=== PATIENT | male | born 1950 | race Caucasian/White ===

== ENCOUNTER 2020-11-05 09:58 | Inpatient (IN) | payer MEDICARE, SELFPAY ==
[~2020-11-05 09:58] MED LIST: Iopamidol-370 76% 500 ML 1 ML ONE
[2020-11-05] MEDS ORDERED: Diltiazem 125 MG/25 ML ONE (10:12)
[2020-11-05] MEDS ORDERED: Aspirin Chewable 81 MG TAB ONE (10:27)
[2020-11-05] MEDS ORDERED: Furosemide 40 MG/4 ML VIAL ONE (10:27)
--- NOTE | 2020-11-05 10:46 | RAD ---
Chest AP view INDICATION: Shortness of breath with Covid positive diagnosis and hypoxia COMPARISON: None FINDINGS: Lungs: There are interstitial and airspace opacities seen within the mid to lower lobes bilaterally Cardiac silhouette: There is mild cardiomegaly Pulmonary vasculature: Normal Pleural spaces: No pleural effusion or pneumothorax is demonstrated. Upper abdomen: No abnormality seen. Osseous structures: No acute osseous abnormality. Additional findings: None. IMPRESSION: Findings suspicious for bilateral pneumonia. Mild cardiomegaly without cardiac decompensation.
[2020-11-05 10:53] LABS: #Lymphocytes 0.4 thou/uL (1.20-3.40); #Monocytes 0.5 thou/uL (0.11-0.59); #Neutrophils 8.7 thou/uL (1.40-6.50); %Eosinophils 0.1 % (0.0-10.0); %Lymphocytes 3.7 % (21.0-51.0); %Monocytes 5.4 % (0.0-10.0); %Neutrophils 90.7 % (42.0-75.0); Hemoglobin 15.2 g/dL (14.0-18.0); Mean Corpuscular HGB CONC 32.9 g/dL (32.0-36.0); Mean Corpuscular Volume 85.1 fL (78.0-98.0); Mean Platelet Volume 7.4 fL (7.4-10.4); Platelet Count 479 thou/uL (130-400); RBC Distribution Width 14.3 % (11.5-14.5); Red Blood Cell (RBC) Count 5.42 mill/uL (4.70-6.10); White Blood Cell (WBC) Count 9.6 thou/uL (4.8-10.8)
[2020-11-05 10:58] LABS: INR-International Normal Ratio 1.2; PTT 26.7 sec (22.9-36.1); Prothrombin Time 15.4 sec (12.0-14.7)
[2020-11-05 11:12] LABS: ALT (SGPT) 20 U/L (8-55); AST (SGOT) 32 U/L (5-34); Albumin 3.3 g/dL (3.4-4.8); Alkaline Phosphatase 27 U/L (40-110); Anion Gap 21 mmol/L (10-20); BUN (Urea Nitrogen) 43 mg/dL (8.4-25.7); Bilirubin, Total 0.8 mg/dL (0.2-1.2); CK (CPK) 151 U/L (30-200); Calc. Creatinine Clearance 0 mL/min (70-130); Calcium 9.3 mg/dL (7.8-10.44); Carbon Dioxide 20 mmol/L (23-31); Chloride 108 mmol/L (98-107); Globulin 3.1 g/dL (2.4-3.5); Glucose 413 mg/dL (80-115); Protein, Total 6.4 g/dL (5.8-8.1); Sodium 144 mmol/L (136-145)
[2020-11-05 11:34] LABS: CKMB 1.9 ng/mL (0-6.6)
[2020-11-05 11:47] LABS: Bacteria/HPF None Seen HPF (None Seen); Bilirubin Negative (Negative); Blood, Urine 1+ (Negative); Clarity Clear (Clear); Glucose, Urine (Dipstick) Greater than 1000 mg/dL (Negative); Ketone, Urine Negative (Negative); Leukocyte Negative Leu/uL (Negative); Nitrite Negative (Negative); Protein, Urine (Dipstick) 50 mg/dL (Neg-Trace); RBC/HPF 0-3 HPF (0-3); Squamous Epithelial None Seen HPF (0-3); Urobilinogen Normal mg/dL (Less than 2); WBC/HPF 0-3 HPF (0-3)
--- NOTE | 2020-11-05 11:54 | CT ---
CT arteriogram chest with IV contrast and 3-D imaging HISTORY: Dyspnea. COVID positive. FINDINGS: There is good contrast opacification pulmonary arteries. Partial opacification of the thora cic aorta. Bovine origin of the great vessels at the aortic arch. Mild arterial calcification. Prominent ill-defined predominantly peripheral patchy areas of groundglass infiltrate are present thr oughout each lung. No pleural fluid or pneumothorax. No mediastinal adenopathy. A 1.8 cm cyst is partially visualized wi thin the left thyroid lobe. Calcified granulomata of the liver are consistent with healed granulomatous disease. Hyperdense stone s are present within the gallbladder lumen. IMPRESSION : No evidence of pulmonary embolus. Moderate CT findings of COVID pneumonitis. Cholelithiasis.
[2020-11-05] MEDS ORDERED: Metoprolol Tartrate 5 MG/5 ML VIAL ONE (12:13)
[2020-11-05] MEDS ORDERED: Magnesium 2 GM/50 ML BAG (IN WATER) ONE (12:13)
[2020-11-05 12:58] LABS: SARS-CoV-2 NAA Rapid Test DETECTED (NotDetected)
[2020-11-05] MEDS ORDERED: Enoxaparin Sodium 30 MG/0.3 ML SYRINGE ONE (13:55)
[2020-11-05] MEDS ORDERED: Enoxaparin Sodium 80 MG/0.8 ML SYRINGE ONE (13:55)
[2020-11-05 14:00] LABS: Lactic Acid 2.5 mmol/L (0.5-2.2)
[2020-11-05 14:06] LABS: Troponin I 0.036 ng/mL (< 0.028)
[2020-11-05] MEDS ORDERED: Enoxaparin Sodium 100 MG/ML SYRINGE SC SCH (14:15)
[2020-11-05] MEDS ORDERED: Amiodarone 450 MG in Dextrose 5% in Water 250 ML IVPB SCH (14:15)
[2020-11-05] MEDS: Sodium Chloride 0.9% 1,000 ML IV SCH ×7 (14:16→22:38)
[2020-11-05] MEDS ORDERED: Dextrose 5% in Water 1,000 ML IV PRN (14:26)
[2020-11-05] MEDS ORDERED: Dextrose 50% Abboject 50 ML SYRINGE SLOW IVP PRN (14:26)
--- NOTE | 2020-11-05 14:31 | PDOC.HHP ---
Hospitalist HPI - History of Present Illness Weakness History of Present Illness: Patient is a 69-year-old male with a history of diabetes, hypertension, hyperlipidemia who was admitted to the hospital in [place] 4 days ago. At that time the patient was experiencing some shortness of breath and was diagnosed with COVID-19 pneumonia. He was admitted to the hospital there and discharged on Thursday. From his discharge paperwork it appears as though he had been put on a beta-na and Eliquis for atrial fibrillation. The patient reports that he thought he was going to be discharged to a rehab facility however that did not happen. He was picked up by his niece and taken to [place] to a hotel room. Patient reports he was discharged on home oxygen. His discharge medications included dexamethasone, vitamin D3 for Covid pneumonia. It appears as though they also sent home on cefdinir and azithromycin for Covid pneumonia as I do not see another indication for that. Was also on metoprolol and Eliquis for A. fib with RVR along with his other home medications for diabetes and cholesterol. Reports he is just become progressively weaker to the point he could not get up today so he called an ambulance and was brought to this facility. He continues to feel some shortness of breath. Denies any specific chest pain. Denies any prior cardiac history. ED Course: Patient was noted to be hypotensive and in A. fib with RVR. He did receive an initial fluid bolus. He subsequently been on some IV maintenance fluids. He received aspirin 324 mg x 1. He was started on a diltiazem drip at 5 mg/h without a bolus due to his blood pressure. He was given IV metoprolol 5 mg x 1. He was given Lasix 40 mg IV x1 and magnesium 2 g. He was also given Lovenox 1 mg/kg. His blood pressure has improved somewhat and currently is maintaining above 100 systolic. His heart rate is still fairly variable and getting up to the 160s to 170s at times with modest exertion. Hospitalist ROS - Review of Systems Constitutional: reports: weakness, malaise. denies: fever, chills Respiratory: reports: shortness of breath, SOB with excertion. denies: cough Cardiovascular: denies: chest pain, palpitations Gastrointestinal: denies: nausea, vomiting, abdominal pain, diarrhea, constipation Genitourinary: denies: dysuria, frequency All other systems reviewed; all pertinent +/- noted in HPI/Subj - Medication Medications: Crestor 20 mg p.o. daily Glimepiride 1 mg p.o. daily Losartan 25 mg p.o. daily Metformin 1000 mg p.o. daily Metoprolol 25 mg p.o. twice daily Actos 15 mg p.o. daily Eliquis 5 mg p.o. twice daily Fenofibrate 154 mg p.o. daily Azithromycin Cefdinir Dexamethasone 6 mg daily Vitamin D3 Hospitalist History - Past Medical History Source: patient Cardiac: reports: AFIB, HTN, Hyperlipidemia Endocrine: reports: Diabetes - Past Surgical History Past Surgical History: reports: Appendectomy - Family History Family History: reports: cardiac disorder (Mother of an NH at 61, father with CHF.) - Social History Smoking Status: Never smoker Alcohol: reports: None Drugs: reports: none Living Situation: Alone Other Social History: When asked where the patient lives he indicated "nowhere". On pressing him he states he is now living in [facility]. He says his sister Uzma would be his surrogate decision maker. He is full code but was clear he does not want to be in a vegetative state. - Exam General Appearance: ill appearing General - other findings: Tachypneic Eye: PERRL Neck: supple, symmetric, no JVD, no thyromegaly, no lymphadenopathy, no carotid bruit Heart: no murmur, no gallops, no rubs, irregular Heart - other findings: Tachycardic Respiratory: no wheezes, no ronchi, rales (Very modest scattered rales) Gastrointestinal: soft, non-tender, non-distended, normal bowel sounds, no palpable masses, no hepatomegaly, no splenomegaly, no bruit Extremities: no cyanosis, no clubbing, no edema Skin: normal turgor Neurological: no focal deficits Musculoskeletal: generalized weakness Psychiatric: normal affect, normal behavior Hospitalist Results - Labs Result Diagrams: 11/05/20 10:27 11/05/20 10:27 Lab results: WBC 9.6 thou/uL (4.8-10.8) 11/05/20 10:27 Hgb 15.2 g/dL (14.0-18.0) 11/05/20 10:27 Hct 46.1 % (42.0-52.0) 11/05/20 10:27 MCV 85.1 fL (78.0-98.0) 11/05/20 10:27 Plt Count 479 thou/uL (130-400) H 11/05/20 10:27 Neutrophils % 90.7 % (42.0-75.0) H 11/05/20 10:27 Sodium 144 mmol/L (136-145) 11/05/20 10:27 Potassium 5.0 mmol/L (3.5-5.1) 11/05/20 10:27 Chloride 108 mmol/L (98-107) H 11/05/20 10:27 Carbon Dioxide 20 mmol/L (23-31) L 11/05/20 10:27 BUN 43 mg/dL (8.4-25.7) H 11/05/20 10:27 Creatinine 1.65 mg/dL (0.7-1.3) H 11/05/20 10:27 Glucose 413 mg/dL (80-115) H 11/05/20 10:27 Lactic Acid 2.5 mmol/L (0.5-2.2) H 11/05/20 13:31 Calcium 9.3 mg/dL (7.8-10.44) 11/05/20 10:27 Total Bilirubin 0.8 mg/dL (0.2-1.2) 11/05/20 10:27 AST 32 U/L (5-34) 11/05/20 10:27 ALT 20 U/L (8-55) 11/05/20 10:27 Alkaline Phosphatase 27 U/L (40-110) L 11/05/20 10:27 Creatine Kinase 151 U/L (30-200) 11/05/20 10:27 CK-MB (CK-2) 1.9 ng/mL (0-6.6) 11/05/20 10:27 Troponin I 0.036 ng/mL (< 0.028) H 11/05/20 13:31 Serum Total Protein 6.4 g/dL (5.8-8.1) 11/05/20 10:27 Albumin 3.3 g/dL (3.4-4.8) L 11/05/20 10:27 Urine Ketones Negative mg/dL (Negative) 11/05/20 11:00 Urine Blood 1+ (Negative) A 11/05/20 11:00 Urine Nitrite Negative (Negative) 11/05/20 11:00 Ur Leukocyte Esterase Negative Dangelo/uL (Negative) 11/05/20 11:00 Urine RBC 0-3 HPF (0-3) 11/05/20 11:00 Urine WBC 0-3 HPF (0-3) 11/05/20 11:00 Ur Squamous Epith Cells None Seen HPF (0-3) 11/05/20 11:00 Urine Bacteria None Seen HPF (None Seen) 11/05/20 11:00 - EKG Interpretation EKG: A. fib with RVR. - Radiology Interpretation CT scan - chest Status: report reviewed by me (Modest, typical Covid findings.) Hospitalist H&P A/P - Problem (1) Acute respiratory failure with hypoxia Code(s): J96.01 - ACUTE RESPIRATORY FAILURE WITH HYPOXIA Status: Acute (2) Pneumonia due to COVID-19 virus Code(s): U07.1 - COVID-19; J12.82 - PNEUMONIA DUE TO CORONAVIRUS DISEASE 2019 Status: Acute (3) Atrial fibrillation with rapid ventricular response Code(s): I48.91 - UNSPECIFIED ATRIAL FIBRILLATION Status: Acute (4) Hypertension Code(s): I10 - ESSENTIAL (PRIMARY) HYPERTENSION Status: Acute (5) Hyperlipidemia Code(s): E78.5 - HYPERLIPIDEMIA, UNSPECIFIED Status: Acute (6) Diabetes mellitus Code(s): E11.9 - TYPE 2 DIABETES MELLITUS WITHOUT COMPLICATIONS Status: Acute (7) Dehydration Code(s): E86.0 - DEHYDRATION Status: Acute (8) Prerenal azotemia Code(s): R79.89 - OTHER SPECIFIED ABNORMAL FINDINGS OF BLOOD CHEMISTRY Status: Acute (9) Lactic acidosis Code(s): E87.2 - ACIDOSIS Status: Acute - Plan Plan: Acute hypoxic respiratory failure: Secondary to COVID-19 pneumonia. Patient was discharged from the [facility] days ago on oxygen. Continue supplemental nasal cannula. COVID-19 pneumonia: We will continue dexamethasone. Continue vitamin supplementation. We will discontinue his previously prescribed antibiotics as there is no indication for these. Check inflammatory markers. A. fib with RVR: Patient presented with atrial fibrillation with rapid ventricular response. Patient was prescribed Eliquis at the time of his discharge from the hospital in [place]. Patient never filled this prescription. Currently on a diltiazem drip. His blood pressure precludes aggressive titration of this at this time. Starting an amiodarone drip. Therapeutic Lovenox. Consult cardiology. Fluid bolus. Dehydration: Patient appears to have poorly controlled diabetes which is likely due to his dexamethasone. Patient reports polyuria likely from the hypoglycemia. He has prerenal azotemia with renal indices indicating dehydration. Additional fluid bolus and IV fluid maintenance. Diabetes mellitus poorly controlled: Again likely exacerbated by his dexamethasone. Continue with his home medications. Sliding scale insulin with Accu-Cheks. Lactic acidosis: Likely combination of dehydration and poorly controlled diabetes. Continue to monitor. May be also due to his underlying Covid infection. Do not see any evidence of any bacterial sepsis. Hypertension: Blood pressure was actually quite low when he got here today. It is improving. Holding on his blood pressure medications. Hyperlipidemia: Continue his home dose of statin
[2020-11-05] MEDS ORDERED: Heparin 1,000 UNITS/ML VIAL ONE (16:37)
[2020-11-05] MEDS: metFORMIN 500 MG TAB PO SCH (17:06)
[2020-11-05 17:17] LABS: Troponin I 0.041 ng/mL (< 0.028)
[2020-11-05] MEDS: Metoprolol Tartrate 25 MG TAB PO SCH (22:37)
[2020-11-05] MEDS: Famotidine 20 MG TAB PO SCH (22:37)
[2020-11-05] MEDS: HumaLOG 300 UNITS/3 ML VIAL SC PRN (22:38)
[2020-11-06] MEDS: Sodium Chloride 0.9% 1,000 ML IV SCH ×9 (03:06→21:27)
[2020-11-06 05:26] LABS: #Eosinphils 0.1 thou/uL (0.0-0.7); #Lymphocytes 0.3 thou/uL (1.20-3.40); #Monocytes 0.3 thou/uL (0.11-0.59); #Neutrophils 5.8 thou/uL (1.40-6.50); %Eosinophils 1.1 % (0.0-10.0); %Lymphocytes 4.7 % (21.0-51.0); %Monocytes 4.8 % (0.0-10.0); %Neutrophils 89.4 % (42.0-75.0); Hemoglobin 13.8 g/dL (14.0-18.0); Mean Corpuscular HGB CONC 31.8 g/dL (32.0-36.0); Mean Corpuscular Hemoglobin 27.2 pg (27.0-31.0); Mean Corpuscular Volume 85.5 fL (78.0-98.0); Mean Platelet Volume 6.7 fL (7.4-10.4); Platelet Count 426 thou/uL (130-400); RBC Distribution Width 14.1 % (11.5-14.5); Red Blood Cell (RBC) Count 5.09 mill/uL (4.70-6.10); White Blood Cell (WBC) Count 6.4 thou/uL (4.8-10.8)
[2020-11-06 05:49] LABS: Anion Gap 17 mmol/L (10-20); BUN (Urea Nitrogen) 33 mg/dL (8.4-25.7); Calc. Creatinine Clearance 94 mL/min (70-130); Calcium 8.2 mg/dL (7.8-10.44); Carbon Dioxide 22 mmol/L (23-31); Glucose 205 mg/dL (80-115); Potassium 4.8 mmol/L (3.5-5.1)
[2020-11-06 06:04] LABS: Chloride 110 mmol/L (98-107); Sodium 144 mmol/L (136-145)
[2020-11-06] MEDS: HumaLOG 300 UNITS/3 ML VIAL SC PRN ×4 (06:16→21:27)
--- NOTE | 2020-11-06 07:53 | RAD ---
Chest one view HISTORY: Pneumonia. Dyspnea. COMPARISON: 11/05/2020. FINDINGS: Cardiac silhouette is magnified and enlarged. Shallow inspiration accentuates pulmonary mar kings. Mediastinum is midline. Ill-defined patchy areas of peripheral groundglass infiltrate are more dense than on the prior exam. No lobar consolidation or evidence of pneumothorax. IMPRESSION : Progression of multifocal infiltrates.
[2020-11-06] MEDS: Dexamethasone 6 MG in Sodium Chloride 0.9% 50 ML IVPB SCH (08:47)
[2020-11-06] MEDS: metFORMIN 500 MG TAB PO SCH ×2 (08:48→17:14)
[2020-11-06] MEDS: Famotidine 20 MG TAB PO SCH ×2 (08:48→21:25)
[2020-11-06] MEDS: Metoprolol Tartrate 25 MG TAB PO SCH ×2 (08:48→21:26)
[2020-11-06] MEDS: Pioglitazone HCl 15 MG TAB PO SCH (08:48)
[2020-11-06] MEDS ORDERED: Enoxaparin Sodium 100 MG/ML SYRINGE SC SCH (09:00)
[2020-11-06] MEDS ORDERED: FLU VACC QS2020-21(65YR UP)/PF 240 MCG/0.7 ML SYRINGE IM ONE (09:00)
[2020-11-06] MEDS: Glimepiride 1 MG TAB PO SCH ×2 (09:24→10:18)
--- NOTE | 2020-11-06 11:32 | PDOC.HOSPP ---
- Subjective Encounter Date: 11/06/20 Encounter Time: 11:30 Subjective: F/u: COVID, afib The patient reports diminished appetite. Denies congestion or chest pain or palpitations. He is on HFNC currently. Heart rate is controlled, BP 97 systolic. He is still getting fluids He reports not filling his antibiotics because he didn't get around to it. He denies history of afib in the past, denies history of heart attack - Objective Vital Signs & Weight: Vital Signs (12 hours) Temp Pulse Resp BP Pulse Ox 11/06/20 08:30 98.4 F 72 32 H 164/94 H 92 L 11/06/20 07:46 97 11/06/20 06:41 95 11/06/20 06:35 76 L 11/06/20 04:36 98.0 F 68 23 H 130/98 H 92 L 11/05/20 23:48 97.4 F L 67 26 H 136/79 95 Weight Weight 246 lb 3.043 oz I&O: 11/05/20 11/06/20 11/07/20 06:59 06:59 06:59 Output Total 250 Balance -250 Result Diagrams: 11/06/20 05:17 11/06/20 05:17 Additional Labs: Accuchecks 11/05/20 22:36 POC Glucose 295 H Hospitalist ROS - Medication Medications: Active Medications Generic Name Dose Route Start Last Admin Trade Name Freq PRN Reason Stop Dose Admin Famotidine 20 mg 11/05/20 21:00 11/06/20 08:48 Famotidine 20 Mg Tab PO 20 mg BID AMARI Administration Amiodarone HCl 450 mg/ 259 mls @ 0 mls/hr 11/05/20 14:15 11/05/20 23:06 Dextrose/Water IVPB 259 mls INF AMARI Administration Protocol Per Protocol Sodium Chloride 1,000 mls @ 75 mls/hr 11/05/20 14:15 11/05/20 22:38 Normal Saline 0.9% IV 1,000 mls .[id number] AMARI Administration Dexamethasone 6 mg/ Sodium 50.6 mls @ 100 mls/hr 11/06/20 09:00 11/06/20 08:47 Chloride IVPB 50.6 mls DAILY AMARI Administration Insulin Human Lispro 0 units 11/05/20 14:26 11/06/20 06:16 Humalog 300 Units/3 Ml Vial SC 3 unit .MILD SLIDING SCALE PRN Administration Mild Correctional Scale Metformin HCl 500 mg 11/05/20 17:00 11/06/20 08:48 Metformin 500 Mg Tab PO 500 mg BID-WM AMARI Administration Metoprolol Tartrate 25 mg 11/05/20 21:00 11/06/20 08:48 Metoprolol Tartrate 25 Mg Tab PO 25 mg BID AMARI Administration Pioglitazone HCl 15 mg 11/06/20 09:00 11/06/20 08:48 Pioglitazone Hcl 15 Mg Tab PO 15 mg DAILY AMARI Administration - Exam General Appearance: NAD, awake alert Eye: PERRL, anicteric sclera ENT: normocephalic atraumatic Neck: no JVD Heart: RRR, no murmur, no gallops, no rubs Respiratory: CTAB, no wheezes, no rales Gastrointestinal: soft, non-distended, normal bowel sounds, no palpable masses Extremities: no cyanosis, no clubbing, no edema Skin: normal turgor, no lesions, no rashes Hosp A/P - Plan Chest x ray 11/05: bilateral pneumonia, mild cardiomegaly without cardiac decompensation CTA chest 11/05: COVID pneumonitis. No PE. Cholelithiasis Chest X ray 11/06: progression of multifocal infiltrates This is a 69 year old male who was diagnosed with COVID one week ago who presented with increasing weakness, found to be hypotensive and in atrial fibrillation Acute hypoxic respiratory failure secondary to COVID pneumonia - chest X ray 11/05 shows bilateral pneumonia, repeat shows worsening - he is on high flow nasal cannula. He was on cefdinir and azithromycin during last hospitalization. Will trial IV zosyn, although most likely viral - consider convalescent plasma #Hypotension #Atrial fibrillation with RVR #Lactic acidosis - he was placed on amiodarone drip. Cardiology has been consulted. Plan to wean off drip and switch to oral amiodarone - continue IV fluids 75/hour. Lactate improved to 2.5, will repaet Weakness secondary to dehydration - continue IV fluids. Will order PT evaluation Type II Diabetes - continue sliding scale. Will hold glipizide due to poor appetite Hyperlipidemia: - continue home statin
--- NOTE | 2020-11-06 11:55 | CON ---
DATE OF CONSULTATION: HISTORY OF PRESENT ILLNESS: The patient is a 69-year-old gentleman who presented with dyspnea and palpitations. The patient has no previous cardiac history. He was in his usual state of health until prior to admission. He has developed shortness of breath. The patient was admitted into [facility] several days ago with atrial fibrillation. The patient was also treated for COVID pneumonia. The patient went home and presented again to the emergency room with marked dyspnea. The patient denied having any chest discomfort. PAST MEDICAL HISTORY: 1. Hypertension. 2. Dyslipidemia. 3. Diabetes mellitus. PAST SURGICAL HISTORY: Appendectomy. SOCIAL HISTORY: Nonsmoker. No excess use of alcohol. ALLERGIES: NO KNOWN DRUG ALLERGIES. MEDICATIONS ON ADMISSION: 1. Metformin 1000 nightly. 2. Crestor 20 nightly. 3. Actos 15 nightly. 4. Amaryl 1 daily. 5. Tricor 145 daily. FAMILY HISTORY: Positive for strong family history of heart disease. PHYSICAL EXAMINATION: GENERAL: A middle-aged gentleman, in mild distress. VITAL SIGNS: Blood pressure 164/94. NECK: No jugular venous distention. LUNGS: Crackles throughout both lung gonsalves. HEART: Regular rate and rhythm. Normal S1 and S2. No murmurs. ABDOMEN: Nondistended. EXTREMITIES: No edema. VASCULAR: Radial pulses 2+. LABORATORY DATA: Sodium 144, potassium 4.8, chloride 110, bicarb 22, BUN 33, creatinine 1.17, and glucose 205. Troponin 0.041. White blood cell count 6.4, hemoglobin 13.8, hematocrit 43.5, and platelets of 426. EKG atrial fibrillation with a rapid ventricular response, no ST-T wave changes. Chest x- ray bilateral infiltrates, suggestive of coving pneumonia. IMPRESSION: 1. COVID pneumonia. 2. Atrial fibrillation. 3. Diabetes mellitus. 4. Hypertension. 5. Renal insufficiency. PLAN: This gentleman presents with COVID pneumonia. The patient was in atrial fibrillation, and converted with IV amiodarone. It is imperative that this gentleman should need to be maintained in sinus rhythm. I agree with placing the patient on amiodarone. I will switch him to p.o. amiodarone. The patient should be on anticoagulation. He has a CHADS-VASc score of 3. The patient will be switched to Eliquis. We will follow this patient with you through his hospitalization. Job ID: [id number] GINI
[2020-11-06] MEDS: Piperacillin/Tazobactam 3.375 GM in Sodium Chloride 0.9% 100 ML IVPB SCH ×2 (11:57→17:14)
[2020-11-06 13:55] LABS: Lactic Acid 1.6 mmol/L (0.5-2.2)
[2020-11-06] MEDS: Amiodarone 200 MG TAB PO SCH (21:26)
[2020-11-06] MEDS: Rosuvastatin 20 MG TAB PO SCH (21:26)
[2020-11-06] MEDS: Apixaban 5 MG TAB PO SCH (21:26)
[2020-11-07] MEDS: Piperacillin/Tazobactam 3.375 GM in Sodium Chloride 0.9% 100 ML IVPB SCH ×5 (00:57→22:21)
[2020-11-07] MEDS: HumaLOG 300 UNITS/3 ML VIAL SC PRN ×3 (05:54→17:32)
[2020-11-07] MEDS: Pioglitazone HCl 15 MG TAB PO SCH (09:26)
[2020-11-07] MEDS: Amiodarone 200 MG TAB PO SCH ×3 (09:26→21:37)
[2020-11-07] MEDS: Famotidine 20 MG TAB PO SCH ×2 (09:26→21:38)
[2020-11-07] MEDS: Dexamethasone 6 MG in Sodium Chloride 0.9% 50 ML IVPB SCH (09:26)
[2020-11-07] MEDS: Metoprolol Tartrate 25 MG TAB PO SCH ×2 (09:26→21:38)
[2020-11-07] MEDS: metFORMIN 500 MG TAB PO SCH ×2 (09:26→16:33)
[2020-11-07] MEDS: Apixaban 5 MG TAB PO SCH ×2 (09:26→21:37)
--- NOTE | 2020-11-07 15:07 | PDOC.HOSPP ---
- Subjective Encounter Date: 11/07/20 Encounter Time: 10:00 Subjective: F/u: COVID THe patient is still on high flow nasal cannula. He desaturated to 70% while ambulating. He still has a cough of white phlegm. No chest pain. No palpitations - Objective Vital Signs & Weight: Vital Signs (12 hours) Temp Pulse Resp BP Pulse Ox 11/07/20 11:41 97.4 F L 62 20 152/86 H 97 11/07/20 07:54 97.8 F 61 20 128/79 99 11/07/20 07:40 99 11/07/20 06:58 97 11/07/20 04:00 97.5 F L 60 18 131/80 100 Weight Weight 246 lb 3.043 oz I&O: 11/06/20 11/07/20 11/08/20 06:59 06:59 06:59 Intake Total 4580 300 Output Total 250 1925 200 Balance -250 2655 100 Result Diagrams: 11/06/20 05:17 11/06/20 05:17 Additional Labs: Accuchecks 11/07/20 11/07/20 11/06/20 11:07 05:24 20:51 POC Glucose 201 H 154 H 218 H 11/06/20 16:24 POC Glucose 245 H Hospitalist ROS - Review of Systems Constitutional: denies: fever, chills - Medication Medications: Active Medications Generic Name Dose Route Start Last Admin Trade Name Freq PRN Reason Stop Dose Admin Amiodarone HCl 400 mg 11/06/20 21:00 11/07/20 09:26 Amiodarone 200 Mg Tab PO 400 mg TID AMARI Administration Apixaban 5 mg 11/06/20 21:00 11/07/20 09:26 Apixaban 5 Mg Tab PO 5 mg BID AMARI Administration Famotidine 20 mg 11/05/20 21:00 11/07/20 09:26 Famotidine 20 Mg Tab PO 20 mg BID AMARI Administration Sodium Chloride 1,000 mls @ 75 mls/hr 11/05/20 14:15 11/06/20 21:27 Normal Saline 0.9% IV 1,000 mls .[id number] AMARI Administration Dexamethasone 6 mg/ Sodium 50.6 mls @ 100 mls/hr 11/06/20 09:00 11/07/20 09:26 Chloride IVPB 50.6 mls DAILY AMARI Administration Piperacillin Sod/Tazobactam 100 mls @ 200 mls/hr 11/06/20 12:00 11/07/20 11:36 Sod 3.375 gm/ Sodium Chloride IVPB 100 mls Q6HR AMARI Administration Insulin Human Lispro 0 units 11/05/20 14:26 11/07/20 11:36 Humalog 300 Units/3 Ml Vial SC 3 unit .MILD SLIDING SCALE PRN Administration Mild Correctional Scale Metformin HCl 500 mg 11/05/20 17:00 11/07/20 09:26 Metformin 500 Mg Tab PO 500 mg BID-WM AMARI Administration Metoprolol Tartrate 25 mg 11/05/20 21:00 11/07/20 09:26 Metoprolol Tartrate 25 Mg Tab PO 25 mg BID AMARI Administration Pioglitazone HCl 15 mg 11/06/20 09:00 11/07/20 09:26 Pioglitazone Hcl 15 Mg Tab PO 15 mg DAILY AMARI Administration Rosuvastatin Calcium 20 mg 11/06/20 21:00 11/06/20 21:26 Rosuvastatin 20 Mg Tab PO 20 mg HS AMARI Administration - Exam General Appearance: NAD, awake alert Eye: PERRL, anicteric sclera ENT: normocephalic atraumatic, no oropharyngeal lesions Neck: no JVD Heart: RRR, no murmur, no gallops, no rubs Respiratory: CTAB, no wheezes, no rales Gastrointestinal: soft, non-tender, non-distended, normal bowel sounds Extremities: no cyanosis, no clubbing, no edema Hosp A/P - Plan Chest x ray 11/05: bilateral pneumonia, mild cardiomegaly without cardiac decompensation CTA chest 11/05: COVID pneumonitis. No PE. Cholelithiasis Chest X ray 11/06: progression of multifocal infiltrates This is a 69 year old male who was diagnosed with COVID one week ago who pres ented with increasing weakness, found to be hypotensive and in atrial fibrillation Acute hypoxic respiratory failure secondary to COVID pneumonia - chest X ray 11/05 shows bilateral pneumonia, repeat shows worsening - he is on high flow nasal cannula. Continue IV zosyn and IV steroids - will order convalescent plasma #Hypotension #Atrial fibrillation with RVR - he has been converted to oral amiodarone 400 mg tid. Hypotension has resolved - continue eliquis Lactic acidosis - resolved. Will discontinue fluids Weakness secondary to dehydration - continue IV fluids. PT is working with the patient, he still very weak while walking and they are recommending rehab Type II Diabetes - continue sliding scale. Will hold glipizide due to poor appetite Hyperlipidemia: - continue home statin Disposition: will need rehab. Needs to wean off high flow
[2020-11-07] MEDS: Rosuvastatin 20 MG TAB PO SCH (21:38)
[2020-11-08] MEDS: Piperacillin/Tazobactam 3.375 GM in Sodium Chloride 0.9% 100 ML IVPB SCH ×3 (05:18→16:44)
[2020-11-08] MEDS: Apixaban 5 MG TAB PO SCH ×2 (08:03→19:59)
[2020-11-08] MEDS: Famotidine 20 MG TAB PO SCH ×2 (08:03→19:59)
[2020-11-08] MEDS: Amiodarone 200 MG TAB PO SCH ×3 (08:03→19:59)
[2020-11-08] MEDS: Pioglitazone HCl 15 MG TAB PO SCH (08:03)
[2020-11-08] MEDS: metFORMIN 500 MG TAB PO SCH ×2 (08:03→16:45)
[2020-11-08] MEDS: Metoprolol Tartrate 25 MG TAB PO SCH ×2 (08:04→19:59)
[2020-11-08] MEDS ORDERED: Dexamethasone 4 mg/ml Vial SLOW IVP SCH (09:00)
--- NOTE | 2020-11-08 11:16 | PDOC.HOSPP ---
- Subjective Encounter Date: 11/08/20 Encounter Time: 11:14 Subjective: F/u: COVID The patient has been weaned down to nasal cannula 5L. HE was on high flow yesterday. He is still very weak and has a poor appetite and is only drinking water. He states last time he was declined from rehab at [place]. He lives in a [facility] in [place] He got convalescent plasma yesterday - Objective Vital Signs & Weight: Vital Signs (12 hours) Temp Pulse Resp BP Pulse Ox 11/08/20 09:46 93 L 11/08/20 09:00 98.6 F 63 24 H 133/87 94 L 11/08/20 08:35 97.6 F 70 36 H 148/88 H 92 L 11/08/20 04:00 98.0 F 60 18 118/63 97 11/08/20 02:49 95 11/07/20 23:38 98.1 F 55 L 16 119/61 96 Weight Weight 246 lb 3.043 oz I&O: 11/07/20 11/08/20 11/09/20 06:59 06:59 06:59 Intake Total 4580 600 240 Output Total 1925 200 200 Balance 2655 400 40 Result Diagrams: 11/06/20 05:17 11/06/20 05:17 Additional Labs: Accuchecks 11/08/20 11/07/20 11/07/20 05:20 21:40 16:16 POC Glucose 184 H 182 H 219 H 11/07/20 11:07 POC Glucose 201 H Hospitalist ROS - Review of Systems Constitutional: denies: fever, chills - Medication Medications: Active Medications Generic Name Dose Route Start Last Admin Trade Name Freq PRN Reason Stop Dose Admin Amiodarone HCl 400 mg 11/06/20 21:00 11/08/20 08:03 Amiodarone 200 Mg Tab PO 400 mg TID AMARI Administration Apixaban 5 mg 11/06/20 21:00 11/08/20 08:03 Apixaban 5 Mg Tab PO 5 mg BID AMARI Administration Dexamethasone 6 mg 11/08/20 09:00 11/08/20 08:04 Dexamethasone 4 Mg/Ml Vial SLOW IVP 11/08/20 12:00 6 mg DAILY AMARI Administration Famotidine 20 mg 11/05/20 21:00 11/08/20 08:03 Famotidine 20 Mg Tab PO 20 mg BID AMARI Administration Piperacillin Sod/Tazobactam 100 mls @ 200 mls/hr 11/06/20 12:00 11/08/20 10:37 Sod 3.375 gm/ Sodium Chloride IVPB 100 mls Q6HR AMARI Administration Insulin Human Lispro 0 units 11/05/20 14:26 11/07/20 17:32 Humalog 300 Units/3 Ml Vial SC 3 unit .MILD SLIDING SCALE PRN Administration Mild Correctional Scale Metformin HCl 500 mg 11/05/20 17:00 11/08/20 08:03 Metformin 500 Mg Tab PO 500 mg BID-WM AMARI Administration Metoprolol Tartrate 25 mg 11/05/20 21:00 11/08/20 08:04 Metoprolol Tartrate 25 Mg Tab PO 25 mg BID AMARI Administration Pioglitazone HCl 15 mg 11/06/20 09:00 11/08/20 08:03 Pioglitazone Hcl 15 Mg Tab PO 15 mg DAILY AMARI Administration Rosuvastatin Calcium 20 mg 11/06/20 21:00 11/07/20 21:38 Rosuvastatin 20 Mg Tab PO 20 mg HS AMARI Administration - Exam General Appearance: NAD, awake alert Eye: PERRL, anicteric sclera ENT: normocephalic atraumatic, no oropharyngeal lesions Neck: no JVD Heart: RRR, no murmur, no gallops, no rubs Respiratory: CTAB, no wheezes, no rales, no ronchi Gastrointestinal: soft, non-tender, non-distended, normal bowel sounds Extremities: no cyanosis, no clubbing, no edema Hosp A/P - Plan Chest x ray 11/05: bilateral pneumonia, mild cardiomegaly without cardiac decompensation CTA chest 11/05: COVID pneumonitis. No PE. Cholelithiasis Chest X ray 11/06: progression of multifocal infiltrates This is a 69 year old male who was diagnosed with COVID one week ago who presented with increasing weakness, found to be hypotensive and in atrial fibrillation Acute hypoxic respiratory failure secondary to COVID pneumonia - chest X ray 11/05 shows bilateral pneumonia, repeat on 11/06 showed worsening infiltrates. He has been weaned down to 5L nasal cannula. Will repeat chest XRay to evaluate for improvement - Continue IV zosyn and IV steroids. He is s/p convalescent plasma yesterday 11/07 #Hypotension #Atrial fibrillation with RVR -he is currently in sinus rhythm. Continue oral amiodarone 400 mg tid. - continue eliquis Lactic acidosis - resolved. Will discontinue fluids Weakness secondary to dehydration - PT is recommending rehab. Will consult case management for rehab Type II Diabetes - continue sliding scale Hyperlipidemia: - continue home statin Disposition: Case management consult
[2020-11-08] MEDS: HumaLOG 300 UNITS/3 ML VIAL SC PRN ×3 (11:33→22:46)
--- NOTE | 2020-11-08 13:40 | RAD ---
Portable frontal chest radiograph: 11/08/2020 COMPARISON: 11/06/2020 HISTORY: Reevaluate pulmonary parenchymal infiltrates FINDINGS: Diffuse bilateral interstitial density noted, most prominent within the mid right lung zone , the right lung base, and the medial left lung base. Superimposed areas of groundglass opacity are noted peripherally, right greater than left. These findings do not appear significantly changed when compared to the 11/06/2020 examination and are suspicious for bilateral Covid pneumonia. IMPRESSION: Stable appearance of the chest as described above.
[2020-11-08] MEDS: Rosuvastatin 20 MG TAB PO SCH (19:59)
[2020-11-09] MEDS: Piperacillin/Tazobactam 3.375 GM in Sodium Chloride 0.9% 100 ML IVPB SCH ×5 (00:22→23:50)
[2020-11-09] MEDS ORDERED: Melatonin 3 MG TAB PO SCH (01:30)
[2020-11-09] MEDS: Amiodarone 200 MG TAB PO SCH ×3 (09:22→21:45)
[2020-11-09] MEDS: metFORMIN 500 MG TAB PO SCH (09:22)
[2020-11-09] MEDS: Famotidine 20 MG TAB PO SCH ×2 (09:22→21:45)
[2020-11-09] MEDS: Pioglitazone HCl 15 MG TAB PO SCH (09:22)
[2020-11-09] MEDS: Apixaban 5 MG TAB PO SCH ×2 (09:22→21:45)
[2020-11-09] MEDS ORDERED: Dexamethasone 4 mg/ml Vial SLOW IVP SCH (09:45)
--- NOTE | 2020-11-09 10:30 | RAD ---
CHEST 1 VIEW: Date: 11/09/2020 HISTORY: Worsening oxygen requirements. COMPARISON: None. FINDINGS: There are extensive opacities throughout the lungs. There is very faint curvilinear hypodensity appro ximating the right hemidiaphragm. No pneumomediastinum. Cardiac silhouette and mediastinal contours a re similar. IMPRESSION: 1. Similar lung aeration with extensive air space opacities indicative of COVID-19 pneumonia. 2. Very subtle linear hypodensity along the right diaphragm, likely a Mach band. Close follow-up ingrid ging is recommended to evaluate for a developing basilar pneumothorax, although none is felt to be vi sualized at this time. POS: AH
--- NOTE | 2020-11-09 10:50 | PDOC.HOSPP ---
- Subjective Encounter Date: 11/09/20 Encounter Time: 10:49 Subjective: F/u: COVID THe patient desaturated overnight and was placed back on high flow nasal cannula. His respiratory rate remains in the 30's and desaturates to 80% with movement. He is on 60L currently The patient is aspirating with liquids. He reports poor appetite. He has slight cough. His shortness of breath is about the same. I asked if he were to get worst, would he want a breathing tube, he stated " I don't know, maybe." - Objective Vital Signs & Weight: Vital Signs (12 hours) Temp Pulse Resp BP Pulse Ox 11/09/20 09:30 99.0 F 71 32 H 119/72 89 L 11/09/20 07:58 98.7 F 69 28 H 148/66 H 91 L 11/09/20 06:41 90 L 11/09/20 05:49 98.7 F 65 28 H 123/71 90 L 11/09/20 04:00 98.3 F 67 28 H 123/71 90 L 11/09/20 02:52 97 11/09/20 02:00 97.5 F L 62 26 H 154/88 H 93 L 11/09/20 00:52 98.1 F 60 24 H 150/90 H 97 Weight Weight 246 lb 3.043 oz I&O: 11/08/20 11/09/20 11/10/20 06:59 06:59 06:59 Intake Total 600 1430 Output Total 200 500 Balance 400 930 Result Diagrams: 11/09/20 11:44 11/09/20 11:44 Additional Labs: Accuchecks 11/09/20 11/08/20 11/08/20 06:22 20:04 15:50 POC Glucose 183 H 219 H 233 H 11/08/20 11:15 POC Glucose 222 H Hospitalist ROS - Review of Systems Constitutional: denies: fever, chills - Medication Medications: Active Medications Generic Name Dose Route Start Last Admin Trade Name Freq PRN Reason Stop Dose Admin Amiodarone HCl 400 mg 11/06/20 21:00 11/09/20 09:22 Amiodarone 200 Mg Tab PO 400 mg TID AMARI Administration Apixaban 5 mg 11/06/20 21:00 11/09/20 09:22 Apixaban 5 Mg Tab PO 5 mg BID AMARI Administration Famotidine 20 mg 11/05/20 21:00 11/09/20 09:22 Famotidine 20 Mg Tab PO 20 mg BID AMARI Administration Piperacillin Sod/Tazobactam 100 mls @ 200 mls/hr 11/06/20 12:00 11/09/20 06:19 Sod 3.375 gm/ Sodium Chloride IVPB 100 mls Q6HR AMARI Administration Insulin Human Lispro 0 units 11/05/20 14:26 11/08/20 22:46 Humalog 300 Units/3 Ml Vial SC 3 unit .MILD SLIDING SCALE PRN Administration Mild Correctional Scale Rosuvastatin Calcium 20 mg 11/06/20 21:00 11/08/20 19:59 Rosuvastatin 20 Mg Tab PO 20 mg HS AMARI Administration - Exam General Appearance: NAD, awake alert, ill appearing General - other findings: appears fatigued Eye: PERRL, anicteric sclera ENT: no oropharyngeal lesions Heart: RRR, no murmur, no gallops, no rubs Respiratory: CTAB, no wheezes, no rales, no ronchi, normal percussion Gastrointestinal: soft, non-tender, non-distended, normal bowel sounds, no hepatomegaly Extremities: no cyanosis, no clubbing, no edema Skin: normal turgor, no lesions, no rashes Hosp A/P - Plan Chest x ray 11/05: bilateral pneumonia, mild cardiomegaly without cardiac decompensation CTA chest 11/05: COVID pneumonitis. No PE. Cholelithiasis Chest X ray 11/06: progression of multifocal infiltrates Chest X ray 11/09: very subtle linear hypodensity along the right diaphragm, likely a Mach band. Extensive airspace opacities This is a 69 year old male who was diagnosed with COVID one week ago who presented with increasing weakness, found to be hypotensive and in atrial fibrillation. He is admitted with respiratory failure Acute hypoxic respiratory failure secondary to COVID pneumonia - chest X ray 11/05 shows bilateral pneumonia, repeat on 11/06 showed worsening infiltrates. Patient's oxygen requirement has been worsening, he is now back on high flow. Repeat chest Xray 11/09 essentially unchanged. - Continue IV zosyn and IV steroids. He is s/p convalescent plasma 11/07 HEBER - creatinine increasing to 1.3. Will start IV fluids #Hypotension - resolved #Atrial fibrillation with RVR -he is currently in sinus rhythm. Continue oral amiodarone 400 mg tid. - continue eliquis Lactic acidosis - resolved. Will discontinue fluids Weakness secondary to dehydration - PT is recommending rehab. Consulted case management for rehab Type II Diabetes - continue sliding scale Hyperlipidemia: - continue home statin Disposition: pending improvement in oxygenation
[2020-11-09] MEDS: HumaLOG 300 UNITS/3 ML VIAL SC PRN ×3 (11:07→21:51)
[2020-11-09 12:13] LABS: Hemoglobin 13.4 g/dL (14.0-18.0); Mean Corpuscular HGB CONC 33.4 g/dL (32.0-36.0); Mean Corpuscular Hemoglobin 28.6 pg (27.0-31.0); Mean Corpuscular Volume 85.8 fL (78.0-98.0); Mean Platelet Volume 6.7 fL (7.4-10.4); Platelet Count 479 thou/uL (130-400); RBC Distribution Width 14.2 % (11.5-14.5); Red Blood Cell (RBC) Count 4.69 mill/uL (4.70-6.10); White Blood Cell (WBC) Count 14.1 thou/uL (4.8-10.8)
[2020-11-09 12:30] LABS: Anion Gap 22 mmol/L (10-20); BUN (Urea Nitrogen) 36 mg/dL (8.4-25.7); Calc. Creatinine Clearance 83 mL/min (70-130); Calcium 8.5 mg/dL (7.8-10.44); Carbon Dioxide 15 mmol/L (23-31); Chloride 110 mmol/L (98-107); Glucose 261 mg/dL (80-115); Potassium 4.5 mmol/L (3.5-5.1); Sodium 142 mmol/L (136-145)
[2020-11-09] MEDS: Sodium Chloride 0.9% 1,000 ML IV SCH (13:53)
[2020-11-09] MEDS: Rosuvastatin 20 MG TAB PO SCH (21:45)
[2020-11-09] MEDS: Melatonin 3 MG TAB PO SCH (21:45)
[2020-11-09] MEDS ORDERED: hydrALAZINE 20 MG/ML VIAL SLOW IVP PRN (22:57)
[2020-11-10 05:43] LABS: Hemoglobin 12.7 g/dL (14.0-18.0); Mean Corpuscular HGB CONC 33.1 g/dL (32.0-36.0); Mean Corpuscular Hemoglobin 27.9 pg (27.0-31.0); Mean Corpuscular Volume 84.2 fL (78.0-98.0); Mean Platelet Volume 6.8 fL (7.4-10.4); Platelet Count 449 thou/uL (130-400); RBC Distribution Width 14.2 % (11.5-14.5); Red Blood Cell (RBC) Count 4.54 mill/uL (4.70-6.10); White Blood Cell (WBC) Count 12.6 thou/uL (4.8-10.8)
[2020-11-10 05:57] LABS: Anion Gap 18 mmol/L (10-20); BUN (Urea Nitrogen) 34 mg/dL (8.4-25.7); Calc. Creatinine Clearance 82 mL/min (70-130); Calcium 8.3 mg/dL (7.8-10.44); Carbon Dioxide 17 mmol/L (23-31); Chloride 115 mmol/L (98-107); Glucose 215 mg/dL (80-115); Potassium 4.2 mmol/L (3.5-5.1); Sodium 146 mmol/L (136-145)
[2020-11-10] MEDS: Piperacillin/Tazobactam 3.375 GM in Sodium Chloride 0.9% 100 ML IVPB SCH ×3 (06:13→16:40)
[2020-11-10] MEDS: HumaLOG 300 UNITS/3 ML VIAL SC PRN ×4 (06:35→20:37)
[2020-11-10] MEDS: Apixaban 5 MG TAB PO SCH ×2 (10:13→19:48)
[2020-11-10] MEDS: Amiodarone 200 MG TAB PO SCH ×3 (10:13→19:48)
[2020-11-10] MEDS: Dexamethasone 4 mg/ml Vial SLOW IVP SCH (10:14)
[2020-11-10] MEDS: Famotidine 20 MG TAB PO SCH ×2 (10:14→19:48)
[2020-11-10] MEDS: Sodium Chloride 0.9% 1,000 ML IV SCH (13:18)
--- NOTE | 2020-11-10 13:21 | PDOC.HOSPP ---
- Subjective Encounter Date: 11/10/20 Encounter Time: 10:25 Subjective: Nursing at bedside. Patient is on high flow oxygen still have mild respiratory distress. Quite fatigued. has some dependent edema in his hands. He is oriented x2. - Objective Vital Signs & Weight: Vital Signs (12 hours) Temp Pulse Resp BP Pulse Ox 11/10/20 10:15 98.5 F 86 26 H 127/63 90 L 11/10/20 08:15 98.2 F 81 28 H 120/76 91 L 11/10/20 06:00 98.0 F 64 20 154/88 H 92 L 11/10/20 04:00 98.4 F 62 20 158/91 H 93 L 11/10/20 03:25 98.0 F 84 28 H 154/95 H 93 L 11/10/20 02:00 98.4 F 78 24 H 139/86 100 Weight Weight 246 lb 3.043 oz I&O: 11/09/20 11/10/20 11/11/20 06:59 06:59 06:59 Intake Total 3371 643 0184 Output Total 500 300 300 Balance 930 420 984 Result Diagrams: 11/10/20 05:19 11/10/20 05:19 Additional Labs: Accuchecks 11/10/20 11/10/20 11/09/20 11:01 05:22 21:17 POC Glucose 303 H 213 H 273 H Hospitalist ROS - Medication Medications: Active Medications Generic Name Dose Route Start Last Admin Trade Name Freq PRN Reason Stop Dose Admin Amiodarone HCl 400 mg 11/06/20 21:00 11/10/20 10:13 Amiodarone 200 Mg Tab PO 400 mg TID AMARI Administration Apixaban 5 mg 11/06/20 21:00 11/10/20 10:13 Apixaban 5 Mg Tab PO 5 mg BID AMARI Administration Dexamethasone 6 mg 11/10/20 09:00 11/10/20 10:14 Dexamethasone 4 Mg/Ml Vial SLOW IVP 6 mg DAILY AMARI Administration Famotidine 20 mg 11/05/20 21:00 11/10/20 10:14 Famotidine 20 Mg Tab PO 20 mg BID AMARI Administration Piperacillin Sod/Tazobactam 100 mls @ 200 mls/hr 11/06/20 12:00 11/10/20 06:13 Sod 3.375 gm/ Sodium Chloride IVPB 100 mls Q6HR AMARI Administration Sodium Chloride 1,000 mls @ 30 mls/hr 11/09/20 13:15 11/09/20 13:53 Normal Saline 0.9% IV 1,000 mls .Q24H AMARI Administration Insulin Human Lispro 0 units 11/09/20 16:54 11/10/20 06:35 Humalog 300 Units/3 Ml Vial SC 4 unit .MODERATE SLIDING SC PRN Administration Moderate Correctional Scale Melatonin 3 mg 11/09/20 21:00 11/09/20 21:45 Melatonin 3 Mg Tab PO 3 mg HS AMARI Administration Rosuvastatin Calcium 20 mg 11/06/20 21:00 11/09/20 21:45 Rosuvastatin 20 Mg Tab PO 20 mg HS AMARI Administration Sodium Chloride 10 ml 11/09/20 21:00 11/10/20 10:14 Flush - Normal Saline 10 Ml Syringe IVF 10 ml Q12HR AMARI Administration - Exam General Appearance: NAD, awake alert Eye: PERRL ENT: normocephalic atraumatic Neck: supple Heart: RRR Respiratory: normal chest expansion Gastrointestinal: soft, normal bowel sounds Neurological: cranial nerve grossly intact, no focal deficits Psychiatric: oriented to person, oriented to place Hosp A/P - Plan Chest x ray 11/05: bilateral pneumonia, mild cardiomegaly without cardiac decompensation CTA chest 11/05: COVID pneumonitis. No PE. Cholelithiasis Chest X ray 11/06: progression of multifocal infiltrates Chest X ray 11/09: very subtle linear hypodensity along the right diaphragm, likely a Mach band. Extensive airspace opacities 69 year old male who was diagnosed with COVID one week ago who presented with increasing weakness, found to be hypotensive and in atrial fibrillation. He is admitted with respiratory failure Acute hypoxic respiratory failure secondary to COVID pneumonia - chest X ray 11/05 shows bilateral pneumonia, -11/06 showed worsening infiltrates. -Currently on high flow oxygen - Continue IV zosyn and IV steroids. stop Zosyn on - s/p convalescent plasma 11/07 HEBER - creatinine increasing to 1.3. Will start IV fluids #Hypotension - resolved #Atrial fibrillation with RVR -oral amiodarone 400 mg tid. ----------------> dose reduction by superintendent quarry - continue eliquis -Baseline TSH and LFT ordered. Leukocytosis possibly due to ongoing steroid use and pneumonia. -Monitor Mild hypernatremia --Due to low p.o. intake -Trial of half NS Weakness secondary to dehydration - PT is recommending rehab. Consulted case management for rehab Type II Diabetes - continue sliding scale -We will schedule Humalog has his blood glucose consistently about 200 Hyperlipidemia: - continue home statin Disposition: pending improvement in oxygenation -To rehab
[2020-11-10] MEDS ORDERED: Potassium Chloride 20 MEQ in Sodium Chloride 0.45% 1,000 ML IV SCH (13:30)
[2020-11-10] MEDS: 1/2 NS w/KCL 20 mEq 1,000 ML IV SCH (16:39)
[2020-11-10] MEDS: Rosuvastatin 20 MG TAB PO SCH (19:48)
[2020-11-10] MEDS: Metoprolol Tartrate 5 MG/5 ML VIAL IVP PRN (19:48)
[2020-11-10] MEDS: Melatonin 3 MG TAB PO SCH (19:48)
[2020-11-10] MEDS: HumuLIN 70/30 (300 UNITS/3 ML VIAL) SC SCH (20:47)
[2020-11-11] MEDS: Piperacillin/Tazobactam 3.375 GM in Sodium Chloride 0.9% 100 ML IVPB SCH ×4 (00:19→17:12)
[2020-11-11] MEDS: HumaLOG 300 UNITS/3 ML VIAL SC PRN ×4 (05:47→21:34)
[2020-11-11] MEDS: HumuLIN 70/30 (300 UNITS/3 ML VIAL) SC SCH ×2 (08:10→21:35)
[2020-11-11] MEDS: Dexamethasone 4 mg/ml Vial SLOW IVP SCH (08:12)
[2020-11-11] MEDS: Apixaban 5 MG TAB PO SCH ×2 (08:12→20:02)
[2020-11-11] MEDS: Amiodarone 200 MG TAB PO SCH ×3 (08:12→20:01)
[2020-11-11] MEDS: Famotidine 20 MG TAB PO SCH ×2 (08:12→20:02)
[2020-11-11] MEDS: Sodium Chloride 0.9% 1,000 ML IV SCH (12:00)
[2020-11-11] MEDS: 1/2 NS w/KCL 20 mEq 1,000 ML IV SCH (12:36)
[2020-11-11] MEDS: Metoprolol Tartrate 5 MG/5 ML VIAL IVP PRN ×2 (12:37→17:11)
[2020-11-11] MEDS: Loperamide HCl 2 MG CAP PO PRN ×3 (12:37→21:36)
--- NOTE | 2020-11-11 12:59 | PDOC.HOSPP ---
- Subjective Encounter Date: 11/11/20 Encounter Time: 10:10 Subjective: Patient still has significant shortness of breath. He is having more distress when he is talking. He is on high flow oxygen. - Objective Vital Signs & Weight: Vital Signs (12 hours) Temp Pulse Resp BP Pulse Ox 11/11/20 10:15 96 11/11/20 08:15 97.6 F 78 24 H 110/55 L 94 L 11/11/20 06:00 98.0 F 80 20 133/91 H 91 L 11/11/20 05:10 97.8 F 77 20 145/85 H 95 11/11/20 02:00 98.2 F 72 20 145/85 H 94 L Weight Weight 246 lb 3.043 oz I&O: 11/10/20 11/11/20 11/12/20 06:59 06:59 06:59 Intake Total 720 1904 1905 Output Total 300 1200 200 Balance 632 284 6439 Result Diagrams: 11/10/20 05:19 11/10/20 05:19 Additional Labs: Accuchecks 11/11/20 11/11/20 11/10/20 10:39 05:41 19:57 POC Glucose 332 H 201 H 305 H 11/10/20 16:45 POC Glucose 293 H Hospitalist ROS - Medication Medications: Active Medications Generic Name Dose Route Start Last Admin Trade Name Freq PRN Reason Stop Dose Admin Amiodarone HCl 400 mg 11/06/20 21:00 11/11/20 08:12 Amiodarone 200 Mg Tab PO 400 mg TID AMARI Administration Apixaban 5 mg 11/06/20 21:00 11/11/20 08:12 Apixaban 5 Mg Tab PO 5 mg BID AMARI Administration Dexamethasone 6 mg 11/10/20 09:00 11/11/20 08:12 Dexamethasone 4 Mg/Ml Vial SLOW IVP 6 mg DAILY AMARI Administration Famotidine 20 mg 11/05/20 21:00 11/11/20 08:12 Famotidine 20 Mg Tab PO 20 mg BID AMARI Administration Piperacillin Sod/Tazobactam 100 mls @ 200 mls/hr 11/06/20 12:00 11/11/20 12:37 Sod 3.375 gm/ Sodium Chloride IVPB 100 mls Q6HR AMARI Administration Sodium Chloride 1,000 mls @ 30 mls/hr 11/09/20 13:15 11/11/20 12:00 Normal Saline 0.9% IV Not Given .Q24H AMARI Potassium Chloride/Sodium Chloride 1,000 mls @ 50 mls/hr 11/10/20 13:30 11/11/20 12:36 1/2 Ns W/Kcl 20 Meq IV 11/12/20 05:29 1,000 mls .Q20H AMARI Administration Insulin Human Isoph/Insulin Regular 10 units 11/10/20 21:00 11/11/20 08:10 Humulin 70/30 (300 Units/3 Ml Vial) SC 10 unit BID AMARI Administration Insulin Human Lispro 0 units 11/09/20 16:54 11/11/20 05:47 Humalog 300 Units/3 Ml Vial SC 4 unit .MODERATE SLIDING SC PRN Administration Moderate Correctional Scale Loperamide HCl 4 mg 11/11/20 12:15 11/11/20 12:37 Loperamide Hcl 2 Mg Cap PO 4 mg QIDPRN PRN Administration Diarrhea/Loose Stools Melatonin 3 mg 11/09/20 21:00 11/10/20 19:48 Melatonin 3 Mg Tab PO 3 mg HS AMARI Administration Metoprolol Tartrate 5 mg 11/10/20 18:03 11/11/20 12:37 Metoprolol Tartrate 5 Mg/5 Ml Vial IVP 5 mg Q6H PRN Administration FOR HR > 90 Rosuvastatin Calcium 20 mg 11/06/20 21:00 11/10/20 19:48 Rosuvastatin 20 Mg Tab PO 20 mg HS AMARI Administration Sodium Chloride 10 ml 11/09/20 21:00 11/11/20 08:13 Flush - Normal Saline 10 Ml Syringe IVF Not Given Q12HR AMARI - Exam General Appearance: NAD, awake alert Eye: PERRL ENT: normocephalic atraumatic Neck: supple Heart: RRR, normal peripheral pulses Respiratory: CTAB, normal chest expansion Gastrointestinal: soft, normal bowel sounds Neurological: cranial nerve grossly intact, no focal deficits Psychiatric: normal affect, A&O x 3 Hosp A/P - Plan Chest x ray 11/05: bilateral pneumonia, mild cardiomegaly without cardiac decompensation CTA chest 11/05: COVID pneumonitis. No PE. Cholelithiasis Chest X ray 11/06: progression of multifocal infiltrates Chest X ray 11/09: very subtle linear hypodensity along the right diaphragm, likely a Mach band. Extensive airspace opacities 69 year old male who was diagnosed with COVID one week ago who presented with increasing weakness, found to be hypotensive and in atrial fibrillation. He is admitted with respiratory failure Acute hypoxic respiratory failure secondary to COVID pneumonia - chest X ray 11/05 shows bilateral pneumonia, -11/06 showed worsening infiltrates. -Currently on high flow oxygen - Continue IV zosyn and IV steroids. stop Zosyn on - s/p convalescent plasma 11/07 HEBER - creatinine increasing to 1.3. Will start IV fluids #Hypotension - resolved #Atrial fibrillation with RVR -oral amiodarone 400 mg tid. ----------------> dose reduction by visitor services representative - continue eliquis -Baseline TSH and LFT ordered. Leukocytosis possibly due to ongoing steroid use and pneumonia. -Monitor Mild hypernatremia --Due to low p.o. intake -Trial of half NS Weakness secondary to dehydration - PT is recommending rehab. Consulted case management for rehab Type II Diabetes - continue sliding scale -We will schedule Humalog has his blood glucose consistently about 200 Hyperlipidemia: - continue home statin Disposition: pending improvement in oxygenation -To rehab
[2020-11-11] MEDS ORDERED: Metoprolol Tartrate 25 MG TAB PO SCH (19:15)
[2020-11-11] MEDS: Melatonin 3 MG TAB PO SCH (20:02)
[2020-11-11] MEDS: Rosuvastatin 20 MG TAB PO SCH (20:02)
[2020-11-12] MEDS: Piperacillin/Tazobactam 3.375 GM in Sodium Chloride 0.9% 100 ML IVPB SCH ×5 (01:08→23:53)
[2020-11-12 06:02] LABS: Anion Gap 14 mmol/L (10-20); BUN (Urea Nitrogen) 26 mg/dL (8.4-25.7); Calc. Creatinine Clearance 98 mL/min (70-130); Calcium 8.3 mg/dL (7.8-10.44); Carbon Dioxide 21 mmol/L (23-31); Chloride 114 mmol/L (98-107); Glucose 148 mg/dL (80-115); Potassium 3.8 mmol/L (3.5-5.1); Sodium 145 mmol/L (136-145)
[2020-11-12 06:03] LABS: Band 10 % (5-11); Hemoglobin 12.5 g/dL (14.0-18.0); Lymphocytes 4 % (21-51); MDiff Complete? YES; Mean Corpuscular HGB CONC 32.9 g/dL (32.0-36.0); Mean Corpuscular Hemoglobin 28.1 pg (27.0-31.0); Mean Corpuscular Volume 85.4 fL (78.0-98.0); Mean Platelet Volume 7.3 fL (7.4-10.4); Monocytes 6 % (0-10); Neutrophil 80 % (42-75); Platelet Count 335 thou/uL (130-400); Platelet Morphology Comment Appears Adequate; RBC Distribution Width 14.7 % (11.5-14.5); Red Blood Cell (RBC) Count 4.44 mill/uL (4.70-6.10); White Blood Cell (WBC) Count 14.4 thou/uL (4.8-10.8)
[2020-11-12] MEDS ORDERED: Metoprolol Tartrate 25 MG TAB PO SCH (09:00)
[2020-11-12] MEDS: Famotidine 20 MG TAB PO SCH ×2 (09:50→20:31)
[2020-11-12] MEDS: Dexamethasone 4 mg/ml Vial SLOW IVP SCH (09:50)
[2020-11-12] MEDS: Apixaban 5 MG TAB PO SCH ×2 (09:50→20:31)
[2020-11-12] MEDS: Amiodarone 200 MG TAB PO SCH ×3 (09:50→20:30)
[2020-11-12] MEDS: Metoprolol Tartrate 25 MG TAB PO SCH ×2 (09:51→20:32)
[2020-11-12] MEDS: Loperamide HCl 2 MG CAP PO PRN ×4 (09:51→23:53)
[2020-11-12] MEDS: HumuLIN 70/30 (300 UNITS/3 ML VIAL) SC SCH ×2 (09:51→22:36)
--- NOTE | 2020-11-12 12:31 | PDOC.HOSPP ---
- Subjective Encounter Date: 11/12/20 Encounter Time: 10:10 Subjective: Patient is still having trouble with breathing easily still on high flow oxygen. He is mentally at baseline not confused this morning. But he is having difficulty talking has he seems to be quite out of breath easily. Satting in the mid 90s with a high flow oxygen at 60%. - Objective Vital Signs & Weight: Vital Signs (12 hours) Temp Pulse Resp BP Pulse Ox 11/12/20 09:53 98.2 F 75 24 H 95/70 93 L 11/12/20 08:00 97.9 F 60 20 98/64 94 L 11/12/20 07:34 96 11/12/20 06:30 97.6 F 63 23 H 108/78 96 11/12/20 04:59 93 L 11/12/20 03:52 97.2 F L 63 21 H 113/71 93 L Weight Weight 246 lb 3.043 oz I&O: 11/11/20 11/12/20 11/13/20 06:59 06:59 06:59 Intake Total 1904 4031 1105 Output Total 1200 1850 Balance 704 2181 1105 Result Diagrams: 11/12/20 05:04 11/12/20 05:04 Additional Labs: Accuchecks 11/12/20 11/12/20 11/12/20 12:21 05:18 02:32 POC Glucose 347 H 152 H 144 H 11/11/20 11/09/20 16:06 16:39 POC Glucose 355 H 396 H Hospitalist ROS - Medication Medications: Active Medications Generic Name Dose Route Start Last Admin Trade Name Freq PRN Reason Stop Dose Admin Amiodarone HCl 400 mg 11/06/20 21:00 11/12/20 09:50 Amiodarone 200 Mg Tab PO 400 mg TID AMARI Administration Apixaban 5 mg 11/06/20 21:00 11/12/20 09:50 Apixaban 5 Mg Tab PO 5 mg BID AMARI Administration Dexamethasone 6 mg 11/10/20 09:00 11/12/20 09:50 Dexamethasone 4 Mg/Ml Vial SLOW IVP 6 mg DAILY AMARI Administration Famotidine 20 mg 11/05/20 21:00 11/12/20 09:50 Famotidine 20 Mg Tab PO 20 mg BID AMARI Administration Piperacillin Sod/Tazobactam 100 mls @ 200 mls/hr 11/06/20 12:00 11/12/20 12:17 Sod 3.375 gm/ Sodium Chloride IVPB 100 mls Q6HR AMARI Administration Sodium Chloride 1,000 mls @ 30 mls/hr 11/09/20 13:15 11/11/20 12:00 Normal Saline 0.9% IV Not Given .Q24H AMARI Insulin Human Isoph/Insulin Regular 10 units 11/10/20 21:00 11/12/20 09:51 Humulin 70/30 (300 Units/3 Ml Vial) SC 10 unit BID AMARI Administration Insulin Human Lispro 0 units 11/11/20 19:00 11/11/20 21:34 Humalog 300 Units/3 Ml Vial SC 11 unit .AGGRESSIVE SLIDING PRN Administration AGGRESSIVE SLIDING SCALE Protocol Loperamide HCl 4 mg 11/11/20 12:15 11/12/20 12:18 Loperamide Hcl 2 Mg Cap PO 4 mg QIDPRN PRN Administration Diarrhea/Loose Stools Melatonin 3 mg 11/09/20 21:00 11/11/20 20:02 Melatonin 3 Mg Tab PO 3 mg HS AMARI Administration Metoprolol Tartrate 5 mg 11/10/20 18:03 11/11/20 17:11 Metoprolol Tartrate 5 Mg/5 Ml Vial IVP 5 mg Q6H PRN Administration FOR HR > 90 Metoprolol Tartrate 6.25 mg 11/12/20 09:00 11/12/20 09:51 Metoprolol Tartrate 25 Mg Tab PO Not Given BID AMARI Rosuvastatin Calcium 20 mg 11/06/20 21:00 11/11/20 20:02 Rosuvastatin 20 Mg Tab PO 20 mg HS AMARI Administration Sodium Chloride 10 ml 11/09/20 21:00 11/12/20 09:51 Flush - Normal Saline 10 Ml Syringe IVF Not Given Q12HR AMARI - Exam General Appearance: NAD, awake alert, ill appearing Eye: PERRL ENT: normocephalic atraumatic Neck: supple Heart: RRR Respiratory: CTAB, normal chest expansion Gastrointestinal: soft, normal bowel sounds Neurological: cranial nerve grossly intact, no focal deficits Musculoskeletal: generalized weakness Psychiatric: A&O x 3 Hosp A/P - Plan Chest x ray 11/05: bilateral pneumonia, mild cardiomegaly without cardiac decomp ensation CTA chest 11/05: COVID pneumonitis. No PE. Cholelithiasis Chest X ray 11/06: progression of multifocal infiltrates Chest X ray 11/09: very subtle linear hypodensity along the right diaphragm, likely a Mach band. Extensive airspace opacities 69 year old male who was diagnosed with COVID one week ago who presented with increasing weakness, found to be hypotensive and in atrial fibrillation. He is admitted with respiratory failure Acute hypoxic respiratory failure secondary to COVID pneumonia - chest X ray 11/05 shows bilateral pneumonia, -11/06 showed worsening infiltrates. -Currently on high flow oxygen - Continue IV zosyn and IV steroids. stop Zosyn on - s/p convalescent plasma 11/07 HEBER - creatinine increasing to 1.3. -Maintenance fluid given #Hypotension - resolved #Atrial fibrillation with RVR -oral amiodarone 400 mg tid. ----------------> dose reduction by house rn - continue eliquis -Baseline TSH and LFT ordered.-----------> they are in the normal range. Leukocytosis possibly due to ongoing steroid use and pneumonia. -Monitor Mild hypernatremia --Due to low p.o. intake -Trial of half NS Leukocytosis -Could be due to ongoing Decadron use versus occult infection but infection unlikely as patient is getting Zosyn for complete coverage. He did not had any overnight temperature. Will monitor closely. Weakness secondary to dehydration - PT is recommending rehab. Consulted case management for rehab Type II Diabetes - continue sliding scale -We will schedule Humalog has his blood glucose consistently about 200 Hyperlipidemia: - continue home statin Disposition: pending improvement in oxygenation -To rehab
[2020-11-12] MEDS: HumaLOG 300 UNITS/3 ML VIAL SC PRN ×2 (12:56→18:39)
[2020-11-12] MEDS: Sodium Chloride 0.9% 1,000 ML IV SCH (16:20)
[2020-11-12] MEDS: Melatonin 3 MG TAB PO SCH (20:31)
[2020-11-12] MEDS: Rosuvastatin 20 MG TAB PO SCH (20:33)
[2020-11-12] MEDS ORDERED: HumaLOG 300 UNITS/3 ML VIAL SC PRN (21:30)
[2020-11-13 05:32] LABS: Band 13 % (5-11); Hemoglobin 12.3 g/dL (14.0-18.0); Hypochromia SLIGHT = 6-15 cells (100X) (0-5/hpf); Lymphocytes 6 % (21-51); MDiff Complete? YES; Mean Corpuscular HGB CONC 32.8 g/dL (32.0-36.0); Mean Corpuscular Hemoglobin 28.1 pg (27.0-31.0); Mean Corpuscular Volume 85.7 fL (78.0-98.0); Mean Platelet Volume 7.7 fL (7.4-10.4); Monocytes 7 % (0-10); Neutrophil 74 % (42-75); Platelet Count 281 thou/uL (130-400); Platelet Morphology Comment Appears Adequate; RBC Distribution Width 15.1 % (11.5-14.5); Red Blood Cell (RBC) Count 4.39 mill/uL (4.70-6.10)
[2020-11-13 05:38] LABS: Anion Gap 12 mmol/L (10-20); BUN (Urea Nitrogen) 25 mg/dL (8.4-25.7); Calc. Creatinine Clearance 120 mL/min (70-130); Calcium 7.9 mg/dL (7.8-10.44); Carbon Dioxide 21 mmol/L (23-31); Chloride 113 mmol/L (98-107); Glucose 154 mg/dL (80-115); Potassium 3.9 mmol/L (3.5-5.1); Sodium 142 mmol/L (136-145)
[2020-11-13] MEDS: Piperacillin/Tazobactam 3.375 GM in Sodium Chloride 0.9% 100 ML IVPB SCH ×2 (06:30→12:03)
[2020-11-13] MEDS: Dexamethasone 4 mg/ml Vial SLOW IVP SCH ×2 (10:09→20:39)
[2020-11-13] MEDS: metFORMIN 500 MG TAB PO SCH (10:11)
[2020-11-13] MEDS: Metoprolol Tartrate 25 MG TAB PO SCH ×2 (10:12→20:38)
[2020-11-13] MEDS: Apixaban 5 MG TAB PO SCH ×2 (10:12→20:39)
[2020-11-13] MEDS: Amiodarone 200 MG TAB PO SCH ×3 (10:12→20:37)
[2020-11-13] MEDS: Glimepiride 1 MG TAB PO SCH (10:13)
[2020-11-13] MEDS: Pioglitazone HCl 15 MG TAB PO SCH (10:13)
[2020-11-13] MEDS: Famotidine 20 MG TAB PO SCH ×2 (10:13→20:39)
[2020-11-13] MEDS: HumuLIN 70/30 (300 UNITS/3 ML VIAL) SC SCH ×2 (10:14→21:18)
--- NOTE | 2020-11-13 11:03 | RAD ---
Portable frontal chest radiograph: 11/13/2020 COMPARISON: 11/09/2020 HISTORY: Covid pneumonia FINDINGS: No pneumothorax is evident. Heart and mediastinal contours are stable. There is extensive coarse linear interstitial density with superimposed alveolar opacity in the left perihilar region, both lung bases and the peripheral aspect of the mid and lower lung zones bilaterally. These findings are not significantly changed when compared to the prior examination and are consistent with the provided history of Covid pneumonia. IMPRESSION: Findings suggesting stable extensive bilateral Covid pneumonia.
--- NOTE | 2020-11-13 11:50 | CON ---
DATE OF CONSULTATION: 11/13/2020 HISTORY OF PRESENT ILLNESS: Kristy Aldridge is a 69-year-old gentleman who has been in the hospital here since the , today is the 26th for consultation. Apparently, he was sick several days prior to that, and he apparently reported to a hospital in [place], [place], being short of breath and he is hypoxic. He was initially on BiPAP with sats are 100%, respirations 30, pulse 77, blood pressure 102/70. Over the course of the last week in the hospital, he has received high-dose steroids. In spite of this, he has had progressive hypoxemia. PAST MEDICAL HISTORY: Pertinent for: 1. Atrial fibrillation. 2. Hypertension. 3. . 4. Coronavirus infection. PREVIOUS SURGERIES: Appendix. ALLERGIES: NONE. MEDICATIONS: His home medicine includes: 1. Eliquis 5 mg twice a day. 2. Glucophage 1000. 3. Crestor 20. 4. Actos 15. 5. Amaryl 1. He is now on amiodarone. SOCIAL HISTORY: Nonsmoker. No alcohol abuse or drug abuse. REVIEW OF SYSTEMS: Otherwise negative. PHYSICAL EXAMINATION: GENERAL: He is on high-flow, he is sitting on the side of the bed. VITAL SIGNS: He is on a flow rate of 60, FiO2 is 90%, his saturations are 98%, temperature 98, pulse 77, respiratory rate 36, blood pressure 150/73. CHEST: No wheezing. No crackles. CARDIAC: Normal S1 and S2. No gallops. ABDOMEN: No masses. LABORATORY DATA: White count 15,000, 74 segs, and 13 bands. Lytes are normal. X-ray pending. His initial x-ray did show bilateral infiltrates. ASSESSMENT: 1. Amaya positive pneumonia, almost several days out into his course. 2. Rule out hospital-acquired infection. 3. Supraventricular tachycardia. PLAN: Empiric antibiotics including dose of steroids. 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 TIME SPENT: 70 minutes, 50% in direct patient care. Job ID: [id number]
[2020-11-13] MEDS: Sodium Chloride 0.9% 1,000 ML IV SCH ×2 (12:04→21:23)
[2020-11-13] MEDS: HumaLOG 300 UNITS/3 ML VIAL SC PRN ×2 (12:05→17:06)
--- NOTE | 2020-11-13 12:25 | PDOC.HOSPP ---
- Subjective Encounter Date: 11/13/20 Encounter Time: 09:40 Subjective: He is still on high flow oxygen last night his sats dropped to mid 80s. He still have trouble talking complete sentences. Chest x-ray showed extensive bilateral Covid pneumonia. I talked to Dr. Trotter - Objective Vital Signs & Weight: Vital Signs (12 hours) Temp Pulse Resp BP Pulse Ox 11/13/20 11:46 97.8 F 75 20 102/68 97 11/13/20 10:00 99.1 F 79 40 H 137/80 94 L 11/13/20 09:00 94 L 11/13/20 08:15 93 L 11/13/20 08:00 98.4 F 77 36 H 115/79 88 L 11/13/20 06:15 60 20 102/70 95 11/13/20 02:45 98.1 F 64 26 H 112/74 96 11/13/20 02:12 55 L 17 107/69 97 Weight Weight 246 lb 3.043 oz I&O: 11/12/20 11/13/20 11/14/20 06:59 06:59 06:59 Intake Total 4031 2023 Output Total 1850 1225 Balance 2181 798 Result Diagrams: 11/13/20 04:43 11/13/20 04:43 Additional Labs: Accuchecks 11/13/20 11/12/20 11/12/20 10:51 20:41 17:04 POC Glucose 203 H 298 H 277 H 11/12/20 12:21 POC Glucose 347 H Hospitalist ROS - Medication Medications: Active Medications Generic Name Dose Route Start Last Admin Trade Name Stone PRN Reason Stop Dose Admin Amiodarone HCl 400 mg 11/06/20 21:00 11/13/20 10:12 Amiodarone 200 Mg Tab PO 400 mg TID AMARI Administration Apixaban 5 mg 11/06/20 21:00 11/13/20 10:12 Apixaban 5 Mg Tab PO 5 mg BID AMARI Administration Famotidine 20 mg 11/05/20 21:00 11/13/20 10:13 Famotidine 20 Mg Tab PO 20 mg BID AMARI Administration Glimepiride 1 mg 11/13/20 08:00 11/13/20 10:13 Glimepiride 1 Mg Tab PO 1 mg QAM-WM AMARI Administration Piperacillin Sod/Tazobactam 100 mls @ 200 mls/hr 11/06/20 12:00 11/13/20 12:03 Sod 3.375 gm/ Sodium Chloride IVPB 100 mls Q6HR AMARI Administration Sodium Chloride 1,000 mls @ 30 mls/hr 11/09/20 13:15 11/13/20 12:04 Normal Saline 0.9% IV 1,000 mls .Q24H AMARI Administration Insulin Human Isoph/Insulin Regular 13 units 11/12/20 21:00 11/13/20 10:14 Humulin 70/30 (300 Units/3 Ml Vial) SC 13 unit BID AMARI Administration Insulin Human Lispro 0 units 11/11/20 19:00 11/13/20 12:05 Humalog 300 Units/3 Ml Vial SC 6 unit .AGGRESSIVE SLIDING PRN Administration AGGRESSIVE SLIDING SCALE Protocol Insulin Human Lispro 0 units 11/12/20 21:30 11/12/20 22:35 Humalog 300 Units/3 Ml Vial SC 3 unit .BEDTIME SLIDING SC PRN Administration Bedtime Correctional Scale Loperamide HCl 4 mg 11/11/20 12:15 11/12/20 23:53 Loperamide Hcl 2 Mg Cap PO 4 mg QIDPRN PRN Administration Diarrhea/Loose Stools Melatonin 3 mg 11/09/20 21:00 11/12/20 20:31 Melatonin 3 Mg Tab PO 3 mg HS AMARI Administration Metformin HCl 1,000 mg 11/13/20 08:00 11/13/20 10:11 Metformin 500 Mg Tab PO 1,000 mg QAM-WM AMARI Administration Metoprolol Tartrate 5 mg 11/10/20 18:03 11/11/20 17:11 Metoprolol Tartrate 5 Mg/5 Ml Vial IVP 5 mg Q6H PRN Administration FOR HR > 90 Metoprolol Tartrate 6.25 mg 11/12/20 09:00 11/13/20 10:12 Metoprolol Tartrate 25 Mg Tab PO 6.25 mg BID AMARI Administration Pioglitazone HCl 15 mg 11/13/20 09:00 11/13/20 10:13 Pioglitazone Hcl 15 Mg Tab PO 15 mg DAILY AMARI Administration Rosuvastatin Calcium 20 mg 11/06/20 21:00 11/12/20 20:33 Rosuvastatin 20 Mg Tab PO 20 mg HS AMARI Administration Sodium Chloride 10 ml 11/09/20 21:00 11/13/20 10:56 Flush - Normal Saline 10 Ml Syringe IVF 10 ml Q12HR AMARI Administration Hospitalist Exam Vitals: Vital Signs (12 hours) Temp Pulse Resp BP Pulse Ox 11/13/20 11:46 97.8 F 75 20 102/68 97 11/13/20 10:00 99.1 F 79 40 H 137/80 94 L 11/13/20 09:00 94 L 11/13/20 08:15 93 L 11/13/20 08:00 98.4 F 77 36 H 115/79 88 L 11/13/20 06:15 60 20 102/70 95 11/13/20 02:45 98.1 F 64 26 H 112/74 96 11/13/20 02:12 55 L 17 107/69 97 Weight Weight 246 lb 3.043 oz General Appearance: NAD, awake alert Eye: PERRL ENT: normocephalic atraumatic Neck: supple Heart: RRR, normal peripheral pulses Respiratory: normal chest expansion, normal percussion, rhonchi, tachypneic Gastrointestinal: soft, normal bowel sounds Extremities: 2+ LE edema Neurological: cranial nerve grossly intact, no focal deficits Musculoskeletal: generalized weakness Psychiatric: A&O x 3 Hosp A/P - Plan Chest x ray 11/05: bilateral pneumonia, mild cardiomegaly without cardiac decompensation CTA chest 11/05: COVID pneumonitis. No PE. Cholelithiasis Chest X ray 11/06: progression of multifocal infiltrates Chest X ray 11/09: very subtle linear hypodensity along the right diaphragm, likely a Mach band. Extensive airspace opacities 69 year old male who was diagnosed with COVID one week ago who presented with increasing weakness, found to be hypotensive and in atrial fibrillation. He is admitted with respiratory failure Acute hypoxic respiratory failure secondary to COVID pneumonia - chest X ray 11/05 shows bilateral pneumonia, -11/06 showed worsening infiltrates. -Currently on high flow oxygen - Continue IV zosyn and IV steroids. stop Zosyn on - s/p convalescent plasma 11/07 HEBER - creatinine increasing to 1.3. -Maintenance fluid given #Hypotension - resolved #Atrial fibrillation with RVR -oral amiodarone 400 mg tid. ----------------> dose reduction by traffic control officer - continue eliquis -Baseline TSH and LFT ordered.-----------> they are in the normal range. Leukocytosis possibly due to ongoing steroid use and pneumonia. -Monitor Mild hypernatremia --Due to low p.o. intake -Trial of half NS Leukocytosis -Could be due to ongoing Decadron use versus occult infection but infection unlikely as patient is getting Zosyn for complete coverage. He did not had any overnight temperature. Will monitor closely. Weakness secondary to dehydration - PT is recommending rehab. Consulted case management for rehab Type II Diabetes - continue sliding scale -We will schedule Humalog has his blood glucose consistently about 200 Hyperlipidemia: - continue home statin Disposition: pending improvement in oxygenation -To rehab - worsening extensive bilateral Covid pneumonia -Colchicine to prevent the progression into fibrotic changes associated with Covid pneumonia -He is on doxycycline as well as cefepime which is started on ----------------> will DC the Zosyn -Appreciate the help from Dr. Trotter
[2020-11-13] MEDS: Mometasone 200 MCG/Formoterol 5 MCG 120 PUFF INHALER INH SCH (18:52)
[2020-11-13] MEDS: Cefepime 1 GM in Sodium Chloride 0.9% 100 ML IVPB SCH (20:37)
[2020-11-13] MEDS: Rosuvastatin 20 MG TAB PO SCH (20:38)
[2020-11-13] MEDS: Colchicine 0.6 MG TAB PO SCH (20:39)
[2020-11-13] MEDS: Melatonin 3 MG TAB PO SCH (20:39)
[2020-11-14 05:04] LABS: #Lymphocytes 0.5 thou/uL (1.20-3.40); #Monocytes 0.5 thou/uL (0.11-0.59); %Eosinophils 0.1 % (0.0-10.0); %Neutrophils 93.9 % (42.0-75.0); Hemoglobin 12.4 g/dL (14.0-18.0); Mean Corpuscular HGB CONC 32.8 g/dL (32.0-36.0); Mean Corpuscular Hemoglobin 28.2 pg (27.0-31.0); Mean Corpuscular Volume 85.9 fL (78.0-98.0); Mean Platelet Volume 7.7 fL (7.4-10.4); Platelet Count 262 thou/uL (130-400); RBC Distribution Width 15.2 % (11.5-14.5); Red Blood Cell (RBC) Count 4.41 mill/uL (4.70-6.10); White Blood Cell (WBC) Count 17.1 thou/uL (4.8-10.8)
[2020-11-14 05:11] LABS: Anion Gap 17 mmol/L (10-20); BUN (Urea Nitrogen) 23 mg/dL (8.4-25.7); Calc. Creatinine Clearance 241 mL/min (70-130); Calcium 7.8 mg/dL (7.8-10.44); Carbon Dioxide 16 mmol/L (23-31); Chloride 114 mmol/L (98-107); Glucose 183 mg/dL (80-115); Potassium 4.5 mmol/L (3.5-5.1); Sodium 142 mmol/L (136-145)
[2020-11-14] MEDS: HumaLOG 300 UNITS/3 ML VIAL SC PRN ×2 (05:50→17:47)
[2020-11-14] MEDS: Mometasone 200 MCG/Formoterol 5 MCG 120 PUFF INHALER INH SCH ×2 (06:01→17:47)
[2020-11-14] MEDS: metFORMIN 500 MG TAB PO SCH (08:18)
[2020-11-14] MEDS: Pioglitazone HCl 15 MG TAB PO SCH (08:19)
[2020-11-14] MEDS: Metoprolol Tartrate 25 MG TAB PO SCH ×2 (08:19→20:42)
[2020-11-14] MEDS: Famotidine 20 MG TAB PO SCH ×2 (08:19→20:42)
[2020-11-14] MEDS: Amiodarone 200 MG TAB PO SCH ×3 (08:19→20:41)
[2020-11-14] MEDS: Apixaban 5 MG TAB PO SCH ×2 (08:20→20:42)
[2020-11-14] MEDS: Colchicine 0.6 MG TAB PO SCH ×2 (08:21→20:41)
[2020-11-14] MEDS: Cefepime 1 GM in Sodium Chloride 0.9% 100 ML IVPB SCH ×2 (08:21→20:41)
[2020-11-14] MEDS: Dexamethasone 4 mg/ml Vial SLOW IVP SCH ×2 (08:21→20:42)
[2020-11-14] MEDS: HumuLIN 70/30 (300 UNITS/3 ML VIAL) SC SCH ×2 (08:23→20:43)
[2020-11-14] MEDS: Glimepiride 1 MG TAB PO SCH (08:45)
--- NOTE | 2020-11-14 10:22 | PRG ---
DATE OF SERVICE: 11/14/2020 OBJECTIVE: VITAL SIGNS: Temperature 97, pulse 70 still, respiratory rate 32, he is on 50% FiO2, flow rate 50, and saturations are 99%, and blood pressure 180/77. CHEST: No wheezing. No crackles. CARDIAC: Normal S1 and S2. No gallops. ABDOMEN: No masses. LABORATORY DATA: White count 7000. X-ray shows bilateral infiltrates. ASSESSMENT: 1. Amaya positive pneumonia. 2. Respiratory failure. PLAN: Increase the dose of steroids, broad-spectrum antibiotics, supportive care. We will follow. Job ID: [id number]
--- NOTE | 2020-11-14 13:44 | PDOC.HOSPP ---
- Subjective Encounter Date: 11/14/20 Encounter Time: 10:10 Subjective: Patient doing well. He seems to be a little bit better than yesterday. He is currently not on BiPAP but on high flow oxygen. - Objective Vital Signs & Weight: Vital Signs (12 hours) Temp Pulse Resp BP Pulse Ox 11/14/20 11:50 97.9 F 67 36 H 126/77 98 11/14/20 08:19 91 L 11/14/20 07:30 97.9 F 70 32 H 123/77 11/14/20 06:00 97.5 F L 71 36 H 123/79 91 L 11/14/20 04:45 97.6 F 65 32 H 116/75 96 11/14/20 02:00 96.8 F L 64 32 H 121/68 95 Weight Weight 458 lb 4.8 oz I&O: 11/13/20 11/14/20 11/15/20 06:59 06:59 06:59 Intake Total 2022 2067 Output Total 1225 1450 300 Balance 798 618 -300 Result Diagrams: 11/14/20 04:48 11/14/20 04:36 Additional Labs: Accuchecks 11/14/20 11/14/20 11/13/20 10:48 05:37 20:50 POC Glucose 181 H 160 H 215 H 11/13/20 16:52 POC Glucose 222 H Hospitalist ROS - Medication Medications: Active Medications Generic Name Dose Route Start Last Admin Trade Name Freq PRN Reason Stop Dose Admin Amiodarone HCl 400 mg 11/06/20 21:00 11/14/20 08:19 Amiodarone 200 Mg Tab PO 400 mg TID AMARI Administration Apixaban 5 mg 11/06/20 21:00 11/14/20 08:20 Apixaban 5 Mg Tab PO 5 mg BID AMARI Administration Colchicine 0.6 mg 11/13/20 21:00 11/14/20 08:21 Colchicine 0.6 Mg Tab PO 0.6 mg BID AMARI Administration Dexamethasone 6 mg 11/13/20 21:00 11/14/20 08:21 Dexamethasone 4 Mg/Ml Vial SLOW IVP 6 mg BID AMARI Administration Famotidine 20 mg 11/05/20 21:00 11/14/20 08:19 Famotidine 20 Mg Tab PO 20 mg BID AMARI Administration Glimepiride 1 mg 11/13/20 08:00 11/14/20 08:45 Glimepiride 1 Mg Tab PO 1 mg QAM-WM AMARI Administration Sodium Chloride 1,000 mls @ 30 mls/hr 11/09/20 13:15 11/13/20 21:23 Normal Saline 0.9% IV 1,000 mls .Q24H AMARI Administration Doxycycline Hyclate 100 mg/ 100 mls @ 100 mls/hr 11/13/20 21:00 11/14/20 08:22 Sodium Chloride IVPB 11/23/20 21:01 100 mls Q12HR AMARI Administration Cefepime HCl 1 gm/ Sodium 100 mls @ 200 mls/hr 11/13/20 21:00 11/14/20 08:21 Chloride IVPB 11/23/20 21:01 100 mls Q12HR AMARI Administration Insulin Human Isoph/Insulin Regular 13 units 11/12/20 21:00 11/14/20 08:23 Humulin 70/30 (300 Units/3 Ml Vial) SC 13 unit BID AMARI Administration Insulin Human Lispro 0 units 11/11/20 19:00 11/14/20 05:50 Humalog 300 Units/3 Ml Vial SC 3 unit .AGGRESSIVE SLIDING PRN Administration AGGRESSIVE SLIDING SCALE Protocol Insulin Human Lispro 0 units 11/12/20 21:30 11/12/20 22:35 Humalog 300 Units/3 Ml Vial SC 3 unit .BEDTIME SLIDING SC PRN Administration Bedtime Correctional Scale Loperamide HCl 4 mg 11/11/20 12:15 11/12/20 23:53 Loperamide Hcl 2 Mg Cap PO 4 mg QIDPRN PRN Administration Diarrhea/Loose Stools Melatonin 3 mg 11/09/20 21:00 11/13/20 20:39 Melatonin 3 Mg Tab PO 3 mg HS AMARI Administration Metformin HCl 1,000 mg 11/13/20 08:00 11/14/20 08:18 Metformin 500 Mg Tab PO 1,000 mg QAM-WM AMARI Administration Metoprolol Tartrate 5 mg 11/10/20 18:03 11/11/20 17:11 Metoprolol Tartrate 5 Mg/5 Ml Vial IVP 5 mg Q6H PRN Administration FOR HR > 90 Metoprolol Tartrate 6.25 mg 11/12/20 09:00 11/14/20 08:19 Metoprolol Tartrate 25 Mg Tab PO 6.25 mg BID AMARI Administration Mometasone Furoate/Formoterol Fumar 2 puff 11/13/20 18:30 11/14/20 06:01 Mometasone 200 Mcg/Formoterol 5 Mcg 120 Puff Inhaler INH 2 puff BID-RT AMARI Administration Pioglitazone HCl 15 mg 11/13/20 09:00 11/14/20 08:19 Pioglitazone Hcl 15 Mg Tab PO 15 mg DAILY AMARI Administration Rosuvastatin Calcium 20 mg 11/06/20 21:00 11/13/20 20:38 Rosuvastatin 20 Mg Tab PO 20 mg HS AMARI Administration Sodium Chloride 10 ml 11/09/20 21:00 11/14/20 08:45 Flush - Normal Saline 10 Ml Syringe IVF Not Given Q12HR [facility] Hospitalist Exam Vitals: Vital Signs (12 hours) Temp Pulse Resp BP Pulse Ox 11/14/20 11:50 97.9 F 67 36 H 126/77 98 11/14/20 08:19 91 L 11/14/20 07:30 97.9 F 70 32 H 123/77 11/14/20 06:00 97.5 F L 71 36 H 123/79 91 L 11/14/20 04:45 97.6 F 65 32 H 116/75 96 11/14/20 02:00 96.8 F L 64 32 H 121/68 95 Weight Weight 458 lb 4.8 oz General Appearance: NAD, awake alert Eye: PERRL ENT: normocephalic atraumatic Neck: supple Heart: RRR Respiratory: CTAB, normal chest expansion Gastrointestinal: soft, normal bowel sounds Neurological: cranial nerve grossly intact, no focal deficits Psychiatric: A&O x 3 Hosp A/P - Plan Chest x ray 11/05: bilateral pneumonia, mild cardiomegaly without cardiac decompensation CTA chest 11/05: COVID pneumonitis. No PE. Cholelithiasis Chest X ray 11/06: progression of multifocal infiltrates Chest X ray 11/09: very subtle linear hypodensity along the right diaphragm, likely a Mach band. Extensive airspace opacities 69 year old male who was diagnosed with COVID one week ago who presented with increasing weakness, found to be hypotensive and in atrial fibrillation. He is admitted with respiratory failure Acute hypoxic respiratory failure secondary to COVID pneumonia - chest X ray 11/05 shows bilateral pneumonia, -11/06 showed worsening infiltrates. -Currently on high flow oxygen - Continue IV zosyn and IV steroids. stop Zosyn on - s/p convalescent plasma 11/07 HEBER - creatinine increasing to 1.3. -Maintenance fluid given #Hypotension - resolved #Atrial fibrillation with RVR -oral amiodarone 400 mg tid. ----------------> dose reduction by warp tying machine knotter - continue eliquis -Baseline TSH and LFT ordered.-----------> they are in the normal range. Leukocytosis possibly due to ongoing steroid use and pneumonia. -Monitor Mild hypernatremia --Due to low p.o. intake -Trial of half NS Leukocytosis -Could be due to ongoing Decadron use versus occult infection but infection unlikely as patient is getting Zosyn for complete coverage. He did not had any overnight temperature. Will monitor closely. Weakness secondary to dehydration - PT is recommending rehab. Consulted case management for rehab Type II Diabetes - continue sliding scale -We will schedule Humalog has his blood glucose consistently about 200 Hyperlipidemia: - continue home statin Disposition: pending improvement in oxygenation -To rehab - worsening extensive bilateral Covid pneumonia -Colchicine to prevent the progression into fibrotic changes associated with Covid pneumonia -He is on doxycycline as well as cefepime which is started on ----------------> will DC the Zosyn -Appreciate the help from Dr. Trotter -Decadron dose increased to 2 twice a day. Colchicine added He is on Dulera Glucose seems to be improving.
[2020-11-14] MEDS: Melatonin 3 MG TAB PO SCH (20:43)
[2020-11-14] MEDS: Rosuvastatin 20 MG TAB PO SCH (20:44)
[2020-11-15] MEDS: Sodium Chloride 0.9% 1,000 ML IV SCH (04:51)
[2020-11-15] MEDS: Mometasone 200 MCG/Formoterol 5 MCG 120 PUFF INHALER INH SCH ×2 (06:33→17:41)
[2020-11-15] MEDS: HumaLOG 300 UNITS/3 ML VIAL SC PRN ×2 (06:43→17:41)
[2020-11-15] MEDS: Glimepiride 1 MG TAB PO SCH (08:46)
[2020-11-15] MEDS: Metoprolol Tartrate 25 MG TAB PO SCH ×2 (08:47→20:53)
[2020-11-15] MEDS: Pioglitazone HCl 15 MG TAB PO SCH (08:47)
[2020-11-15] MEDS: metFORMIN 500 MG TAB PO SCH (08:47)
[2020-11-15] MEDS: Amiodarone 200 MG TAB PO SCH ×3 (08:47→20:52)
[2020-11-15] MEDS: Famotidine 20 MG TAB PO SCH ×2 (08:47→20:52)
[2020-11-15] MEDS: HumuLIN 70/30 (300 UNITS/3 ML VIAL) SC SCH ×2 (08:50→22:36)
[2020-11-15] MEDS: Apixaban 5 MG TAB PO SCH ×2 (08:51→20:52)
[2020-11-15] MEDS: Cefepime 1 GM in Sodium Chloride 0.9% 100 ML IVPB SCH ×2 (08:51→20:52)
[2020-11-15] MEDS: Colchicine 0.6 MG TAB PO SCH ×2 (08:51→20:52)
[2020-11-15] MEDS: Dexamethasone 4 mg/ml Vial SLOW IVP SCH ×2 (08:51→20:53)
--- NOTE | 2020-11-15 12:17 | PRG ---
DATE OF SERVICE: 11/15/2020 SUBJECTIVE: This is a 69-year-old remains on high-flow. OBJECTIVE: VITAL SIGNS: Temperature 98, pulse 65, respirations 20, sats 95% 40% FiO2, blood pressure 130/77. CHEST: No wheezing. No crackles. CARDIAC: Normal S1, S2. No gallops. ABDOMEN: No masses. ASSESSMENT: Respiratory failure, cochran positive pneumonia. PLAN: Continue steroids, colchicine, empiric antibiotics. We will follow. Job ID: [id number]
--- NOTE | 2020-11-15 15:47 | PDOC.HOSPP ---
- Subjective Encounter Date: 11/15/20 Encounter Time: 09:15 Subjective: Patient doing well. pharmacist aide at bedside. He is being changed. He seems to be improving. He is able to talk in 1 sentence without obvious shortness of breath this morning. Of course he is still on high flow oxygen. - Objective Vital Signs & Weight: Vital Signs (12 hours) Temp Pulse Resp BP Pulse Ox 11/15/20 15:00 97.7 F 63 37 H 122/72 93 L 11/15/20 11:22 98.3 F 65 20 130/77 94 L 11/15/20 09:30 97.9 F 78 36 H 135/85 90 L 11/15/20 08:50 98.1 F 77 32 H 116/73 94 L 11/15/20 08:47 94 L 11/15/20 06:45 97.7 F 58 L 24 H 144/61 H 96 11/15/20 04:45 97.9 F 57 L 28 H 144/70 H 94 L Weight Admit Weight 246 lb Weight 458 lb 4.8 oz I&O: 11/14/20 11/15/20 11/16/20 06:59 06:59 06:59 Intake Total 2068 803 Output Total 1450 2553 160 Balance 618 -1750 -160 Result Diagrams: 11/14/20 04:48 11/14/20 04:36 Additional Labs: Accuchecks 11/15/20 11/15/20 11/14/20 11:23 06:36 20:39 POC Glucose 147 H 158 H 190 H 11/14/20 16:37 POC Glucose 248 H Hospitalist ROS - Medication Medications: Active Medications Generic Name Dose Route Start Last Admin Trade Name Freq PRN Reason Stop Dose Admin Amiodarone HCl 400 mg 11/06/20 21:00 11/15/20 14:49 Amiodarone 200 Mg Tab PO 400 mg TID AMARI Administration Apixaban 5 mg 11/06/20 21:00 11/15/20 08:51 Apixaban 5 Mg Tab PO 5 mg BID AMARI Administration Colchicine 0.6 mg 11/13/20 21:00 11/15/20 08:51 Colchicine 0.6 Mg Tab PO 0.6 mg BID AMARI Administration Dexamethasone 6 mg 11/13/20 21:00 11/15/20 08:51 Dexamethasone 4 Mg/Ml Vial SLOW IVP 6 mg BID AMARI Administration Famotidine 20 mg 11/05/20 21:00 11/15/20 08:47 Famotidine 20 Mg Tab PO 20 mg BID AMARI Administration Glimepiride 1 mg 11/13/20 08:00 11/15/20 08:46 Glimepiride 1 Mg Tab PO 1 mg QAM-WM AMARI Administration Sodium Chloride 1,000 mls @ 30 mls/hr 11/09/20 13:15 11/15/20 04:51 Normal Saline 0.9% IV 1,000 mls .Q24H AMARI Administration Doxycycline Hyclate 100 mg/ 100 mls @ 100 mls/hr 11/13/20 21:00 11/15/20 08:46 Sodium Chloride IVPB 11/23/20 21:01 100 mls Q12HR AMARI Administration Cefepime HCl 1 gm/ Sodium 100 mls @ 200 mls/hr 11/13/20 21:00 11/15/20 08:51 Chloride IVPB 11/23/20 21:01 100 mls Q12HR AMARI Administration Insulin Human Isoph/Insulin Regular 13 units 11/12/20 21:00 11/15/20 08:50 Humulin 70/30 (300 Units/3 Ml Vial) SC 13 unit BID AMARI Administration Insulin Human Lispro 0 units 11/11/20 19:00 11/15/20 06:43 Humalog 300 Units/3 Ml Vial SC 3 unit .AGGRESSIVE SLIDING PRN Administration AGGRESSIVE SLIDING SCALE Protocol Insulin Human Lispro 0 units 11/12/20 21:30 11/12/20 22:35 Humalog 300 Units/3 Ml Vial SC 3 unit .BEDTIME SLIDING SC PRN Administration Bedtime Correctional Scale Loperamide HCl 4 mg 11/11/20 12:15 11/12/20 23:53 Loperamide Hcl 2 Mg Cap PO 4 mg QIDPRN PRN Administration Diarrhea/Loose Stools Melatonin 3 mg 11/09/20 21:00 11/14/20 20:43 Melatonin 3 Mg Tab PO 3 mg HS AMARI Administration Metformin HCl 1,000 mg 11/13/20 08:00 11/15/20 08:47 Metformin 500 Mg Tab PO 1,000 mg QAM-WM AMARI Administration Metoprolol Tartrate 5 mg 11/10/20 18:03 11/11/20 17:11 Metoprolol Tartrate 5 Mg/5 Ml Vial IVP 5 mg Q6H PRN Administration FOR HR > 90 Metoprolol Tartrate 6.25 mg 11/12/20 09:00 11/15/20 08:47 Metoprolol Tartrate 25 Mg Tab PO 6.25 mg BID AMARI Administration Mometasone Furoate/Formoterol Fumar 2 puff 11/13/20 18:30 11/15/20 06:33 Mometasone 200 Mcg/Formoterol 5 Mcg 120 Puff Inhaler INH 2 puff BID-RT AMARI Administration Pioglitazone HCl 15 mg 11/13/20 09:00 11/15/20 08:47 Pioglitazone Hcl 15 Mg Tab PO 15 mg DAILY AMARI Administration Rosuvastatin Calcium 20 mg 11/06/20 21:00 11/14/20 20:44 Rosuvastatin 20 Mg Tab PO 20 mg HS AMARI Administration Sodium Chloride 10 ml 11/09/20 21:00 11/15/20 08:52 Flush - Normal Saline 10 Ml Syringe IVF 10 ml Q12HR AMARI Administration Hospitalist Exam Vitals: Vital Signs (12 hours) Temp Pulse Resp BP Pulse Ox 11/15/20 15:00 97.7 F 63 37 H 122/72 93 L 11/15/20 11:22 98.3 F 65 20 130/77 94 L 11/15/20 09:30 97.9 F 78 36 H 135/85 90 L 11/15/20 08:50 98.1 F 77 32 H 116/73 94 L 11/15/20 08:47 94 L 11/15/20 06:45 97.7 F 58 L 24 H 144/61 H 96 11/15/20 04:45 97.9 F 57 L 28 H 144/70 H 94 L Weight Admit Weight 246 lb Weight 458 lb 4.8 oz General Appearance: awake alert, ill appearing Eye: PERRL ENT: normocephalic atraumatic Neck: supple Heart: RRR, normal peripheral pulses Respiratory: CTAB, normal chest expansion Gastrointestinal: soft, normal bowel sounds Neurological: cranial nerve grossly intact, no focal deficits Psychiatric: normal affect, normal behavior, A&O x 3 Hosp A/P - Plan Chest x ray 11/05: bilateral pneumonia, mild cardiomegaly without cardiac decompensation CTA chest 11/05: COVID pneumonitis. No PE. Cholelithiasis Chest X ray 11/06: progression of multifocal infiltrates Chest X ray 11/09: very subtle linear hypodensity along the right diaphragm, likely a Mach band. Extensive airspace opacities 69 year old male who was diagnosed with COVID one week ago who presented with increasing weakness, found to be hypotensive and in atrial fibrillation. He is admitted with respiratory failure Acute hypoxic respiratory failure secondary to COVID pneumonia - chest X ray 11/05 shows bilateral pneumonia, -11/06 showed worsening infiltrates. -Currently on high flow oxygen - Continue IV zosyn and IV steroids. stop Zosyn on - s/p convalescent plasma 11/07 HEBER - creatinine increasing to 1.3. -Maintenance fluid given #Hypotension - resolved #Atrial fibrillation with RVR -oral amiodarone 400 mg tid. ----------------> dose reduction by graduate assistant athletic trainer - continue eliquis -Baseline TSH and LFT ordered.-----------> they are in the normal range. Leukocytosis possibly due to ongoing steroid use and pneumonia. -Monitor Mild hypernatremia --Due to low p.o. intake -Trial of half NS Leukocytosis -Could be due to ongoing Decadron use versus occult infection but infection unlikely as patient is getting Zosyn for complete coverage. He did not had any overnight temperature. Will monitor closely. Weakness secondary to dehydration - PT is recommending rehab. Consulted case management for rehab Type II Diabetes - continue sliding scale -We will schedule Humalog has his blood glucose consistently about 200 Hyperlipidemia: - continue home statin Disposition: pending improvement in oxygenation -To rehab - worsening extensive bilateral Covid pneumonia -Colchicine to prevent the progression into fibrotic changes associated with Covid pneumonia -He is on doxycycline as well as cefepime which is started on ----------------> will DC the Zosyn -Appreciate the help from Dr. Trotter -Decadron dose increased to 2 twice a day. Colchicine added He is on Dulera Glucose seems to be improving. Continue the above management including high flow oxygen and steroid He is normotensive Follow with inflammatory markers No need to check daily labs unless clinically warranted.
[2020-11-15] MEDS: Melatonin 3 MG TAB PO SCH (20:52)
[2020-11-15] MEDS: Rosuvastatin 20 MG TAB PO SCH (20:52)
[2020-11-16] MEDS: Mometasone 200 MCG/Formoterol 5 MCG 120 PUFF INHALER INH SCH ×2 (05:54→18:07)
[2020-11-16] MEDS: HumaLOG 300 UNITS/3 ML VIAL SC PRN ×3 (05:55→18:06)
[2020-11-16] MEDS: metFORMIN 500 MG TAB PO SCH (07:58)
[2020-11-16] MEDS: Glimepiride 1 MG TAB PO SCH (07:58)
[2020-11-16] MEDS: Apixaban 5 MG TAB PO SCH ×2 (07:59→20:47)
[2020-11-16] MEDS: Amiodarone 200 MG TAB PO SCH ×3 (07:59→20:47)
[2020-11-16] MEDS: Dexamethasone 4 mg/ml Vial SLOW IVP SCH ×2 (08:00→20:53)
[2020-11-16] MEDS: Cefepime 1 GM in Sodium Chloride 0.9% 100 ML IVPB SCH ×2 (08:00→21:59)
[2020-11-16] MEDS: Colchicine 0.6 MG TAB PO SCH ×2 (08:00→20:47)
[2020-11-16] MEDS: Metoprolol Tartrate 25 MG TAB PO SCH ×2 (08:01→20:47)
[2020-11-16] MEDS: Famotidine 20 MG TAB PO SCH ×2 (08:01→20:47)
[2020-11-16] MEDS: Pioglitazone HCl 15 MG TAB PO SCH (08:03)
[2020-11-16] MEDS: HumuLIN 70/30 (300 UNITS/3 ML VIAL) SC SCH ×2 (08:05→21:21)
--- NOTE | 2020-11-16 15:57 | PDOC.HOSPP ---
- Subjective Encounter Date: 11/16/20 Encounter Time: 15:45 Subjective: Patient remains same in the high flow oxygen. He still has a shortness of breath even with a small talk. Speech therapy at bedside diet changed to honey thick consistency - Objective Vital Signs & Weight: Vital Signs (12 hours) Temp Pulse Resp BP Pulse Ox 11/16/20 14:00 99.0 F 64 38 H 107/72 94 L 11/16/20 12:00 97.8 F 62 36 H 113/78 95 11/16/20 10:00 98.3 F 70 28 H 142/72 H 94 L 11/16/20 07:47 93 L 11/16/20 07:36 95 11/16/20 07:30 97.8 F 65 28 H 134/83 93 L 11/16/20 06:45 97.6 F 68 28 H 121/89 92 L 11/16/20 04:45 96.8 F L 60 24 H 117/79 97 Weight Admit Weight 246 lb Weight 458 lb 4.8 oz I&O: 11/15/20 11/16/20 11/17/20 06:59 06:59 06:59 Intake Total 803 1682 120 Output Total 2553 735 300 Balance -1750 947 -180 Result Diagrams: 11/14/20 04:48 11/14/20 04:36 Additional Labs: Accuchecks 11/16/20 11/16/20 11/15/20 11:20 05:32 22:37 POC Glucose 164 H 173 H 199 H 11/15/20 16:22 POC Glucose 209 H Hospitalist ROS - Medication Medications: Active Medications Generic Name Dose Route Start Last Admin Trade Name Stone PRN Reason Stop Dose Admin Amiodarone HCl 400 mg 11/06/20 21:00 11/16/20 15:27 Amiodarone 200 Mg Tab PO 400 mg TID AMARI Administration Apixaban 5 mg 11/06/20 21:00 11/16/20 07:59 Apixaban 5 Mg Tab PO 5 mg BID AMARI Administration Colchicine 0.6 mg 11/13/20 21:00 11/16/20 08:00 Colchicine 0.6 Mg Tab PO 0.6 mg BID AMARI Administration Dexamethasone 6 mg 11/13/20 21:00 11/16/20 08:00 Dexamethasone 4 Mg/Ml Vial SLOW IVP 6 mg BID AMARI Administration Famotidine 20 mg 11/05/20 21:00 11/16/20 08:01 Famotidine 20 Mg Tab PO 20 mg BID AMARI Administration Glimepiride 1 mg 11/13/20 08:00 11/16/20 07:58 Glimepiride 1 Mg Tab PO 1 mg QAM-WM AMARI Administration Sodium Chloride 1,000 mls @ 30 mls/hr 11/09/20 13:15 11/15/20 04:51 Normal Saline 0.9% IV 1,000 mls .Q24H AMARI Administration Doxycycline Hyclate 100 mg/ 100 mls @ 100 mls/hr 11/13/20 21:00 11/16/20 10:23 Sodium Chloride IVPB 11/23/20 21:01 100 mls Q12HR AMARI Administration Cefepime HCl 1 gm/ Sodium 100 mls @ 200 mls/hr 11/13/20 21:00 11/16/20 08:00 Chloride IVPB 11/23/20 21:01 100 mls Q12HR AMARI Administration Insulin Human Isoph/Insulin Regular 13 units 11/12/20 21:00 11/16/20 08:05 Humulin 70/30 (300 Units/3 Ml Vial) SC 13 unit BID AMARI Administration Insulin Human Lispro 0 units 11/11/20 19:00 11/16/20 12:36 Humalog 300 Units/3 Ml Vial SC 3 unit .AGGRESSIVE SLIDING PRN Administration AGGRESSIVE SLIDING SCALE Protocol Insulin Human Lispro 0 units 11/12/20 21:30 11/12/20 22:35 Humalog 300 Units/3 Ml Vial SC 3 unit .BEDTIME SLIDING SC PRN Administration Bedtime Correctional Scale Loperamide HCl 4 mg 11/11/20 12:15 11/12/20 23:53 Loperamide Hcl 2 Mg Cap PO 4 mg QIDPRN PRN Administration Diarrhea/Loose Stools Melatonin 3 mg 11/09/20 21:00 11/15/20 20:52 Melatonin 3 Mg Tab PO 3 mg HS AMARI Administration Metformin HCl 1,000 mg 11/13/20 08:00 11/16/20 07:58 Metformin 500 Mg Tab PO 1,000 mg QAM-WM AMARI Administration Metoprolol Tartrate 5 mg 11/10/20 18:03 11/11/20 17:11 Metoprolol Tartrate 5 Mg/5 Ml Vial IVP 5 mg Q6H PRN Administration FOR HR > 90 Metoprolol Tartrate 6.25 mg 11/12/20 09:00 11/16/20 08:01 Metoprolol Tartrate 25 Mg Tab PO 6.25 mg BID AMARI Administration Mometasone Furoate/Formoterol Fumar 2 puff 11/13/20 18:30 11/16/20 05:54 Mometasone 200 Mcg/Formoterol 5 Mcg 120 Puff Inhaler INH 2 puff BID-RT AMARI Administration Pioglitazone HCl 15 mg 11/13/20 09:00 11/16/20 08:03 Pioglitazone Hcl 15 Mg Tab PO 15 mg DAILY AMARI Administration Rosuvastatin Calcium 20 mg 11/06/20 21:00 11/15/20 20:52 Rosuvastatin 20 Mg Tab PO 20 mg HS AMARI Administration Sodium Chloride 10 ml 11/09/20 21:00 11/16/20 07:59 Flush - Normal Saline 10 Ml Syringe IVF 10 ml Q12HR AMARI Administration Hospitalist Exam Vitals: Vital Signs (12 hours) Temp Pulse Resp BP Pulse Ox 11/16/20 14:00 99.0 F 64 38 H 107/72 94 L 11/16/20 12:00 97.8 F 62 36 H 113/78 95 11/16/20 10:00 98.3 F 70 28 H 142/72 H 94 L 11/16/20 07:47 93 L 11/16/20 07:36 95 11/16/20 07:30 97.8 F 65 28 H 134/83 93 L 11/16/20 06:45 97.6 F 68 28 H 121/89 92 L 11/16/20 04:45 96.8 F L 60 24 H 117/79 97 Weight Admit Weight 246 lb Weight 458 lb 4.8 oz General Appearance: NAD, awake alert, ill appearing Eye: PERRL ENT: normocephalic atraumatic Neck: supple Heart: RRR Respiratory: CTAB Gastrointestinal: soft, normal bowel sounds Extremities - other findings: Right arm dependent edema Neurological: no new deficit Psychiatric: normal behavior, A&O x 3 Hosp A/P - Plan Chest x ray 11/05: bilateral pneumonia, mild cardiomegaly without cardiac decompensation CTA chest 11/05: COVID pneumonitis. No PE. Cholelithiasis Chest X ray 11/06: progression of multifocal infiltrates Chest X ray 11/09: very subtle linear hypodensity along the right diaphragm, likely a Mach band. Extensive airspace opacities 69 year old male who was diagnosed with COVID one week ago who presented with increasing weakness, found to be hypotensive and in atrial fibrillation. He is admitted with respiratory failure Acute hypoxic respiratory failure secondary to COVID pneumonia - chest X ray 11/05 shows bilateral pneumonia, -11/06 showed worsening infiltrates. -Currently on high flow oxygen - Continue IV zosyn and IV steroids. stop Zosyn on - s/p convalescent plasma 11/07 HEBER - creatinine increasing to 1.3. -Maintenance fluid given #Hypotension - resolved #Atrial fibrillation with RVR -oral amiodarone 400 mg tid. 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 Leukocytosis possibly due to ongoing steroid use and pneumonia. -Monitor Mild hypernatremia --Due to low p.o. intake -Trial of half NS Leukocytosis -Could be due to ongoing Decadron use versus occult infection but infection unlikely as patient is getting Zosyn for complete coverage. He did not had any overnight temperature. Will monitor closely. Weakness secondary to dehydration - PT is recommending rehab. Consulted case management for rehab Type II Diabetes - continue sliding scale -We will schedule Humalog has his blood glucose consistently about 200 Hyperlipidemia: - continue home statin Disposition: pending improvement in oxygenation -To rehab - worsening extensive bilateral Covid pneumonia -Colchicine to prevent the progression into fibrotic changes associated with Covid pneumonia -He is on doxycycline as well as cefepime which is started on ----------------> will DC the Zosyn -Appreciate the help from Dr. Trotter CRP and ferritin level are quite trending down. CRP 0.97 compared to November 05 - 6.49. Ferritin level was 476 on and today it is 227. However patient still depends on high flow oxygen. Increased steroid dose. On doxy and cefepime and colchicine.
[2020-11-16] MEDS: Melatonin 3 MG TAB PO SCH (20:46)
[2020-11-16] MEDS: Rosuvastatin 20 MG TAB PO SCH (20:47)
[2020-11-17] MEDS: Sodium Chloride 0.9% 1,000 ML IV SCH ×2 (01:00→08:12)
[2020-11-17] MEDS: HumaLOG 300 UNITS/3 ML VIAL SC PRN (06:18)
[2020-11-17] MEDS: Mometasone 200 MCG/Formoterol 5 MCG 120 PUFF INHALER INH SCH ×2 (06:19→20:14)
--- NOTE | 2020-11-17 07:25 | PRG ---
DATE OF SERVICE: 11/16/2020 SUBJECTIVE: 69-year-old male. OBJECTIVE: VITAL SIGNS: Temperature 98, pulse 65, respirations 20, sats are 93 on flow rate 50 and 55 FiO2. I's and O's positive. CHEST: No wheezing. No crackles. CARDIAC: Normal S1, S2. ABDOMEN: No masses. LABORATORY DATA: D-dimer is 1.95, glucose is elevated. C-reactive protein is 0.97. Last x-ray shows bilateral infiltrates. IMPRESSION: Respiratory failure, cochran positive pneumonia. PLAN: 1. He is on colchicine, steroids, and Decadron. 2. We will follow. Job ID: [id number]
[2020-11-17] MEDS: Glimepiride 1 MG TAB PO SCH (07:27)
[2020-11-17] MEDS: metFORMIN 500 MG TAB PO SCH (07:27)
[2020-11-17] MEDS: Apixaban 5 MG TAB PO SCH ×2 (07:28→20:12)
[2020-11-17] MEDS: Amiodarone 200 MG TAB PO SCH ×3 (07:28→20:12)
[2020-11-17] MEDS: Cefepime 1 GM in Sodium Chloride 0.9% 100 ML IVPB SCH ×2 (07:28→20:13)
[2020-11-17] MEDS: Colchicine 0.6 MG TAB PO SCH ×2 (07:29→20:13)
[2020-11-17] MEDS: Dexamethasone 4 mg/ml Vial SLOW IVP SCH ×2 (07:29→20:11)
[2020-11-17] MEDS: Famotidine 20 MG TAB PO SCH ×2 (07:30→20:12)
[2020-11-17] MEDS: Metoprolol Tartrate 25 MG TAB PO SCH ×2 (07:30→20:12)
[2020-11-17] MEDS: Pioglitazone HCl 15 MG TAB PO SCH (07:32)
[2020-11-17] MEDS: HumuLIN 70/30 (300 UNITS/3 ML VIAL) SC SCH ×2 (07:40→21:18)
--- NOTE | 2020-11-17 14:44 | PDOC.HOSPP ---
- Subjective Encounter Date: 11/17/20 Encounter Time: 07:00 Subjective: Patient seen in follow-up for acute hypoxic respiratory failure. Denies chest pain. - Objective Vital Signs & Weight: Vital Signs (12 hours) Temp Pulse Resp BP Pulse Ox 11/17/20 12:00 97 11/17/20 11:45 98.8 F 67 38 H 134/90 97 11/17/20 09:45 98.5 F 73 32 H 138/84 98 11/17/20 08:00 97 11/17/20 07:44 98.4 F 79 36 H 164/88 H 97 11/17/20 06:19 68 93 L 11/17/20 06:00 98.4 F 70 24 H 152/91 H 93 L 11/17/20 04:55 62 118/72 11/17/20 04:44 118/72 11/17/20 04:00 99.2 F 74 26 H 143/85 H 96 Weight Admit Weight 246 lb Weight 458 lb 4.8 oz I&O: 11/16/20 11/17/20 11/18/20 06:59 06:59 06:59 Intake Total 1682 120 350 Output Total 735 1000 200 Balance 947 -880 150 Result Diagrams: 11/14/20 04:48 11/14/20 04:36 Additional Labs: Accuchecks 11/17/20 11/17/20 11/16/20 10:57 05:14 20:44 POC Glucose 144 H 224 H 188 H 11/16/20 16:39 POC Glucose 198 H I reviewed patient's labs and MAR EKG Reviewed by me: Yes (Normal sinus rhythm on telemetry) Hospitalist ROS - Review of Systems Constitutional: reports: weakness Respiratory: reports: cough, SOB with excertion, sputum Cardiovascular: denies: chest pain, palpitations, orthopnea, paroxysmal noc. dyspnea, edema, light headedness Gastrointestinal: denies: nausea, vomiting, abdominal pain, diarrhea, constipation, melena, hematochezia - Medication Medications: Active Medications Generic Name Dose Route Start Last Admin Trade Name Freq PRN Reason Stop Dose Admin Amiodarone HCl 400 mg 11/06/20 21:00 11/17/20 07:28 Amiodarone 200 Mg Tab PO 400 mg TID AMARI Administration Apixaban 5 mg 11/06/20 21:00 11/17/20 07:28 Apixaban 5 Mg Tab PO 5 mg BID AMAIR Administration Colchicine 0.6 mg 11/13/20 21:00 11/17/20 07:29 Colchicine 0.6 Mg Tab PO 0.6 mg BID AMARI Administration Dexamethasone 6 mg 11/13/20 21:00 11/17/20 07:29 Dexamethasone 4 Mg/Ml Vial SLOW IVP 6 mg BID AMARI Administration Famotidine 20 mg 11/05/20 21:00 11/17/20 07:30 Famotidine 20 Mg Tab PO 20 mg BID AMARI Administration Glimepiride 1 mg 11/13/20 08:00 11/17/20 07:27 Glimepiride 1 Mg Tab PO 1 mg QAM-WM AMARI Administration Sodium Chloride 1,000 mls @ 30 mls/hr 11/09/20 13:15 11/17/20 08:12 Normal Saline 0.9% IV 1,000 mls .Q24H AMARI Administration Doxycycline Hyclate 100 mg/ 100 mls @ 100 mls/hr 11/13/20 21:00 11/17/20 10:56 Sodium Chloride IVPB 11/23/20 21:01 100 mls Q12HR AMARI Administration Cefepime HCl 1 gm/ Sodium 100 mls @ 200 mls/hr 11/13/20 21:00 11/17/20 07:28 Chloride IVPB 11/23/20 21:01 100 mls Q12HR AMARI Administration Insulin Human Isoph/Insulin Regular 13 units 11/12/20 21:00 11/17/20 07:40 Humulin 70/30 (300 Units/3 Ml Vial) SC 13 unit BID AMARI Administration Insulin Human Lispro 0 units 11/11/20 19:00 11/17/20 06:18 Humalog 300 Units/3 Ml Vial SC 6 unit .AGGRESSIVE SLIDING PRN Administration AGGRESSIVE SLIDING SCALE Protocol Insulin Human Lispro 0 units 11/12/20 21:30 11/12/20 22:35 Humalog 300 Units/3 Ml Vial SC 3 unit .BEDTIME SLIDING SC PRN Administration Bedtime Correctional Scale Loperamide HCl 4 mg 11/11/20 12:15 11/12/20 23:53 Loperamide Hcl 2 Mg Cap PO 4 mg QIDPRN PRN Administration Diarrhea/Loose Stools Melatonin 3 mg 11/09/20 21:00 11/16/20 20:46 Melatonin 3 Mg Tab PO 3 mg HS AMARI Administration Metformin HCl 1,000 mg 11/13/20 08:00 11/17/20 07:27 Metformin 500 Mg Tab PO 1,000 mg QAM-WM AMARI Administration Metoprolol Tartrate 5 mg 11/10/20 18:03 11/11/20 17:11 Metoprolol Tartrate 5 Mg/5 Ml Vial IVP 5 mg Q6H PRN Administration FOR HR > 90 Metoprolol Tartrate 6.25 mg 11/12/20 09:00 11/17/20 07:30 Metoprolol Tartrate 25 Mg Tab PO 6.25 mg BID AMARI Administration Mometasone Furoate/Formoterol Fumar 2 puff 11/13/20 18:30 11/17/20 06:19 Mometasone 200 Mcg/Formoterol 5 Mcg 120 Puff Inhaler INH 2 puff BID-RT AMARI Administration Pioglitazone HCl 15 mg 11/13/20 09:00 11/17/20 07:32 Pioglitazone Hcl 15 Mg Tab PO 15 mg DAILY AMARI Administration Rosuvastatin Calcium 20 mg 11/06/20 21:00 11/16/20 20:47 Rosuvastatin 20 Mg Tab PO 20 mg HS AMARI Administration Sodium Chloride 10 ml 11/09/20 21:00 11/17/20 07:32 Flush - Normal Saline 10 Ml Syringe IVF 10 ml Q12HR AMARI Administration Hospitalist Exam Vitals: Vital Signs (12 hours) Temp Pulse Resp BP Pulse Ox 11/17/20 12:00 97 11/17/20 11:45 98.8 F 67 38 H 134/90 97 11/17/20 09:45 98.5 F 73 32 H 138/84 98 11/17/20 08:00 97 11/17/20 07:44 98.4 F 79 36 H 164/88 H 97 11/17/20 06:19 68 93 L 11/17/20 06:00 98.4 F 70 24 H 152/91 H 93 L 11/17/20 04:55 62 118/72 11/17/20 04:44 118/72 11/17/20 04:00 99.2 F 74 26 H 143/85 H 96 Weight Admit Weight 246 lb Weight 458 lb 4.8 oz General Appearance: awake alert Eye: anicteric sclera ENT: no oropharyngeal lesions Neck: supple Heart: RRR Respiratory: CTAB Gastrointestinal: soft, non-tender Skin: no rashes Psychiatric: normal affect, normal behavior Hosp A/P - Plan Acute hypoxic respiratory failure COVID pneumonia -Continue IV steroids - s/p convalescent plasma 11/07 -continue doxycycline/cefepime -pt on high-flow oxygen Type II Diabetes - continue sliding scale Hyperlipidemia: - continue statin HEBER -Resolved #Hypotension - resolved #Atrial fibrillation with RVR -resolved -Continue amiodarone - continue eliquis Mild hypernatremia --resolved
[2020-11-17] MEDS: Melatonin 3 MG TAB PO SCH (20:12)
[2020-11-17] MEDS: Rosuvastatin 20 MG TAB PO SCH (20:12)
[2020-11-18] MEDS: Nystatin Powder 15 GM BOT TOP PRN (01:38)
[2020-11-18] MEDS: Mometasone 200 MCG/Formoterol 5 MCG 120 PUFF INHALER INH SCH ×2 (05:46→18:40)
[2020-11-18] MEDS: Amiodarone 200 MG TAB PO SCH ×3 (09:04→19:47)
[2020-11-18] MEDS: Famotidine 20 MG TAB PO SCH ×2 (09:04→19:48)
[2020-11-18] MEDS: Colchicine 0.6 MG TAB PO SCH ×2 (09:04→19:49)
[2020-11-18] MEDS: Apixaban 5 MG TAB PO SCH ×2 (09:05→19:49)
[2020-11-18] MEDS: Sodium Chloride 0.9% 1,000 ML IV SCH (09:05)
[2020-11-18] MEDS: Glimepiride 1 MG TAB PO SCH (09:05)
[2020-11-18] MEDS: metFORMIN 500 MG TAB PO SCH (09:05)
[2020-11-18] MEDS: Cefepime 1 GM in Sodium Chloride 0.9% 100 ML IVPB SCH ×2 (09:05→19:47)
[2020-11-18] MEDS: Pioglitazone HCl 15 MG TAB PO SCH (09:05)
[2020-11-18] MEDS: Dexamethasone 4 mg/ml Vial SLOW IVP SCH ×2 (09:06→19:47)
[2020-11-18] MEDS: Metoprolol Tartrate 25 MG TAB PO SCH ×2 (09:07→19:48)
[2020-11-18] MEDS: HumuLIN 70/30 (300 UNITS/3 ML VIAL) SC SCH ×2 (09:07→19:51)
[2020-11-18] MEDS: Nystatin Cream 30 GM TUBE TOP SCH ×3 (09:08→20:24)
--- NOTE | 2020-11-18 11:19 | PDOC.HOSPP ---
- Subjective Encounter Date: 11/18/20 Subjective: The patient is resting comfortably. - Objective Vital Signs & Weight: Vital Signs (12 hours) Temp Pulse Resp BP Pulse Ox 11/18/20 09:50 98.5 F 78 28 H 117/85 94 L 11/18/20 07:30 98.7 F 89 28 H 149/100 H 91 L 11/18/20 06:00 98.0 F 83 24 H 139/87 92 L 11/18/20 05:46 90 L 11/18/20 03:42 97.5 F L 80 24 H 119/84 91 L 11/18/20 02:38 91 L 11/18/20 00:00 98.2 F 72 18 120/83 96 Weight Admit Weight 246 lb Weight 458 lb 4.8 oz I&O: 11/17/20 11/18/20 11/19/20 06:59 06:59 06:59 Intake Total 120 410 Output Total 1000 1150 Balance -880 -670 Result Diagrams: 11/14/20 04:48 11/14/20 04:36 Additional Labs: Accuchecks 11/18/20 11/18/20 11/17/20 11:04 05:35 20:52 POC Glucose 178 H 197 H 172 H 11/17/20 16:36 POC Glucose 153 H Hospitalist ROS - Medication Medications: Active Medications Generic Name Dose Route Start Last Admin Trade Name Freq PRN Reason Stop Dose Admin Amiodarone HCl 400 mg 11/06/20 21:00 11/18/20 09:04 Amiodarone 200 Mg Tab PO 400 mg TID AMARI Administration Apixaban 5 mg 11/06/20 21:00 11/18/20 09:05 Apixaban 5 Mg Tab PO 5 mg BID AMARI Administration Colchicine 0.6 mg 11/13/20 21:00 11/18/20 09:04 Colchicine 0.6 Mg Tab PO 0.6 mg BID AMARI Administration Dexamethasone 6 mg 11/13/20 21:00 11/18/20 09:06 Dexamethasone 4 Mg/Ml Vial SLOW IVP 6 mg BID AMARI Administration Famotidine 20 mg 11/05/20 21:00 11/18/20 09:04 Famotidine 20 Mg Tab PO 20 mg BID AMARI Administration Glimepiride 1 mg 11/13/20 08:00 11/18/20 09:05 Glimepiride 1 Mg Tab PO 1 mg QAM-WM AMARI Administration Sodium Chloride 1,000 mls @ 30 mls/hr 11/09/20 13:15 11/18/20 09:05 Normal Saline 0.9% IV 1,000 mls .Q24H AMARI Administration Doxycycline Hyclate 100 mg/ 100 mls @ 100 mls/hr 11/13/20 21:00 11/18/20 09:06 Sodium Chloride IVPB 11/23/20 21:01 100 mls Q12HR AMARI Administration Cefepime HCl 1 gm/ Sodium 100 mls @ 200 mls/hr 11/13/20 21:00 11/18/20 09:05 Chloride IVPB 11/23/20 21:01 100 mls Q12HR AMARI Administration Insulin Human Isoph/Insulin Regular 13 units 11/12/20 21:00 11/18/20 09:07 Humulin 70/30 (300 Units/3 Ml Vial) SC 13 unit BID AMARI Administration Insulin Human Lispro 0 units 11/11/20 19:00 11/17/20 06:18 Humalog 300 Units/3 Ml Vial SC 6 unit .AGGRESSIVE SLIDING PRN Administration AGGRESSIVE SLIDING SCALE Protocol Insulin Human Lispro 0 units 11/12/20 21:30 11/12/20 22:35 Humalog 300 Units/3 Ml Vial SC 3 unit .BEDTIME SLIDING SC PRN Administration Bedtime Correctional Scale Loperamide HCl 4 mg 11/11/20 12:15 11/12/20 23:53 Loperamide Hcl 2 Mg Cap PO 4 mg QIDPRN PRN Administration Diarrhea/Loose Stools Melatonin 3 mg 11/09/20 21:00 11/17/20 20:12 Melatonin 3 Mg Tab PO 3 mg HS AMARI Administration Metformin HCl 1,000 mg 11/13/20 08:00 11/18/20 09:05 Metformin 500 Mg Tab PO 1,000 mg QAM-WM AMARI Administration Metoprolol Tartrate 5 mg 11/10/20 18:03 11/11/20 17:11 Metoprolol Tartrate 5 Mg/5 Ml Vial IVP 5 mg Q6H PRN Administration FOR HR > 90 Metoprolol Tartrate 6.25 mg 11/12/20 09:00 11/18/20 09:07 Metoprolol Tartrate 25 Mg Tab PO 6.25 mg BID AMARI Administration Mometasone Furoate/Formoterol Fumar 2 puff 11/13/20 18:30 11/18/20 05:46 Mometasone 200 Mcg/Formoterol 5 Mcg 120 Puff Inhaler INH 2 puff BID-RT AMARI Administration Nystatin 1 gm 11/18/20 09:00 11/18/20 09:08 Nystatin Cream 30 Gm Tube TOP 1 gm TID AMARI Administration Nystatin 1 gm 11/17/20 22:02 11/18/20 01:38 Nystatin Powder 15 Gm Bot TOP 1 gm PRN PRN Administration Topical Irritations Pioglitazone HCl 15 mg 11/13/20 09:00 11/18/20 09:05 Pioglitazone Hcl 15 Mg Tab PO 15 mg DAILY AMARI Administration Rosuvastatin Calcium 20 mg 11/06/20 21:00 11/17/20 20:12 Rosuvastatin 20 Mg Tab PO 20 mg HS AMARI Administration Sodium Chloride 10 ml 11/09/20 21:00 11/18/20 09:08 Flush - Normal Saline 10 Ml Syringe IVF Not Given Q12HR [facility] Hospitalist Exam Vitals: Vital Signs (12 hours) Temp Pulse Resp BP Pulse Ox 11/18/20 09:50 98.5 F 78 28 H 117/85 94 L 11/18/20 07:30 98.7 F 89 28 H 149/100 H 91 L 11/18/20 06:00 98.0 F 83 24 H 139/87 92 L 11/18/20 05:46 90 L 11/18/20 03:42 97.5 F L 80 24 H 119/84 91 L 11/18/20 02:38 91 L 11/18/20 00:00 98.2 F 72 18 120/83 96 Weight Admit Weight 246 lb Weight 458 lb 4.8 oz ENT: normocephalic atraumatic Neck: supple Respiratory: normal chest expansion, no tachypnea Extremities: no cyanosis, no clubbing Hosp A/P (1) Acute respiratory failure with hypoxia Code(s): J96.01 - ACUTE RESPIRATORY FAILURE WITH HYPOXIA Status: Acute (2) Atrial fibrillation with rapid ventricular response Code(s): I48.91 - UNSPECIFIED ATRIAL FIBRILLATION Status: Acute (3) Diabetes mellitus Code(s): E11.9 - TYPE 2 DIABETES MELLITUS WITHOUT COMPLICATIONS Status: Acute (4) Hyperlipidemia Code(s): E78.5 - HYPERLIPIDEMIA, UNSPECIFIED Status: Acute (5) Hypertension Code(s): I10 - ESSENTIAL (PRIMARY) HYPERTENSION Status: Acute (6) Pneumonia due to COVID-19 virus Code(s): U07.1 - COVID-19; J12.82 - PNEUMONIA DUE TO CORONAVIRUS DISEASE 2018 Status: Acute - Plan Continue supplemental oxygen as needed. Continue dexamethasone, Eliquis, and antibiotics.
[2020-11-18] MEDS: Rosuvastatin 20 MG TAB PO SCH (19:48)
[2020-11-18] MEDS: Melatonin 3 MG TAB PO SCH (19:48)
[2020-11-19] MEDS: Sodium Chloride 0.9% 1,000 ML IV SCH (03:38)
[2020-11-19] MEDS: HumaLOG 300 UNITS/3 ML VIAL SC PRN (05:21)
[2020-11-19 05:33] LABS: Anion Gap 17 mmol/L (10-20); BUN (Urea Nitrogen) 44 mg/dL (8.4-25.7); Calc. Creatinine Clearance 141 mL/min (70-130); Carbon Dioxide 17 mmol/L (23-31); Chloride 117 mmol/L (98-107); Glucose 248 mg/dL (80-115); Potassium 4.6 mmol/L (3.5-5.1); Sodium 146 mmol/L (136-145)
[2020-11-19 06:02] LABS: Band 11 % (5-11); Hemoglobin 13.9 g/dL (14.0-18.0); Lymphocytes 4 % (21-51); MDiff Complete? YES; Mean Corpuscular HGB CONC 32.3 g/dL (32.0-36.0); Mean Corpuscular Volume 86.9 fL (78.0-98.0); Mean Platelet Volume 8.3 fL (7.4-10.4); Monocytes 4 % (0-10); Myelocyte 1 % (0-0); Neutrophil 80 % (42-75); Platelet Count 255 thou/uL (130-400); RBC Distribution Width 16.7 % (11.5-14.5); Red Blood Cell (RBC) Count 4.97 mill/uL (4.70-6.10); White Blood Cell (WBC) Count 17.3 thou/uL (4.8-10.8)
[2020-11-19] MEDS: Mometasone 200 MCG/Formoterol 5 MCG 120 PUFF INHALER INH SCH ×2 (07:14→18:39)
[2020-11-19] MEDS ORDERED: Apixaban 5 MG TAB PO SCH (09:00)
[2020-11-19] MEDS: Pioglitazone HCl 15 MG TAB PO SCH (09:01)
[2020-11-19] MEDS: metFORMIN 500 MG TAB PO SCH (09:02)
[2020-11-19] MEDS: Dexamethasone 4 mg/ml Vial SLOW IVP SCH ×3 (09:03→22:30)
[2020-11-19] MEDS: Amiodarone 200 MG TAB PO SCH ×4 (09:03→22:46)
[2020-11-19] MEDS: Glimepiride 1 MG TAB PO SCH (09:03)
[2020-11-19] MEDS: HumuLIN 70/30 (300 UNITS/3 ML VIAL) SC SCH ×2 (09:03→22:54)
[2020-11-19] MEDS: Nystatin Cream 30 GM TUBE TOP SCH ×3 (09:05→20:29)
[2020-11-19] MEDS: Pantoprazole 40 MG VIAL IVP SCH ×3 (09:12→22:30)
[2020-11-19] MEDS: Cefepime 1 GM in Sodium Chloride 0.9% 100 ML IVPB SCH ×3 (09:12→22:30)
--- NOTE | 2020-11-19 10:07 | PRG ---
DATE OF SERVICE: 11/19/2020 SUBJECTIVE: Kristy Aldridge remains on high-flow. OBJECTIVE: VITAL SIGNS: Temperature 98, pulse 95, respiratory rate 28, sats 96% on high-flow, 50% FiO2, blood pressure . CHEST: No wheezing. No crackles. CARDIAC: Normal S1, S2. LABORATORY DATA: Creatinine 1.5, BUN 46, glucose 266. IMPRESSION: Respiratory failure, cochran positive pneumonia, cardiac arrhythmias. PLAN: Ten days of colchicine, high-dose steroids, supportive care, PT. TIME SPENT: One-half hour of critical time. Job ID: [id number]
[2020-11-19] MEDS ORDERED: EPINEPHrine 1 MG/10 ML Abboject SYRINGE ONE (12:23)
--- NOTE | 2020-11-19 15:02 | PDOC.HOSPP ---
- Subjective Encounter Date: 11/19/20 Subjective: The patient had an episode of bloody stool yesterday. - Objective Vital Signs & Weight: Vital Signs (12 hours) Temp Pulse Resp BP Pulse Ox 11/19/20 13:06 97.9 F 98 32 H 153/94 H 98 11/19/20 12:00 98.7 F 89 22 H 143/88 H 98 11/19/20 09:46 98.0 F 95 20 144/93 H 94 L 11/19/20 09:05 94 L 11/19/20 08:00 98.3 F 95 28 H 125/85 96 11/19/20 06:52 96 11/19/20 06:02 97.9 F 92 22 H 142/70 H 94 L 11/19/20 03:57 98.7 F 90 22 H 121/81 95 Weight Admit Weight 246 lb Weight 458 lb 4.8 oz I&O: 11/18/20 11/19/20 11/20/20 06:59 06:59 06:59 Intake Total 410 1580 50 Output Total 1150 850 Balance -740 730 50 Result Diagrams: 11/19/20 05:04 11/19/20 05:03 Additional Labs: Accuchecks 11/19/20 11/19/20 11/18/20 11:54 05:19 19:58 POC Glucose 182 H 226 H 145 H 11/18/20 16:55 POC Glucose 155 H Hospitalist ROS - Medication Medications: Active Medications Generic Name Dose Route Start Last Admin Trade Name Freq PRN Reason Stop Dose Admin Amiodarone HCl 400 mg 11/06/20 21:00 11/19/20 14:01 Amiodarone 200 Mg Tab PO 400 mg TID AMARI Administration Dexamethasone 6 mg 11/13/20 21:00 11/19/20 09:03 Dexamethasone 4 Mg/Ml Vial SLOW IVP 6 mg BID AMARI Administration Glimepiride 1 mg 11/13/20 08:00 11/19/20 09:03 Glimepiride 1 Mg Tab PO 1 mg QAM-WM AMARI Administration Sodium Chloride 1,000 mls @ 30 mls/hr 11/09/20 13:15 11/19/20 03:38 Normal Saline 0.9% IV 1,000 mls .Q24H AMARI Administration Doxycycline Hyclate 100 mg/ 100 mls @ 100 mls/hr 11/13/20 21:00 11/19/20 09:05 Sodium Chloride IVPB 11/23/20 21:01 100 mls Q12HR AMARI Administration Cefepime HCl 1 gm/ Sodium 100 mls @ 200 mls/hr 11/13/20 21:00 11/19/20 09:12 Chloride IVPB 11/23/20 21:01 100 mls Q12HR AMARI Administration Insulin Human Isoph/Insulin Regular 13 units 11/12/20 21:00 11/19/20 09:03 Humulin 70/30 (300 Units/3 Ml Vial) SC 13 unit BID AMARI Administration Insulin Human Lispro 0 units 11/11/20 19:00 11/19/20 05:21 Humalog 300 Units/3 Ml Vial SC 6 unit .AGGRESSIVE SLIDING PRN Administration AGGRESSIVE SLIDING SCALE Protocol Insulin Human Lispro 0 units 11/12/20 21:30 11/12/20 22:35 Humalog 300 Units/3 Ml Vial SC 3 unit .BEDTIME SLIDING SC PRN Administration Bedtime Correctional Scale Loperamide HCl 4 mg 11/11/20 12:15 11/12/20 23:53 Loperamide Hcl 2 Mg Cap PO 4 mg QIDPRN PRN Administration Diarrhea/Loose Stools Melatonin 3 mg 11/09/20 21:00 11/18/20 19:48 Melatonin 3 Mg Tab PO 3 mg HS AMARI Administration Metformin HCl 1,000 mg 11/13/20 08:00 11/19/20 09:02 Metformin 500 Mg Tab PO 1,000 mg QAM-WM AMARI Administration Metoprolol Tartrate 5 mg 11/10/20 18:03 11/11/20 17:11 Metoprolol Tartrate 5 Mg/5 Ml Vial IVP 5 mg Q6H PRN Administration FOR HR > 90 Mometasone Furoate/Formoterol Fumar 2 puff 11/13/20 18:30 11/19/20 07:14 Mometasone 200 Mcg/Formoterol 5 Mcg 120 Puff Inhaler INH Not Given BID-RT AMARI Nystatin 1 gm 11/18/20 09:00 11/19/20 14:01 Nystatin Cream 30 Gm Tube TOP 1 gm TID AMARI Administration Nystatin 1 gm 11/17/20 22:02 11/18/20 01:38 Nystatin Powder 15 Gm Bot TOP 1 gm PRN PRN Administration Topical Irritations Pantoprazole Sodium 40 mg 11/19/20 09:00 11/19/20 09:12 Pantoprazole 40 Mg Vial IVP 40 mg Q12HR AMARI Administration Pioglitazone HCl 15 mg 11/13/20 09:00 11/19/20 09:01 Pioglitazone Hcl 15 Mg Tab PO 15 mg DAILY AMARI Administration Rosuvastatin Calcium 20 mg 11/06/20 21:00 11/18/20 19:48 Rosuvastatin 20 Mg Tab PO 20 mg HS AMARI Administration Sodium Chloride 10 ml 11/09/20 21:00 11/19/20 09:12 Flush - Normal Saline 10 Ml Syringe IVF 10 ml Q12HR AMARI Administration Hospitalist Exam Vitals: Vital Signs (12 hours) Temp Pulse Resp BP Pulse Ox 11/19/20 13:06 97.9 F 98 32 H 153/94 H 98 11/19/20 12:00 98.7 F 89 22 H 143/88 H 98 11/19/20 09:46 98.0 F 95 20 144/93 H 94 L 11/19/20 09:05 94 L 11/19/20 08:00 98.3 F 95 28 H 125/85 96 11/19/20 06:52 96 11/19/20 06:02 97.9 F 92 22 H 142/70 H 94 L 11/19/20 03:57 98.7 F 90 22 H 121/81 95 Weight Admit Weight 246 lb Weight 458 lb 4.8 oz ENT: normocephalic atraumatic Neck: supple Heart: irregular Respiratory: normal chest expansion, no tachypnea Extremities: no cyanosis, no clubbing Hosp A/P (1) Acute respiratory failure with hypoxia Code(s): J96.01 - ACUTE RESPIRATORY FAILURE WITH HYPOXIA Status: Acute (2) Atrial fibrillation with rapid ventricular response Code(s): I48.91 - UNSPECIFIED ATRIAL FIBRILLATION Status: Acute (3) Diabetes mellitus Code(s): E11.9 - TYPE 2 DIABETES MELLITUS WITHOUT COMPLICATIONS Status: Acute (4) Hyperlipidemia Code(s): E78.5 - HYPERLIPIDEMIA, UNSPECIFIED Status: Acute (5) Hypertension Code(s): I10 - ESSENTIAL (PRIMARY) HYPERTENSION Status: Acute (6) Pneumonia due to COVID-19 virus Code(s): U07.1 - COVID-19; J12.82 - PNEUMONIA DUE TO CORONAVIRUS DISEASE 2019 Status: Acute (7) GI bleeding Code(s): K92.2 - GASTROINTESTINAL HEMORRHAGE, UNSPECIFIED Status: Acute - Plan Continue supplemental oxygen as needed. Continue dexamethasone antibiotics. Fecal occult blood was positive and patient had a dark bowel movement yesterday. This is likely related to the use of anticoagulation and corticosteroids. We will hold Eliquis and start PPI. His creatinine level has worsened since yesterday. I will place colchicine on hold.
[2020-11-19 17:47] LABS: Actual Bicarbonate (HCO3a) 20.1 mEq/L (22-28); Base Excess (BEa) -6.3 mEq/L (-2.0 to +3.0); Carboxyhemoglobin (COHb) 1.1 gm% (0.0-3.0); Hemoglobin (Hb) 14.3 g/dL (14.0-18.0); Potassium - ABG Lab 4.86 mmol/L (3.70-5.30); pH, Arterial 7.29 (7.35-7.45)
[2020-11-19 17:59] LABS: O2 Tension (PaO2), arterial 55.8 mmHg (> 80.0)
[2020-11-19 18:00] LABS: Puncture Site RRA
[2020-11-19] MEDS: Rosuvastatin 20 MG TAB PO SCH ×2 (20:22→22:30)
[2020-11-19] MEDS: Melatonin 3 MG TAB PO SCH ×2 (20:22→22:30)
--- NOTE | 2020-11-19 21:08 | PDOC.BPN ---
- Brief Progress Note Encounter Date: 11/19/20 Code blue called, patient became hypoxic and unresponsive He has however still breathing agonal and he did not lose his pulse. ED team was available to intubate and was moved to CCU. Given the sudden event is unclear what the cause was. Concerns for PE. D-dimer elevated however was not anticoagulated Plan to do CTA however will hold till morning. Give 1 full dose of Lovenox for anticoagulation. Appreciate further evaluation the morning Pulmonology consult in the morning
[2020-11-19] MEDS ORDERED: Ventilator Sedation Protocol 1 EACH FS SCH (21:15)
[2020-11-19] MEDS ORDERED: Fentanyl BOLUS 250 ML IVPB PRN (21:15)
[2020-11-19 21:19] LABS: Lactic Acid 1.9 mmol/L (0.5-2.2)
[2020-11-19 21:23] LABS: Mean Corpuscular HGB CONC 32.2 g/dL (32.0-36.0); Mean Corpuscular Hemoglobin 28.6 pg (27.0-31.0); Mean Platelet Volume 8.4 fL (7.4-10.4); Platelet Count 327 thou/uL (130-400); RBC Distribution Width 16.7 % (11.5-14.5); Red Blood Cell (RBC) Count 4.91 mill/uL (4.70-6.10)
[2020-11-19] MEDS: Norepinephrine 8 MG/0.9% NS 250 ML IVPB SCH (21:28)
[2020-11-19 21:29] LABS: ALT (SGPT) 45 U/L (8-55); AST (SGOT) 33 U/L (5-34); Albumin 2.8 g/dL (3.4-4.8); Alkaline Phosphatase 65 U/L (40-110); Anion Gap 14 mmol/L (10-20); BUN (Urea Nitrogen) 48 mg/dL (8.4-25.7); Bilirubin, Total 0.6 mg/dL (0.2-1.2); Calc. Creatinine Clearance 104 mL/min (70-130); Calcium 7.9 mg/dL (7.8-10.44); Carbon Dioxide 23 mmol/L (23-31); Chloride 119 mmol/L (98-107); Globulin 2.7 g/dL (2.4-3.5); Glucose 232 mg/dL (80-115); Potassium 5.7 mmol/L (3.5-5.1); Protein, Total 5.5 g/dL (5.8-8.1); Sodium 150 mmol/L (136-145)
[2020-11-19] MEDS ORDERED: Enoxaparin Sodium 40 MG/0.4 ML SYRINGE SC SCH (21:30)
[2020-11-19] MEDS ORDERED: Propofol BOLUS 1,000 MG/100 ML VIAL IV PRN (21:30)
[2020-11-19] MEDS ORDERED: Morphine 2 MG/ML VIAL SLOW IVP PRN (21:30)
[2020-11-19 21:33] LABS: Troponin I 0.068 ng/mL (< 0.028)
[2020-11-19 21:38] LABS: Band 7 % (5-11); Lymphocytes 1 % (21-51); MDiff Complete? YES; Metamyelocyte 1 % (0-0); Monocytes 4 % (0-10); Neutrophil 87 % (42-75); Toxic Granulation SLIGHT
[2020-11-19] MEDS: Fentanyl CADD 100 ML IV SCH (22:00)
[2020-11-19] MEDS: Propofol 1,000 MG/100 ML VIAL IV PRN (22:11)
--- NOTE | 2020-11-19 22:12 | RAD ---
EXAM: CHEST ONE VIEW HISTORY: Post code COMPARISON: 11/13/2020 FINDINGS: Pacing pad overlies left hemithorax. Additional monitor leads overlie the chest. Nasogastric tube is noted in place with tip overlying the expected location of the gastric antrum. Cardiac silhouette is magnified by projection but stable in size. There are persistent interstitial and patchy parenchym al airspace opacities seen throughout the lungs bilaterally not significantly changed given differences in technique compared to prior exam. No pleural effusion or pneumothorax is seen on this exam. IMPRESSION: 1. Persistent bilateral airspace opacities suggesting Covid pneumonia and similar to prior exam. 2. Nasogastric tube in place.
[2020-11-19 22:50] LABS: CO2 Tension 54.1 mmHg (35.0-45.0); pH, Arterial 7.17 (7.35-7.45)
[2020-11-19 22:51] LABS: Actual Bicarbonate (HCO3a) 19.3 mEq/L (22-28); Base Excess (BEa) -9.6 mEq/L (-2.0 to +3.0); Carboxyhemoglobin (COHb) 1.2 gm% (0.0-3.0); O2 Tension (PaO2), arterial 62.2 mmHg (> 80.0)
[2020-11-19 22:52] LABS: Calcium, Ionized (arterial) 1.22 mmol/L (1.12-1.30); Potassium - ABG Lab 5.37 mmol/L (3.70-5.30)
[2020-11-19 22:53] LABS: ALV-art Gradient 297.975 mmHg (0-20); Puncture Site LRA
[2020-11-19] MEDS ORDERED: Vecuronium 10 MG VIAL ONE (23:39)
[2020-11-19] MEDS: Vecuronium 10 MG VIAL IV PRN (23:46)
[2020-11-19] MEDS ORDERED: Vecuronium 10 MG VIAL IV PRN (23:46)
[2020-11-20] MEDS: Nystatin Cream 30 GM TUBE TOP SCH ×4 (00:43→21:44)
[2020-11-20] MEDS ORDERED: Sodium Chloride 0.9% 1,000 ML IV SCH (01:00)
[2020-11-20 01:01] LABS: Bacteria/HPF None Seen HPF (None Seen); Bilirubin Negative (Negative); Blood, Urine 1+ (Negative); Clarity Turbid (Clear); Glucose, Urine (Dipstick) 300 mg/dL (Negative); Ketone, Urine Negative (Negative); Leukocyte 250 Leu/uL (Negative); Nitrite Negative (Negative); Protein, Urine (Dipstick) 70 mg/dL (Neg-Trace); Urobilinogen Normal mg/dL (Less than 2); WBC/HPF 21-50 HPF (0-3); Yeast-Budding 3+ HPF (None Seen)
[2020-11-20] MEDS ORDERED: Enoxaparin Sodium 60 MG/0.6 ML SYRINGE SC SCH (01:45)
[2020-11-20] MEDS: Propofol 1,000 MG/100 ML VIAL IV PRN ×5 (03:43→22:19)
[2020-11-20 04:31] LABS: Anion Gap 15 mmol/L (10-20); BUN (Urea Nitrogen) 53 mg/dL (8.4-25.7); Calc. Creatinine Clearance 53 mL/min (70-130); Calcium 7.6 mg/dL (7.8-10.44); Carbon Dioxide 19 mmol/L (23-31); Chloride 121 mmol/L (98-107); Glucose 202 mg/dL (80-115); Potassium 4.8 mmol/L (3.5-5.1); Sodium 150 mmol/L (136-145)
[2020-11-20 04:46] LABS: Band 2 % (5-11); Hemoglobin 11.9 g/dL (14.0-18.0); Lymphocytes 3 % (21-51); MDiff Complete? YES; Mean Corpuscular HGB CONC 31.8 g/dL (32.0-36.0); Mean Corpuscular Hemoglobin 28.1 pg (27.0-31.0); Mean Corpuscular Volume 88.1 fL (78.0-98.0); Mean Platelet Volume 8.4 fL (7.4-10.4); Monocytes 10 % (0-10); Neutrophil 84 % (42-75); Nucleated RBC 2 % (0); Platelet Count 243 thou/uL (130-400); Polychromasia SLIGHT = 2-3 cells (100X) (0-2/hpf); RBC Distribution Width 16.5 % (11.5-14.5); Reactive Lymphocytes 1 % (0-10); Red Blood Cell (RBC) Count 4.24 mill/uL (4.70-6.10); White Blood Cell (WBC) Count 20.5 thou/uL (4.8-10.8)
[2020-11-20] MEDS: Mometasone 200 MCG/Formoterol 5 MCG 120 PUFF INHALER INH SCH ×2 (07:28→18:58)
[2020-11-20] MEDS: metFORMIN 500 MG TAB PO SCH ×2 (08:00→08:08)
[2020-11-20] MEDS: Glimepiride 1 MG TAB PO SCH ×2 (08:00→08:21)
[2020-11-20] MEDS: Nystatin Powder 15 GM BOT TOP PRN ×3 (08:00→21:42)
--- NOTE | 2020-11-20 08:05 | RAD ---
XR Chest 1 View Portable HISTORY: Respiratory failure COMPARISON: Previous day FINDINGS: There has been interval placement of an endotracheal tube with tip just below the level of the clavicular heads. Allowing for differences in technique, the remainder the exam is otherwise stable.
[2020-11-20] MEDS: Dexamethasone 4 mg/ml Vial SLOW IVP SCH ×2 (08:07→21:41)
[2020-11-20] MEDS: Pantoprazole 40 MG VIAL IVP SCH ×2 (08:08→21:41)
[2020-11-20] MEDS: Amiodarone 200 MG TAB PO SCH ×3 (08:08→21:42)
[2020-11-20] MEDS: Enoxaparin Sodium 40 MG/0.4 ML SYRINGE SC SCH ×2 (08:09→21:42)
[2020-11-20] MEDS: Cefepime 1 GM in Sodium Chloride 0.9% 100 ML IVPB SCH ×2 (08:10→21:38)
[2020-11-20] MEDS: Pioglitazone HCl 15 MG TAB PO SCH (08:21)
[2020-11-20] MEDS: Dextrose 5% in Water 1,000 ML IV SCH ×4 (08:22→22:59)
[2020-11-20] MEDS: Sodium Chloride 0.9% 1,000 ML IV SCH (08:22)
[2020-11-20 08:25] LABS: Actual Bicarbonate (HCO3a) 19.4 mEq/L (22-28); Base Excess (BEa) -6.1 mEq/L (-2.0 to +3.0); CO2 Tension 38.5 mmHg (35.0-45.0); Calcium, Ionized (arterial) 1.18 mmol/L (1.12-1.30); Carboxyhemoglobin (COHb) 0.9 gm% (0.0-3.0); Hemoglobin (Hb) 12.7 g/dL (14.0-18.0); O2 Tension (PaO2), arterial 71.7 mmHg (> 80.0); Potassium - ABG Lab 4.56 mmol/L (3.70-5.30); pH, Arterial 7.32 (7.35-7.45)
[2020-11-20] MEDS: Norepinephrine 8 MG/0.9% NS 250 ML IVPB SCH ×2 (08:26→22:19)
[2020-11-20 08:28] LABS: Puncture Site RRA
[2020-11-20 08:29] LABS: ALV-art Gradient 236.675 mmHg (0-20)
[2020-11-20] MEDS: HumuLIN 70/30 (300 UNITS/3 ML VIAL) SC SCH ×2 (09:00→21:43)
[2020-11-20] MEDS ORDERED: Digoxin 0.5 MG/2 ML AMP SLOW IVP SCH (09:45)
--- NOTE | 2020-11-20 10:14 | PRG ---
DATE OF SERVICE: SUBJECTIVE: Kristy Aldridge is a 69-year-old gentleman, who yesterday became hypoxic, was intubated. He is day #15 in the hospital, day 1 of the vent. OBJECTIVE: VITAL SIGNS: Temperature 98, pulse 97, blood pressure 107/65. He is on 40%, PEEP of 5. He has SVT at a rate of 150. CHEST: Rhonchi, crackles. CARDIAC: SVT. ABDOMEN: Soft. NEUROLOGIC: Sedated. LABORATORY DATA: White count 20,000, slight left shift. PO2 of 71, pCO2 of 30, pH 7.32, rate of 24, 50%, PEEP of 5, pressure support of 10. Sodium 150, BUN and creatinine 50 and 2.0. ASSESSMENT: Respiratory failure, cochran positive pneumonia, azotemia probably secondary to dehydration. PLAN: Continue high-dose steroids, empiric antibiotics. He will be started on amiodarone drip. Pulmonary is going to follow. A dose of digoxin is being given. Overall, prognosis is guarded. One-half hour of critical time. Job ID: [id number]
[2020-11-20] MEDS: Amiodarone 450 MG, Admixture Fee 1 EACH in Dextrose 5% in Water 250 ML IVPB SCH ×3 (10:29→17:08)
[2020-11-20] MEDS: Vecuronium 10 MG VIAL IV PRN (12:19)
--- NOTE | 2020-11-20 12:56 | EKG ---
Test Reason : STAT Blood Pressure : / mmHG Vent. Rate : 098 BPM Atrial Rate : 098 BPM P-R Int : 148 ms QRS Dur : 094 ms QT Int : 372 ms P-R-T Axes : 011 -33 069 degrees QTc Int : 474 ms Sinus rhythm with occasional Premature ventricular complexes Left axis deviation Left ventricular hypertrophy with repolarization abnormality Abnormal ECG When compared with ECG of 05-NOV-2020 10:20, (Unconfirmed) Sinus rhythm has replaced Atrial fibrillation Vent. rate has decreased BY [address] Cary SULLIVAN ([id number]) on 11/20/2020 12:56:15 PM Referred By: AFFRAM Confirmed By:DR. Cary SULLIVAN
--- NOTE | 2020-11-20 12:57 | EKG ---
Test Reason : Blood Pressure : / mmHG Vent. Rate : 139 BPM Atrial Rate : 139 BPM P-R Int : 156 ms QRS Dur : 086 ms QT Int : 354 ms P-R-T Axes : -23 -38 120 degrees QTc Int : 538 ms Sinus tachycardia Left axis deviation Moderate voltage criteria for LVH, may be normal variant Abnormal ECG When compared with ECG of 20-NOV-2020 00:53, (Unconfirmed) Premature ventricular complexes are no longer Present T wave inversion now evident in Lateral leads Confirmed by DR. Cary SULLIVAN ([id number]) on 11/20/2020 12:57:25 PM Referred By: ANA Confirmed By:DR. Cary SULLIVAN
[2020-11-20] MEDS ORDERED: Fentanyl CADD 100 ML ONE (13:13)
[2020-11-20] MEDS: Fentanyl CADD 100 ML IV SCH (13:19)
[2020-11-20] MEDS: HumaLOG 300 UNITS/3 ML VIAL SC PRN ×2 (14:04→18:02)
--- NOTE | 2020-11-20 15:46 | PDOC.HOSPP ---
- Subjective Encounter Date: 11/20/20 non-verbal (Sedated) - Objective Vital Signs & Weight: Vital Signs (12 hours) Pulse Resp BP 11/20/20 14:32 103 H 140/58 L 11/20/20 14:00 24 H 11/20/20 12:00 24 H 11/20/20 11:28 140 H 11/20/20 10:40 140 H 130/48 L 11/20/20 10:00 24 H 11/20/20 08:00 24 H 11/20/20 07:18 97 107/65 11/20/20 06:00 24 H 11/20/20 04:00 24 H Weight Admit Weight 246 lb Weight 235 lb 0.204 oz Most Recent Monitor Data Heart Rate from ECG 100 NIBP 99/57 NIBP BP-Mean 71 Respiration from ECG 24 SpO2 100 I&O: 11/19/20 11/20/20 11/21/20 06:59 06:59 06:59 Intake Total 1580 1295.2 429.4 Output Total 850 440 755 Balance 730 855.2 -325.6 Result Diagrams: 11/20/20 03:36 11/20/20 03:36 Additional Labs: Accuchecks 11/20/20 11/20/20 11/19/20 14:00 08:55 23:15 POC Glucose 241 H 151 H 247 H 11/19/20 11/19/20 20:35 16:33 POC Glucose 225 H 220 H Hospitalist ROS - Medication Medications: Active Medications Generic Name Dose Route Start Last Admin Trade Name Freq PRN Reason Stop Dose Admin Amiodarone HCl 400 mg 11/06/20 21:00 11/20/20 08:08 Amiodarone 200 Mg Tab PO 400 mg TID AMARI Administration Dexamethasone 6 mg 11/13/20 21:00 11/20/20 08:07 Dexamethasone 4 Mg/Ml Vial SLOW IVP 6 mg BID AMARI Administration Enoxaparin Sodium 40 mg 11/20/20 09:00 11/20/20 08:09 Enoxaparin Sodium 40 Mg/0.4 Ml Syringe SC 40 mg 0900,2100 AMARI Administration Glimepiride 1 mg 11/13/20 08:00 11/20/20 08:00 Glimepiride 1 Mg Tab PO Not Given QA- AMARI Doxycycline Hyclate 100 mg/ 100 mls @ 100 mls/hr 11/13/20 21:00 11/20/20 08:09 Sodium Chloride IVPB 11/23/20 21:01 100 mls Q12HR AMARI Administration Cefepime HCl 1 gm/ Sodium 100 mls @ 200 mls/hr 11/13/20 21:00 11/20/20 08:10 Chloride IVPB 11/23/20 21:01 100 mls Q12HR AMARI Administration Norepinephrine Bitartrate 250 mls @ 0 mls/hr 11/19/20 21:15 11/20/20 08:26 Levophed IVPB 250 mls INF AMARI Administration Protocol Titrate Fentanyl 100 mls @ 0 mls/hr 11/19/20 21:15 11/20/20 13:19 Fentanyl Cadd IV 12/19/20 21:15 100 mls INF AMARI Administration Protocol Per Protocol Dextrose/Water 1,000 mls @ 75 mls/hr 11/20/20 06:45 11/20/20 08:22 D5w IV 1,000 mls .[id number] AMARI Administration Amiodarone HCl 450 mg/ 259 mls @ 0 mls/hr 11/20/20 10:00 11/20/20 10:29 Miscellaneous Medication 1 IVPB 259 mls each/ Dextrose/Water INF AMARI Administration Protocol As Directed Insulin Human Isoph/Insulin Regular 13 units 11/12/20 21:00 11/20/20 09:00 Humulin 70/30 (300 Units/3 Ml Vial) SC Not Given BID AMARI Insulin Human Lispro 0 units 11/11/20 19:00 11/20/20 14:04 Humalog 300 Units/3 Ml Vial SC 6 unit .AGGRESSIVE SLIDING PRN Administration AGGRESSIVE SLIDING SCALE Protocol Insulin Human Lispro 0 units 11/12/20 21:30 11/12/20 22:35 Humalog 300 Units/3 Ml Vial SC 3 unit .BEDTIME SLIDING SC PRN Administration Bedtime Correctional Scale Loperamide HCl 4 mg 11/11/20 12:15 11/12/20 23:53 Loperamide Hcl 2 Mg Cap PO 4 mg QIDPRN PRN Administration Diarrhea/Loose Stools Melatonin 3 mg 11/09/20 21:00 11/19/20 22:30 Melatonin 3 Mg Tab PO 3 mg HS AMARI Administration Metoprolol Tartrate 5 mg 11/10/20 18:03 11/11/20 17:11 Metoprolol Tartrate 5 Mg/5 Ml Vial IVP 5 mg Q6H PRN Administration FOR HR > 90 Mometasone Furoate/Formoterol Fumar 2 puff 11/13/20 18:30 11/20/20 07:28 Mometasone 200 Mcg/Formoterol 5 Mcg 120 Puff Inhaler INH 2 puff BID-RT AMARI Administration Nystatin 1 gm 11/18/20 09:00 11/20/20 08:00 Nystatin Cream 30 Gm Tube TOP 1 gm TID AMARI Administration Nystatin 1 gm 11/17/20 22:02 11/20/20 08:00 Nystatin Powder 15 Gm Bot TOP 1 gm PRN PRN Administration Topical Irritations Pantoprazole Sodium 40 mg 11/19/20 09:00 11/20/20 08:08 Pantoprazole 40 Mg Vial IVP 40 mg Q12HR AMARI Administration Propofol 1,000 mg 11/19/20 21:30 11/20/20 13:34 Propofol 1,000 Mg/100 Ml Vial IV 12/19/20 21:30 1,000 mg INF PRN Administration TO ACHIEVE GOAL RASS Protocol Rosuvastatin Calcium 20 mg 11/06/20 21:00 11/19/20 22:30 Rosuvastatin 20 Mg Tab PO 20 mg HS AMARI Administration Sodium Chloride 10 ml 11/09/20 21:00 11/20/20 09:00 Flush - Normal Saline 10 Ml Syringe IVF 10 ml Q12HR AMARI Administration Vecuronium [place] 10 mg 11/19/20 23:41 11/20/20 12:19 Vecuronium 10 Mg Vial IV 10 mg Q30M PRN Administration MOVEMENT Hospitalist Exam Vitals: Vital Signs (12 hours) Pulse Resp BP 11/20/20 14:32 103 H 140/58 L 11/20/20 14:00 24 H 11/20/20 12:00 24 H 11/20/20 11:28 140 H 11/20/20 10:40 140 H 130/48 L 11/20/20 10:00 24 H 11/20/20 08:00 24 H 11/20/20 07:18 97 107/65 11/20/20 06:00 24 H 11/20/20 04:00 24 H Weight Admit Weight 246 lb Weight 235 lb 0.204 oz Most Recent Monitor Data Heart Rate from ECG 100 NIBP 99/57 NIBP BP-Mean 71 Respiration from ECG 24 SpO2 100 ENT: normocephalic atraumatic Neck: supple Heart - other findings: Tachycardia with regular rate Respiratory: normal chest expansion, no tachypnea Extremities: no cyanosis, no clubbing Hosp A/P (1) Acute respiratory failure with hypoxia Code(s): J96.01 - ACUTE RESPIRATORY FAILURE WITH HYPOXIA Status: Acute (2) Atrial fibrillation with rapid ventricular response Code(s): I48.91 - UNSPECIFIED ATRIAL FIBRILLATION Status: Acute (3) Diabetes mellitus Code(s): E11.9 - TYPE 2 DIABETES MELLITUS WITHOUT COMPLICATIONS Status: Acute (4) Hyperlipidemia Code(s): E78.5 - HYPERLIPIDEMIA, UNSPECIFIED Status: Acute (5) Hypertension Code(s): I10 - ESSENTIAL (PRIMARY) HYPERTENSION Status: Acute (6) Pneumonia due to COVID-19 virus Code(s): U07.1 - COVID-19; J12.82 - PNEUMONIA DUE TO CORONAVIRUS DISEASE 2019 Status: Acute (7) GI bleeding Code(s): K92.2 - GASTROINTESTINAL HEMORRHAGE, UNSPECIFIED Status: Acute - Plan The patient decompensated yesterday and was intubated. This morning he was hypotensive requiring norepinephrine and his rhythm changed to atrial fibrillation with RVR. Amiodarone drip was initiated. Remains on dexamethasone, antibiotics, and corticosteroids. No further episodes of dark stools. He is now on Lovenox and PPI. Continue supplemental oxygen as needed. Hypernatremia and worsening creatinine are present. BNP is low. The patient is likely dehydrated. D5W was initiated.
[2020-11-20] MEDS ORDERED: Amiodarone 150 MG, Admixture Fee 1 EACH in Dextrose 5% in Water 100 ML IVPB SCH (17:00)
[2020-11-20] MEDS: Rosuvastatin 20 MG TAB PO SCH (21:41)
[2020-11-20] MEDS: Melatonin 3 MG TAB PO SCH (21:43)
[2020-11-21] MEDS: Amiodarone 450 MG, Admixture Fee 1 EACH in Dextrose 5% in Water 250 ML IVPB SCH ×2 (00:36→15:51)
[2020-11-21] MEDS: Propofol 1,000 MG/100 ML VIAL IV PRN ×6 (02:25→21:49)
[2020-11-21] MEDS ORDERED: Fentanyl CADD 100 ML ONE ×2 (05:11→21:29)
[2020-11-21] MEDS ORDERED: Sterile Water 10 ML ONE (05:12)
[2020-11-21] MEDS: Vecuronium 10 MG VIAL IV PRN (05:24)
--- NOTE | 2020-11-21 07:19 | CON ---
DATE OF CONSULTATION: REQUESTING PHYSICIAN: Dr. Tafoya. REASON FOR CONSULTATION: Acute on chronic kidney disease and hypernatremia. IMPRESSION: 1. Acute on chronic kidney disease, likely in the context of intravascular depletion. 2. Hypernatremia in the context of free water depletion. 3. Cardiopulmonary failure in the context of #4. 4. COVID infection. PLAN: 1. Free water repletion. We will increase the current free water and if the patient's GI tract will prefer to give free water through the GI tract. 2. Renally dose all medications. 3. Avoid potentially nephrotoxic agents. 4. Further management to be dependent on the clinical course. HISTORY OF PRESENT ILLNESS: History is that of 69-year-old gentleman who presented with weakness, got diagnosed with COVID. The patient does have comorbid history of diabetes type 2, hypertension, dyslipidemia, initially admitted in [place], where he was experiencing shortness of breath and initial diagnosis of COVID was done there. The patient seems to have deteriorated on the floor and coded and got intubated and transferred to ICU. Further clinical evaluation did reveal a sodium of 150, creatinine has gone up to 2. As a result of the constellation of these findings, decision was taken to involve Renal in the management of this case. PAST MEDICAL HISTORY: As documented in the body of the history. REVIEW OF SYSTEMS: Could not be obtained from this patient who is currently intubated. PHYSICAL EXAMINATION: VITAL SIGNS: The patient noted to be on life support with heart rate in the 140s, atrial fibrillation. Blood pressure 98/61, respiratory rate of 24. HEENT: Remarkable for endotracheal tube in place. CARDIOVASCULAR SYSTEM: First and second heart sounds, irregularly irregular. RESPIRATORY SYSTEM: Revealed vented sounds. DIGESTIVE SYSTEM: Benign abdomen. EXTREMITIES: No peripheral edema. SKIN: No new gross rash. LYMPHATICS: No peripheral lymphadenopathy. SUMMARY: A 69-year-old gentleman, dealing with COVID infection, now experiencing deterioration in renal function as well as hypernatremic. Thank you for this consultation. We will follow with you. Job ID: [id number]
[2020-11-21 07:21] LABS: #Lymphocytes 0.3 thou/uL (1.20-3.40); #Monocytes 0.5 thou/uL (0.11-0.59); #Neutrophils 16.6 thou/uL (1.40-6.50); %Basophils 0.1 % (0.0-1.0); %Eosinophils 0.1 % (0.0-10.0); %Lymphocytes 1.8 % (21.0-51.0); %Monocytes 2.9 % (0.0-10.0); %Neutrophils 95.1 % (42.0-75.0); Hemoglobin 11.1 g/dL (14.0-18.0); Mean Corpuscular HGB CONC 32.3 g/dL (32.0-36.0); Mean Corpuscular Hemoglobin 28.3 pg (27.0-31.0); Mean Corpuscular Volume 87.4 fL (78.0-98.0); Mean Platelet Volume 8.6 fL (7.4-10.4); Platelet Count 200 thou/uL (130-400); RBC Distribution Width 16.6 % (11.5-14.5); Red Blood Cell (RBC) Count 3.93 mill/uL (4.70-6.10); White Blood Cell (WBC) Count 17.5 thou/uL (4.8-10.8)
[2020-11-21 07:22] LABS: Anion Gap 10 mmol/L (10-20); BUN (Urea Nitrogen) 42 mg/dL (8.4-25.7); Calc. Creatinine Clearance 60 mL/min (70-130); Calcium 7.3 mg/dL (7.8-10.44); Carbon Dioxide 22 mmol/L (23-31); Chloride 117 mmol/L (98-107); Glucose 248 mg/dL (80-115); Potassium 4.8 mmol/L (3.5-5.1); Sodium 144 mmol/L (136-145)
--- NOTE | 2020-11-21 07:36 | RAD ---
Chest one view HISTORY: Dyspnea. Pneumonia. Follow-up. COMPARISON: 11/20/2020. FINDINGS: Cardiac silhouette is magnified by projection. Pulmonary vasculature predominantly obscured by ill-defined patchy somewhat streaky areas of parenchymal infiltrate throughout each lung are similar in appearance to the prior study. Left base obscured by defibrillator patch. Mediastinum is midline. Lines and tubes unchanged in position. No evidence of pneumothorax. IMPRESSION : Multifocal infiltrates and other findings are stable.
[2020-11-21] MEDS: Glimepiride 1 MG TAB PO SCH (08:00)
--- NOTE | 2020-11-21 08:32 | OP ---
DATE OF PROCEDURE: 11/20/2020 PROCEDURE PERFORMED: Electrical cardioversion. INDICATION: A 69-year-old gentleman with paroxysmal atrial fibrillation. The patient was in the ICU. DESCRIPTION OF PROCEDURE: The patient was shocked with 120 joules of synchronized electricity. The patient converted to normal sinus rhythm. IMPRESSION: Successful electrocardioversion. Job ID: [id number]
--- NOTE | 2020-11-21 09:03 | PRG ---
DATE OF SERVICE: SUBJECTIVE: Remains intubated in the ICU on the vent. OBJECTIVE: VITAL SIGNS: Pulse 92, blood pressure 160/70, sats 90%, respiratory rate 29. His I's and O's have been good. CHEST: No wheezing. No crackles. CARDIAC: Normal S1. ABDOMEN: No masses. LABORATORY DATA: White count 17,000, platelet count is normal. Creatinine is 1.75, BUN is 42. IMPRESSION: Respiratory failure, renal failure, cochran positive pneumonia, advanced age, supraventricular tachycardia. PLAN: His x-ray looks somewhat better. He is oxygenating better. I am going to start decreasing his vent settings, minimize sedation. Hopefully start weaning in the next 24-48 hours. Nutrition, PT. One-half hour of critical care time. Job ID: [id number]
[2020-11-21] MEDS: Mometasone 200 MCG/Formoterol 5 MCG 120 PUFF INHALER INH SCH ×2 (09:12→18:50)
[2020-11-21] MEDS: Norepinephrine 8 MG/0.9% NS 250 ML IVPB SCH ×3 (10:26→17:46)
[2020-11-21] MEDS: Nystatin Powder 15 GM BOT TOP PRN ×3 (10:46→19:54)
[2020-11-21] MEDS: HumuLIN 70/30 (300 UNITS/3 ML VIAL) SC SCH (10:47)
[2020-11-21] MEDS: HumaLOG 300 UNITS/3 ML VIAL SC PRN ×3 (10:48→21:51)
[2020-11-21] MEDS: Cefepime 1 GM in Sodium Chloride 0.9% 100 ML IVPB SCH ×2 (10:53→19:53)
[2020-11-21] MEDS: Enoxaparin Sodium 40 MG/0.4 ML SYRINGE SC SCH ×2 (10:54→19:51)
[2020-11-21] MEDS: Amiodarone 200 MG TAB PO SCH ×3 (10:55→19:53)
[2020-11-21] MEDS: Dexamethasone 4 mg/ml Vial SLOW IVP SCH ×2 (10:55→19:52)
[2020-11-21] MEDS: Dextrose 5% in Water 1,000 ML IV SCH ×2 (10:59→23:05)
[2020-11-21] MEDS: Nystatin Cream 30 GM TUBE TOP SCH ×2 (10:59→19:50)
--- NOTE | 2020-11-21 19:09 | PRG ---
DATE OF SERVICE: 11/21/2020 SUBJECTIVE: The patient is seen, still on life support. Noted with the following vital signs. OBJECTIVE: VITAL SIGNS: Heart rate of HEENT: Unremarkable. CARDIOVASCULAR SYSTEM: First and second heart sounds were heard. RESPIRATORY SYSTEM: Clear to auscultation. DIGESTIVE SYSTEM: Revealed a benign abdomen with positive bowel sounds. EXTREMITIES: No peripheral edema. SKIN: No new gross rash. LYMPHATICS: No peripheral lymphadenopathy. LABORATORY INVESTIGATION: Showed a sodium of 144, creatinine 1.75, BUN of 42. IMPRESSION: 1. [id number] kidney disease, improving. 2. Hypernatremia . 3. Cardiopulmonary failure. PLAN: 1. I deescalate free water repletion rate. 2. Continue other renal supportive measures. 3. Further management to be dependent on the clinical course. Job ID: [id number]
[2020-11-21] MEDS: Pantoprazole 40 MG VIAL IVP SCH (19:17)
--- NOTE | 2020-11-21 19:42 | PDOC.HOSPP ---
- Subjective Encounter Date: 11/21/20 non-verbal - Objective Vital Signs & Weight: Vital Signs (12 hours) Pulse Resp BP Pulse Ox 11/21/20 18:52 138 H 11/21/20 18:00 16 11/21/20 16:00 16 11/21/20 15:07 86 111/55 L 11/21/20 12:00 16 11/21/20 11:46 90 112/63 11/21/20 10:00 16 11/21/20 09:13 99 11/21/20 08:00 24 H 97 Weight Admit Weight 246 lb Weight 235 lb 0.204 oz Most Recent Monitor Data Heart Rate from ECG 92 NIBP 128/58 NIBP BP-Mean 81 Respiration from ECG 24 SpO2 98 I&O: 11/20/20 11/21/20 11/22/20 06:59 06:59 06:59 Intake Total 1295.2 3873.3 1223 Output Total 440 2930 1030 Balance 855.2 943.3 193 Result Diagrams: 11/21/20 03:45 11/21/20 03:30 Additional Labs: Accuchecks 11/21/20 11/20/20 10:41 22:04 POC Glucose 244 H 217 H Hospitalist ROS - Medication Medications: Active Medications Generic Name Dose Route Start Last Admin Trade Name Freq PRN Reason Stop Dose Admin Amiodarone HCl 400 mg 11/06/20 21:00 11/21/20 10:55 Amiodarone 200 Mg Tab PO 400 mg TID AMARI Administration Dexamethasone 6 mg 11/13/20 21:00 11/21/20 10:55 Dexamethasone 4 Mg/Ml Vial SLOW IVP 6 mg BID AMARI Administration Enoxaparin Sodium 40 mg 11/20/20 09:00 11/21/20 10:54 Enoxaparin Sodium 40 Mg/0.4 Ml Syringe SC 40 mg 0900,2100 AMARI Administration Glimepiride 1 mg 11/13/20 08:00 11/21/20 08:00 Glimepiride 1 Mg Tab PO 1 mg QAM-WM AMARI Administration Doxycycline Hyclate 100 mg/ 100 mls @ 100 mls/hr 11/13/20 21:00 11/21/20 10:54 Sodium Chloride IVPB 11/23/20 21:01 100 mls Q12HR AMARI Administration Cefepime HCl 1 gm/ Sodium 100 mls @ 200 mls/hr 11/13/20 21:00 11/21/20 10:53 Chloride IVPB 11/23/20 21:01 100 mls Q12HR AMARI Administration Norepinephrine Bitartrate 250 mls @ 0 mls/hr 11/19/20 21:15 11/21/20 17:46 Levophed IVPB 250 mls INF AMARI Administration Protocol Titrate Fentanyl 100 mls @ 0 mls/hr 11/19/20 21:15 11/20/20 13:19 Fentanyl Cadd IV 12/19/20 21:15 100 mls INF AMARI Administration Protocol Per Protocol Amiodarone HCl 450 mg/ 259 mls @ 0 mls/hr 11/20/20 10:00 11/21/20 15:51 Miscellaneous Medication 1 IVPB 259 mls each/ Dextrose/Water INF AMARI Administration Protocol As Directed Dextrose/Water 1,000 mls @ 75 mls/hr 11/21/20 10:17 11/21/20 10:59 D5w IV 1,000 mls .[id number] AMARI Administration Insulin Human Isoph/Insulin Regular 13 units 11/12/20 21:00 11/21/20 10:47 Humulin 70/30 (300 Units/3 Ml Vial) SC 13 unit BID AMARI Administration Insulin Human Lispro 0 units 11/11/20 19:00 11/21/20 18:16 Humalog 300 Units/3 Ml Vial SC 9 unit .AGGRESSIVE SLIDING PRN Administration AGGRESSIVE SLIDING SCALE Protocol Insulin Human Lispro 0 units 11/12/20 21:30 11/12/20 22:35 Humalog 300 Units/3 Ml Vial SC 3 unit .BEDTIME SLIDING SC PRN Administration Bedtime Correctional Scale Loperamide HCl 4 mg 11/11/20 12:15 11/12/20 23:53 Loperamide Hcl 2 Mg Cap PO 4 mg QIDPRN PRN Administration Diarrhea/Loose Stools Melatonin 3 mg 11/09/20 21:00 11/20/20 21:43 Melatonin 3 Mg Tab PO Not Given HS [facility] Metoprolol Tartrate 5 mg 11/10/20 18:03 11/11/20 17:11 Metoprolol Tartrate 5 Mg/5 Ml Vial IVP 5 mg Q6H PRN Administration FOR HR > 90 Mometasone Furoate/Formoterol Fumar 2 puff 11/13/20 18:30 11/21/20 18:50 Mometasone 200 Mcg/Formoterol 5 Mcg 120 Puff Inhaler INH 2 puff BID-RT AMARI Administration Nystatin 1 gm 11/18/20 09:00 11/21/20 10:59 Nystatin Cream 30 Gm Tube TOP Not Given TID AMARI Nystatin 1 gm 11/17/20 22:02 11/21/20 18:15 Nystatin Powder 15 Gm Bot TOP 1 gm PRN PRN Administration Topical Irritations Propofol 1,000 mg 11/19/20 21:30 11/21/20 17:45 Propofol 1,000 Mg/100 Ml Vial IV 12/19/20 21:30 1,000 mg INF PRN Administration TO ACHIEVE GOAL RASS Protocol Rosuvastatin Calcium 20 mg 11/06/20 21:00 11/20/20 21:41 Rosuvastatin 20 Mg Tab PO 20 mg HS AMARI Administration Sodium Chloride 10 ml 11/09/20 21:00 11/21/20 10:48 Flush - Normal Saline 10 Ml Syringe IVF 10 ml Q12HR AMARI Administration Vecuronium [place] 10 mg 11/19/20 23:41 11/21/20 05:24 Vecuronium 10 Mg Vial IV 10 mg Q30M PRN Administration MOVEMENT Hospitalist Exam Vitals: Vital Signs (12 hours) Pulse Resp BP Pulse Ox 11/21/20 18:52 138 H 11/21/20 18:00 16 11/21/20 16:00 16 11/21/20 15:07 86 111/55 L 11/21/20 12:00 16 11/21/20 11:46 90 112/63 11/21/20 10:00 16 11/21/20 09:13 99 11/21/20 08:00 24 H 97 Weight Admit Weight 246 lb Weight 235 lb 0.204 oz Most Recent Monitor Data Heart Rate from ECG 92 NIBP 128/58 NIBP BP-Mean 81 Respiration from ECG 24 SpO2 98 General - other findings: Intubated and sedated Heart: RRR, no murmur, no gallops, no rubs, normal peripheral pulses Respiratory: CTAB, no wheezes, no rales, no ronchi, normal chest expansion, no tachypnea, normal percussion Gastrointestinal: soft, non-tender, non-distended, normal bowel sounds, no palpable masses, no hepatomegaly, no splenomegaly, no bruit Extremities: no cyanosis, no clubbing Extremities - other findings: Trace edema Hosp A/P (1) Acute respiratory failure with hypoxia Code(s): J96.01 - ACUTE RESPIRATORY FAILURE WITH HYPOXIA Status: Acute (2) Pneumonia due to COVID-19 virus Code(s): U07.1 - COVID-19; J12.82 - PNEUMONIA DUE TO CORONAVIRUS DISEASE 2018 Status: Acute (3) Atrial fibrillation with rapid ventricular response Code(s): I48.91 - UNSPECIFIED ATRIAL FIBRILLATION Status: Acute (4) Hypertension Code(s): I10 - ESSENTIAL (PRIMARY) HYPERTENSION Status: Acute (5) Hyperlipidemia Code(s): E78.5 - HYPERLIPIDEMIA, UNSPECIFIED Status: Acute (6) Diabetes mellitus Code(s): E11.9 - TYPE 2 DIABETES MELLITUS WITHOUT COMPLICATIONS Status: Acute (7) Dehydration Code(s): E86.0 - DEHYDRATION Status: Acute (8) Prerenal azotemia Code(s): R79.89 - OTHER SPECIFIED ABNORMAL FINDINGS OF BLOOD CHEMISTRY Status: Acute (9) Lactic acidosis Code(s): E87.2 - ACIDOSIS Status: Acute (10) Hypernatremia Code(s): E87.0 - HYPEROSMOLALITY AND HYPERNATREMIA Status: Acute - Plan Acute hypoxic respiratory failure: Secondary to COVID-19 pneumonia. Patient's had decompensation requiring intubation. Followed by pulmonary critical care. Remains on empiric antibiotics COVID-19 pneumonia: Past the acute phase of the illness. Continues on dexamethasone Atrial fibrillation with rapid ventricular response: Followed by cardiology. Patient has successfully been cardioverted. He remains on amiodarone drip. Diabetes mellitus: Patient remains on Amaryl, Humulin 70/30, sliding scale insulin Blood sugars continue to remain somewhat elevated likely due to the steroids. Hypernatremia: Improving with free water boluses. Hypertension: Patient is subsequently become hypotensive due to the Covid infection and the A. fib. He remains on pressors. Holding antihypertensives Hyperlipidemia: Continue rosuvastatin. DVT prophylaxis: Enoxaparin 40 mg twice daily. PUD prophylaxis: Pantoprazole.
[2020-11-21] MEDS: Pantoprazole 40 MG GRANULES PACKET PER TUBE SCH (19:51)
[2020-11-21] MEDS: Melatonin 3 MG TAB PO SCH (19:54)
[2020-11-21] MEDS: Insulin Glargine 20 UNITS in Pre-Filled Syringe 1 EACH SC SCH (20:42)
[2020-11-21] MEDS: Fentanyl CADD 100 ML IV SCH (21:35)
[2020-11-21] MEDS: Rosuvastatin 20 MG TAB PO SCH (21:50)
[2020-11-22] MEDS: Propofol 1,000 MG/100 ML VIAL IV PRN ×6 (02:31→22:40)
[2020-11-22] MEDS: Nystatin Cream 30 GM TUBE TOP SCH ×4 (03:47→22:40)
[2020-11-22] MEDS: Amiodarone 450 MG, Admixture Fee 1 EACH in Dextrose 5% in Water 250 ML IVPB SCH ×2 (04:03→22:40)
[2020-11-22 04:43] LABS: #Lymphocytes 0.3 thou/uL (1.20-3.40); #Monocytes 0.6 thou/uL (0.11-0.59); #Neutrophils 13.6 thou/uL (1.40-6.50); %Eosinophils 0.1 % (0.0-10.0); %Lymphocytes 1.7 % (21.0-51.0); %Monocytes 4.2 % (0.0-10.0); Mean Corpuscular HGB CONC 32.3 g/dL (32.0-36.0); Mean Corpuscular Hemoglobin 28.3 pg (27.0-31.0); Mean Corpuscular Volume 87.8 fL (78.0-98.0); Mean Platelet Volume 8.6 fL (7.4-10.4); Platelet Count 130 thou/uL (130-400); RBC Distribution Width 16.5 % (11.5-14.5); Red Blood Cell (RBC) Count 3.87 mill/uL (4.70-6.10); White Blood Cell (WBC) Count 14.5 thou/uL (4.8-10.8)
[2020-11-22 05:21] LABS: Anion Gap 11 mmol/L (10-20); BUN (Urea Nitrogen) 35 mg/dL (8.4-25.7); Calc. Creatinine Clearance 69 mL/min (70-130); Calcium 7.3 mg/dL (7.8-10.44); Carbon Dioxide 23 mmol/L (23-31); Chloride 113 mmol/L (98-107); Glucose 198 mg/dL (80-115); Potassium 5.4 mmol/L (3.5-5.1); Sodium 142 mmol/L (136-145)
[2020-11-22] MEDS: Dextrose 5% in Water 1,000 ML IV SCH ×2 (05:59→12:00)
[2020-11-22] MEDS: HumaLOG 300 UNITS/3 ML VIAL SC PRN ×4 (06:45→23:02)
[2020-11-22] MEDS: Mometasone 200 MCG/Formoterol 5 MCG 120 PUFF INHALER INH SCH ×2 (07:36→19:07)
--- NOTE | 2020-11-22 07:41 | RAD ---
Portable frontal chest radiograph: 11/22/2020 COMPARISON: 11/21/2020 HISTORY: Ventilated patient FINDINGS: Stable endotracheal tube and nasogastric tube. Persistent interstitial and alveolar opacity noted throughout both lungs with a perihilar/bibasilar predominance. IMPRESSION: No significant interval change.
[2020-11-22] MEDS: Enoxaparin Sodium 40 MG/0.4 ML SYRINGE SC SCH ×2 (08:07→20:29)
[2020-11-22] MEDS: Cefepime 1 GM in Sodium Chloride 0.9% 100 ML IVPB SCH ×2 (08:09→20:31)
[2020-11-22] MEDS: Dexamethasone 4 mg/ml Vial SLOW IVP SCH ×2 (08:10→20:32)
[2020-11-22] MEDS: Amiodarone 200 MG TAB PO SCH ×3 (08:11→20:32)
[2020-11-22] MEDS: Pantoprazole 40 MG GRANULES PACKET PER TUBE SCH (08:11)
--- NOTE | 2020-11-22 09:51 | PRG ---
DATE OF SERVICE: 11/22/2020 SUBJECTIVE: A 69-year-old gentleman, remains intubated in the vent. OBJECTIVE: VITAL SIGNS: Pulse 104, blood pressure 90/52, sats 100% . His I's and O's have been positive. CHEST: Rhonchi, crackles. CARDIAC: Normal S1. ABDOMEN: No masses. LABORATORY DATA: Creatinine is 1, BUN 35. IMPRESSION: SVT, cochran positive pneumonia, respiratory failure, azotemia. PLAN: IV fluids being initiated to control his hypotension. Try to minimize sedation, vent being adjusted. Continue antibiotics including high-dose steroids. One-half hour of critical care time. Job ID: [id number]
[2020-11-22] MEDS: Glimepiride 1 MG TAB PO SCH (09:53)
[2020-11-22] MEDS ORDERED: Sodium Bicarbonate Tab 325 MG TAB PER TUBE PRN (14:45)
[2020-11-22] MEDS ORDERED: Pancrelipase DR 12,000 1 CAP FS PRN (14:45)
--- NOTE | 2020-11-22 16:16 | PDOC.HOSPP ---
- Subjective Encounter Date: 11/22/20 non-verbal - Objective Vital Signs & Weight: Vital Signs (12 hours) Temp Pulse Resp BP Pulse Ox 11/22/20 15:03 74 94/47 L 11/22/20 14:00 16 11/22/20 12:00 98.8 F 16 11/22/20 11:01 73 88/39 L 11/22/20 10:00 18 11/22/20 08:00 98 F 100 11/22/20 07:36 104 H 90/52 L 11/22/20 06:00 18 Weight Admit Weight 246 lb Weight 250 lb 3.594 oz Most Recent Monitor Data Heart Rate from ECG 73 NIBP 102/52 NIBP BP-Mean 68 Respiration from ECG 19 SpO2 95 I&O: 11/21/20 11/22/20 11/23/20 06:59 06:59 06:59 Intake Total 3873.3 2958 480 Output Total 2930 2430 850 Balance 943.3 528 -370 Result Diagrams: 11/22/20 04:25 11/22/20 04:25 Additional Labs: Accuchecks 11/22/20 11/21/20 11/21/20 06:43 21:42 17:50 POC Glucose 195 H 219 H 266 H Hospitalist ROS - Medication Medications: Active Medications Generic Name Dose Route Start Last Admin Trade Name Freq PRN Reason Stop Dose Admin Amiodarone HCl 400 mg 11/06/20 21:00 11/22/20 14:58 Amiodarone 200 Mg Tab PO 400 mg TID AMARI Administration Dexamethasone 6 mg 11/13/20 21:00 11/22/20 08:10 Dexamethasone 4 Mg/Ml Vial SLOW IVP 6 mg BID AMARI Administration Enoxaparin Sodium 40 mg 11/20/20 09:00 11/22/20 08:07 Enoxaparin Sodium 40 Mg/0.4 Ml Syringe SC 40 mg 0900,2100 AMARI Administration Glimepiride 1 mg 11/13/20 08:00 11/22/20 09:53 Glimepiride 1 Mg Tab PO 1 mg QAM-WM AMARI Administration Doxycycline Hyclate 100 mg/ 100 mls @ 100 mls/hr 11/13/20 21:00 11/22/20 08:08 Sodium Chloride IVPB 11/23/20 21:01 100 mls Q12HR AMARI Administration Cefepime HCl 1 gm/ Sodium 100 mls @ 200 mls/hr 11/13/20 21:00 11/22/20 08:09 Chloride IVPB 11/23/20 21:01 100 mls Q12HR AMARI Administration Norepinephrine Bitartrate 250 mls @ 0 mls/hr 11/19/20 21:15 11/21/20 17:46 Levophed IVPB 250 mls INF AMARI Administration Protocol Titrate Fentanyl 100 mls @ 0 mls/hr 11/19/20 21:15 11/21/20 21:35 Fentanyl Cadd IV 12/19/20 21:15 100 mls INF AMARI Administration Protocol Per Protocol Amiodarone HCl 450 mg/ 259 mls @ 0 mls/hr 11/20/20 10:00 11/22/20 04:03 Miscellaneous Medication 1 IVPB 259 mls each/ Dextrose/Water INF AMARI Administration Protocol As Directed Insulin Glargine 20 units/ 0.2 mls @ 0 mls/hr 11/21/20 21:00 11/21/20 20:42 Miscellaneous Medication SC 0.2 mls HS AMARI Administration Dextrose/Water 1,000 mls @ 50 mls/hr 11/22/20 11:35 11/22/20 12:00 D5w IV Not Given .Q20H AMARI Insulin Human Lispro 0 units 11/11/20 19:00 11/22/20 06:45 Humalog 300 Units/3 Ml Vial SC 3 unit .AGGRESSIVE SLIDING PRN Administration AGGRESSIVE SLIDING SCALE Protocol Insulin Human Lispro 0 units 11/12/20 21:30 11/12/20 22:35 Humalog 300 Units/3 Ml Vial SC 3 unit .BEDTIME SLIDING SC PRN Administration Bedtime Correctional Scale Loperamide HCl 4 mg 11/11/20 12:15 11/12/20 23:53 Loperamide Hcl 2 Mg Cap PO 4 mg QIDPRN PRN Administration Diarrhea/Loose Stools Metoprolol Tartrate 5 mg 11/10/20 18:03 11/11/20 17:11 Metoprolol Tartrate 5 Mg/5 Ml Vial IVP 5 mg Q6H PRN Administration FOR HR > 90 Mometasone Furoate/Formoterol Fumar 2 puff 11/13/20 18:30 02/04/21 07:36 Mometasone 200 Mcg/Formoterol 5 Mcg 120 Puff Inhaler INH 2 puff BID-RT AMARI Administration Nystatin 1 gm 11/18/20 09:00 11/22/20 14:58 Nystatin Cream 30 Gm Tube TOP 1 gm TID AMARI Administration Nystatin 1 gm 11/17/20 22:02 11/21/20 19:54 Nystatin Powder 15 Gm Bot TOP 1 gm PRN PRN Administration Topical Irritations Propofol 1,000 mg 11/19/20 21:30 11/22/20 15:48 Propofol 1,000 Mg/100 Ml Vial IV 12/19/20 21:30 1,000 mg INF PRN Administration TO ACHIEVE GOAL RASS Protocol Rosuvastatin Calcium 20 mg 11/06/20 21:00 11/21/20 21:50 Rosuvastatin 20 Mg Tab PO 20 mg HS AMARI Administration Sodium Chloride 10 ml 11/09/20 21:00 11/22/20 08:12 Flush - Normal Saline 10 Ml Syringe IVF Not Given Q12HR [facility] Vecuronium [place] 10 mg 11/19/20 23:41 11/21/20 05:24 Vecuronium 10 Mg Vial IV 10 mg Q30M PRN Administration MOVEMENT Hospitalist Exam Vitals: Vital Signs (12 hours) Temp Pulse Resp BP Pulse Ox 11/22/20 15:03 74 94/47 L 11/22/20 14:00 16 11/22/20 12:00 98.8 F 16 11/22/20 11:01 73 88/39 L 11/22/20 10:00 18 11/22/20 08:00 98 F 100 11/22/20 07:36 104 H 90/52 L 11/22/20 06:00 18 Weight Admit Weight 246 lb Weight 250 lb 3.594 oz Most Recent Monitor Data Heart Rate from ECG 73 NIBP 102/52 NIBP BP-Mean 68 Respiration from ECG 19 SpO2 95 General Appearance: NAD, awake alert Heart: RRR, no murmur, no gallops, no rubs, normal peripheral pulses Respiratory: CTAB, no wheezes, no rales, no ronchi, normal chest expansion Gastrointestinal: soft, non-distended, normal bowel sounds Gastrointestinal - other findings: Six-inch round fullness/mass in the right lower quadrant Extremities: no cyanosis, no clubbing, no edema Skin: normal turgor Hosp A/P (1) Acute respiratory failure with hypoxia Code(s): J96.01 - ACUTE RESPIRATORY FAILURE WITH HYPOXIA Status: Acute (2) Pneumonia due to COVID-19 virus Code(s): U07.1 - COVID-19; J12.82 - PNEUMONIA DUE TO CORONAVIRUS DISEASE 2019 Status: Acute (3) Atrial fibrillation with rapid ventricular response Code(s): I48.91 - UNSPECIFIED ATRIAL FIBRILLATION Status: Acute (4) Hypertension Code(s): I10 - ESSENTIAL (PRIMARY) HYPERTENSION Status: Acute (5) Hyperlipidemia Code(s): E78.5 - HYPERLIPIDEMIA, UNSPECIFIED Status: Acute (6) Diabetes mellitus Code(s): E11.9 - TYPE 2 DIABETES MELLITUS WITHOUT COMPLICATIONS Status: Acute (7) Dehydration Code(s): E86.0 - DEHYDRATION Status: Acute (8) Prerenal azotemia Code(s): R79.89 - OTHER SPECIFIED ABNORMAL FINDINGS OF BLOOD CHEMISTRY Status: Acute (9) Lactic acidosis Code(s): E87.2 - ACIDOSIS Status: Acute (10) Hypernatremia Code(s): E87.0 - HYPEROSMOLALITY AND HYPERNATREMIA Status: Acute (11) Abdominal mass Code(s): R19.00 - INTRA-ABD AND PELVIC SWELLING, MASS AND LUMP, UNSP SITE Status: Acute - Plan Acute hypoxic respiratory failure: Secondary to COVID-19 pneumonia. Patient's had decompensation requiring intubation. Followed by pulmonary critical care. Remains on empiric antibiotics COVID-19 pneumonia: Past the acute phase of the illness. Continues on dexamethasone Atrial fibrillation with rapid ventricular response: Followed by cardiology. Patient has successfully been cardioverted. He remains on amiodarone drip and p.o. amiodarone. Diabetes mellitus: Patient remains on Amaryl. His 70/30 insulin was discontinued in favor of Lantus. Blood sugars are somewhat better with. Hypernatremia: Improving with free water boluses. Hypotonic fluid rate decreased Hypertension: Patient is subsequently become hypotensive due to the Covid infection and the A. fib. He remains on pressors. Holding antihypertensives Hypotension: Patient remains on pressors. Received some albumin today (11/22/2020) Hyperlipidemia: Continue rosuvastatin. DVT prophylaxis: Enoxaparin 40 mg twice daily. PUD prophylaxis: Pantoprazole.
--- NOTE | 2020-11-22 17:23 | ULT ---
LIMITED ABDOMINAL ULTRASOUND: 11/22/20 INDICATIONS: Right lower quadrant mass. FINDINGS: Images of the pelvis and right lower quadrant reveal a distended bladder which projects into the righ t pelvis and corresponds to the area of palpable concern. This distended bladder volume is measured a t 900 mL. There is mild bladder wall thickening. A Rivera catheter is in place and function should be assessed. IMPRESSION: Distended bladder. Recommend evaluate function of Rivera catheter. POS: AGW
[2020-11-22] MEDS: Nystatin Powder 15 GM BOT TOP PRN (20:32)
[2020-11-22] MEDS: Rosuvastatin 20 MG TAB PO SCH (20:32)
[2020-11-22] MEDS: Insulin Glargine 20 UNITS in Pre-Filled Syringe 1 EACH SC SCH (20:34)
--- NOTE | 2020-11-22 20:52 | PRG ---
DATE OF SERVICE: 11/22/2020 SUBJECTIVE: The patient is still on life support. Noted with the following vital signs. OBJECTIVE: VITAL SIGNS: Rectal temperature 98.8, pulse 74, respiratory rate 16, blood pressure 94/47, pulse ox 100%. HEENT: Unremarkable. CARDIOVASCULAR SYSTEM: First and second heart sounds were heard. RESPIRATORY SYSTEM: Revealed vented sounds. DIGESTIVE SYSTEM: Revealed a benign abdomen. EXTREMITIES: No peripheral edema. SKIN: No new gross rash. LYMPHATICS: No peripheral lymphadenopathy. LABORATORY INVESTIGATION: Showed a potassium of 5.4, BUN of 35 with creatinine 1.52. IMPRESSION: 1. Acute kidney injury. 2. Hyperkalemia. 3. Hypernatremia, which seems to have resolved, status post free water repletion. PLAN: 1. Renal supportive measures. 2. Further management to be dependent on the clinical course. 3. Continue free water repletion. Job ID: [id number]
[2020-11-22] MEDS ORDERED: Famotidine/PF 20 mg/2ml Vial SLOW IVP SCH (21:00)
[2020-11-23] MEDS: Propofol 1,000 MG/100 ML VIAL IV PRN ×4 (03:11→17:11)
[2020-11-23] MEDS: Dextrose 5% in Water 1,000 ML IV SCH (04:17)
[2020-11-23] MEDS: HumaLOG 300 UNITS/3 ML VIAL SC PRN ×4 (04:56→22:35)
[2020-11-23 05:00] LABS: #Lymphocytes 0.2 thou/uL (1.20-3.40); #Monocytes 0.5 thou/uL (0.11-0.59); #Neutrophils 10.5 thou/uL (1.40-6.50); %Eosinophils 0.1 % (0.0-10.0); %Lymphocytes 1.7 % (21.0-51.0); %Monocytes 4.3 % (0.0-10.0); %Neutrophils 93.9 % (42.0-75.0); Hemoglobin 10.5 g/dL (14.0-18.0); Mean Corpuscular HGB CONC 32.4 g/dL (32.0-36.0); Mean Corpuscular Hemoglobin 28.2 pg (27.0-31.0); Mean Corpuscular Volume 87.1 fL (78.0-98.0); Platelet Count 105 thou/uL (130-400); RBC Distribution Width 16.5 % (11.5-14.5); Red Blood Cell (RBC) Count 3.71 mill/uL (4.70-6.10); White Blood Cell (WBC) Count 11.2 thou/uL (4.8-10.8)
[2020-11-23 05:01] LABS: Anion Gap 12 mmol/L (10-20); BUN (Urea Nitrogen) 32 mg/dL (8.4-25.7); Calc. Creatinine Clearance 87 mL/min (70-130); Calcium 7.6 mg/dL (7.8-10.44); Carbon Dioxide 23 mmol/L (23-31); Chloride 111 mmol/L (98-107); Glucose 196 mg/dL (80-115); Potassium 4.7 mmol/L (3.5-5.1); Sodium 141 mmol/L (136-145)
[2020-11-23] MEDS: Mometasone 200 MCG/Formoterol 5 MCG 120 PUFF INHALER INH SCH ×2 (07:53→19:02)
--- NOTE | 2020-11-23 08:04 | RAD ---
Portable frontal chest radiograph: 11/23/2020 COMPARISON: 11/22/2020 HISTORY: Ventilated patient FINDINGS: Stable endotracheal tube, nasogastric tube, and prominence of the cardiac silhouette. Exten sive interstitial and alveolar opacity noted in the perihilar regions and both lung bases, not significantly changed. IMPRESSION: No significant interval change.
[2020-11-23] MEDS: Cefepime 1 GM in Sodium Chloride 0.9% 100 ML IVPB SCH ×2 (08:12→20:20)
[2020-11-23] MEDS: Amiodarone 200 MG TAB PO SCH ×3 (08:13→20:23)
[2020-11-23] MEDS: Enoxaparin Sodium 40 MG/0.4 ML SYRINGE SC SCH ×2 (08:13→20:23)
[2020-11-23] MEDS: Pantoprazole 40 MG VIAL IVP SCH (08:13)
[2020-11-23] MEDS: Dexamethasone 4 mg/ml Vial SLOW IVP SCH ×2 (08:13→20:22)
[2020-11-23] MEDS: Senokot 8.6 MG TAB PO SCH (08:14)
[2020-11-23] MEDS: Glimepiride 1 MG TAB PO SCH (08:14)
[2020-11-23] MEDS: Nystatin Cream 30 GM TUBE TOP SCH ×3 (08:15→22:41)
--- NOTE | 2020-11-23 09:42 | PRG ---
DATE OF SERVICE: 11/23/2020 SUBJECTIVE: Remains intubated in the vent. OBJECTIVE: VITAL SIGNS: Pulse 64, sats are 96% on 40%, PEEP of 8, blood pressure 109/58. CHEST: Bilateral rhonchi and crackles. CARDIAC: Normal S1, S2. ABDOMEN: No masses. LABORATORY AND DIAGNOSTIC STUDIES: Creatinine 1.28. X-ray still shows bilateral infiltrates. His I's and O's have been good. Renal function is better. ASSESSMENT: 1. Amaya positive pneumonia. 2. Respiratory failure. 3. Mild azotemia. 4. Cardiac arrhythmias. PLAN: Still not weanable. We will try to minimize his sedation. Supportive care, PT, nutrition. One-half hour of critical care time. Job ID: [id number]
[2020-11-23] MEDS: Amiodarone 450 MG, Admixture Fee 1 EACH in Dextrose 5% in Water 250 ML IVPB SCH (11:22)
--- NOTE | 2020-11-23 15:39 | PDOC.HOSPP ---
- Subjective Encounter Date: 11/23/20 non-verbal - Objective Vital Signs & Weight: Vital Signs (12 hours) Temp Pulse Resp BP 11/23/20 14:52 79 120/65 11/23/20 14:00 28 H 11/23/20 12:00 20 11/23/20 10:34 66 105/68 11/23/20 10:00 23 H 11/23/20 08:07 64 109/58 L 11/23/20 08:00 98.5 F 24 H 11/23/20 06:00 19 11/23/20 04:00 97.6 F 24 H Weight Admit Weight 246 lb Weight 243 lb 13.3 oz Most Recent Monitor Data Heart Rate from ECG 78 NIBP 127/65 NIBP BP-Mean 85 Respiration from ECG 27 SpO2 94 I&O: 11/22/20 11/23/20 11/24/20 06:59 06:59 06:59 Intake Total 2958 4136 1040 Output Total 2430 3255 855 Balance 528 881 185 Result Diagrams: 11/23/20 03:35 11/23/20 03:35 Additional Labs: Accuchecks 11/23/20 11/23/20 11/23/20 15:25 09:07 04:51 POC Glucose 223 H 183 H 187 H 11/22/20 11/22/20 11/22/20 22:46 18:49 11:21 POC Glucose 162 H 231 H 185 H Hospitalist ROS - Medication Medications: Active Medications Generic Name Dose Route Start Last Admin Trade Name Freq PRN Reason Stop Dose Admin Amiodarone HCl 400 mg 11/06/20 21:00 11/23/20 15:03 Amiodarone 200 Mg Tab PO 400 mg TID AMARI Administration Dexamethasone 6 mg 11/13/20 21:00 11/23/20 08:13 Dexamethasone 4 Mg/Ml Vial SLOW IVP 6 mg BID AMARI Administration Enoxaparin Sodium 40 mg 11/20/20 09:00 11/23/20 08:13 Enoxaparin Sodium 40 Mg/0.4 Ml Syringe SC 40 mg 0900,2100 AMARI Administration Glimepiride 1 mg 11/13/20 08:00 11/23/20 08:14 Glimepiride 1 Mg Tab PO 1 mg QAM-WM AMARI Administration Doxycycline Hyclate 100 mg/ 100 mls @ 100 mls/hr 11/13/20 21:00 11/23/20 08:12 Sodium Chloride IVPB 11/23/20 21:01 100 mls Q12HR AMARI Administration Cefepime HCl 1 gm/ Sodium 100 mls @ 200 mls/hr 11/13/20 21:00 11/23/20 08:12 Chloride IVPB 11/23/20 21:01 100 mls Q12HR AMARI Administration Norepinephrine Bitartrate 250 mls @ 0 mls/hr 11/19/20 21:15 11/21/20 17:46 Levophed IVPB 250 mls INF AMARI Administration Protocol Titrate Fentanyl 100 mls @ 0 mls/hr 11/19/20 21:15 11/21/20 21:35 Fentanyl Cadd IV 12/19/20 21:15 100 mls INF AMARI Administration Protocol Per Protocol Amiodarone HCl 450 mg/ 259 mls @ 0 mls/hr 11/20/20 10:00 11/23/20 11:22 Miscellaneous Medication 1 IVPB 259 mls each/ Dextrose/Water INF AMARI Administration Protocol As Directed Insulin Glargine 20 units/ 0.2 mls @ 0 mls/hr 11/21/20 21:00 11/22/20 20:34 Miscellaneous Medication SC 0.2 mls HS AMARI Administration Dextrose/Water 1,000 mls @ 50 mls/hr 11/22/20 11:35 11/23/20 04:17 D5w IV 1,000 mls .Q20H AMARI Administration Dexmedetomidine HCl 400 mcg/ 100 mls @ 0 mls/hr 11/23/20 15:00 11/23/20 15:03 Sodium Chloride IVPB 100 mls INF AMARI Administration Protocol Per Protocol Insulin Human Lispro 0 units 11/11/20 19:00 11/23/20 10:29 Humalog 300 Units/3 Ml Vial SC 3 unit .AGGRESSIVE SLIDING PRN Administration AGGRESSIVE SLIDING SCALE Protocol Insulin Human Lispro 0 units 11/12/20 21:30 11/12/20 22:35 Humalog 300 Units/3 Ml Vial SC 3 unit .BEDTIME SLIDING SC PRN Administration Bedtime Correctional Scale Loperamide HCl 4 mg 11/11/20 12:15 11/12/20 23:53 Loperamide Hcl 2 Mg Cap PO 4 mg QIDPRN PRN Administration Diarrhea/Loose Stools Metoprolol Tartrate 5 mg 11/10/20 18:03 11/11/20 17:11 Metoprolol Tartrate 5 Mg/5 Ml Vial IVP 5 mg Q6H PRN Administration FOR HR > 90 Mometasone Furoate/Formoterol Fumar 2 puff 11/13/20 18:30 11/23/20 07:53 Mometasone 200 Mcg/Formoterol 5 Mcg 120 Puff Inhaler INH 2 puff BID-RT AMARI Administration Nystatin 1 gm 11/18/20 09:00 11/23/20 08:15 Nystatin Cream 30 Gm Tube TOP 1 gm TID AMARI Administration Nystatin 1 gm 11/17/20 22:02 11/22/20 20:32 Nystatin Powder 15 Gm Bot TOP 1 gm PRN PRN Administration Topical Irritations Pantoprazole Sodium 40 mg 11/23/20 09:00 11/23/20 08:13 Pantoprazole 40 Mg Vial IVP 40 mg DAILY AMARI Administration Propofol 1,000 mg 11/19/20 21:30 11/23/20 12:29 Propofol 1,000 Mg/100 Ml Vial IV 12/19/20 21:30 1,000 mg INF PRN Administration TO ACHIEVE GOAL RASS Protocol Rosuvastatin Calcium 20 mg 11/06/20 21:00 11/22/20 20:32 Rosuvastatin 20 Mg Tab PO 20 mg HS AMARI Administration Senna 1 tab 11/23/20 09:00 11/23/20 08:14 Senokot 8.6 Mg Tab PO 1 tab DAILY AMARI Administration Sodium Chloride 10 ml 11/09/20 21:00 11/23/20 08:15 Flush - Normal Saline 10 Ml Syringe IVF 10 ml Q12HR AMARI Administration Vecuronium [place] 10 mg 11/19/20 23:41 11/21/20 05:24 Vecuronium 10 Mg Vial IV 10 mg Q30M PRN Administration MOVEMENT Hospitalist Exam Vitals: Vital Signs (12 hours) Temp Pulse Resp BP 11/23/20 14:52 79 120/65 11/23/20 14:00 28 H 11/23/20 12:00 20 11/23/20 10:34 66 105/68 11/23/20 10:00 23 H 11/23/20 08:07 64 109/58 L 11/23/20 08:00 98.5 F 24 H 11/23/20 06:00 19 11/23/20 04:00 97.6 F 24 H Weight Admit Weight 246 lb Weight 243 lb 13.3 oz Most Recent Monitor Data Heart Rate from ECG 78 NIBP 127/65 NIBP BP-Mean 85 Respiration from ECG 27 SpO2 94 General Appearance: NAD General - other findings: Intubated and sedated Eye: PERRL, anicteric sclera ENT: normocephalic atraumatic Neck: supple, symmetric Heart: no murmur, no rubs, irregular Respiratory: CTAB, no wheezes, no rales, no ronchi, normal chest expansion, no tachypnea, normal percussion Gastrointestinal: soft, non-distended, normal bowel sounds, no palpable masses, no hepatomegaly, no splenomegaly, no bruit Extremities: no cyanosis, no clubbing, no edema Hosp A/P (1) Acute respiratory failure with hypoxia Code(s): J96.01 - ACUTE RESPIRATORY FAILURE WITH HYPOXIA Status: Acute (2) Pneumonia due to COVID-19 virus Code(s): U07.1 - COVID-19; J12.82 - PNEUMONIA DUE TO CORONAVIRUS DISEASE 2018 Status: Acute (3) Atrial fibrillation with rapid ventricular response Code(s): I48.91 - UNSPECIFIED ATRIAL FIBRILLATION Status: Acute (4) Hypertension Code(s): I10 - ESSENTIAL (PRIMARY) HYPERTENSION Status: Acute (5) Hyperlipidemia Code(s): E78.5 - HYPERLIPIDEMIA, UNSPECIFIED Status: Acute (6) Diabetes mellitus Code(s): E11.9 - TYPE 2 DIABETES MELLITUS WITHOUT COMPLICATIONS Status: Acute (7) Dehydration Code(s): E86.0 - DEHYDRATION Status: Acute (8) Prerenal azotemia Code(s): R79.89 - OTHER SPECIFIED ABNORMAL FINDINGS OF BLOOD CHEMISTRY Status: Acute (9) Lactic acidosis Code(s): E87.2 - ACIDOSIS Status: Acute (10) Hypernatremia Code(s): E87.0 - HYPEROSMOLALITY AND HYPERNATREMIA Status: Acute (11) Abdominal mass Code(s): R19.00 - INTRA-ABD AND PELVIC SWELLING, MASS AND LUMP, UNSP SITE Status: Acute - Plan Acute hypoxic respiratory failure: Secondary to COVID-19 pneumonia. Patient's had decompensation requiring intubation. Followed by pulmonary critical care. Remains on empiric antibiotics Attempting to transition the patient over to Precedex to see if his propofol can be weaned. COVID-19 pneumonia: Past the acute phase of the illness. Continues on dexamethasone Out of isolation. Atrial fibrillation with rapid ventricular response: Followed by cardiology. Patient has successfully been cardioverted. He remains on amiodarone drip and p.o. amiodarone. 11/23/2020 patient appears to be an irregular rhythm again. Diabetes mellitus: Patient remains on Amaryl. His 70/30 insulin was discontinued in favor of Lantus. Blood sugars are somewhat better with. Hypernatremia: Improving with free water boluses. Hypotonic fluid rate decreased Hypertension: Patient is subsequently become hypotensive due to the Covid infection and the A. fib. He remains on pressors. Holding antihypertensives Hypotension: Patient remains on pressors. Received some albumin today (11/22/2020) Hyperlipidemia: Continue rosuvastatin. Urinary retention: Patient had a palpable abdominal fullness on 11/22/2020. Patient had an indwelling Rivera catheter at that time. Ultrasound was obtained which revealed distended urinary bladder in spite of having the Rivera catheter in place. Appears to have been decompressed by 11/23/2020. DVT prophylaxis: Enoxaparin 40 mg twice daily. PUD prophylaxis: Pantoprazole.
[2020-11-23] MEDS: Nystatin Powder 15 GM BOT TOP PRN ×2 (17:23→20:24)
[2020-11-23] MEDS: Lorazepam 2 MG/ML VIAL SLOW IVP PRN ×2 (19:03→23:25)
--- NOTE | 2020-11-23 20:07 | PRG ---
DATE OF SERVICE: 11/23/2020 SUBJECTIVE: The patient is noted with the following vital signs. OBJECTIVE: VITAL SIGNS: Blood pressure 99/52, pulse of 67, respiratory rate of 22, FiO2 of 40%. HEENT: Remarkable for endotracheal tube in place. CARDIOVASCULAR SYSTEM: First and second heart sounds were heard. RESPIRATORY SYSTEM: Revealed vented sounds. DIGESTIVE SYSTEM: Benign abdomen. EXTREMITIES: No peripheral edema. SKIN: No new gross rash. LYMPHATICS: No peripheral lymphadenopathy. IMPRESSION: 1. [id number] kidney disease, which is much improved. Creatinine down to 1.28. 2. resolved, status post free water repletion. PLAN: We will continue current renal supportive measures. Job ID: [id number]
[2020-11-23] MEDS: Rosuvastatin 20 MG TAB PO SCH (20:22)
[2020-11-23] MEDS: Insulin Glargine 20 UNITS in Pre-Filled Syringe 1 EACH SC SCH (20:23)
[2020-11-24] MEDS: Propofol 1,000 MG/100 ML VIAL IV PRN ×3 (00:06→17:32)
[2020-11-24] MEDS: Dextrose 5% in Water 1,000 ML IV SCH (00:21)
[2020-11-24] MEDS: HumaLOG 300 UNITS/3 ML VIAL SC PRN ×2 (03:37→10:08)
[2020-11-24 03:56] LABS: #Lymphocytes 0.2 thou/uL (1.20-3.40); #Monocytes 0.5 thou/uL (0.11-0.59); #Neutrophils 11.1 thou/uL (1.40-6.50); %Basophils 0.3 % (0.0-1.0); %Eosinophils 0.1 % (0.0-10.0); %Lymphocytes 1.4 % (21.0-51.0); %Monocytes 4.2 % (0.0-10.0); %Neutrophils 94.1 % (42.0-75.0); Hemoglobin 10.9 g/dL (14.0-18.0); Mean Corpuscular HGB CONC 32.6 g/dL (32.0-36.0); Mean Corpuscular Hemoglobin 28.4 pg (27.0-31.0); Mean Corpuscular Volume 86.9 fL (78.0-98.0); Platelet Count 91 thou/uL (130-400); RBC Distribution Width 16.5 % (11.5-14.5); Red Blood Cell (RBC) Count 3.83 mill/uL (4.70-6.10); White Blood Cell (WBC) Count 11.8 thou/uL (4.8-10.8)
[2020-11-24 04:16] LABS: Anion Gap 13 mmol/L (10-20); BUN (Urea Nitrogen) 34 mg/dL (8.4-25.7); Calc. Creatinine Clearance 95 mL/min (70-130); Calcium 7.7 mg/dL (7.8-10.44); Carbon Dioxide 24 mmol/L (23-31); Chloride 110 mmol/L (98-107); Glucose 183 mg/dL (80-115); Potassium 4.8 mmol/L (3.5-5.1); Sodium 142 mmol/L (136-145)
[2020-11-24] MEDS: Mometasone 200 MCG/Formoterol 5 MCG 120 PUFF INHALER INH SCH ×2 (06:55→18:37)
[2020-11-24] MEDS: Dexamethasone 4 mg/ml Vial SLOW IVP SCH ×2 (08:23→21:56)
[2020-11-24] MEDS: Senokot 8.6 MG TAB PO SCH (08:24)
[2020-11-24] MEDS: Amiodarone 450 MG, Admixture Fee 1 EACH in Dextrose 5% in Water 250 ML IVPB SCH (08:25)
[2020-11-24] MEDS: Pantoprazole 40 MG VIAL IVP SCH (08:25)
[2020-11-24] MEDS: Nystatin Cream 30 GM TUBE TOP SCH ×3 (08:25→23:32)
[2020-11-24] MEDS: Glimepiride 1 MG TAB PO SCH (08:31)
[2020-11-24] MEDS: Norepinephrine 8 MG/0.9% NS 250 ML IVPB SCH (08:57)
[2020-11-24] MEDS: Enoxaparin Sodium 40 MG/0.4 ML SYRINGE SC SCH ×3 (10:04→21:58)
[2020-11-24] MEDS: Amiodarone 200 MG TAB PO SCH (10:04)
[2020-11-24] MEDS: Amiodarone 200 MG TAB PER TUBE SCH ×2 (14:00→22:00)
--- NOTE | 2020-11-24 16:13 | EKG ---
Test Reason : Blood Pressure : / mmHG Vent. Rate : 160 BPM Atrial Rate : 123 BPM P-R Int : 000 ms QRS Dur : 080 ms QT Int : 286 ms P-R-T Axes : 000 -23 090 degrees QTc Int : 466 ms Atrial fibrillation with rapid ventricular response Moderate voltage criteria for LVH, may be normal variant Abnormal ECG Confirmed by AJIT JACK DO ([id number]), food editor YEMI TORRES ([id number]) on 11/24/2020 4:13:06 PM Referred By: Confirmed By:AJIT JACK DO
--- NOTE | 2020-11-24 16:39 | PDOC.HOSPP ---
- Subjective Encounter Date: 11/24/20 Encounter Time: 16:35 Subjective: f/u for COVID PNA/resp failure on mech ventilation with FIO2 40%. Receiving Dexamethasone/Lovenox. - Objective Vital Signs & Weight: Vital Signs (12 hours) Temp Pulse Resp Pulse Ox 11/24/20 14:44 72 11/24/20 14:00 40 H 11/24/20 12:00 37 H 11/24/20 11:43 96.8 F L 11/24/20 10:00 63 22 H 11/24/20 08:00 45 H 100 11/24/20 07:00 96.6 F L 11/24/20 06:56 63 11/24/20 06:00 19 Weight Admit Weight 246 lb Weight 242 lb 11.663 oz Most Recent Monitor Data Heart Rate from ECG 74 NIBP 126/62 NIBP BP-Mean 83 Respiration from ECG 18 SpO2 97 I&O: 11/23/20 11/24/20 11/25/20 06:59 06:59 06:59 Intake Total 4136 6526.1 832 Output Total 3255 3130 690 Balance 881 3396.1 142 Result Diagrams: 11/24/20 03:10 11/24/20 03:10 Additional Labs: Accuchecks 11/24/20 11/23/20 10:07 22:09 POC Glucose 205 H 185 H Laboratory Tests 11/05/20 11/21/20 11/22/20 11:55 03:45 04:25 Plt Count 200 130 Influenza A RNA INAAT Not Detected Influenza B RNA INAAT Not Detected SARS-CoV-2 Rap RNA(RT-PCR) DETECTED A* 11/23/20 03:35 Plt Count 105 L Influenza A RNA INAAT Influenza B RNA INAAT SARS-CoV-2 Rap RNA(RT-PCR) Radiology Reviewed by me: Yes (PCXR - bilat infiltrates, lines/tubes in place) EKG Reviewed by me: Yes (Tele - SR) Hospitalist ROS - Medication Medications: Active Medications Generic Name Dose Route Start Last Admin Trade Name Freq PRN Reason Stop Dose Admin Amiodarone HCl 400 mg 11/24/20 15:00 11/24/20 14:00 Amiodarone 200 Mg Tab PER TUBE 400 mg TID AMARI Administration Dexamethasone 6 mg 11/13/20 21:00 11/24/20 08:23 Dexamethasone 4 Mg/Ml Vial SLOW IVP 6 mg BID AMARI Administration Enoxaparin Sodium 40 mg 11/20/20 09:00 11/24/20 11:40 Enoxaparin Sodium 40 Mg/0.4 Ml Syringe SC 40 mg 0900,2100 AMARI Administration Glimepiride 1 mg 11/13/20 08:00 11/24/20 08:31 Glimepiride 1 Mg Tab PO 1 mg QAM-WM AMARI Administration Norepinephrine Bitartrate 250 mls @ 0 mls/hr 11/19/20 21:15 11/24/20 08:57 Levophed IVPB 250 mls INF AMRAI Administration Protocol Titrate Fentanyl 100 mls @ 0 mls/hr 11/19/20 21:15 11/21/20 21:35 Fentanyl Cadd IV 12/19/20 21:15 100 mls INF AMARI Administration Protocol Per Protocol Insulin Glargine 20 units/ 0.2 mls @ 0 mls/hr 11/21/20 21:00 11/23/20 20:23 Miscellaneous Medication SC 0.2 mls HS AMARI Administration Dexmedetomidine HCl 400 mcg/ 100 mls @ 0 mls/hr 11/23/20 15:00 11/24/20 08:15 Sodium Chloride IVPB 100 mls INF AMARI Administration Protocol Per Protocol Insulin Human Lispro 0 units 11/11/20 19:00 11/24/20 10:08 Humalog 300 Units/3 Ml Vial SC 6 unit .AGGRESSIVE SLIDING PRN Administration AGGRESSIVE SLIDING SCALE Protocol Insulin Human Lispro 0 units 11/12/20 21:30 11/12/20 22:35 Humalog 300 Units/3 Ml Vial SC 3 unit .BEDTIME SLIDING SC PRN Administration Bedtime Correctional Scale Loperamide HCl 4 mg 11/11/20 12:15 11/12/20 23:53 Loperamide Hcl 2 Mg Cap PO 4 mg QIDPRN PRN Administration Diarrhea/Loose Stools Lorazepam 2 mg 11/19/20 21:30 11/23/20 23:25 Lorazepam 2 Mg/Ml Vial SLOW IVP 12/19/20 21:30 2 mg Q1H PRN Administration Breakthrough agitation Metoprolol Tartrate 5 mg 11/10/20 18:03 11/11/20 17:11 Metoprolol Tartrate 5 Mg/5 Ml Vial IVP 5 mg Q6H PRN Administration FOR HR > 90 Mometasone Furoate/Formoterol Fumar 2 puff 11/13/20 18:30 11/24/20 06:55 Mometasone 200 Mcg/Formoterol 5 Mcg 120 Puff Inhaler INH 2 puff BID-RT AMARI Administration Nystatin 1 gm 11/18/20 09:00 11/24/20 08:25 Nystatin Cream 30 Gm Tube TOP 1 gm TID AMARI Administration Nystatin 1 gm 11/17/20 22:02 11/23/20 20:24 Nystatin Powder 15 Gm Bot TOP 1 gm PRN PRN Administration Topical Irritations Pantoprazole Sodium 40 mg 11/23/20 09:00 11/24/20 08:25 Pantoprazole 40 Mg Vial IVP 40 mg DAILY AMARI Administration Propofol 1,000 mg 11/19/20 21:30 11/24/20 09:01 Propofol 1,000 Mg/100 Ml Vial IV 12/19/20 21:30 1,000 mg INF PRN Administration TO ACHIEVE GOAL RASS Protocol Rosuvastatin Calcium 20 mg 11/06/20 21:00 11/23/20 20:22 Rosuvastatin 20 Mg Tab PO 20 mg HS AMARI Administration Senna 1 tab 11/23/20 09:00 11/24/20 08:24 Senokot 8.6 Mg Tab PO 1 tab DAILY AMARI Administration Sodium Chloride 10 ml 11/09/20 21:00 11/24/20 10:04 Flush - Normal Saline 10 Ml Syringe IVF 10 ml Q12HR AMARI Administration Vecuronium [place] 10 mg 11/19/20 23:41 11/21/20 05:24 Vecuronium 10 Mg Vial IV 10 mg Q30M PRN Administration MOVEMENT Hospitalist Exam Vitals: Vital Signs (12 hours) Temp Pulse Resp Pulse Ox 11/24/20 14:44 72 11/24/20 14:00 40 H 11/24/20 12:00 37 H 11/24/20 11:43 96.8 F L 11/24/20 10:00 63 22 H 11/24/20 08:00 45 H 100 11/24/20 07:00 96.6 F L 11/24/20 06:56 63 11/24/20 06:00 19 Weight Admit Weight 246 lb Weight 242 lb 11.663 oz Most Recent Monitor Data Heart Rate from ECG 74 NIBP 126/62 NIBP BP-Mean 83 Respiration from ECG 18 SpO2 97 General Appearance: ill appearing General - other findings: sedate on mech vent Eye: anicteric sclera ENT: normocephalic atraumatic, no oropharyngeal lesions ENT - other findings: ETT in place Neck: supple, symmetric, no JVD, no thyromegaly, no lymphadenopathy Heart: RRR, no gallops, no rubs, normal peripheral pulses Heart - other findings: S1, S2 Respiratory: tachypneic Respiratory - other findings: diminished bilat, scattered rhonchi Gastrointestinal: soft, non-tender, non-distended, normal bowel sounds, no palpable masses Extremities: no cyanosis, no clubbing, no edema Skin: normal turgor Neurological - other findings: sedate on mech vent Psychiatric: somnolent, lethargic Hosp A/P (1) Pneumonia due to COVID-19 virus Code(s): U07.1 - COVID-19; J12.82 - PNEUMONIA DUE TO CORONAVIRUS DISEASE 2018 Status: Acute Plan: Continue pulm support, Dexamethasone/Lovenox, s/p convalescent plasma (2) Acute respiratory failure with hypoxia Code(s): J96.01 - ACUTE RESPIRATORY FAILURE WITH HYPOXIA Status: Acute Plan: continue mech ventilation, Precedex for sedation and wean as clinically indicated (3) Acute kidney injury superimposed on CKD Code(s): N17.9 - ACUTE KIDNEY FAILURE, UNSPECIFIED; N18.9 - CHRONIC KIDNEY DISEASE, UNSPECIFIED Status: Acute Plan: Improved, avoid nephrotoxic meds and limit contrast exposure (4) Diabetes mellitus Code(s): E11.9 - TYPE 2 DIABETES MELLITUS WITHOUT COMPLICATIONS Status: Chronic Plan: ISS, Lantus, Amaryl, ADA diet when tolerating po intake (5) Atrial fibrillation with rapid ventricular response Code(s): I48.91 - UNSPECIFIED ATRIAL FIBRILLATION Status: Acute Plan: Currently in SR, continue Amiodarone - Plan social human services assistants, respiratory therapy, DVT proph w/SCDs Continue critical support Continue Mech ventilation and wean as clinically indicated Continue Dexamethasone Continue Amiodarone Nutritional support with TF's AM lab: BMP, CBC
--- NOTE | 2020-11-24 17:03 | PRG ---
DATE OF SERVICE: 11/24/2020 SUBJECTIVE: Kristy Aldridge remains ventilated. OBJECTIVE: VITAL SIGNS: Heart rate 72, FiO2 is at 40, respiratory rates in the teens, blood pressure 126/62. LUNGS: Remarkable for coarse equal breath sounds. HEART: Regular rate and rhythm. ABDOMEN: Soft. EXTREMITIES: Without edema. LABORATORY DATA: White count 11.8, hemoglobin 10.9, platelets 91,000. Sodium 142, potassium 4.8, chloride 110, bicarb 24, BUN 34, creatinine 1.15, glucose 183. IMPRESSION: COVID pneumonia with respiratory failure. PLAN: Continue with mechanical ventilation. Tracheostomy may be beneficial to facilitate weaning. Critical care time 30 min. Job ID: [id number] MTDD
[2020-11-24] MEDS: Lorazepam 2 MG/ML VIAL SLOW IVP PRN ×2 (18:25→23:32)
[2020-11-24] MEDS: Insulin Glargine 20 UNITS in Pre-Filled Syringe 1 EACH SC SCH (21:57)
[2020-11-24] MEDS: Rosuvastatin 20 MG TAB PO SCH (21:59)
[2020-11-25] MEDS: Propofol 1,000 MG/100 ML VIAL IV PRN ×3 (04:04→17:56)
[2020-11-25 04:27] LABS: #Lymphocytes 0.2 thou/uL (1.20-3.40); #Monocytes 0.3 thou/uL (0.11-0.59); #Neutrophils 7.9 thou/uL (1.40-6.50); %Eosinophils 0.2 % (0.0-10.0); %Lymphocytes 2.5 % (21.0-51.0); %Monocytes 3.3 % (0.0-10.0); %Neutrophils 94.1 % (42.0-75.0); Hemoglobin 10.3 g/dL (14.0-18.0); Mean Corpuscular HGB CONC 31.7 g/dL (32.0-36.0); Mean Corpuscular Hemoglobin 27.7 pg (27.0-31.0); Mean Corpuscular Volume 87.6 fL (78.0-98.0); Mean Platelet Volume 9.7 fL (7.4-10.4); Platelet Count 72 thou/uL (130-400); RBC Distribution Width 16.5 % (11.5-14.5); Red Blood Cell (RBC) Count 3.72 mill/uL (4.70-6.10); White Blood Cell (WBC) Count 8.4 thou/uL (4.8-10.8)
[2020-11-25 04:47] LABS: Anion Gap 12 mmol/L (10-20); BUN (Urea Nitrogen) 46 mg/dL (8.4-25.7); Calc. Creatinine Clearance 91 mL/min (70-130); Calcium 7.9 mg/dL (7.8-10.44); Carbon Dioxide 26 mmol/L (23-31); Chloride 109 mmol/L (98-107); Glucose 195 mg/dL (80-115); Sodium 142 mmol/L (136-145)
[2020-11-25] MEDS: HumaLOG 300 UNITS/3 ML VIAL SC PRN ×2 (05:20→09:21)
[2020-11-25] MEDS: Mometasone 200 MCG/Formoterol 5 MCG 120 PUFF INHALER INH SCH ×2 (07:50→19:20)
[2020-11-25] MEDS: Glimepiride 1 MG TAB PO SCH (09:15)
[2020-11-25] MEDS: Dexamethasone 4 mg/ml Vial SLOW IVP SCH ×2 (09:15→22:30)
[2020-11-25] MEDS: Amiodarone 200 MG TAB PER TUBE SCH ×3 (09:15→22:29)
[2020-11-25] MEDS: Senokot 8.6 MG TAB PO SCH (09:16)
[2020-11-25] MEDS: Pantoprazole 40 MG VIAL IVP SCH (09:17)
[2020-11-25] MEDS: Nystatin Cream 30 GM TUBE TOP SCH ×3 (09:17→22:37)
[2020-11-25] MEDS: Enoxaparin Sodium 40 MG/0.4 ML SYRINGE SC SCH ×2 (09:54→22:37)
[2020-11-25] MEDS: Lorazepam 2 MG/ML VIAL SLOW IVP PRN ×3 (09:56→22:54)
--- NOTE | 2020-11-25 10:32 | PRG ---
DATE OF SERVICE: 11/24/2020 SUBJECTIVE: The patient is still on life support. OBJECTIVE: VITAL SIGNS: FiO2 of 40, blood pressure 105/50, pulse 73, . HEENT: Unremarkable. CARDIOVASCULAR SYSTEM: First and second heart sounds were heard. RESPIRATORY SYSTEM: Revealed vented sounds. DIGESTIVE SYSTEM: positive bowel sounds. EXTREMITIES: No peripheral edema. SKIN: No new gross rash. LYMPHATICS: No peripheral lymphadenopathy. LABORATORY DATA: Showed creatinine down to 1.15 sodium 142. IMPRESSION: 1. Acute on chronic kidney disease much improved. 2. Hypernatremia, resolved. 3. Cardiopulmonary failure. PLAN: 1. Discontinue the free water repletion and continue . 2. Further management to be dependent on the clinical course. Job ID: [id number]
--- NOTE | 2020-11-25 15:14 | PRG ---
DATE OF SERVICE: 11/25/2020 SUBJECTIVE: Kristy Aldridge remains mechanically ventilated. OBJECTIVE: VITAL SIGNS: Heart rate is in 60s, respiratory rates in 20s, FiO2 is at 40, blood pressure is 117/61. He is now 20 days in the hospital. LUNGS: Clear. HEART: Regular rhythm. ABDOMEN: Soft. EXTREMITIES: Without edema. LABORATORY DATA: White count 8.4, hemoglobin 10.3, platelets 72,000. Sodium 142, potassium 5, chloride 109, bicarb 26, BUN 46, creatinine 1.1, glucose 195. IMPRESSION: 1. Respiratory failure secondary to COVID-19. 2. Acute on chronic kidney disease. 3. Extreme deconditioning. We will continue supportive care. 4. Weakness may lead to a tracheostomy. Job ID: [id number]
--- NOTE | 2020-11-25 17:34 | PDOC.HOSPP ---
- Subjective Encounter Date: 11/25/20 Encounter Time: 17:30 Subjective: f/u for COVID PNA/resp failure on [facility] vent with prolonged hospital stay. No new events noted. - Objective Vital Signs & Weight: Vital Signs (12 hours) Temp Pulse Resp Pulse Ox 11/25/20 16:00 97.9 F 33 H 11/25/20 14:35 67 11/25/20 14:00 22 H 11/25/20 12:00 24 H 11/25/20 11:46 98.0 F 11/25/20 10:35 66 11/25/20 09:45 38 H 11/25/20 08:00 20 98 11/25/20 07:51 65 11/25/20 07:00 98.0 F 11/25/20 06:00 21 H Weight Admit Weight 246 lb Weight 241 lb 13.553 oz Most Recent Monitor Data Heart Rate from ECG 67 NIBP 120/62 NIBP BP-Mean 81 Respiration from ECG 21 SpO2 98 I&O: 11/24/20 11/25/20 11/26/20 06:59 06:59 06:59 Intake Total 6526.1 3129.4 1465 Output Total 3130 2415 735 Balance 3396.1 714.4 730 Result Diagrams: 11/25/20 04:10 11/25/20 04:10 Additional Labs: Accuchecks 11/25/20 11/24/20 11/24/20 04:10 21:52 17:31 POC Glucose 189 H 124 H 143 H Laboratory Tests 11/05/20 11/21/20 11/22/20 11:55 03:45 04:25 Plt Count 200 130 Influenza A RNA INAAT Not Detected Influenza B RNA INAAT Not Detected SARS-CoV-2 Rap RNA(RT-PCR) DETECTED A* 11/23/20 03:35 Plt Count 105 L Influenza A RNA INAAT Influenza B RNA INAAT SARS-CoV-2 Rap RNA(RT-PCR) EKG Reviewed by me: Yes (Tele - SR) Hospitalist ROS - Medication Medications: Active Medications Generic Name Dose Route Start Last Admin Trade Name Freq PRN Reason Stop Dose Admin Amiodarone HCl 400 mg 11/24/20 15:00 11/25/20 14:32 Amiodarone 200 Mg Tab PER TUBE 400 mg TID AMARI Administration Dexamethasone 6 mg 11/13/20 21:00 11/25/20 09:15 Dexamethasone 4 Mg/Ml Vial SLOW IVP 6 mg BID AMARI Administration Enoxaparin Sodium 40 mg 11/20/20 09:00 11/25/20 09:54 Enoxaparin Sodium 40 Mg/0.4 Ml Syringe SC Not Given 0900,2100 AMARI Glimepiride 1 mg 11/13/20 08:00 11/25/20 09:15 Glimepiride 1 Mg Tab PO 1 mg QAM-WM AMARI Administration Norepinephrine Bitartrate 250 mls @ 0 mls/hr 11/19/20 21:15 11/24/20 08:57 Levophed IVPB 250 mls INF AMARI Administration Protocol Titrate Fentanyl 100 mls @ 0 mls/hr 11/19/20 21:15 11/21/20 21:35 Fentanyl Cadd IV 12/19/20 21:15 100 mls INF AMARI Administration Protocol Per Protocol Insulin Glargine 20 units/ 0.2 mls @ 0 mls/hr 11/21/20 21:00 11/24/20 21:57 Miscellaneous Medication SC 0.2 mls HS AMARI Administration Dexmedetomidine HCl 400 mcg/ 100 mls @ 0 mls/hr 11/23/20 15:00 11/25/20 04:03 Sodium Chloride IVPB 100 mls INF AMARI Administration Protocol Per Protocol Insulin Human Lispro 0 units 11/11/20 19:00 11/25/20 09:21 Humalog 300 Units/3 Ml Vial SC 3 unit .AGGRESSIVE SLIDING PRN Administration AGGRESSIVE SLIDING SCALE Protocol Insulin Human Lispro 0 units 11/12/20 21:30 11/12/20 22:35 Humalog 300 Units/3 Ml Vial SC 3 unit .BEDTIME SLIDING SC PRN Administration Bedtime Correctional Scale Loperamide HCl 4 mg 11/11/20 12:15 11/12/20 23:53 Loperamide Hcl 2 Mg Cap PO 4 mg QIDPRN PRN Administration Diarrhea/Loose Stools Lorazepam 2 mg 11/19/20 21:30 11/25/20 14:32 Lorazepam 2 Mg/Ml Vial SLOW IVP 12/19/20 21:30 2 mg Q1H PRN Administration Breakthrough agitation Metoprolol Tartrate 5 mg 11/10/20 18:03 11/11/20 17:11 Metoprolol Tartrate 5 Mg/5 Ml Vial IVP 5 mg Q6H PRN Administration FOR HR > 90 Mometasone Furoate/Formoterol Fumar 2 puff 11/13/20 18:30 11/25/20 07:50 Mometasone 200 Mcg/Formoterol 5 Mcg 120 Puff Inhaler INH 2 puff BID-RT AMARI Administration Nystatin 1 gm 11/18/20 09:00 11/25/20 09:17 Nystatin Cream 30 Gm Tube TOP 1 gm TID AMARI Administration Nystatin 1 gm 11/17/20 22:02 11/23/20 20:24 Nystatin Powder 15 Gm Bot TOP 1 gm PRN PRN Administration Topical Irritations Pantoprazole Sodium 40 mg 11/23/20 09:00 11/25/20 09:17 Pantoprazole 40 Mg Vial IVP 40 mg DAILY AMARI Administration Propofol 1,000 mg 11/19/20 21:30 11/25/20 11:42 Propofol 1,000 Mg/100 Ml Vial IV 12/19/20 21:30 1,000 mg INF PRN Administration TO ACHIEVE GOAL RASS Protocol Rosuvastatin Calcium 20 mg 11/06/20 21:00 11/24/20 21:59 Rosuvastatin 20 Mg Tab PO 20 mg HS AMARI Administration Senna 1 tab 11/23/20 09:00 11/25/20 09:16 Senokot 8.6 Mg Tab PO 1 tab DAILY AMARI Administration Sodium Chloride 10 ml 11/09/20 21:00 11/25/20 09:17 Flush - Normal Saline 10 Ml Syringe IVF 10 ml Q12HR AMARI Administration Vecuronium [place] 10 mg 11/19/20 23:41 11/21/20 05:24 Vecuronium 10 Mg Vial IV 10 mg Q30M PRN Administration MOVEMENT Hospitalist Exam Vitals: Vital Signs (12 hours) Temp Pulse Resp Pulse Ox 11/25/20 16:00 97.9 F 33 H 11/25/20 14:35 67 11/25/20 14:00 22 H 11/25/20 12:00 24 H 11/25/20 11:46 98.0 F 11/25/20 10:35 66 11/25/20 09:45 38 H 11/25/20 08:00 20 98 11/25/20 07:51 65 02/07/21 07:00 98.0 F 11/25/20 06:00 21 H Weight Admit Weight 246 lb Weight 241 lb 13.553 oz Most Recent Monitor Data Heart Rate from ECG 67 NIBP 120/62 NIBP BP-Mean 81 Respiration from ECG 21 SpO2 98 General - other findings: sedate on mech vent Eye: anicteric sclera ENT: normocephalic atraumatic, no oropharyngeal lesions ENT - other findings: ETT in place Neck: supple, symmetric, no JVD, no thyromegaly, no lymphadenopathy Heart: RRR, no gallops, no rubs, normal peripheral pulses Heart - other findings: S1, S2 Respiratory: tachypneic Respiratory - other findings: diminished in bases bilat Gastrointestinal: soft, non-tender, non-distended, normal bowel sounds, no palpable masses Extremities: no cyanosis, no clubbing, no edema Skin: normal turgor Musculoskeletal: generalized weakness Psychiatric: somnolent, lethargic Hosp A/P (1) Pneumonia due to COVID-19 virus Code(s): U07.1 - COVID-19; J12.82 - PNEUMONIA DUE TO CORONAVIRUS DISEASE 2018 Status: Acute Plan: Continue Cefepime/Doxycycline/Dexamethasone/Lovenox (2) Acute respiratory failure with hypoxia Code(s): J96.01 - ACUTE RESPIRATORY FAILURE WITH HYPOXIA Status: Acute (3) Acute kidney injury superimposed on CKD Code(s): N17.9 - ACUTE KIDNEY FAILURE, UNSPECIFIED; N18.9 - CHRONIC KIDNEY DISEASE, UNSPECIFIED Status: Acute (4) Diabetes mellitus Code(s): E11.9 - TYPE 2 DIABETES MELLITUS WITHOUT COMPLICATIONS Status: Chronic (5) Atrial fibrillation with rapid ventricular response Code(s): I48.91 - UNSPECIFIED ATRIAL FIBRILLATION Status: Acute Plan: SR, continue Amiodarone - Plan continue antibiotics, social worker psychiatric, respiratory therapy, DVT proph w/SCDs Continue critical support Continue [facility] ventilation and wean as clinically indicated Continue Dexamethasone Continue Amiodarone Nutritional support with TF's AM lab: BMP, CBC
--- NOTE | 2020-11-25 18:35 | PRG ---
DATE OF SERVICE: SUBJECTIVE: The patient seen, noted with the following vital signs, still on life support. OBJECTIVE: VITAL SIGNS: Heart rate of 67, blood pressure 120/62, O2 saturation of 98%. HEENT: Unremarkable. CARDIOVASCULAR SYSTEM: First and second heart sounds were heard. RESPIRATORY SYSTEM: Clear to auscultation. DIGESTIVE SYSTEM: Revealed a benign abdomen with positive bowel sounds. EXTREMITIES: No peripheral edema. SKIN: No new gross rash. LYMPHATICS: No peripheral lymphadenopathy. LABORATORY INVESTIGATION: Showed a creatinine of 1.19, sodium 142. IMPRESSION: 1. Hypernatremia, much improved. 2. Acute kidney injury, much resolved. PLAN: Continue current renal supportive measures. Job ID: [id number]
[2020-11-25] MEDS: Cefepime 1 GM in Sodium Chloride 0.9% 100 ML IVPB SCH (22:29)
[2020-11-25] MEDS: Rosuvastatin 20 MG TAB PO SCH (22:37)
[2020-11-25] MEDS: Insulin Glargine 20 UNITS in Pre-Filled Syringe 1 EACH SC SCH (22:50)
[2020-11-26] MEDS: Lorazepam 2 MG/ML VIAL SLOW IVP PRN ×2 (00:48→04:03)
[2020-11-26] MEDS: Propofol 1,000 MG/100 ML VIAL IV PRN ×2 (04:02→08:35)
[2020-11-26 04:29] LABS: Anion Gap 14 mmol/L (10-20); BUN (Urea Nitrogen) 59 mg/dL (8.4-25.7); Calc. Creatinine Clearance 82 mL/min (70-130); Calcium 7.8 mg/dL (7.8-10.44); Carbon Dioxide 23 mmol/L (23-31); Chloride 107 mmol/L (98-107); Glucose 230 mg/dL (80-115); Sodium 139 mmol/L (136-145)
[2020-11-26 04:32] LABS: Band 32 % (5-11); Hemoglobin 10.5 g/dL (14.0-18.0); Hypochromia SLIGHT = 6-15 cells (100X) (0-5/hpf); Lymphocytes 3 % (21-51); MDiff Complete? YES; Mean Corpuscular HGB CONC 32.9 g/dL (32.0-36.0); Mean Corpuscular Hemoglobin 28.8 pg (27.0-31.0); Mean Corpuscular Volume 87.5 fL (78.0-98.0); Mean Platelet Volume 10.7 fL (7.4-10.4); Metamyelocyte 1 % (0-0); Monocytes 5 % (0-10); Neutrophil 59 % (42-75); Platelet Count 79 thou/uL (130-400); Platelet Morphology Comment Appears Decreased; RBC Distribution Width 16.8 % (11.5-14.5); Red Blood Cell (RBC) Count 3.64 mill/uL (4.70-6.10); White Blood Cell (WBC) Count 12.9 thou/uL (4.8-10.8)
[2020-11-26] MEDS: HumaLOG 300 UNITS/3 ML VIAL SC PRN ×3 (06:14→17:20)
[2020-11-26] MEDS: Mometasone 200 MCG/Formoterol 5 MCG 120 PUFF INHALER INH SCH ×2 (07:00→18:07)
[2020-11-26] MEDS: Enoxaparin Sodium 40 MG/0.4 ML SYRINGE SC SCH ×2 (08:32→22:08)
[2020-11-26] MEDS: Cefepime 1 GM in Sodium Chloride 0.9% 100 ML IVPB SCH ×2 (08:34→22:09)
[2020-11-26] MEDS: Amiodarone 200 MG TAB PER TUBE SCH ×3 (08:35→22:08)
[2020-11-26] MEDS: Dexamethasone 4 mg/ml Vial SLOW IVP SCH ×2 (08:35→22:08)
[2020-11-26] MEDS: Pantoprazole 40 MG VIAL IVP SCH (08:36)
[2020-11-26] MEDS: Glimepiride 1 MG TAB PO SCH (08:36)
--- NOTE | 2020-11-26 10:01 | PRG ---
DATE OF SERVICE: 11/26/2020 SUBJECTIVE: Kristy Aldridge remains in the ICU, intubated in the vent. He is oxygenating much better. He is on 40%, PEEP of 5, sats are 96%. Day 21 in the hospital. Though he has been intubated no more than a week or two. OBJECTIVE: VITAL SIGNS: Temperature 98, blood pressure 99/50, pulse 80, respirations 18, saturations are 98%. I's and O's have been good. LABORATORY DATA: Shows creatinine is 1.32, BUN is 59. White count 12,000. IMPRESSION: Amaya positive pneumonia, respiratory failure, mild azotemia, encephalopathy. PLAN: We will try and get PT to see the patient. Avoid sedation if possible. Minimize sedation. X-ray is being ordered. I am going to start decreasing the steroids in the next day or two. Slow hydration. This is one-half hour of critical care time. Job ID: [id number]
[2020-11-26] MEDS: Nystatin Cream 30 GM TUBE TOP SCH ×3 (10:21→22:10)
[2020-11-26] MEDS: Senokot 8.6 MG TAB PO SCH (12:07)
--- NOTE | 2020-11-26 17:40 | PDOC.HOSPP ---
- Subjective Encounter Date: 11/26/20 Encounter Time: 17:40 Subjective: f/u for COVID PNA/resp failure on mech ventilation. Receiving Cefepime/Doxycycline/Dexamethasone/Lovenox. - Objective Vital Signs & Weight: Vital Signs (12 hours) Temp Pulse Pulse Pulse Resp BP BP 11/26/20 16:00 15 11/26/20 15:36 58 L 54 L 110/55 L 11/26/20 14:26 56 L 114/59 L 11/26/20 14:00 20 11/26/20 12:00 98.1 F 15 11/26/20 11:03 53 L 11/26/20 10:00 13 11/26/20 08:00 98.3 F 14 11/26/20 07:00 55 L 95/50 L 11/26/20 06:00 20 BP Pulse Ox Pulse Ox Pulse Ox 11/26/20 16:00 11/26/20 15:36 100/49 L 96 97 11/26/20 14:26 11/26/20 14:00 11/26/20 12:00 11/26/20 11:03 11/26/20 10:00 11/26/20 08:00 98 11/26/20 07:00 11/26/20 06:00 Weight Admit Weight 246 lb Weight 244 lb 11.41 oz Most Recent Monitor Data Heart Rate from ECG 57 NIBP 110/58 NIBP BP-Mean 75 Respiration from ECG 21 SpO2 97 I&O: 11/25/20 11/26/20 11/27/20 06:59 06:59 06:59 Intake Total 3129.4 3205 1200 Output Total 2415 2120 150 Balance 714.4 1085 1050 Result Diagrams: 11/26/20 03:52 11/26/20 03:52 Additional Labs: Accuchecks 11/26/20 11/26/20 11/26/20 17:17 12:22 06:01 POC Glucose 190 H 199 H 185 H 11/25/20 11/25/20 11/24/20 22:28 09:20 03:33 POC Glucose 176 H 186 H 159 H Laboratory Tests 11/05/20 11/21/20 11/22/20 11:55 03:45 04:25 WBC Hgb Plt Count 200 130 Creatinine Influenza A RNA INAAT Not Detected Influenza B RNA INAAT Not Detected SARS-CoV-2 Rap RNA(RT-PCR) DETECTED A* 11/23/20 11/25/20 11/25/20 03:35 04:10 04:10 WBC 8.4 Hgb 10.3 L Plt Count 105 L Creatinine 1.19 Influenza A RNA INAAT Influenza B RNA INAAT SARS-CoV-2 Rap RNA(RT-PCR) EKG Reviewed by me: Yes (Tele - SR) Hospitalist ROS - Medication Medications: Active Medications Generic Name Dose Route Start Last Admin Trade Name Freq PRN Reason Stop Dose Admin Amiodarone HCl 400 mg 11/24/20 15:00 11/26/20 16:50 Amiodarone 200 Mg Tab PER TUBE 400 mg TID AMARI Administration Dexamethasone 6 mg 11/13/20 21:00 11/26/20 08:35 Dexamethasone 4 Mg/Ml Vial SLOW IVP 6 mg BID AMARI Administration Enoxaparin Sodium 40 mg 11/20/20 09:00 11/26/20 08:32 Enoxaparin Sodium 40 Mg/0.4 Ml Syringe SC 40 mg 0900,2100 AMARI Administration Glimepiride 1 mg 11/13/20 08:00 11/26/20 08:36 Glimepiride 1 Mg Tab PO 1 mg QAM-WM AMARI Administration Norepinephrine Bitartrate 250 mls @ 0 mls/hr 11/19/20 21:15 11/24/20 08:57 Levophed IVPB 250 mls INF AMARI Administration Protocol Titrate Fentanyl 100 mls @ 0 mls/hr 11/19/20 21:15 11/21/20 21:35 Fentanyl Cadd IV 12/19/20 21:15 100 mls INF AMARI Administration Protocol Per Protocol Insulin Glargine 20 units/ 0.2 mls @ 0 mls/hr 11/21/20 21:00 11/25/20 22:50 Miscellaneous Medication SC 0.2 mls HS AMARI Administration Dexmedetomidine HCl 400 mcg/ 100 mls @ 0 mls/hr 11/23/20 15:00 11/26/20 06:34 Sodium Chloride IVPB 100 mls INF AMARI Administration Protocol Per Protocol Doxycycline Hyclate 100 mg/ 100 mls @ 100 mls/hr 11/25/20 21:00 11/26/20 08:32 Sodium Chloride IVPB 11/26/20 21:01 100 mls Q12HR AMARI Administration Cefepime HCl 1 gm/ Sodium 100 mls @ 200 mls/hr 11/25/20 21:00 11/26/20 08:34 Chloride IVPB 11/26/20 21:01 100 mls Q12HR AMARI Administration Insulin Human Lispro 0 units 11/11/20 19:00 11/26/20 17:20 Humalog 300 Units/3 Ml Vial SC 3 unit .AGGRESSIVE SLIDING PRN Administration AGGRESSIVE SLIDING SCALE Protocol Insulin Human Lispro 0 units 11/12/20 21:30 11/12/20 22:35 Humalog 300 Units/3 Ml Vial SC 3 unit .BEDTIME SLIDING SC PRN Administration Bedtime Correctional Scale Loperamide HCl 4 mg 11/11/20 12:15 11/12/20 23:53 Loperamide Hcl 2 Mg Cap PO 4 mg QIDPRN PRN Administration Diarrhea/Loose Stools Lorazepam 2 mg 11/19/20 21:30 11/26/20 04:03 Lorazepam 2 Mg/Ml Vial SLOW IVP 12/19/20 21:30 2 mg Q1H PRN Administration Breakthrough agitation Metoprolol Tartrate 5 mg 11/10/20 18:03 11/11/20 17:11 Metoprolol Tartrate 5 Mg/5 Ml Vial IVP 5 mg Q6H PRN Administration FOR HR > 90 Mometasone Furoate/Formoterol Fumar 2 puff 11/13/20 18:30 11/26/20 07:00 Mometasone 200 Mcg/Formoterol 5 Mcg 120 Puff Inhaler INH 2 puff BID-RT AMARI Administration Nystatin 1 gm 11/18/20 09:00 11/26/20 16:51 Nystatin Cream 30 Gm Tube TOP 1 gm TID AMARI Administration Nystatin 1 gm 11/17/20 22:02 11/23/20 20:24 Nystatin Powder 15 Gm Bot TOP 1 gm PRN PRN Administration Topical Irritations Pantoprazole Sodium 40 mg 11/23/20 09:00 11/26/20 08:36 Pantoprazole 40 Mg Vial IVP 40 mg DAILY MAARI Administration Propofol 1,000 mg 11/19/20 21:30 11/26/20 08:35 Propofol 1,000 Mg/100 Ml Vial IV 12/19/20 21:30 1,000 mg INF PRN Administration TO ACHIEVE GOAL RASS Protocol Rosuvastatin Calcium 20 mg 11/06/20 21:00 11/25/20 22:37 Rosuvastatin 20 Mg Tab PO 20 mg HS AMARI Administration Senna 1 tab 11/23/20 09:00 11/26/20 12:07 Senokot 8.6 Mg Tab PO 1 tab DAILY AMARI Administration Sodium Chloride 10 ml 11/09/20 21:00 11/26/20 08:36 Flush - Normal Saline 10 Ml Syringe IVF 10 ml Q12HR AMARI Administration Hospitalist Exam Vitals: Vital Signs (12 hours) Temp Pulse Pulse Pulse Resp BP BP 11/26/20 16:00 15 11/26/20 15:36 58 L 54 L 110/55 L 11/26/20 14:26 56 L 114/59 L 11/26/20 14:00 20 11/26/20 12:00 98.1 F 15 11/26/20 11:03 53 L 11/26/20 10:00 13 11/26/20 08:00 98.3 F 14 11/26/20 07:00 55 L 95/50 L 11/26/20 06:00 20 BP Pulse Ox Pulse Ox Pulse Ox 11/26/20 16:00 11/26/20 15:36 100/49 L 96 97 11/26/20 14:26 11/26/20 14:00 11/26/20 12:00 11/26/20 11:03 11/26/20 10:00 11/26/20 08:00 98 11/26/20 07:00 11/26/20 06:00 Weight Admit Weight 246 lb Weight 244 lb 11.41 oz Most Recent Monitor Data Heart Rate from ECG 57 NIBP 110/58 NIBP BP-Mean 75 Respiration from ECG 21 SpO2 97 General Appearance: NAD General - other findings: sedate on mech vent Eye: anicteric sclera ENT: normocephalic atraumatic, no oropharyngeal lesions, moist mucosa ENT - other findings: ETT in place Neck: supple, symmetric, no JVD, no thyromegaly, no lymphadenopathy Heart: RRR, no gallops, no rubs, normal peripheral pulses Heart - other findings: S1, S2 Respiratory: CTAB, no rales, no ronchi, normal chest expansion Gastrointestinal: soft, non-tender, non-distended, normal bowel sounds, no palpable masses Extremities: no cyanosis, no clubbing, no edema Skin: normal turgor Neurological - other findings: sedate on mech vent Psychiatric: somnolent, lethargic Hosp A/P (1) Pneumonia due to COVID-19 virus Code(s): U07.1 - COVID-19; J12.82 - PNEUMONIA DUE TO CORONAVIRUS DISEASE 2018 Status: Acute Plan: Continue Cefepime/Doxycycline/Dexamethasone (2) Acute respiratory failure with hypoxia Code(s): J96.01 - ACUTE RESPIRATORY FAILURE WITH HYPOXIA Status: Acute Plan: Continue mech ventilation, weaning per protocol (3) Acute kidney injury superimposed on CKD Code(s): N17.9 - ACUTE KIDNEY FAILURE, UNSPECIFIED; N18.9 - CHRONIC KIDNEY DISEASE, UNSPECIFIED Status: Acute (4) Diabetes mellitus Code(s): E11.9 - TYPE 2 DIABETES MELLITUS WITHOUT COMPLICATIONS Status: Chronic (5) Atrial fibrillation with rapid ventricular response Code(s): I48.91 - UNSPECIFIED ATRIAL FIBRILLATION Status: Acute Plan: Current SR, continue Amiodarone/Lovenox - Plan johnson catheter, continue antibiotics, PT/OT, social staff worker, respiratory therapy, DVT proph w/SCDs Continue critical support Continue Mech ventilation and wean as clinically indicated Continue Dexamethasone Continue Amiodarone Nutritional support with TF's AM lab: BMP, CBC PCXR in am
--- NOTE | 2020-11-26 18:53 | PRG ---
DATE OF SERVICE: 11/26/2020 SUBJECTIVE: The patient noted to be on life support. OBJECTIVE: VITAL SIGNS: Noted with the following vital signs; blood pressure 124/58, pulse . HEENT: Unremarkable. CARDIOVASCULAR SYSTEM: First and second heart sounds were heard. RESPIRATORY SYSTEM: Revealed vented sounds. DIGESTIVE SYSTEM: Revealed a benign abdomen. EXTREMITIES: Showed no peripheral edema. IMPRESSION: 1. Cardiopulmonary failure, still on life support. 2. Hypernatremia, resolved. 3. Acute kidney injury, much improved. PLAN: Continue current renal supportive measures. Job ID: [id number]
[2020-11-26] MEDS: Rosuvastatin 20 MG TAB PO SCH (22:09)
[2020-11-26] MEDS: Insulin Glargine 20 UNITS in Pre-Filled Syringe 1 EACH SC SCH (22:57)
[2020-11-27] MEDS: HumaLOG 300 UNITS/3 ML VIAL SC PRN ×3 (04:03→16:59)
[2020-11-27] MEDS: Propofol 1,000 MG/100 ML VIAL IV PRN ×3 (04:05→20:50)
[2020-11-27 04:31] LABS: Anion Gap 13 mmol/L (10-20); BUN (Urea Nitrogen) 60 mg/dL (8.4-25.7); Calc. Creatinine Clearance 85 mL/min (70-130); Calcium 7.9 mg/dL (7.8-10.44); Carbon Dioxide 25 mmol/L (23-31); Chloride 108 mmol/L (98-107); Glucose 169 mg/dL (80-115); Potassium 4.8 mmol/L (3.5-5.1); Sodium 141 mmol/L (136-145)
[2020-11-27 04:38] LABS: Band 16 % (5-11); Lymphocytes 3 % (21-51); MDiff Complete? YES; Mean Corpuscular HGB CONC 33.7 g/dL (32.0-36.0); Mean Corpuscular Hemoglobin 29.3 pg (27.0-31.0); Mean Corpuscular Volume 87.1 fL (78.0-98.0); Mean Platelet Volume 9.2 fL (7.4-10.4); Monocytes 8 % (0-10); Neutrophil 73 % (42-75); Platelet Count 90 thou/uL (130-400); Platelet Morphology Comment Appears Decreased; RBC Distribution Width 16.8 % (11.5-14.5); Red Blood Cell (RBC) Count 3.41 mill/uL (4.70-6.10); White Blood Cell (WBC) Count 12.3 thou/uL (4.8-10.8)
[2020-11-27] MEDS: Mometasone 200 MCG/Formoterol 5 MCG 120 PUFF INHALER INH SCH ×2 (06:39→19:14)
--- NOTE | 2020-11-27 08:11 | RAD ---
Portable chest: HISTORY: Pneumonia follow-up. CCU follow-up. COMPARISON: 11/23/2020 FINDINGS:Bilateral infiltrates again noted. ET tube and NG tube unchanged. IMPRESSION:No significant interval change
[2020-11-27] MEDS: Nystatin Powder 15 GM BOT TOP PRN ×2 (08:35→16:42)
[2020-11-27] MEDS: Amiodarone 200 MG TAB PER TUBE SCH ×3 (08:40→20:46)
[2020-11-27] MEDS: Dexamethasone 4 mg/ml Vial SLOW IVP SCH ×2 (08:41→20:46)
[2020-11-27] MEDS: Pantoprazole 40 MG VIAL IVP SCH (08:49)
[2020-11-27] MEDS ORDERED: Albumin 25% 25 GM/100 ML BOT IVPB ONE (09:18)
--- NOTE | 2020-11-27 09:41 | PRG ---
DATE OF SERVICE: 11/27/2020 A 69-year-old gentleman remains encephalopathic in the ICU, low-dose Diprivan. OBJECTIVE: VITAL SIGNS: Temperature 98, pulse 49, respirations 20, blood pressure 90/80. Still on low-dose Levophed. CHEST: No wheezing, no crackles. CARDIAC: Normal S1, S2. No gallops. ASSESSMENT: 1. Still got mild azotemia, appears to be still prerenal. 2. X-ray still shows infiltrates. 3. Respiratory failure, cochran positive pneumonia, encephalopathy. 4. Azotemia, prerenal. 5. Avoid diuretics, try and wean Levophed. 6. He is still on amiodarone for supraventricular tachycardia. 7. Continue supportive care and PT. One-half hour of critical time. Job ID: [id number]
[2020-11-27] MEDS: Senokot 8.6 MG TAB PO SCH (09:51)
[2020-11-27] MEDS: Glimepiride 1 MG TAB PO SCH (11:46)
[2020-11-27] MEDS: Enoxaparin Sodium 40 MG/0.4 ML SYRINGE SC SCH ×2 (11:51→20:46)
[2020-11-27] MEDS: Nystatin Cream 30 GM TUBE TOP SCH ×3 (11:53→20:47)
--- NOTE | 2020-11-27 16:09 | PDOC.HOSPP ---
- Subjective Encounter Date: 11/27/20 Encounter Time: 16:00 Subjective: f/u for COVID PNA/resp failure/mech ventilation. Remains minimally responsive per nursing with spontaneous breathing noted on vent. Unable to fully d/c sedation as pt becomes hypoxic rapidly. - Objective Vital Signs & Weight: Vital Signs (12 hours) Temp Pulse Pulse Pulse Resp BP BP 11/27/20 15:16 58 L 11/27/20 14:00 30 H 11/27/20 12:00 98 F 34 H 11/27/20 10:34 63 62 109/63 116/62 11/27/20 10:01 66 11/27/20 10:00 32 H 11/27/20 08:00 98.8 F 20 11/27/20 06:39 60 11/27/20 06:00 10 L Pulse Ox Pulse Ox Pulse Ox 11/27/20 15:16 11/27/20 14:00 11/27/20 12:00 11/27/20 10:34 95 94 L 11/27/20 10:01 11/27/20 10:00 11/27/20 08:00 97 11/27/20 06:39 11/27/20 06:00 Weight Admit Weight 246 lb Weight 244 lb 11.41 oz Most Recent Monitor Data Heart Rate from ECG 56 NIBP 105/58 NIBP BP-Mean 73 Respiration from ECG 22 SpO2 100 I&O: 11/26/20 11/27/20 11/28/20 06:59 06:59 06:59 Intake Total 3205 1747.9 900 Output Total 2120 1825 540 Balance 1085 -77.1 360 Result Diagrams: 11/27/20 03:56 11/27/20 03:56 Additional Labs: Accuchecks 11/27/20 11/27/20 11/26/20 11:37 03:37 22:55 POC Glucose 154 H 155 H 123 H 11/26/20 17:17 POC Glucose 190 H Laboratory Tests 11/05/20 11/21/20 11/22/20 11:55 03:45 04:25 WBC Hgb Plt Count 200 130 Creatinine Influenza A RNA INAAT Not Detected Influenza B RNA INAAT Not Detected SARS-CoV-2 Rap RNA(RT-PCR) DETECTED A* 11/23/20 11/25/20 11/25/20 03:35 04:10 04:10 WBC 8.4 Hgb 10.3 L Plt Count 105 L Creatinine 1.19 Influenza A RNA INAAT Influenza B RNA INAAT SARS-CoV-2 Rap RNA(RT-PCR) Radiology Reviewed by me: Yes (PCXR - bilat infiltrates, lines/tubes in place) EKG Reviewed by me: Yes (Tele - SR) Hospitalist ROS - Medication Medications: Active Medications Generic Name Dose Route Start Last Admin Trade Name Freq PRN Reason Stop Dose Admin Amiodarone HCl 400 mg 11/24/20 15:00 11/27/20 08:40 Amiodarone 200 Mg Tab PER TUBE 400 mg TID AMARI Administration Dexamethasone 6 mg 11/13/20 21:00 11/27/20 08:41 Dexamethasone 4 Mg/Ml Vial SLOW IVP 6 mg BID AMARI Administration Enoxaparin Sodium 40 mg 11/20/20 09:00 11/27/20 11:51 Enoxaparin Sodium 40 Mg/0.4 Ml Syringe SC 40 mg 0900,2100 AMARI Administration Glimepiride 1 mg 11/13/20 08:00 11/27/20 11:46 Glimepiride 1 Mg Tab PO 1 mg QAM-WM AMARI Administration Norepinephrine Bitartrate 250 mls @ 0 mls/hr 11/19/20 21:15 11/24/20 08:57 Levophed IVPB 250 mls INF AMARI Administration Protocol Titrate Fentanyl 100 mls @ 0 mls/hr 11/19/20 21:15 11/21/20 21:35 Fentanyl Cadd IV 12/19/20 21:15 100 mls INF AMARI Administration Protocol Per Protocol Insulin Glargine 20 units/ 0.2 mls @ 0 mls/hr 11/21/20 21:00 11/26/20 22:57 Miscellaneous Medication SC 0.2 mls HS AMARI Administration Dexmedetomidine HCl 400 mcg/ 100 mls @ 0 mls/hr 11/23/20 15:00 11/27/20 12:54 Sodium Chloride IVPB 100 mls INF AMARI Administration Protocol Per Protocol Insulin Human Lispro 0 units 11/11/20 19:00 11/27/20 11:46 Humalog 300 Units/3 Ml Vial SC 3 unit .AGGRESSIVE SLIDING PRN Administration AGGRESSIVE SLIDING SCALE Protocol Insulin Human Lispro 0 units 11/12/20 21:30 11/12/20 22:35 Humalog 300 Units/3 Ml Vial SC 3 unit .BEDTIME SLIDING SC PRN Administration Bedtime Correctional Scale Loperamide HCl 4 mg 11/11/20 12:15 11/12/20 23:53 Loperamide Hcl 2 Mg Cap PO 4 mg QIDPRN PRN Administration Diarrhea/Loose Stools Lorazepam 2 mg 11/19/20 21:30 11/26/20 04:03 Lorazepam 2 Mg/Ml Vial SLOW IVP 12/19/20 21:30 2 mg Q1H PRN Administration Breakthrough agitation Metoprolol Tartrate 5 mg 11/10/20 18:03 11/11/20 17:11 Metoprolol Tartrate 5 Mg/5 Ml Vial IVP 5 mg Q6H PRN Administration FOR HR > 90 Mometasone Furoate/Formoterol Fumar 2 puff 11/13/20 18:30 11/27/20 06:39 Mometasone 200 Mcg/Formoterol 5 Mcg 120 Puff Inhaler INH 2 puff BID-RT AMARI Administration Nystatin 1 gm 11/18/20 09:00 11/27/20 11:53 Nystatin Cream 30 Gm Tube TOP Not Given TID AMARI Nystatin 1 gm 11/17/20 22:02 11/27/20 08:35 Nystatin Powder 15 Gm Bot TOP 1 gm PRN PRN Administration Topical Irritations Propofol 1,000 mg 11/19/20 21:30 11/27/20 04:05 Propofol 1,000 Mg/100 Ml Vial IV 12/19/20 21:30 1,000 mg INF PRN Administration TO ACHIEVE GOAL RASS Protocol Rosuvastatin Calcium 20 mg 11/06/20 21:00 11/26/20 22:09 Rosuvastatin 20 Mg Tab PO 20 mg HS AMARI Administration Senna 1 tab 11/23/20 09:00 11/27/20 09:51 Senokot 8.6 Mg Tab PO 1 tab DAILY AMARI Administration Sodium Chloride 10 ml 11/09/20 21:00 11/27/20 08:42 Flush - Normal Saline 10 Ml Syringe IVF 10 ml Q12HR AMARI Administration Hospitalist Exam Vitals: Vital Signs (12 hours) Temp Pulse Pulse Pulse Resp BP BP 11/27/20 15:16 58 L 11/27/20 14:00 30 H 11/27/20 12:00 98 F 34 H 11/27/20 10:34 63 62 109/63 116/62 11/27/20 10:01 66 11/27/20 10:00 32 H 11/27/20 08:00 98.8 F 20 11/27/20 06:39 60 11/27/20 06:00 10 L Pulse Ox Pulse Ox Pulse Ox 11/27/20 15:16 11/27/20 14:00 11/27/20 12:00 11/27/20 10:34 95 94 L 11/27/20 10:01 11/27/20 10:00 11/27/20 08:00 97 11/27/20 06:39 11/27/20 06:00 Weight Admit Weight 246 lb Weight 244 lb 11.41 oz Most Recent Monitor Data Heart Rate from ECG 56 NIBP 105/58 NIBP BP-Mean 73 Respiration from ECG 22 SpO2 100 General - other findings: sedate on mech vent Eye: anicteric sclera ENT: normocephalic atraumatic, no oropharyngeal lesions ENT - other findings: ETT in place Neck: supple, symmetric, no JVD, no thyromegaly, no lymphadenopathy Heart: RRR, no gallops, no rubs, normal peripheral pulses Heart - other findings: S1, S2 Respiratory - other findings: diminished with coarse sounds in bases Gastrointestinal: soft, non-tender, non-distended, normal bowel sounds, no palpable masses Extremities: no cyanosis, no edema Skin: normal turgor Neurological - other findings: unresponsive, sedate Psychiatric: somnolent, lethargic Hosp A/P (1) Pneumonia due to COVID-19 virus Code(s): U07.1 - COVID-19; J12.82 - PNEUMONIA DUE TO CORONAVIRUS DISEASE 2019 Status: Acute Plan: Continue supportive mgmt, Dexamethasone/Cefepime/Lovenox/mech vent (2) Acute respiratory failure with hypoxia Code(s): J96.01 - ACUTE RESPIRATORY FAILURE WITH HYPOXIA Status: Acute Plan: Remains vent-dependent, attempt slow wean (3) Acute kidney injury superimposed on CKD Code(s): N17.9 - ACUTE KIDNEY FAILURE, UNSPECIFIED; N18.9 - CHRONIC KIDNEY DISEASE, UNSPECIFIED Status: Acute (4) Diabetes mellitus Code(s): E11.9 - TYPE 2 DIABETES MELLITUS WITHOUT COMPLICATIONS Status: Chronic (5) Atrial fibrillation with rapid ventricular response Code(s): I48.91 - UNSPECIFIED ATRIAL FIBRILLATION Status: Acute Plan: s/p Cardioversion, SR currently - Plan plan discussed w/ family, 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
--- NOTE | 2020-11-27 18:58 | PRG ---
DATE OF SERVICE: SUBJECTIVE: The patient is seen and examined. Noted with the following vital signs. OBJECTIVE: VITAL SIGNS: Blood pressure , pulse is 57, respiratory rate of 29, O2 saturation 98%. HEENT: Unremarkable. CARDIOVASCULAR SYSTEM: First and second heart sounds were heard. RESPIRATORY SYSTEM: Revealed vented sounds. DIGESTIVE SYSTEM: Revealed a benign abdomen with positive bowel sounds. EXTREMITIES: No peripheral edema. SKIN: No new gross rash. LYMPHATICS: No peripheral lymphadenopathy. IMPRESSION: 1. Cardiopulmonary failure, on life support. 2. Hypernatremia, which seems to have resolved. 3. Acute kidney injury, much improved. PLAN: We will continue current renal supportive measures. Job ID: [id number]
[2020-11-27] MEDS: Insulin Glargine 20 UNITS in Pre-Filled Syringe 1 EACH SC SCH (20:48)
[2020-11-27] MEDS ORDERED: risperiDONE 0.25 MG TAB PO SCH (21:00)
[2020-11-27] MEDS: Rosuvastatin 20 MG TAB PO SCH (21:00)
[2020-11-28 04:24] LABS: #Lymphocytes 0.2 thou/uL (1.20-3.40); #Monocytes 0.6 thou/uL (0.11-0.59); #Neutrophils 10.2 thou/uL (1.40-6.50); %Eosinophils 0.3 % (0.0-10.0); %Lymphocytes 1.9 % (21.0-51.0); %Monocytes 5.5 % (0.0-10.0); %Neutrophils 92.3 % (42.0-75.0); Hemoglobin 10.1 g/dL (14.0-18.0); Mean Corpuscular HGB CONC 34.3 g/dL (32.0-36.0); Mean Corpuscular Hemoglobin 30.3 pg (27.0-31.0); Mean Corpuscular Volume 88.4 fL (78.0-98.0); Platelet Count 84 thou/uL (130-400); RBC Distribution Width 16.8 % (11.5-14.5); Red Blood Cell (RBC) Count 3.34 mill/uL (4.70-6.10); White Blood Cell (WBC) Count 11.1 thou/uL (4.8-10.8)
[2020-11-28 04:34] LABS: Anion Gap 12 mmol/L (10-20); BUN (Urea Nitrogen) 53 mg/dL (8.4-25.7); Calc. Creatinine Clearance 86 mL/min (70-130); Carbon Dioxide 24 mmol/L (23-31); Chloride 108 mmol/L (98-107); Glucose 196 mg/dL (80-115); Sodium 139 mmol/L (136-145)
[2020-11-28] MEDS: Mometasone 200 MCG/Formoterol 5 MCG 120 PUFF INHALER INH SCH ×2 (06:29→18:41)
[2020-11-28] MEDS: Nystatin Cream 30 GM TUBE TOP SCH ×3 (09:00→21:20)
[2020-11-28] MEDS: Nystatin Powder 15 GM BOT TOP PRN ×3 (09:00→15:51)
[2020-11-28] MEDS: Enoxaparin Sodium 40 MG/0.4 ML SYRINGE SC SCH ×2 (09:00→21:26)
[2020-11-28] MEDS: Senokot 8.6 MG TAB PO SCH (09:00)
[2020-11-28] MEDS ORDERED: risperiDONE 0.25 MG TAB PO SCH (09:15)
[2020-11-28] MEDS: Pantoprazole 40 MG GRANULES PACKET PER TUBE SCH (09:27)
[2020-11-28] MEDS: Amiodarone 200 MG TAB PER TUBE SCH ×2 (09:27→16:00)
[2020-11-28] MEDS: Dexamethasone 4 mg/ml Vial SLOW IVP SCH ×2 (09:28→21:56)
[2020-11-28] MEDS: Propofol 1,000 MG/100 ML VIAL IV PRN ×4 (09:28→21:16)
[2020-11-28] MEDS: Glimepiride 1 MG TAB PO SCH (09:29)
--- NOTE | 2020-11-28 09:46 | RAD ---
PORTABLE CHEST: HISTORY: CCU followup on ventilator. COMPARISON: 11/27/2020. FINDINGS/IMPRESSION: ET tube and NG tube unchanged. Bilateral lung infiltrates again noted. No significant change from y . POS: OFF
--- NOTE | 2020-11-28 10:14 | PDOC.HOSPP ---
- Subjective Encounter Date: 11/28/20 Encounter Time: 10:15 Subjective: f/u for COVID PNA/resp failure on mech ventilation. No new events reported. Remains on Dexamethasone/Lovenox/mech vent. - Objective Vital Signs & Weight: Vital Signs (12 hours) Temp Pulse Resp BP Pulse Ox 11/28/20 06:33 65 106/65 11/28/20 06:29 65 32 H 99 11/28/20 06:00 28 H 11/28/20 04:00 96.5 F L 28 H 11/28/20 02:31 62 11/28/20 02:00 28 H 11/28/20 00:20 61 11/28/20 00:00 97.3 F L 27 H 11/27/20 22:24 61 Weight Admit Weight 246 lb Weight 3.94 oz Most Recent Monitor Data Heart Rate from ECG 63 NIBP 115/69 NIBP BP-Mean 84 Respiration from ECG 24 SpO2 100 I&O: 11/27/20 11/28/20 11/29/20 06:59 06:59 06:59 Intake Total 1747.9 3498.4 Output Total 1825 2840 Balance -77.1 658.4 Result Diagrams: 11/28/20 04:00 11/28/20 04:00 Additional Labs: Accuchecks 11/28/20 11/27/20 11/27/20 05:00 20:45 16:55 POC Glucose 194 H 150 H 177 H 11/27/20 11:37 POC Glucose 154 H Laboratory Tests 11/05/20 11/21/20 11/22/20 11:55 03:45 04:25 WBC Hgb Plt Count 200 130 Creatinine Influenza A RNA INAAT Not Detected Influenza B RNA INAAT Not Detected SARS-CoV-2 Rap RNA(RT-PCR) DETECTED A* 11/23/20 11/25/20 11/25/20 03:35 04:10 04:10 WBC 8.4 Hgb 10.3 L Plt Count 105 L Creatinine 1.19 Influenza A RNA INAAT Influenza B RNA INAAT SARS-CoV-2 Rap RNA(RT-PCR) Radiology Reviewed by me: Yes (PCXR - bilat infiltrates, lines/tubes in place) EKG Reviewed by me: Yes (Tele - SR) Hospitalist ROS - Medication Medications: Active Medications Generic Name Dose Route Start Last Admin Trade Name Freq PRN Reason Stop Dose Admin Amiodarone HCl 400 mg 11/24/20 15:00 11/28/20 09:27 Amiodarone 200 Mg Tab PER TUBE 400 mg TID AMARI Administration Dexamethasone 6 mg 11/13/20 21:00 11/28/20 09:28 Dexamethasone 4 Mg/Ml Vial SLOW IVP 6 mg BID AMARI Administration Enoxaparin Sodium 40 mg 11/20/20 09:00 11/27/20 20:46 Enoxaparin Sodium 40 Mg/0.4 Ml Syringe SC 40 mg 0900,2100 AMARI Administration Glimepiride 1 mg 11/13/20 08:00 11/28/20 09:29 Glimepiride 1 Mg Tab PO 1 mg QAM-WM AMARI Administration Norepinephrine Bitartrate 250 mls @ 0 mls/hr 11/19/20 21:15 11/24/20 08:57 Levophed IVPB 250 mls INF AMARI Administration Protocol Titrate Fentanyl 100 mls @ 0 mls/hr 11/19/20 21:15 11/21/20 21:35 Fentanyl Cadd IV 12/19/20 21:15 100 mls INF AMARI Administration Protocol Per Protocol Insulin Glargine 20 units/ 0.2 mls @ 0 mls/hr 11/21/20 21:00 11/27/20 20:48 Miscellaneous Medication SC 0.2 mls HS AMARI Administration Dexmedetomidine HCl 400 mcg/ 100 mls @ 0 mls/hr 11/23/20 15:00 11/27/20 20:51 Sodium Chloride IVPB 100 mls INF AMARI Administration Protocol Per Protocol Insulin Human Lispro 0 units 11/11/20 19:00 11/27/20 16:59 Humalog 300 Units/3 Ml Vial SC 3 unit .AGGRESSIVE SLIDING PRN Administration AGGRESSIVE SLIDING SCALE Protocol Insulin Human Lispro 0 units 11/12/20 21:30 11/12/20 22:35 Humalog 300 Units/3 Ml Vial SC 3 unit .BEDTIME SLIDING SC PRN Administration Bedtime Correctional Scale Loperamide HCl 4 mg 11/11/20 12:15 11/12/20 23:53 Loperamide Hcl 2 Mg Cap PO 4 mg QIDPRN PRN Administration Diarrhea/Loose Stools Lorazepam 2 mg 11/19/20 21:30 11/26/20 04:03 Lorazepam 2 Mg/Ml Vial SLOW IVP 12/19/20 21:30 2 mg Q1H PRN Administration Breakthrough agitation Metoprolol Tartrate 5 mg 11/10/20 18:03 11/11/20 17:11 Metoprolol Tartrate 5 Mg/5 Ml Vial IVP 5 mg Q6H PRN Administration FOR HR > 90 Mometasone Furoate/Formoterol Fumar 2 puff 11/13/20 18:30 11/28/20 06:29 Mometasone 200 Mcg/Formoterol 5 Mcg 120 Puff Inhaler INH 2 puff BID-RT AMARI Administration Nystatin 1 gm 11/18/20 09:00 11/27/20 20:47 Nystatin Cream 30 Gm Tube TOP 1 gm TID AMARI Administration Nystatin 1 gm 11/17/20 22:02 11/28/20 09:30 Nystatin Powder 15 Gm Bot TOP 1 gm PRN PRN Administration Topical Irritations Pantoprazole Sodium 40 mg 11/28/20 09:00 11/28/20 09:27 Pantoprazole 40 Mg Granules Packet PER TUBE 40 mg DAILY AMARI Administration Propofol 1,000 mg 11/19/20 21:30 11/28/20 09:28 Propofol 1,000 Mg/100 Ml Vial IV 12/19/20 21:30 1,000 mg INF PRN Administration TO ACHIEVE GOAL RASS Protocol Risperidone 0.5 mg 11/28/20 09:15 11/28/20 09:34 Risperidone 0.25 Mg Tab PO 11/28/20 12:00 0.5 mg NOW AMARI Administration Rosuvastatin Calcium 20 mg 11/06/20 21:00 11/27/20 21:00 Rosuvastatin 20 Mg Tab PO 20 mg HS AMARI Administration Senna 1 tab 11/23/20 09:00 11/27/20 09:51 Senokot 8.6 Mg Tab PO 1 tab DAILY AMARI Administration Sodium Chloride 10 ml 11/09/20 21:00 11/27/20 20:47 Flush - Normal Saline 10 Ml Syringe IVF 10 ml Q12HR AMARI Administration Hospitalist Exam Vitals: Vital Signs (12 hours) Temp Pulse Resp BP Pulse Ox 11/28/20 06:33 65 106/65 11/28/20 06:29 65 32 H 99 11/28/20 06:00 28 H 11/28/20 04:00 96.5 F L 28 H 11/28/20 02:31 62 11/28/20 02:00 28 H 11/28/20 00:20 61 11/28/20 00:00 97.3 F L 27 H 11/27/20 22:24 61 Weight Admit Weight 246 lb Weight 3.94 oz Most Recent Monitor Data Heart Rate from ECG 63 NIBP 115/69 NIBP BP-Mean 84 Respiration from ECG 24 SpO2 100 General - other findings: sedate on mech vent Eye: anicteric sclera ENT: normocephalic atraumatic, no oropharyngeal lesions ENT - other findings: ETT in place Neck: supple, symmetric, no JVD, no thyromegaly, no lymphadenopathy Heart: RRR, no gallops, no rubs, normal peripheral pulses Heart - other findings: S1, S2 Respiratory - other findings: diminished in bases, few scattered rhonchi Gastrointestinal: soft, non-distended, normal bowel sounds, no palpable masses, no hepatomegaly Extremities: no cyanosis, no clubbing, no edema Skin: normal turgor Neurological - other findings: unresponsive, sedate Psychiatric: somnolent, lethargic Hosp A/P (1) Pneumonia due to COVID-19 virus Code(s): U07.1 - COVID-19; J12.82 - PNEUMONIA DUE TO CORONAVIRUS DISEASE 2018 Status: Acute Plan: Continue mech vent/Dexamethasone/Lovenox (2) Acute respiratory failure with hypoxia Code(s): J96.01 - ACUTE RESPIRATORY FAILURE WITH HYPOXIA Status: Acute Plan: Remains vent dependent, continue current vent support (3) Acute kidney injury superimposed on CKD Code(s): N17.9 - ACUTE KIDNEY FAILURE, UNSPECIFIED; N18.9 - CHRONIC KIDNEY DISEASE, UNSPECIFIED Status: Acute (4) Diabetes mellitus Code(s): E11.9 - TYPE 2 DIABETES MELLITUS WITHOUT COMPLICATIONS Status: Chronic Plan: Continue Amaryl, ISS, Lantus 20u HS (5) Atrial fibrillation with rapid ventricular response Code(s): I48.91 - UNSPECIFIED ATRIAL FIBRILLATION Status: Acute Plan: SR currently, continue Amiodarone/Lovenox - Plan 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
--- NOTE | 2020-11-28 11:14 | PRG ---
DATE OF SERVICE: 11/28/2020 SUBJECTIVE: He remains in the ICU, very encephalopathic, tried to cut back on his sedation, became agitated, tachypneic, tachycardic. OBJECTIVE: VITAL SIGNS: His pulse 65, blood pressure 106/65, respirations 32, sats are 99%, PEEP of 5, 40%. I's and O's have been improved. CHEST: Rhonchi, crackles. CARDIAC: Normal S1 and S2. No gallops. ABDOMEN: No masses. ASSESSMENT: Respiratory failure, cochran positive pneumonia, metabolic encephalopathy, azotemia. PLAN: Try to minimize sedation. I have increased risperidone to twice a day. Continue antibiotics. Continue steroids. His blood pressure has improved. Start weaning. Make vent adjustments. One-half hour of critical care time. Job ID: [id number]
[2020-11-28] MEDS: HumaLOG 300 UNITS/3 ML VIAL SC PRN ×3 (12:46→17:46)
--- NOTE | 2020-11-28 18:36 | PRG ---
DATE OF SERVICE: 11/28/2020 SUBJECTIVE: The patient noted with the following vital signs. OBJECTIVE: VITAL SIGNS: Blood pressure 104/61, heart rate of 63, respiratory rate of 27, O2 saturation was 99%. HEENT: Remarkable for endotracheal tube in place. CARDIOVASCULAR SYSTEM: First and second heart sounds were heard. RESPIRATORY SYSTEM: Revealed vented sounds. DIGESTIVE SYSTEM: Revealed a benign abdomen. IMPRESSION: 1. Cardiopulmonary failure, on life support. 2. Hypernatremia, resolved. 3. Acute kidney injury. PLAN: 1. We will continue with current renal supportive measures. 2. Further management to be dependent on the clinical course. Job ID: [id number]
[2020-11-28] MEDS: Amiodarone 200 MG TAB PO SCH (21:16)
[2020-11-28] MEDS: Insulin Glargine 20 UNITS in Pre-Filled Syringe 1 EACH SC SCH (21:28)
[2020-11-28] MEDS: Rosuvastatin 20 MG TAB PO SCH (21:39)
[2020-11-28] MEDS: risperiDONE 0.25 MG TAB PO SCH (21:40)
[2020-11-29] MEDS: Propofol 1,000 MG/100 ML VIAL IV PRN ×5 (01:19→18:42)
[2020-11-29 04:39] LABS: Band 27 % (5-11); Hemoglobin 10.3 g/dL (14.0-18.0); Lymphocytes 1 % (21-51); MDiff Complete? YES; Mean Corpuscular HGB CONC 33.3 g/dL (32.0-36.0); Mean Corpuscular Volume 87.1 fL (78.0-98.0); Mean Platelet Volume 9.2 fL (7.4-10.4); Metamyelocyte 3 % (0-0); Monocytes 2 % (0-10); Myelocyte 1 % (0-0); Neutrophil 66 % (42-75); Platelet Count 87 thou/uL (130-400); Platelet Morphology Comment Appears Decreased; RBC Distribution Width 17.1 % (11.5-14.5); Red Blood Cell (RBC) Count 3.54 mill/uL (4.70-6.10); White Blood Cell (WBC) Count 13.2 thou/uL (4.8-10.8)
[2020-11-29 04:48] LABS: Anion Gap 13 mmol/L (10-20); BUN (Urea Nitrogen) 53 mg/dL (8.4-25.7); Calc. Creatinine Clearance 0 mL/min (70-130); Calcium 8.3 mg/dL (7.8-10.44); Carbon Dioxide 25 mmol/L (23-31); Chloride 107 mmol/L (98-107); Glucose 182 mg/dL (80-115); Sodium 140 mmol/L (136-145)
[2020-11-29] MEDS: Mometasone 200 MCG/Formoterol 5 MCG 120 PUFF INHALER INH SCH ×2 (06:27→18:07)
--- NOTE | 2020-11-29 08:27 | RAD ---
PORTABLE CHEST: HISTORY: CCU followup. Pneumonia. COMPARISON: 11/28/2020. FINDINGS: ET tube, NG Tube remain in place. There are hazy bibasilar alveolar infiltrates. The upper lung fie lds are relatively clear. Probable small effusions. IMPRESSION: There are bilateral infiltrates again noted. The left lung infiltrates may be slightly improved. POS: AGW
[2020-11-29] MEDS: Enoxaparin Sodium 40 MG/0.4 ML SYRINGE SC SCH ×2 (09:10→21:10)
[2020-11-29] MEDS: Senokot 8.6 MG TAB PO SCH (09:11)
[2020-11-29] MEDS: Dexamethasone 4 mg/ml Vial SLOW IVP SCH ×2 (09:11→21:11)
[2020-11-29] MEDS: Amiodarone 200 MG TAB PO SCH ×2 (09:11→21:11)
[2020-11-29] MEDS: Pantoprazole 40 MG GRANULES PACKET PER TUBE SCH (09:11)
[2020-11-29] MEDS: Glimepiride 1 MG TAB PO SCH (09:11)
[2020-11-29] MEDS: risperiDONE 0.25 MG TAB PO SCH ×2 (09:12→21:11)
[2020-11-29] MEDS: Nystatin Cream 30 GM TUBE TOP SCH ×3 (09:14→21:12)
--- NOTE | 2020-11-29 10:05 | PDOC.HOSPP ---
- Subjective Encounter Date: 11/29/20 Encounter Time: 10:00 Subjective: f/u for COVID PNA/resp failure on mech vent/Dexamethasone/Lovenox. No new events noted. - Objective Vital Signs & Weight: Vital Signs (12 hours) Temp Pulse Resp BP Pulse Ox 11/29/20 06:28 73 114/66 11/29/20 06:27 73 23 H 96 11/29/20 06:00 98.4 F 16 11/29/20 04:00 16 11/29/20 02:02 70 11/29/20 02:00 16 11/29/20 00:00 98.5 F 16 11/28/20 22:27 63 Weight Admit Weight 246 lb Weight 3.958 oz Most Recent Monitor Data Heart Rate from ECG 70 NIBP 84/52 NIBP BP-Mean 62 Respiration from ECG 21 SpO2 96 I&O: 11/28/20 11/29/20 11/30/20 06:59 06:59 06:59 Intake Total 3498.4 3706.1 Output Total 2840 2945 Balance 658.4 761.1 Result Diagrams: 11/29/20 04:11 11/29/20 04:11 Additional Labs: Accuchecks 11/29/20 11/28/20 11/28/20 07:33 22:21 16:45 POC Glucose 173 H 141 H 175 H 11/28/20 12:43 POC Glucose 193 H Laboratory Tests 11/05/20 11/21/20 11/22/20 11:55 03:45 04:25 WBC Hgb Plt Count 200 130 Creatinine Influenza A RNA INAAT Not Detected Influenza B RNA INAAT Not Detected SARS-CoV-2 Rap RNA(RT-PCR) DETECTED A* 11/23/20 11/25/20 11/25/20 03:35 04:10 04:10 WBC 8.4 Hgb 10.3 L Plt Count 105 L Creatinine 1.19 Influenza A RNA INAAT Influenza B RNA INAAT SARS-CoV-2 Rap RNA(RT-PCR) Radiology Reviewed by me: Yes (PCXR - multifocal infiltrates, lines/tubes in place) EKG Reviewed by me: Yes (Tele - SR in 80's) Hospitalist ROS - Medication Medications: Active Medications Generic Name Dose Route Start Last Admin Trade Name Freq PRN Reason Stop Dose Admin Amiodarone HCl 400 mg 11/28/20 21:00 11/29/20 09:11 Amiodarone 200 Mg Tab PO 400 mg BID AMARI Administration Dexamethasone 6 mg 11/28/20 21:00 11/29/20 09:11 Dexamethasone 4 Mg/Ml Vial SLOW IVP 6 mg BID AMARI Administration Enoxaparin Sodium 40 mg 11/20/20 09:00 11/29/20 09:10 Enoxaparin Sodium 40 Mg/0.4 Ml Syringe SC Not Given 09,2099 AMARI Glimepiride 1 mg 11/13/20 08:00 11/29/20 09:11 Glimepiride 1 Mg Tab PO 1 mg QAM-WM AMARI Administration Norepinephrine Bitartrate 250 mls @ 0 mls/hr 11/19/20 21:15 11/24/20 08:57 Levophed IVPB 250 mls INF AMARI Administration Protocol Titrate Fentanyl 100 mls @ 0 mls/hr 11/19/20 21:15 11/21/20 21:35 Fentanyl Cadd IV 12/19/20 21:15 100 mls INF AMARI Administration Protocol Per Protocol Insulin Glargine 20 units/ 0.2 mls @ 0 mls/hr 11/21/20 21:00 11/28/20 21:28 Miscellaneous Medication SC 0.2 mls HS AMARI Administration Dexmedetomidine HCl 400 mcg/ 100 mls @ 0 mls/hr 11/23/20 15:00 11/29/20 06:37 Sodium Chloride IVPB 100 mls INF AMARI Administration Protocol Per Protocol Insulin Human Lispro 0 units 11/11/20 19:00 11/28/20 17:46 Humalog 300 Units/3 Ml Vial SC 3 unit .AGGRESSIVE SLIDING PRN Administration AGGRESSIVE SLIDING SCALE Protocol Insulin Human Lispro 0 units 11/12/20 21:30 11/12/20 22:35 Humalog 300 Units/3 Ml Vial SC 3 unit .BEDTIME SLIDING SC PRN Administration Bedtime Correctional Scale Loperamide HCl 4 mg 11/11/20 12:15 11/12/20 23:53 Loperamide Hcl 2 Mg Cap PO 4 mg QIDPRN PRN Administration Diarrhea/Loose Stools Lorazepam 2 mg 11/19/20 21:30 11/26/20 04:03 Lorazepam 2 Mg/Ml Vial SLOW IVP 12/19/20 21:30 2 mg Q1H PRN Administration Breakthrough agitation Metoprolol Tartrate 5 mg 11/10/20 18:03 11/11/20 17:11 Metoprolol Tartrate 5 Mg/5 Ml Vial IVP 5 mg Q6H PRN Administration FOR HR > 90 Mometasone Furoate/Formoterol Fumar 2 puff 11/13/20 18:30 11/29/20 06:27 Mometasone 200 Mcg/Formoterol 5 Mcg 120 Puff Inhaler INH 2 puff BID-RT AMARI Administration Nystatin 1 gm 11/18/20 09:00 11/29/20 09:14 Nystatin Cream 30 Gm Tube TOP 1 gm TID AMARI Administration Nystatin 1 gm 11/17/20 22:02 11/28/20 15:51 Nystatin Powder 15 Gm Bot TOP 1 gm PRN PRN Administration Topical Irritations Pantoprazole Sodium 40 mg 11/28/20 09:00 11/29/20 09:11 Pantoprazole 40 Mg Granules Packet PER TUBE 40 mg DAILY AMARI Administration Propofol 1,000 mg 11/19/20 21:30 11/29/20 09:06 Propofol 1,000 Mg/100 Ml Vial IV 12/19/20 21:30 1,000 mg INF PRN Administration TO ACHIEVE GOAL RASS Protocol Risperidone 0.5 mg 11/28/20 21:00 11/29/20 09:12 Risperidone 0.25 Mg Tab PO 0.5 mg BID AMARI Administration Rosuvastatin Calcium 20 mg 11/06/20 21:00 11/28/20 21:39 Rosuvastatin 20 Mg Tab PO 20 mg HS AMARI Administration Senna 1 tab 11/23/20 09:00 11/29/20 09:11 Senokot 8.6 Mg Tab PO 1 tab DAILY AMARI Administration Sodium Chloride 10 ml 11/09/20 21:00 11/29/20 09:12 Flush - Normal Saline 10 Ml Syringe IVF 10 ml Q12HR AMARI Administration Hospitalist Exam Vitals: Vital Signs (12 hours) Temp Pulse Resp BP Pulse Ox 11/29/20 06:28 73 114/66 11/29/20 06:27 73 23 H 96 11/29/20 06:00 98.4 F 16 11/29/20 04:00 16 11/29/20 02:02 70 11/29/20 02:00 16 11/29/20 00:00 98.5 F 16 11/28/20 22:27 63 Weight Admit Weight 246 lb Weight 3.958 oz Most Recent Monitor Data Heart Rate from ECG 70 NIBP 84/52 NIBP BP-Mean 62 Respiration from ECG 21 SpO2 96 General - other findings: sedate, unresponsive on mech vent Eye: anicteric sclera ENT: normocephalic atraumatic, no oropharyngeal lesions ENT - other findings: ETT in place Neck: supple, symmetric, no JVD, no thyromegaly, no lymphadenopathy Heart: RRR, no gallops, no rubs, normal peripheral pulses Heart - other findings: S1, S2 Respiratory - other findings: diminished in bases bilat, occ rhonchi Gastrointestinal: soft, non-tender, non-distended, normal bowel sounds, no palpable masses, no hepatomegaly Extremities: no cyanosis, no edema Skin: normal turgor Neurological - other findings: unresponsive, sedate on mech vent Psychiatric: somnolent, lethargic Hosp A/P (1) Pneumonia due to COVID-19 virus Code(s): U07.1 - COVID-19; J12.82 - PNEUMONIA DUE TO CORONAVIRUS DISEASE 2019 Status: Acute Plan: Prolonged ventilation with COVID PNA, continue Dexamethasone/Lovenox/mech ventilation, may need to consider trach (2) Acute respiratory failure with hypoxia Code(s): J96.01 - ACUTE RESPIRATORY FAILURE WITH HYPOXIA Status: Acute Plan: See #1 above (3) Acute kidney injury superimposed on CKD Code(s): N17.9 - ACUTE KIDNEY FAILURE, UNSPECIFIED; N18.9 - CHRONIC KIDNEY DISEASE, UNSPECIFIED Status: Acute (4) Thrombocytopenia Code(s): D69.6 - THROMBOCYTOPENIA, UNSPECIFIED Status: Acute Plan: Likely iatrogenic with Lovenox, continue to monitor trend, no evidence of active or spontaneous bleeding (5) Diabetes mellitus Code(s): E11.9 - TYPE 2 DIABETES MELLITUS WITHOUT COMPLICATIONS Status: Chronic (6) Atrial fibrillation with rapid ventricular response Code(s): I48.91 - UNSPECIFIED ATRIAL FIBRILLATION Status: Acute Plan: Current SR, continue Amiodarone - Plan johnson catheter, PT/OT, 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
--- NOTE | 2020-11-29 10:20 | PRG ---
DATE OF SERVICE: 11/29/2020 SUBJECTIVE: Kristy Aldridge remains in the ICU, intubated on the vent, day 12. X-ray looks much improvement. He is still slightly encephalopathic. OBJECTIVE: VITAL SIGNS: , pulse 73, blood pressure 114/80, respiratory rate 18. CHEST: No wheezing. No crackles. CARDIAC: Normal S1 and S2. No gallops. ABDOMEN: No masses. LABORATORY DATA: Creatinine is 1, BUN is 57. ASSESSMENT: Respiratory failure; cochran positive pneumonia, slowly improving; SVT. PLAN: Minimize sedation. Hopefully, we can get him off the vent in the next several days. He is on Demadex, risperidone. One-half hour of critical care time. Job ID: [id number]
[2020-11-29] MEDS: HumaLOG 300 UNITS/3 ML VIAL SC PRN ×2 (15:52→22:04)
--- NOTE | 2020-11-29 16:19 | PRG ---
DATE OF SERVICE: 11/29/2020 OBJECTIVE: VITAL SIGNS: The patient noted with the following vital signs; afebrile, blood pressure was 116/69, pulse 78. HEENT:: Unremarkable. CARDIOVASCULAR SYSTEM: First and second heart sounds were heard. RESPIRATORY SYSTEM: Clear to auscultation. DIGESTIVE SYSTEM: Benign abdomen. Positive bowel sounds. EXTREMITIES: No peripheral edema. SKIN: No new gross rash. LYMPHATICS: No peripheral lymphadenopathy. IMPRESSION: 1. Cardiopulmonary failure, on life support. 2. Acute on chronic renal disease, much improved. PLAN: Continue current renal supportive measures. Job ID: [id number]
[2020-11-29] MEDS: Rosuvastatin 20 MG TAB PO SCH (21:11)
[2020-11-29] MEDS: Insulin Glargine 20 UNITS in Pre-Filled Syringe 1 EACH SC SCH (21:16)
[2020-11-29] MEDS ORDERED: Fentanyl BOLUS 250 ML IVPB PRN (21:22)
[2020-11-29] MEDS ORDERED: Fentanyl CADD 100 ML IV SCH (21:30)
[2020-11-29] MEDS ORDERED: Lorazepam 2 MG/ML VIAL SLOW IVP PRN (22:46)
[2020-11-30 01:46] LABS: Bacteria/HPF None Seen HPF (None Seen); Bilirubin Negative (Negative); Blood, Urine 2+ (Negative); Calcium Oxalate Crystals 2+ HPF (None Seen); Clarity Extra Turbid (Clear); Glucose, Urine (Dipstick) 100 mg/dL (Negative); Ketone, Urine Negative (Negative); Leukocyte 500 Leu/uL (Negative); Nitrite Negative (Negative); Protein, Urine (Dipstick) 50 mg/dL (Neg-Trace); RBC/HPF Greater than 50 HPF (0-3); Specific Gravity, Urine 1.018 (1.002-1.036); Squamous Epithelial None Seen HPF (0-3); Urobilinogen Normal mg/dL (Less than 2); WBC/HPF 21-50 HPF (0-3); Yeast-Budding 4+ HPF (None Seen); pH, Urine 5.5 (5.0-9.0)
[2020-11-30 01:48] LABS: Urine Culture Reflex Yes Yes
[2020-11-30] MEDS: Propofol 1,000 MG/100 ML VIAL IV PRN ×2 (03:24→17:22)
[2020-11-30 04:08] LABS: Anion Gap 13 mmol/L (10-20); BUN (Urea Nitrogen) 65 mg/dL (8.4-25.7); Calc. Creatinine Clearance 0 mL/min (70-130); Calcium 8.1 mg/dL (7.8-10.44); Carbon Dioxide 26 mmol/L (23-31); Chloride 106 mmol/L (98-107); Glucose 184 mg/dL (80-115); Potassium 4.9 mmol/L (3.5-5.1); Sodium 140 mmol/L (136-145)
[2020-11-30 04:47] LABS: Anisocytosis SLIGHT = 6-15 cells (100X) (0-5/hpf); Band 41 % (5-11); Hemoglobin 9.9 g/dL (14.0-18.0); Lymphocytes 2 % (21-51); MDiff Complete? YES; Mean Corpuscular Hemoglobin 28.7 pg (27.0-31.0); Mean Platelet Volume 9.5 fL (7.4-10.4); Monocytes 2 % (0-10); Neutrophil 55 % (42-75); Platelet Count 87 thou/uL (130-400); Platelet Morphology Comment Appears Decreased; RBC Distribution Width 17.4 % (11.5-14.5); Red Blood Cell (RBC) Count 3.43 mill/uL (4.70-6.10); White Blood Cell (WBC) Count 13.2 thou/uL (4.8-10.8)
[2020-11-30] MEDS: Mometasone 200 MCG/Formoterol 5 MCG 120 PUFF INHALER INH SCH ×2 (06:36→18:47)
[2020-11-30] MEDS: Pantoprazole 40 MG GRANULES PACKET PER TUBE SCH (08:32)
[2020-11-30] MEDS: risperiDONE 0.25 MG TAB PO SCH ×2 (08:32→21:33)
[2020-11-30] MEDS: Amiodarone 200 MG TAB PO SCH ×2 (08:32→21:34)
[2020-11-30] MEDS: Glimepiride 1 MG TAB PO SCH (08:32)
[2020-11-30] MEDS: Senokot 8.6 MG TAB PO SCH (08:32)
[2020-11-30] MEDS: Dexamethasone 4 mg/ml Vial SLOW IVP SCH ×2 (08:32→21:33)
[2020-11-30] MEDS: Enoxaparin Sodium 40 MG/0.4 ML SYRINGE SC SCH ×2 (08:34→21:19)
[2020-11-30] MEDS: Nystatin Cream 30 GM TUBE TOP SCH ×3 (08:34→21:34)
[2020-11-30] MEDS: HumaLOG 300 UNITS/3 ML VIAL SC PRN ×3 (08:35→21:44)
--- NOTE | 2020-11-30 09:22 | PRG ---
DATE OF SERVICE: 11/30/2020 SUBJECTIVE: A 69-year-old gentleman who is intubated in the vent, very encephalopathic. Low dose of Diprivan is still not appropriate. OBJECTIVE: VITAL SIGNS: Temperature 98, blood pressure 107/58, pulse respiratory rate 18. CHEST: No wheezing. No crackles. CARDIAC: Normal S1 and S2. ABDOMEN: No masses. LABORATORY DATA: White count 13,000. Creatinine 1.53, BUN 65. IMAGING STUDIES: X-ray still shows bilateral infiltrates. IMPRESSION: Respiratory failure, cochran positive pneumonia, encephalopathy. Prolonged hospitalization, he is probably going to need a trach and a PEG to get him off the vent. Still on high-dose steroids. He is off all antibiotics. He is on amiodarone for his SVT. Prognosis remains guarded. I am going to talk to his family today. One-half hour of critical care time. ADDENDUM: I spoke to the patient's sister, Uzma, telephone #[phone]. She states that she and all her kids want the patient to undergo a trach and a PEG. He is a full code. He is day #12 on the vent. He was intubated on November 19. If his condition does not improve in the next several days, next week we will consider a trach and a PEG. In the meantime, continue all supportive care. Job ID: [id number]
--- NOTE | 2020-11-30 11:17 | PDOC.HOSPP ---
- Subjective Encounter Date: 11/30/20 Encounter Time: 11:15 Subjective: Mr. Aldridge was seen today in follow-up of respiratory failure due to COVID pneumonia. He is intubated, and sedation has been decreased. He will not follow commands yet. - Objective Vital Signs & Weight: Vital Signs (12 hours) Temp Pulse Resp BP Pulse Ox 11/30/20 10:18 71 114/60 11/30/20 08:00 98.4 F 98 11/30/20 06:36 69 38 H 96 11/30/20 06:33 69 104/62 11/30/20 06:00 16 11/30/20 04:00 18 11/30/20 02:02 77 11/30/20 02:00 18 11/30/20 00:00 98.5 F 20 11/29/20 23:31 79 Weight Admit Weight 246 lb Weight 245 lb 13.047 oz Most Recent Monitor Data Heart Rate from ECG 73 NIBP 112/59 NIBP BP-Mean 76 Respiration from ECG 31 SpO2 99 I&O: 11/29/20 11/30/20 12/01/20 06:59 06:59 06:59 Intake Total 3706.1 3338.2 60 Output Total 2945 1670 290 Balance 761.1 1668.2 -230 Result Diagrams: 11/30/20 03:00 11/30/20 03:00 Additional Labs: Accuchecks 11/30/20 11/29/20 11/29/20 07:59 21:22 15:51 POC Glucose 167 H 183 H 216 H Hospitalist ROS - Medication Medications: Active Medications Generic Name Dose Route Start Last Admin Trade Name Stone PRN Reason Stop Dose Admin Amiodarone HCl 400 mg 11/28/20 21:00 11/30/20 08:32 Amiodarone 200 Mg Tab PO 400 mg BID AMARI Administration Dexamethasone 6 mg 11/28/20 21:00 11/30/20 08:32 Dexamethasone 4 Mg/Ml Vial SLOW IVP 6 mg BID AMARI Administration Enoxaparin Sodium 40 mg 11/20/20 09:00 11/30/20 08:34 Enoxaparin Sodium 40 Mg/0.4 Ml Syringe SC Not Given 0900,2100 AMARI Glimepiride 1 mg 11/13/20 08:00 11/30/20 08:32 Glimepiride 1 Mg Tab PO 1 mg QAM-WM AMARI Administration Norepinephrine Bitartrate 250 mls @ 0 mls/hr 11/19/20 21:15 11/24/20 08:57 Levophed IVPB 250 mls INF AMARI Administration Protocol Titrate Insulin Glargine 20 units/ 0.2 mls @ 0 mls/hr 11/21/20 21:00 11/29/20 21:16 Miscellaneous Medication SC 0.2 mls HS AMARI Administration Dexmedetomidine HCl 400 mcg/ 100 mls @ 0 mls/hr 11/23/20 15:00 11/30/20 01:36 Sodium Chloride IVPB 100 mls INF AMARI Administration Protocol Per Protocol Insulin Human Lispro 0 units 11/11/20 19:00 11/30/20 08:35 Humalog 300 Units/3 Ml Vial SC 3 unit .AGGRESSIVE SLIDING PRN Administration AGGRESSIVE SLIDING SCALE Protocol Insulin Human Lispro 0 units 11/12/20 21:30 11/12/20 22:35 Humalog 300 Units/3 Ml Vial SC 3 unit .BEDTIME SLIDING SC PRN Administration Bedtime Correctional Scale Loperamide HCl 4 mg 11/11/20 12:15 11/12/20 23:53 Loperamide Hcl 2 Mg Cap PO 4 mg QIDPRN PRN Administration Diarrhea/Loose Stools Metoprolol Tartrate 5 mg 11/10/20 18:03 11/11/20 17:11 Metoprolol Tartrate 5 Mg/5 Ml Vial IVP 5 mg Q6H PRN Administration FOR HR > 90 Mometasone Furoate/Formoterol Fumar 2 puff 11/13/20 18:30 11/30/20 06:36 Mometasone 200 Mcg/Formoterol 5 Mcg 120 Puff Inhaler INH 2 puff BID-RT AMARI Administration Nystatin 1 gm 11/18/20 09:00 11/30/20 08:34 Nystatin Cream 30 Gm Tube TOP 1 gm TID AMARI Administration Nystatin 1 gm 11/17/20 22:02 11/28/20 15:51 Nystatin Powder 15 Gm Bot TOP 1 gm PRN PRN Administration Topical Irritations Pantoprazole Sodium 40 mg 11/28/20 09:00 11/30/20 08:32 Pantoprazole 40 Mg Granules Packet PER TUBE 40 mg DAILY AMARI Administration Propofol 1,000 mg 11/19/20 21:30 11/30/20 03:24 Propofol 1,000 Mg/100 Ml Vial IV 12/19/20 21:30 1,000 mg INF PRN Administration TO ACHIEVE GOAL RASS Protocol Risperidone 0.5 mg 11/28/20 21:00 11/30/20 08:32 Risperidone 0.25 Mg Tab PO 0.5 mg BID AMARI Administration Rosuvastatin Calcium 20 mg 11/06/20 21:00 11/29/20 21:11 Rosuvastatin 20 Mg Tab PO 20 mg HS AMARI Administration Senna 1 tab 11/23/20 09:00 11/30/20 08:32 Senokot 8.6 Mg Tab PO 1 tab DAILY AMARI Administration Sodium Chloride 10 ml 11/09/20 21:00 11/30/20 08:33 Flush - Normal Saline 10 Ml Syringe IVF 10 ml Q12HR AMARI Administration Hospitalist Exam Vitals: Vital Signs (12 hours) Temp Pulse Resp BP Pulse Ox 11/30/20 10:18 71 114/60 11/30/20 08:00 98.4 F 98 11/30/20 06:36 69 38 H 96 11/30/20 06:33 69 104/62 11/30/20 06:00 16 11/30/20 04:00 18 11/30/20 02:02 77 11/30/20 02:00 18 11/30/20 00:00 98.5 F 20 11/29/20 23:31 79 Weight Admit Weight 246 lb Weight 245 lb 13.047 oz Most Recent Monitor Data Heart Rate from ECG 73 NIBP 112/59 NIBP BP-Mean 76 Respiration from ECG 31 SpO2 99 General Appearance: NAD Eye: PERRL, anicteric sclera Heart: RRR, no murmur, no gallops, no rubs, normal peripheral pulses Respiratory: no wheezes, no ronchi, rales (at the bases) Gastrointestinal: soft, non-tender, non-distended, normal bowel sounds, no palpable masses, no hepatomegaly Extremities: no cyanosis (d.p. pulses are palpable, no lesions), 1+ LE edema Hosp A/P (1) Pneumonia due to COVID-19 virus Code(s): U07.1 - COVID-19; J12.82 - PNEUMONIA DUE TO CORONAVIRUS DISEASE 2019 Status: Acute (2) Acute kidney injury superimposed on CKD Code(s): N17.9 - ACUTE KIDNEY FAILURE, UNSPECIFIED; N18.9 - CHRONIC KIDNEY DISEASE, UNSPECIFIED Status: Acute (3) Acute respiratory failure with hypoxia Code(s): J96.01 - ACUTE RESPIRATORY FAILURE WITH HYPOXIA Status: Acute (4) Hyperlipidemia Code(s): E78.5 - HYPERLIPIDEMIA, UNSPECIFIED Status: Chronic (5) Hypertension Code(s): I10 - ESSENTIAL (PRIMARY) HYPERTENSION Status: Chronic (6) Diabetes mellitus Code(s): E11.9 - TYPE 2 DIABETES MELLITUS WITHOUT COMPLICATIONS Status: Chronic (7) Atrial fibrillation with rapid ventricular response Code(s): I48.91 - UNSPECIFIED ATRIAL FIBRILLATION Status: Acute - Plan * Acute respiratory failure due to COVID pneumonia- he continues to require Vent support. * Continue Decadron * Continue Lovenox for DVT prophylaxis * DM- blood glucose is stable * Nutritional Support with tube feeds * HTN- blood pressure is stable * AFIB with rvr- continue Amiodarone * Plan is for trach and PEG
--- NOTE | 2020-11-30 15:44 | PRG ---
DATE OF SERVICE: 11/30/2020 OBJECTIVE: VITAL SIGNS: The patient is noted with the following vital signs; blood pressure 105/56, pulse of 66, respiratory rate of 27, O2 sat 100%. HEENT: Unremarkable. CARDIOVASCULAR SYSTEM: First and second heart sounds were heard. RESPIRATORY SYSTEM: Revealed vented sounds. DIGESTIVE SYSTEM: Revealed a benign abdomen. EXTREMITIES: Showed mild peripheral edema. IMPRESSION: 1. Cardiopulmonary failure, on life support. 2. Acute on chronic kidney disease, much improved. 3. Hypernatremia, resolved. PLAN: Continue current renal supportive measures. Job ID: [id number]
--- NOTE | 2020-11-30 20:59 | PDOC.EVN ---
Event Note - Event Note Event Note: Nursing called, blood stool. Hold LMWH. Check H&H, T&S, PT/INR, Fecal occult.
[2020-11-30] MEDS: Rosuvastatin 20 MG TAB PO SCH (21:33)
[2020-11-30] MEDS: Insulin Glargine 20 UNITS in Pre-Filled Syringe 1 EACH SC SCH (21:40)
[2020-12-01 00:05] LABS: Hemoglobin 9.9 g/dL (14.0-18.0)
[2020-12-01 00:12] LABS: INR-International Normal Ratio 1.1; PTT 25.2 sec (22.9-36.1); Prothrombin Time 14.2 sec (12.0-14.7)
[2020-12-01 04:44] LABS: #Lymphocytes 0.2 thou/uL (1.20-3.40); #Monocytes 0.4 thou/uL (0.11-0.59); #Neutrophils 15.5 thou/uL (1.40-6.50); %Basophils 0.3 % (0.0-1.0); %Eosinophils 0.2 % (0.0-10.0); %Lymphocytes 1.2 % (21.0-51.0); %Monocytes 2.3 % (0.0-10.0); Hemoglobin 9.4 g/dL (14.0-18.0); Mean Corpuscular HGB CONC 33.9 g/dL (32.0-36.0); Mean Corpuscular Hemoglobin 30.2 pg (27.0-31.0); Mean Corpuscular Volume 89.1 fL (78.0-98.0); Mean Platelet Volume 9.3 fL (7.4-10.4); Platelet Count 83 thou/uL (130-400); RBC Distribution Width 17.4 % (11.5-14.5); Red Blood Cell (RBC) Count 3.09 mill/uL (4.70-6.10); White Blood Cell (WBC) Count 16.2 thou/uL (4.8-10.8)
[2020-12-01 05:01] LABS: Anion Gap 14 mmol/L (10-20); BUN (Urea Nitrogen) 78 mg/dL (8.4-25.7); Calc. Creatinine Clearance 63 mL/min (70-130); Calcium 8.1 mg/dL (7.8-10.44); Carbon Dioxide 24 mmol/L (23-31); Chloride 106 mmol/L (98-107); Glucose 150 mg/dL (80-115); Potassium 5.1 mmol/L (3.5-5.1); Sodium 139 mmol/L (136-145)
[2020-12-01] MEDS: Mometasone 200 MCG/Formoterol 5 MCG 120 PUFF INHALER INH SCH ×2 (08:01→18:52)
[2020-12-01] MEDS: Amiodarone 200 MG TAB PO SCH ×2 (08:28→21:39)
[2020-12-01] MEDS: Dexamethasone 4 mg/ml Vial SLOW IVP SCH (08:28)
[2020-12-01] MEDS: Glimepiride 1 MG TAB PO SCH (08:29)
[2020-12-01] MEDS: Pantoprazole 40 MG GRANULES PACKET PER TUBE SCH ×2 (08:29→21:39)
[2020-12-01] MEDS: Enoxaparin Sodium 40 MG/0.4 ML SYRINGE SC SCH (08:30)
[2020-12-01] MEDS: Nystatin Cream 30 GM TUBE TOP SCH ×3 (08:31→21:39)
[2020-12-01] MEDS: risperiDONE 0.25 MG TAB PO SCH ×2 (08:34→21:43)
[2020-12-01] MEDS: Senokot 8.6 MG TAB PO SCH (08:34)
[2020-12-01] MEDS: HumaLOG 300 UNITS/3 ML VIAL SC PRN ×2 (08:35→22:12)
[2020-12-01] MEDS: Norepinephrine 8 MG/0.9% NS 250 ML IVPB SCH (10:50)
[2020-12-01] MEDS: Propofol 1,000 MG/100 ML VIAL IV PRN (11:31)
--- NOTE | 2020-12-01 12:19 | PDOC.HOSPP ---
- Subjective Encounter Date: 12/01/20 Encounter Time: 12:17 Subjective: Mr. Aldridge was seen today in follow-up of COVID peumonia. He is intubated. No problems voiced by staff. - Objective Vital Signs & Weight: Vital Signs (12 hours) Temp Pulse Resp BP Pulse Ox 12/01/20 10:59 75 12/01/20 08:01 68 91/54 L 12/01/20 08:00 98.1 F 95 12/01/20 06:00 20 12/01/20 04:00 23 H 12/01/20 02:00 20 12/01/20 01:38 76 Weight Admit Weight 246 lb Weight 3.852 oz Most Recent Monitor Data Heart Rate from ECG 65 NIBP 96/53 NIBP BP-Mean 67 Respiration from ECG 25 SpO2 97 I&O: 11/30/20 12/01/20 12/02/20 06:59 06:59 06:59 Intake Total 3338.2 2455.6 60 Output Total 1670 1485 140 Balance 1668.2 970.6 -80 Result Diagrams: 12/01/20 04:01 12/01/20 04:01 Additional Labs: Accuchecks 12/01/20 12/01/20 12/01/20 11:29 08:05 05:58 POC Glucose 136 H 158 H 139 H 11/30/20 17:25 POC Glucose 178 H Hospitalist ROS - Medication Medications: Active Medications Generic Name Dose Route Start Last Admin Trade Name Freq PRN Reason Stop Dose Admin Amiodarone HCl 400 mg 11/28/20 21:00 12/01/20 08:28 Amiodarone 200 Mg Tab PO 400 mg BID AMARI Administration Dexamethasone 6 mg 11/28/20 21:00 12/01/20 08:28 Dexamethasone 4 Mg/Ml Vial SLOW IVP 6 mg BID AMARI Administration Enoxaparin Sodium 40 mg 11/20/20 09:00 12/01/20 08:30 Enoxaparin Sodium 40 Mg/0.4 Ml Syringe SC Not Given 0900,2100 AMARI Glimepiride 1 mg 11/13/20 08:00 12/01/20 08:29 Glimepiride 1 Mg Tab PO 1 mg QAM-WM AMARI Administration Norepinephrine Bitartrate 250 mls @ 0 mls/hr 11/19/20 21:15 12/01/20 10:50 Levophed IVPB 250 mls INF AMARI Administration Protocol Titrate Insulin Glargine 20 units/ 0.2 mls @ 0 mls/hr 11/21/20 21:00 11/30/20 21:40 Miscellaneous Medication SC 0.2 mls HS AMARI Administration Dexmedetomidine HCl 400 mcg/ 100 mls @ 0 mls/hr 11/23/20 15:00 12/01/20 03:26 Sodium Chloride IVPB 100 mls INF AMARI Administration Protocol Per Protocol Insulin Human Lispro 0 units 11/11/20 19:00 12/01/20 08:35 Humalog 300 Units/3 Ml Vial SC 3 unit .AGGRESSIVE SLIDING PRN Administration AGGRESSIVE SLIDING SCALE Protocol Insulin Human Lispro 0 units 11/12/20 21:30 11/12/20 22:35 Humalog 300 Units/3 Ml Vial SC 3 unit .BEDTIME SLIDING SC PRN Administration Bedtime Correctional Scale Loperamide HCl 4 mg 11/11/20 12:15 11/12/20 23:53 Loperamide Hcl 2 Mg Cap PO 4 mg QIDPRN PRN Administration Diarrhea/Loose Stools Metoprolol Tartrate 5 mg 11/10/20 18:03 11/11/20 17:11 Metoprolol Tartrate 5 Mg/5 Ml Vial IVP 5 mg Q6H PRN Administration FOR HR > 90 Mometasone Furoate/Formoterol Fumar 2 puff 11/13/20 18:30 12/01/20 08:01 Mometasone 200 Mcg/Formoterol 5 Mcg 120 Puff Inhaler INH 2 puff BID-RT AMARI Administration Nystatin 1 gm 11/18/20 09:00 12/01/20 08:31 Nystatin Cream 30 Gm Tube TOP 1 gm TID AMARI Administration Nystatin 1 gm 11/17/20 22:02 11/28/20 15:51 Nystatin Powder 15 Gm Bot TOP 1 gm PRN PRN Administration Topical Irritations Pantoprazole Sodium 40 mg 11/28/20 09:00 12/01/20 08:29 Pantoprazole 40 Mg Granules Packet PER TUBE 40 mg DAILY AMARI Administration Propofol 1,000 mg 11/19/20 21:30 12/01/20 11:31 Propofol 1,000 Mg/100 Ml Vial IV 12/19/20 21:30 1,000 mg INF PRN Administration TO ACHIEVE GOAL RASS Protocol Risperidone 0.5 mg 11/28/20 21:00 12/01/20 08:34 Risperidone 0.25 Mg Tab PO 0.5 mg BID AMARI Administration Rosuvastatin Calcium 20 mg 11/06/20 21:00 11/30/20 21:33 Rosuvastatin 20 Mg Tab PO 20 mg HS AMARI Administration Senna 1 tab 11/23/20 09:00 12/01/20 08:34 Senokot 8.6 Mg Tab PO 1 tab DAILY AMAIR Administration Sodium Chloride 10 ml 11/09/20 21:00 12/01/20 08:29 Flush - Normal Saline 10 Ml Syringe IVF 10 ml Q12HR AMARI Administration Hospitalist Exam Vitals: Vital Signs (12 hours) Temp Pulse Resp BP Pulse Ox 12/01/20 10:59 75 12/01/20 08:01 68 91/54 L 12/01/20 08:00 98.1 F 95 12/01/20 06:00 20 12/01/20 04:00 23 H 12/01/20 02:00 20 12/01/20 01:38 76 Weight Admit Weight 246 lb Weight 3.852 oz Most Recent Monitor Data Heart Rate from ECG 65 NIBP 96/53 NIBP BP-Mean 67 Respiration from ECG 25 SpO2 97 General Appearance: NAD Eye: PERRL, anicteric sclera Heart: RRR, no murmur, no gallops, no rubs, normal peripheral pulses Respiratory: no wheezes, no ronchi, rales (at the bases,) Gastrointestinal: soft, non-tender, non-distended, normal bowel sounds, no palpable masses, no hepatomegaly Extremities: no cyanosis (palpable d.p. pulses bilaterally no lesions), 1+ LE edema Hosp A/P (1) Pneumonia due to COVID-19 virus Code(s): U07.1 - COVID-19; J12.82 - PNEUMONIA DUE TO CORONAVIRUS DISEASE 2019 Status: Acute (2) Acute kidney injury superimposed on CKD Code(s): N17.9 - ACUTE KIDNEY FAILURE, UNSPECIFIED; N18.9 - CHRONIC KIDNEY DISEASE, UNSPECIFIED Status: Acute (3) Acute respiratory failure with hypoxia Code(s): J96.01 - ACUTE RESPIRATORY FAILURE WITH HYPOXIA Status: Acute (4) Hyperlipidemia Code(s): E78.5 - HYPERLIPIDEMIA, UNSPECIFIED Status: Chronic (5) Hypertension Code(s): I10 - ESSENTIAL (PRIMARY) HYPERTENSION Status: Chronic (6) Diabetes mellitus Code(s): E11.9 - TYPE 2 DIABETES MELLITUS WITHOUT COMPLICATIONS Status: Chronic (7) Atrial fibrillation with rapid ventricular response Code(s): I48.91 - UNSPECIFIED ATRIAL FIBRILLATION Status: Acute - Plan * Acute respiratory failure due to COVID pneumonia- he continues to require Vent support. * Continue Decadron * Continue Lovenox for DVT prophylaxis * DM- blood glucose is stable * Nutritional Support with tube feeds * Anemia- he was noted to have some blood in the stool. His AM dose of Lovenox was held. Will checng Protonix to Twice daily. His H&H has remained stable- will continue to monitor * HTN- blood pressure is stable * AFIB - his heart rate is stable- continue Amiodarone * Plan is for trach and PEG
[2020-12-01] MEDS ORDERED: Albuterol 200 PUFF (6.7GM INHALER) INH PRN (16:58)
[2020-12-01] MEDS: Rosuvastatin 20 MG TAB PO SCH (21:38)
[2020-12-01] MEDS: Heparin 5,000 UNITS/ML VIAL SC SCH (21:51)
--- NOTE | 2020-12-02 05:33 | PRG ---
DATE OF SERVICE: 12/01/2020 SUBJECTIVE: The patient noted with the following vital signs. OBJECTIVE: VITAL SIGNS: Blood pressure 108/55, pulse 77, respiratory rate of 24, and O2 saturation of 94. HEENT: Unremarkable. CARDIOVASCULAR SYSTEM: First and second heart sounds were heard. RESPIRATORY SYSTEM: Revealed vented sounds. DIGESTIVE SYSTEM: With a benign abdomen. Positive bowel sounds. EXTREMITIES: No peripheral edema. LABORATORY INVESTIGATION: Showed a creatinine of 1.75. IMPRESSION: 1. Acute on chronic kidney disease . 2. Cardiopulmonary failure, on life support. PLAN: Continue current renal supportive measures and monitor the . Renally dose all medications and avoid potentially nephrotoxic agents. Job ID: [id number]
[2020-12-02 05:38] LABS: Anion Gap 16 mmol/L (10-20); BUN (Urea Nitrogen) 95 mg/dL (8.4-25.7); Calc. Creatinine Clearance 50 mL/min (70-130); Carbon Dioxide 22 mmol/L (23-31); Chloride 107 mmol/L (98-107); Glucose 153 mg/dL (80-115); Magnesium 2.3 mg/dL (1.6-2.6); Potassium 4.7 mmol/L (3.5-5.1); Sodium 140 mmol/L (136-145)
[2020-12-02] MEDS: HumaLOG 300 UNITS/3 ML VIAL SC PRN ×2 (05:42→21:59)
--- NOTE | 2020-12-02 05:45 | PRG ---
DATE OF SERVICE: 12/01/2020 TIME: 2:30. 24-HOUR SUMMARY: The patient has been tolerating SIMV of 10, pressure support of 15, FiO2 of 40%, PEEP of 5, maintains reasonable tidal volume in the 400s. He remains on propofol and Precedex. He does have signs and symptoms of sepsis and has a positive urine culture for Daina albicans, and today fluconazole is started. The patient is mechanically ventilated with oral endotracheal tube, orogastric tube. He is unable to answer any questions. He is not responding to commands due to his sedation. Vent setting as stated above. OBJECTIVE: VITAL SIGNS: Show a blood pressure of 101/55, heart rate 70, respirations 24, sat of 96, and his temperature is 98.4 last recorded. HEENT/NECK: Supple. His eyes are clear. He has no rashes. LUNGS: Bilaterally with coarse rhonchi. Secretions moderate. ABDOMEN: Soft. Tolerating tube feeds. EXTREMITIES: Without clubbing, cyanosis, or edema. Capillary refill is normal. MEDICATIONS: Reviewed. He remains on: 1. A small dose of norepinephrine. 2. Sedation as stated. 3. Amiodarone. 4. Enoxaparin. 5. Metoprolol. 6. Decadron 6 mg IV b.i.d. 7. Crestor. 8. Glargine insulin. 9. Humalog p.r.n. 10. Lasix scheduled was started. 11. Amaryl. LABORATORY DATA: White count has increased to 16,200 with a left shift of 96% and has been increasing daily, hemoglobin is 9.4, hematocrit is 27.6, platelets have been low in the 80s. Platelet morphology has decreased. Coags yesterday were normal. D-dimer was elevated at 1.94. Chemistries: Sodium 139, potassium 5.1, chloride 106, bicarbonate 24, BUN 78, creatinine 1.76, and glucose controlled. Microbiology shows Daina albicans in the final urine culture from the and the . Stool for occult blood was done last night when he had a bloody stool; it is positive. His hemoglobin has remained stable. No recent chest x-rays since the . IMPRESSION: 1. Respiratory failure, hypoxemic, improving. 2. COVID-19 pneumonia. 3. Sepsis due to Daina albicans urinary tract infection, to start fluconazole day 1 on 12/01. 4. Thrombocytopenia with normal coags, likely sepsis related versus drugs, possibly amiodarone. 5. Diabetes, under control. 6. Thrombocytopenia with normal coags, no evidence of DIC, probably drug-related, possibly amiodarone. 7. Urinary tract infection, as stated above. 8. Guaiac-positive stool. He is not on any anticoagulation at high risk of thromboembolic disease, did not drop hemoglobin. 9. Acute renal injury. 10. On high-dose Decadron, which increases risks of nosocomial infections. 11. Acute bronchitis by examination. PLAN: 1. To hold the Lasix. 2. Decrease Decadron to daily, which may necessitate further reductions in diabetic medications. 3. Continue Protonix b.i.d. 4. Discontinue Lovenox and use heparin due to progressive azotemia and acute kidney injury. 5. Follow platelets. 6. Continue oral bicarbonate. 7. Sedation holiday. Try to reduce and discontinue propofol and use Precedex for possible trend toward extubation in 1 to 2 days. 8. Fluconazole started on 12/01, to be continued with discontinuation of his current Rivera catheter in 5 days or change in Rivera catheter in 5 days and repeat urine culture. Critical care time at bedside, 45 minutes. Job ID: [id number]
[2020-12-02] MEDS ORDERED: Furosemide 40 MG/4 ML VIAL SLOW IVP SCH (06:00)
[2020-12-02 06:34] LABS: Anisocytosis SLIGHT = 6-15 cells (100X) (0-5/hpf); Band 35 % (5-11); Hemoglobin 8.5 g/dL (14.0-18.0); Lymphocytes 1 % (21-51); MDiff Complete? YES; Mean Corpuscular HGB CONC 32.5 g/dL (32.0-36.0); Mean Corpuscular Hemoglobin 28.4 pg (27.0-31.0); Mean Corpuscular Volume 87.5 fL (78.0-98.0); Mean Platelet Volume 9.5 fL (7.4-10.4); Monocytes 2 % (0-10); Neutrophil 62 % (42-75); Platelet Count 107 thou/uL (130-400); Platelet Morphology Comment Appears Decreased; RBC Distribution Width 17.4 % (11.5-14.5); Red Blood Cell (RBC) Count 2.98 mill/uL (4.70-6.10); White Blood Cell (WBC) Count 16.2 thou/uL (4.8-10.8)
[2020-12-02] MEDS: Mometasone 200 MCG/Formoterol 5 MCG 120 PUFF INHALER INH SCH ×2 (07:26→19:15)
[2020-12-02 07:35] LABS: Actual Bicarbonate (HCO3a) 22.8 mEq/L (22-28); Base Excess (BEa) -2.4 mEq/L (-2.0 to +3.0); CO2 Tension 40.6 mmHg (35.0-45.0); Calcium, Ionized (arterial) 1.14 mmol/L (1.12-1.30); Carboxyhemoglobin (COHb) 0.9 gm% (0.0-3.0); Hemoglobin (Hb) 8.9 g/dL (14.0-18.0); Potassium - ABG Lab 4.43 mmol/L (3.70-5.30); pH, Arterial 7.37 (7.35-7.45)
[2020-12-02 07:41] LABS: O2 Tension (PaO2), arterial 54.2 mmHg (> 80.0)
[2020-12-02 07:42] LABS: Puncture Site RRA
[2020-12-02] MEDS: Glimepiride 1 MG TAB PO SCH (09:51)
[2020-12-02] MEDS: Amiodarone 200 MG TAB PO SCH ×2 (09:51→20:13)
[2020-12-02] MEDS: risperiDONE 0.25 MG TAB PO SCH ×2 (09:52→20:13)
[2020-12-02] MEDS: Pantoprazole 40 MG GRANULES PACKET PER TUBE SCH ×2 (09:52→20:13)
[2020-12-02] MEDS: Dexamethasone 4 MG TAB PO SCH (09:52)
[2020-12-02] MEDS: Fluconazole In NaCl,Iso-Osm 200 MG in Premix Bag 1 BAG IVPB SCH (09:52)
[2020-12-02] MEDS: Senokot 8.6 MG TAB PO SCH (09:53)
[2020-12-02] MEDS: Nystatin Cream 30 GM TUBE TOP SCH ×3 (09:53→20:15)
--- NOTE | 2020-12-02 10:02 | RAD ---
Exam: Chest one view HISTORY:Endotracheal tube placement Comparison: 11/19/2020 FINDINGS: Lines and tubes: Interval placement of endotracheal tube at the level of clavicles. Nasogastric tube extends beyond the diaphragm. Cardiac silhouette:Cardiomegaly. Aorta: Unremarkable Pulmonary vessels: Normal Costophrenic angles: No pleural effusion LUNGS: Redemonstration of multifocal interstitial and alveolar opacities. Pneumothorax: None Osseous abnormalities: None IMPRESSION: No significant interval change with exception of placement of endotracheal tube.
[2020-12-02] MEDS: Heparin 5,000 UNITS/ML VIAL SC SCH ×2 (10:13→20:14)
--- NOTE | 2020-12-02 11:18 | PRG ---
DATE OF SERVICE: 12/02/2020 TIME: 9:30. SUBJECTIVE: Twenty four hours, the patient remains critically ill on mechanical ventilation and hypoxemia, on blood gas, requiring higher FiO2 increased from 40% to 60%. He is more awake and is on Precedex to control anxiety and pain. He had a bloody stool with decreasing H and H and heparin has been on hold. It was changed from Lovenox due to elevation in his creatinine. He remains azotemic. He remains on steroids and has Daina in the urine. Fluconazole was started yesterday. His urine is brown in color, for which we are going to irrigate and determine if he may have a fistula. OBJECTIVE: GENERAL: The patient is able to nod and shake his head. He follows simple commands. His input and output is generally positive. VITAL SIGNS: Blood pressure is 113/53, heart rate 85, respirations 26. He has an oral endotracheal tube in place without secretions. His vent settings are SIMV of 10, 40%, tidal volume 500, pressure support of 15, PEEP of 5. LUNGS: With bilateral rhonchi. CARDIAC: Regular rate and rhythm. ABDOMEN: Soft, benign, with PEG tube and infusing 20 cc an hour of tube feedings, Nepro. EXTREMITIES: Right upper extremity with edema and NIBP in place. Pulses are diminished distally, and capillary refill is somewhat impaired. LABORATORY DATA: White count is increased to 16.2 which has been a trend to increase over the last 7 days. Hemoglobin is down to 8.5 which has trended downward after his bloody stool. Platelets are increased to 107. He has 35% bands, 1 lymph. Chest x-ray today shows bilateral infiltrates with right greater than left infiltrates. Endotracheal tube is in place. Sodium is 140, potassium 4.7, chloride 107, bicarbonate 22. He is on oral bicarbonate. His BUN is increased to 95 from 78, and the creatinine is increased from 1.75 to 2.1. The urine is cloudy and brown in color in the Rivera catheter. IMPRESSION: 1. Acute respiratory failure due to hypoxemia, requiring increased FiO2 requirements. 2. Acute kidney injury. 3. Azotemia due to kidney injury and lower GI bleed. 4. Mild hyperglycemia. 5. Immunosuppressed on steroids. 6. Daina urinary tract infection with increasing signs and symptoms of sepsis and I am concerned that he may have enterocystic fistula into the bladder. PLAN: 1. Decrease his steroids from 4 mg of Decadron to 2 mg of Decadron. 2. Irrigate the bladder. 3. Continue fluconazole. 4. Broaden antibiotic spectrum to include Merrem. 5. Elevate right upper extremity; if the edema does not improve, should have a venous Doppler of the right upper extremity continuing since he is off anticoagulants. 6. Follow up CBC. 7. He may need a cystogram looking for fistula. 8. Expect his glucose to come under better control with a decrease in steroids. 9. Use Precedex for pain and discomfort. 10. I have increased FiO2. 11. Total diuresis. 12. Cultures of blood, sputum, and repeat urinalysis and culture. 13. Consider consultation with [facility] Diseases [facility] Service on 12/03. Job ID: [id number]
[2020-12-02 11:39] LABS: Bacteria/HPF None Seen HPF (None Seen); Bilirubin Negative (Negative); Blood, Urine 3+ (Negative); Clarity Extra Turbid (Clear); Glucose, Urine (Dipstick) Normal (Negative); Ketone, Urine Negative (Negative); Leukocyte 500 Leu/uL (Negative); Nitrite Negative (Negative); Protein, Urine (Dipstick) 70 mg/dL (Neg-Trace); Specific Gravity, Urine 1.013 (1.002-1.036); Squamous Epithelial None Seen HPF (0-3); Urobilinogen Normal mg/dL (Less than 2); Yeast-Budding 4+ HPF (None Seen); pH, Urine 5.5 (5.0-9.0)
[2020-12-02 11:53] LABS: Urine Culture Reflex Yes Yes
--- NOTE | 2020-12-02 13:04 | PDOC.HOSPP ---
- Subjective Encounter Date: 12/02/20 Encounter Time: 13:01 Subjective: Mr. Aldridge was seen today in follow-up of respiratory failure due to COVID pneumonia. He remains on the ventilator. He will respond by squeezing your hand. He will nod slightly to respond as well. - Objective Vital Signs & Weight: Vital Signs (12 hours) Temp Pulse Resp BP 12/02/20 10:47 84 95/67 12/02/20 07:26 84 128/52 L 12/02/20 06:00 25 H 12/02/20 04:00 99.3 F 25 H 12/02/20 02:52 80 12/02/20 02:00 24 H 12/02/20 01:07 77 Weight Admit Weight 246 lb Weight 234 lb 2.095 oz Most Recent Monitor Data Heart Rate from ECG 85 NIBP 113/53 NIBP BP-Mean 73 Respiration from ECG 26 SpO2 95 I&O: 12/01/20 12/02/20 12/03/20 06:59 06:59 06:59 Intake Total 2455.6 2030.2 Output Total 1485 1450 Balance 970.6 580.2 Result Diagrams: 12/02/20 03:35 12/02/20 03:35 Additional Labs: Accuchecks 12/02/20 12/01/20 12/01/20 10:35 22:10 15:34 POC Glucose 161 H 167 H 140 H Hospitalist ROS - Medication Medications: Active Medications Generic Name Dose Route Start Last Admin Trade Name Freq PRN Reason Stop Dose Admin Amiodarone HCl 400 mg 11/28/20 21:00 12/02/20 09:51 Amiodarone 200 Mg Tab PO 400 mg BID AMARI Administration Dexamethasone 4 mg 12/02/20 08:00 12/02/20 09:52 Dexamethasone 4 Mg Tab PO 4 mg QAM-WM AMARI Administration Glimepiride 1 mg 11/13/20 08:00 12/02/20 09:51 Glimepiride 1 Mg Tab PO 1 mg QAM-WM AMARI Administration Heparin Sodium (Porcine) 5,000 units 12/01/20 21:00 12/02/20 10:13 Heparin 5,000 Units/Ml Vial SC Not Given BID AMARI Norepinephrine Bitartrate 250 mls @ 0 mls/hr 11/19/20 21:15 12/01/20 10:50 Levophed IVPB 250 mls INF AMARI Administration Protocol Titrate Dexmedetomidine HCl 400 mcg/ 100 mls @ 0 mls/hr 11/23/20 15:00 12/02/20 10:01 Sodium Chloride IVPB 100 mls INF AMARI Administration Protocol Per Protocol Fluconazole/Sodium Chloride 100 mls @ 100 mls/hr 12/02/20 09:00 12/02/20 09:52 200 mg/ Device IVPB 100 mls DAILY AMARI Administration Insulin Human Lispro 0 units 11/11/20 19:00 12/02/20 05:42 Humalog 300 Units/3 Ml Vial SC 3 unit .AGGRESSIVE SLIDING PRN Administration AGGRESSIVE SLIDING SCALE Protocol Insulin Human Lispro 0 units 11/12/20 21:30 11/12/20 22:35 Humalog 300 Units/3 Ml Vial SC 3 unit .BEDTIME SLIDING SC PRN Administration Bedtime Correctional Scale Loperamide HCl 4 mg 11/11/20 12:15 11/12/20 23:53 Loperamide Hcl 2 Mg Cap PO 4 mg QIDPRN PRN Administration Diarrhea/Loose Stools Metoprolol Tartrate 5 mg 11/10/20 18:03 11/11/20 17:11 Metoprolol Tartrate 5 Mg/5 Ml Vial IVP 5 mg Q6H PRN Administration FOR HR > 90 Mometasone Furoate/Formoterol Fumar 2 puff 11/13/20 18:30 12/02/20 07:26 Mometasone 200 Mcg/Formoterol 5 Mcg 120 Puff Inhaler INH 2 puff BID-RT AMARI Administration Nystatin 1 gm 11/18/20 09:00 12/02/20 09:53 Nystatin Cream 30 Gm Tube TOP 1 gm TID AMARI Administration Nystatin 1 gm 11/17/20 22:02 11/28/20 15:51 Nystatin Powder 15 Gm Bot TOP 1 gm PRN PRN Administration Topical Irritations Pantoprazole Sodium 40 mg 12/01/20 21:00 12/02/20 09:52 Pantoprazole 40 Mg Granules Packet PER TUBE 40 mg Q12HR AMARI Administration Propofol 1,000 mg 11/19/20 21:30 12/01/20 11:31 Propofol 1,000 Mg/100 Ml Vial IV 12/19/20 21:30 1,000 mg INF PRN Administration TO ACHIEVE GOAL RASS Protocol Risperidone 0.5 mg 11/28/20 21:00 12/02/20 09:52 Risperidone 0.25 Mg Tab PO 0.5 mg BID AMARI Administration Rosuvastatin Calcium 20 mg 11/06/20 21:00 12/01/20 21:38 Rosuvastatin 20 Mg Tab PO 20 mg HS AMARI Administration Senna 1 tab 11/23/20 09:00 12/02/20 09:53 Senokot 8.6 Mg Tab PO 1 tab DAILY AMARI Administration Sodium Chloride 10 ml 11/09/20 21:00 12/02/20 09:53 Flush - Normal Saline 10 Ml Syringe IVF 10 ml Q12HR AMARI Administration Hospitalist Exam Vitals: Vital Signs (12 hours) Temp Pulse Resp BP 12/02/20 10:47 84 95/67 12/02/20 07:26 84 128/52 L 12/02/20 06:00 25 H 12/02/20 04:00 99.3 F 25 H 12/02/20 02:52 80 12/02/20 02:00 24 H 12/02/20 01:07 77 Weight Admit Weight 246 lb Weight 234 lb 2.095 oz Most Recent Monitor Data Heart Rate from ECG 85 NIBP 113/53 NIBP BP-Mean 73 Respiration from ECG 26 SpO2 95 General Appearance: NAD Eye: PERRL, anicteric sclera Heart: RRR, no murmur, no gallops, no rubs, normal peripheral pulses Respiratory: no wheezes, rales (at both bases), rhonchi Gastrointestinal: soft, non-tender, non-distended, normal bowel sounds, no palpable masses, no hepatomegaly Extremities: no cyanosis, 1+ LE edema (palpable pulses) Hosp A/P (1) Pneumonia due to COVID-19 virus Code(s): U07.1 - COVID-19; J12.82 - PNEUMONIA DUE TO CORONAVIRUS DISEASE 2019 Status: Acute (2) Acute kidney injury superimposed on CKD Code(s): N17.9 - ACUTE KIDNEY FAILURE, UNSPECIFIED; N18.9 - CHRONIC KIDNEY DISEASE, UNSPECIFIED Status: Acute (3) Acute respiratory failure with hypoxia Code(s): J96.01 - ACUTE RESPIRATORY FAILURE WITH HYPOXIA Status: Acute (4) Hyperlipidemia Code(s): E78.5 - HYPERLIPIDEMIA, UNSPECIFIED Status: Chronic (5) Hypertension Code(s): I10 - ESSENTIAL (PRIMARY) HYPERTENSION Status: Chronic (6) Diabetes mellitus Code(s): E11.9 - TYPE 2 DIABETES MELLITUS WITHOUT COMPLICATIONS Status: Chronic (7) Atrial fibrillation with rapid ventricular response Code(s): I48.91 - UNSPECIFIED ATRIAL FIBRILLATION Status: Acute - Plan * Acute respiratory failure due to COVID pneumonia- he continues to require Vent support. * Continue Decadron * Heparin is on hold due to concern for GI Bleed * DM- blood glucose is stable * Nutritional Support with tube feeds- will re-consult Account Manager Sales Representative for goal rate. He is now off Propofol * Anemia- he was noted to have some blood in the stool- his H&H has dropped some- will transfuse as needed to keep HGB above 8, and continue Protonix q12 * HEBER- creatinine has been trending up- will defer to Nephrology * HTN- blood pressure is stable * AFIB - his heart rate is stable- continue Amiodarone * Plan is for trach and PEG
[2020-12-02] MEDS: Rosuvastatin 20 MG TAB PO SCH (20:13)
[2020-12-02] MEDS: Nystatin Powder 15 GM BOT TOP PRN (20:14)
[2020-12-03] MEDS: Mometasone 200 MCG/Formoterol 5 MCG 120 PUFF INHALER INH SCH ×2 (06:40→18:30)
[2020-12-03] MEDS: risperiDONE 0.25 MG TAB PO SCH ×2 (11:00→20:22)
[2020-12-03] MEDS: Dexamethasone 4 MG TAB PO SCH (11:00)
[2020-12-03] MEDS: Amiodarone 200 MG TAB PO SCH ×2 (11:00→20:21)
[2020-12-03] MEDS: Fluconazole In NaCl,Iso-Osm 200 MG in Premix Bag 1 BAG IVPB SCH (11:00)
[2020-12-03] MEDS: Heparin 5,000 UNITS/ML VIAL SC SCH ×2 (11:00→20:23)
[2020-12-03] MEDS: Nystatin Cream 30 GM TUBE TOP SCH ×3 (11:00→20:22)
[2020-12-03] MEDS: Senokot 8.6 MG TAB PO SCH (11:00)
[2020-12-03] MEDS: Pantoprazole 40 MG GRANULES PACKET PER TUBE SCH ×2 (11:00→20:22)
[2020-12-03] MEDS: Glimepiride 1 MG TAB PO SCH (11:00)
--- NOTE | 2020-12-03 11:47 | SPC ---
Ultrasound-guidedleftupper extremity PICC placement: 12/03/2020 History: Infection, access requested for intravenous antibiotics FINDINGS: Informed consent obtained prior to the procedure. This study was performed at the patient's bedside in the ICU. Left antecubital fossa prepped and draped in normal sterile fashion. Preprocedural imaging fails to d emonstrate a patent left basilic or cephalic vein. Skin overlying theleft brachialvein anesthetized with 1% buffered lidocaine. With direct sonographic guidance, vascular access is obtained via the left brachialvein and an 0.018in wire was advanced to the cavoatrial junction. Intravascular length is calculated at 45 cm and of the PICC is cut according ly. Needle is removed and replaced with a peel-away sheath. The PICC was advanced over the wire. Wire and peel-away sheath were removed. The tip of the catheter overlies the cavoatrial junction. The port flushes well and the catheter is ready for use. IMPRESSION: Successful ultrasound guided placement of a leftupper extremity PICC.
--- NOTE | 2020-12-03 12:14 | PRG ---
DATE OF SERVICE: 12/03/2020 SUBJECTIVE: Less encephalopathic. We were able to get him down just to Precedex. He is off all other medications. He had a bloody stool yesterday. He has a rectal tube. OBJECTIVE: VITAL SIGNS: Temperature 97, 60% FiO2, saturations 98%, blood pressure 120/66, respiratory rate 18, pulse 80. I's and O's even. CHEST: No wheezing. No crackles. CARDIAC: Normal S1, S2. No gallops. ABDOMEN: No masses. LABORATORY DATA: H and H 8 and 26, platelet count is 107. Chemistries show BUN and creatinine 95 and 2.1. IMPRESSION AND PLAN: Amaya positive pneumonia, respiratory failure, encephalopathy, supraventricular tachycardia. He was switched over to p.o. Decadron 4 mg a day. He is still on Demadex. Diflucan was added yesterday. Subcu heparin. Nutrition and PT. The computer is down. We will try and make a decision in the next day or two regarding a trach and a PEG if the family wanted. One-half hour of critical care time. Job ID: [id number]
--- NOTE | 2020-12-03 15:08 | PDOC.HOSPP ---
- Subjective Encounter Date: 12/03/20 Encounter Time: 15:06 Subjective: Mr. Aldridge was seen today in follow-up of respiratory failure due to COVID pneumonia. He is more alert today. He is following commands. No evidence of bleeding reported. - Objective Vital Signs & Weight: Vital Signs (12 hours) Temp Pulse Resp BP Pulse Ox 12/03/20 14:34 86 107/65 12/03/20 12:00 98.8 F 12/03/20 08:00 97 12/03/20 06:40 89 21 H 100 Weight Admit Weight 246 lb Weight 234 lb 2.095 oz Most Recent Monitor Data Heart Rate from ECG 84 NIBP 95/57 NIBP BP-Mean 69 Respiration from ECG 20 SpO2 100 I&O: 12/02/20 12/03/20 12/04/20 06:59 06:59 06:59 Intake Total 2030.2 988.1 190 Output Total 1450 1625 330 Balance 580.2 -636.9 -140 Result Diagrams: 12/02/20 03:35 12/02/20 03:35 Additional Labs: Accuchecks 12/03/20 12/03/20 12/02/20 09:51 05:12 22:01 POC Glucose 145 H 111 H 231 H 12/02/20 16:18 POC Glucose 184 H Hospitalist ROS - Medication Medications: Active Medications Generic Name Dose Route Start Last Admin Trade Name Freq PRN Reason Stop Dose Admin Amiodarone HCl 400 mg 11/28/20 21:00 12/03/20 11:00 Amiodarone 200 Mg Tab PO 400 mg BID AMARI Administration Dexamethasone 4 mg 12/02/20 08:00 12/03/20 11:00 Dexamethasone 4 Mg Tab PO 4 mg QAM-WM AMARI Administration Glimepiride 1 mg 11/13/20 08:00 12/03/20 11:00 Glimepiride 1 Mg Tab PO 1 mg QAM-WM AMARI Administration Heparin Sodium (Porcine) 5,000 units 12/01/20 21:00 12/03/20 11:00 Heparin 5,000 Units/Ml Vial SC Not Given BID AMRAI Norepinephrine Bitartrate 250 mls @ 0 mls/hr 11/19/20 21:15 12/01/20 10:50 Levophed IVPB 250 mls INF AMARI Administration Protocol Titrate Dexmedetomidine HCl 400 mcg/ 100 mls @ 0 mls/hr 11/23/20 15:00 12/02/20 20:23 Sodium Chloride IVPB 100 mls INF AMARI Administration Protocol Per Protocol Fluconazole/Sodium Chloride 100 mls @ 100 mls/hr 12/02/20 09:00 12/03/20 11:00 200 mg/ Device IVPB 100 mls DAILY AMARI Administration Insulin Human Lispro 0 units 11/11/20 19:00 12/02/20 21:59 Humalog 300 Units/3 Ml Vial SC 6 unit .AGGRESSIVE SLIDING PRN Administration AGGRESSIVE SLIDING SCALE Protocol Insulin Human Lispro 0 units 11/12/20 21:30 11/12/20 22:35 Humalog 300 Units/3 Ml Vial SC 3 unit .BEDTIME SLIDING SC PRN Administration Bedtime Correctional Scale Loperamide HCl 4 mg 11/11/20 12:15 11/12/20 23:53 Loperamide Hcl 2 Mg Cap PO 4 mg QIDPRN PRN Administration Diarrhea/Loose Stools Metoprolol Tartrate 5 mg 11/10/20 18:03 11/11/20 17:11 Metoprolol Tartrate 5 Mg/5 Ml Vial IVP 5 mg Q6H PRN Administration FOR HR > 90 Mometasone Furoate/Formoterol Fumar 2 puff 11/13/20 18:30 12/03/20 06:40 Mometasone 200 Mcg/Formoterol 5 Mcg 120 Puff Inhaler INH 2 puff BID-RT AMARI Administration Nystatin 1 gm 11/18/20 09:00 12/03/20 11:00 Nystatin Cream 30 Gm Tube TOP 1 gm TID AMARI Administration Nystatin 1 gm 11/17/20 22:02 12/02/20 20:14 Nystatin Powder 15 Gm Bot TOP 1 gm PRN PRN Administration Topical Irritations Pantoprazole Sodium 40 mg 12/01/20 21:00 12/03/20 11:00 Pantoprazole 40 Mg Granules Packet PER TUBE 40 mg Q12HR AMARI Administration Risperidone 0.5 mg 11/28/20 21:00 12/03/20 11:00 Risperidone 0.25 Mg Tab PO 0.5 mg BID AMARI Administration Rosuvastatin Calcium 20 mg 11/06/20 21:00 12/02/20 20:13 Rosuvastatin 20 Mg Tab PO 20 mg HS AMARI Administration Senna 1 tab 11/23/20 09:00 12/03/20 11:00 Senokot 8.6 Mg Tab PO Not Given DAILY AMARI Sodium Chloride 10 ml 11/09/20 21:00 12/03/20 11:00 Flush - Normal Saline 10 Ml Syringe IVF 10 ml Q12HR AMARI Administration Hospitalist Exam Vitals: Vital Signs (12 hours) Temp Pulse Resp BP Pulse Ox 12/03/20 14:34 86 107/65 12/03/20 12:00 98.8 F 12/03/20 08:00 97 12/03/20 06:40 89 21 H 100 Weight Admit Weight 246 lb Weight 234 lb 2.095 oz Most Recent Monitor Data Heart Rate from ECG 84 NIBP 95/57 NIBP BP-Mean 69 Respiration from ECG 20 SpO2 100 General Appearance: NAD, awake alert Eye: PERRL, anicteric sclera Heart: RRR, no murmur, no gallops, no rubs, normal peripheral pulses Respiratory: CTAB, no wheezes, no rales, no ronchi Gastrointestinal: soft, non-tender, non-distended, normal bowel sounds, no palpable masses Extremities: no cyanosis (palpable pulses bilaterally no lesions), no edema Hosp A/P (1) Pneumonia due to COVID-19 virus Code(s): U07.1 - COVID-19; J12.82 - PNEUMONIA DUE TO CORONAVIRUS DISEASE 2019 Status: Acute (2) Acute kidney injury superimposed on CKD Code(s): N17.9 - ACUTE KIDNEY FAILURE, UNSPECIFIED; N18.9 - CHRONIC KIDNEY DISEASE, UNSPECIFIED Status: Acute (3) Acute respiratory failure with hypoxia Code(s): J96.01 - ACUTE RESPIRATORY FAILURE WITH HYPOXIA Status: Acute (4) Hyperlipidemia Code(s): E78.5 - HYPERLIPIDEMIA, UNSPECIFIED Status: Chronic (5) Hypertension Code(s): I10 - ESSENTIAL (PRIMARY) HYPERTENSION Status: Chronic (6) Diabetes mellitus Code(s): E11.9 - TYPE 2 DIABETES MELLITUS WITHOUT COMPLICATIONS Status: Chronic (7) Atrial fibrillation with rapid ventricular response Code(s): I48.91 - UNSPECIFIED ATRIAL FIBRILLATION Status: Acute - Plan * Acute respiratory failure due to COVID pneumonia- he continues to require Vent support. * Continue Decadron * Heparin is on hold due to concern for GI Bleed, CBC is pending- Continue Protonix q 12 * DM- blood glucose is stable * Nutritional Support with tube feeds- will re-consult Book Packer for goal rate. He is now off Propofol * HEBER-BMP is pending * HTN- blood pressure is stable * AFIB - his heart rate is stable- continue Amiodarone * Possible Trach and PEG
[2020-12-03] MEDS: Nystatin Powder 15 GM BOT TOP PRN ×2 (15:15→23:45)
[2020-12-03 17:11] LABS: #Lymphocytes 0.2 thou/uL (1.20-3.40); #Monocytes 0.3 thou/uL (0.11-0.59); #Neutrophils 11.4 thou/uL (1.40-6.50); %Eosinophils 0.1 % (0.0-10.0); %Lymphocytes 1.2 % (21.0-51.0); %Monocytes 2.6 % (0.0-10.0); Hemoglobin 7.9 g/dL (14.0-18.0); Mean Corpuscular HGB CONC 32.4 g/dL (32.0-36.0); Mean Corpuscular Hemoglobin 28.6 pg (27.0-31.0); Mean Corpuscular Volume 88.5 fL (78.0-98.0); Mean Platelet Volume 8.8 fL (7.4-10.4); Platelet Count 95 thou/uL (130-400); RBC Distribution Width 17.6 % (11.5-14.5); Red Blood Cell (RBC) Count 2.75 mill/uL (4.70-6.10); White Blood Cell (WBC) Count 11.9 thou/uL (4.8-10.8)
[2020-12-03 18:40] LABS: Phosphorus 4.7 mg/dL (2.3-4.7)
[2020-12-03 18:41] LABS: Anion Gap 15 mmol/L (10-20); BUN (Urea Nitrogen) 112 mg/dL (8.4-25.7); Calc. Creatinine Clearance 47 mL/min (70-130); Calcium 7.7 mg/dL (7.8-10.44); Carbon Dioxide 23 mmol/L (23-31); Chloride 110 mmol/L (98-107); Glucose 121 mg/dL (80-115); Magnesium 2.2 mg/dL (1.6-2.6); Potassium 4.5 mmol/L (3.5-5.1); Sodium 143 mmol/L (136-145)
[2020-12-03] MEDS: Rosuvastatin 20 MG TAB PO SCH (20:21)
[2020-12-03] MEDS: HumaLOG 300 UNITS/3 ML VIAL SC PRN (21:18)
--- NOTE | 2020-12-03 22:04 | PRG ---
DATE OF SERVICE: 12/03/2020 SUBJECTIVE: The patient noted to be awake, on life support. Hemodynamically stable. OBJECTIVE: HEENT: Unremarkable, except endotracheal tube in place. CARDIOVASCULAR SYSTEM: First and second heart sounds. RESPIRATORY SYSTEM: Revealed vented sounds. DIGESTIVE SYSTEM: Revealed a benign abdomen. EXTREMITIES: No peripheral edema. SKIN: No new gross rash. LYMPHATICS: No peripheral lymphadenopathy. IMPRESSION: 1. Cardiopulmonary failure, on life support. 2. Acute on chronic kidney disease. PLAN: 1. Continue current renal supportive measures. 2. Monitor the renal function closely. 3. Profound azotemia, likely in the context of GI bleed. 4. Further management to be dependent on the clinical course. Job ID: [id number]
[2020-12-03] MEDS: Morphine 2 MG/ML VIAL SLOW IVP PRN (23:41)
[2020-12-04 04:48] LABS: Anion Gap 15 mmol/L (10-20); Calc. Creatinine Clearance 46 mL/min (70-130); Calcium 7.7 mg/dL (7.8-10.44); Carbon Dioxide 22 mmol/L (23-31); Chloride 113 mmol/L (98-107); Glucose 257 mg/dL (80-115); Potassium 4.7 mmol/L (3.5-5.1); Sodium 145 mmol/L (136-145)
[2020-12-04] MEDS: HumaLOG 300 UNITS/3 ML VIAL SC PRN ×3 (04:50→17:47)
[2020-12-04 05:03] LABS: BUN (Urea Nitrogen) 126 mg/dL (8.4-25.7)
[2020-12-04 05:10] LABS: Anisocytosis SLIGHT = 6-15 cells (100X) (0-5/hpf); Band 36 % (5-11); Hemoglobin 7.7 g/dL (14.0-18.0); Lymphocytes 1 % (21-51); MDiff Complete? YES; Mean Corpuscular HGB CONC 32.1 g/dL (32.0-36.0); Mean Corpuscular Hemoglobin 28.7 pg (27.0-31.0); Mean Corpuscular Volume 89.4 fL (78.0-98.0); Mean Platelet Volume 8.8 fL (7.4-10.4); Neutrophil 63 % (42-75); Platelet Count 90 thou/uL (130-400); Platelet Morphology Comment Appears Decreased; RBC Distribution Width 17.9 % (11.5-14.5); White Blood Cell (WBC) Count 10.7 thou/uL (4.8-10.8)
[2020-12-04] MEDS: Morphine 2 MG/ML VIAL SLOW IVP PRN ×2 (06:53→23:13)
[2020-12-04] MEDS: Mometasone 200 MCG/Formoterol 5 MCG 120 PUFF INHALER INH SCH ×2 (07:45→18:20)
[2020-12-04 09:47] LABS: Iron 16 ug/dL (65-175); Iron Binding Capacity, Total 121 mcg/dL (261-462)
[2020-12-04] MEDS: Glimepiride 1 MG TAB PO SCH (09:52)
[2020-12-04] MEDS: Dexamethasone 4 MG TAB PO SCH (09:52)
[2020-12-04] MEDS: Amiodarone 200 MG TAB PO SCH ×2 (09:52→20:55)
[2020-12-04] MEDS: risperiDONE 0.25 MG TAB PO SCH ×2 (09:53→20:56)
[2020-12-04] MEDS: Pantoprazole 40 MG GRANULES PACKET PER TUBE SCH ×2 (09:53→20:56)
[2020-12-04] MEDS: Senokot 8.6 MG TAB PO SCH (09:53)
[2020-12-04] MEDS: Heparin 5,000 UNITS/ML VIAL SC SCH (09:54)
[2020-12-04] MEDS: Nystatin Cream 30 GM TUBE TOP SCH ×3 (09:54→21:09)
[2020-12-04] MEDS ORDERED: Fluconazole In NaCl,Iso-Osm 200 MG, Admixture Fee 1 EACH in Premix Bag 1 BAG IVPB SCH (10:00)
--- NOTE | 2020-12-04 10:58 | PRG ---
DATE OF SERVICE: 12/04/2020 SUBJECTIVE: This morning, he is still encephalopathic, still on the vent. X-ray looks much improved. OBJECTIVE: VITAL SIGNS: Pulse 93, sats 99%, respirations 26 on 50%, PEEP of 5, blood pressure is low. I's and O's have been positive. CHEST: No wheezing. No crackles. CARDIAC: Normal S1, S2. No gallops. ABDOMEN: No masses. ASSESSMENT: Renal failure appears to be prerenal, cochran positive pneumonia, encephalopathy. PLAN: Plasmanate has been given. I will continue slow hydration. One-half hour of critical care time. Job ID: [id number]
--- NOTE | 2020-12-04 11:36 | CON ---
DATE OF CONSULTATION: 12/04/2020 REASON FOR CONSULTATION: Possible GI bleed. CONSULTING PROVIDER: Dr. Jah Jerry. HISTORY OF PRESENT ILLNESS: The patient is a 69-year-old male with a past medical history of diabetes, hypertension, hyperlipidemia, and recent diagnosis of atrial fibrillation with RVR, who was initially admitted to the [facility] in [place] with COVID-19 pneumonia. He was subsequently placed on therapy and responded well to therapy with discharge of the patient afterwards. However, shortly after discharge, the patient began experiencing increased weakness and progressive shortness of breath that prompted readmission to [facility]. On admission, the patient was noted to have significant hypotension and was also again in atrial fibrillation with RVR. He was bolus fluid and placed on appropriate antiarrhythmic medications. However, during the course of this hospitalization, he experienced respiratory distress and was subsequently intubated and placed on mechanical ventilation and has been on mechanical ventilation for some time. Over the last 2 to 3 weeks, the patient has been having a slowly downtrending H and H with no real evidence of GI bleeding up until about 3 to 4 days ago. Per nursing staff and per chart review, the patient was seen to have a larger darker bowel movement that was considered to be bloody in nature. Subsequently, his anticoagulation was stopped and the patient was placed on a PPI twice daily, but continues to have a downtrending H and H into today. Currently, the patient is intubated and is on minimal sedation with Precedex. He is unable to answer any questions, but is able to nod his head and shake his head to the affirmative and/or negative. Currently, he denies any abdominal pain and is doing well otherwise. REVIEW OF SYSTEMS: A 10-category review of systems could not be obtained due to the patient's intubated and slightly sedated status. PAST MEDICAL HISTORY: As per HPI. PAST SURGICAL HISTORY: Appendectomy. FAMILY HISTORY: No mention of GI malignancies in the chart. SOCIAL HISTORY: No mention of tobacco, alcohol, or illicit drug use. OUTPATIENT MEDICATIONS: Reviewed. INPATIENT MEDICATIONS: Reviewed. ALLERGIES: NO KNOWN DRUG ALLERGIES. PHYSICAL EXAMINATION: VITAL SIGNS: Temperature 99.6, pulse 93, blood pressure 98/55, respiratory rate 26, saturating 99% on mechanical ventilation. GENERAL: The patient was lying in bed, in no acute distress, semi-alert, but unable to determine sensorium due to nonfocal status, was able to nod his head affirmative and negative to simple questions. HEENT: Normocephalic atraumatic. NECK: Supple. No JVD or scleral icterus noted. CARDIOVASCULAR: Regular rate and rhythm with no discernible murmurs, gallops, or rubs. RESPIRATORY: Coarse breath sounds auscultated in all lung gonsalves consistent with mechanical ventilation. ABDOMEN: Normoactive bowel sounds. Soft, nontender, and nondistended. EXTREMITIES: No cyanosis, clubbing, or edema in the lower extremities. However, he does have 1+/2+ pitting edema in the bilateral upper extremities. LABORATORY DATA: CBC with a white blood cell count of 10.7, hemoglobin 7.7, hematocrit 24.1, platelets 90. Chemistry with a sodium 145, potassium 4.7, chloride 113, CO2 22, BUN 126, creatinine 2.26, glucose 257. Urinalysis consistent with urinary tract infection. ASSESSMENT AND PLAN: The patient is a 69-year-old male with past medical history of diabetes, hypertension, hyperlipidemia, COVID-19 pneumonia, and now atrial fibrillation with rapid ventricular response, presenting with respiratory distress requiring mechanical ventilation and now with slowly downtrending H and H concerning for an upper GI bleed. Upper GI bleed: 1. The patient was admitted to the [facility] approximately 1 month ago with COVID-19 pneumonia, but he presumably responded well to therapy, and was discharged to home. Shortly after discharge, he experienced increased generalized weakness in addition to increased shortness of breath that prompted readmission to [facility]. During this hospitalization, he has experienced respiratory distress that required placement on mechanical ventilation and has been fairly stable in terms of his respiratory status since then. However, during the same time period (last 2-3 weeks), he has been having a slowly downtrending H and H concerning for possible bleeding source. At this time, he does have some darker colored stools, but they are dark brown in coloration, which does not lend itself towards the presence of melena. However, with his decreasing H and H and an elevated BUN to creatinine ratio, it does raise concern for an upper GI bleeding source (although his kidney disease could be contributing as well). At this time given his anticoagulation, use of dexamethasone, and the placement of an OG tube, which could potentially generate trauma to the interior of the gastric mucosa. An upper GI bleeding source cannot be ruled out at this time. RECOMMENDATIONS: 1. Would continue to trend his H and H and transfuse as necessary to maintain an H and H of 7/. 2. Continue to monitor clinically for signs of active GI bleeding. 3. Would continue to hold any anticoagulation on this patient in light of possible GI bleed. 4. We will plan for upper endoscopy later today for evaluation of the upper GI tract. 5. Given his iron indices that were obtained prior to infusion of any blood products is more indicative of anemia of chronic disease rather than iron-deficiency anemia, so if the upper GI tract is negative for any source of bleeding, I would only continue to monitor the patient for now. 6. Further recommendations to follow upper endoscopy. Job ID: [id number]
--- NOTE | 2020-12-04 11:43 | PDOC.HOSPP ---
- Subjective Encounter Date: 12/04/20 Encounter Time: 11:42 Subjective: Mr. Aldridge was seen today in follow-up of respiratory failure due to COVID pneumonia.He is intubated, awake, and alert, and following commands. - Objective Vital Signs & Weight: Vital Signs (12 hours) Temp Pulse Resp BP Pulse Ox 12/04/20 10:59 92 95/52 L 12/04/20 07:45 93 26 H 99 12/04/20 07:43 96 98/55 L 12/04/20 06:00 39 H 12/04/20 04:00 99.6 F 21 H 12/04/20 02:18 85 12/04/20 02:00 24 H 12/04/20 00:00 99.5 F 24 H Weight Admit Weight 246 lb Weight 233 lb 11.04 oz Most Recent Monitor Data Heart Rate from ECG 94 NIBP 104/65 NIBP BP-Mean 78 Respiration from ECG 27 SpO2 97 I&O: 12/03/20 12/04/20 12/05/20 06:59 06:59 06:59 Intake Total 988.1 1613.4 Output Total 1625 2490 Balance -636.9 -876.6 Result Diagrams: 12/04/20 04:09 12/04/20 04:09 Additional Labs: Accuchecks 12/04/20 12/04/20 12/03/20 09:09 03:40 21:14 POC Glucose 202 H 224 H 258 H 12/03/20 12/03/20 12/03/20 16:10 09:51 05:12 POC Glucose 183 H 145 H 111 H Hospitalist ROS - Medication Medications: Active Medications Generic Name Dose Route Start Last Admin Trade Name Freq PRN Reason Stop Dose Admin Amiodarone HCl 400 mg 11/28/20 21:00 12/04/20 09:52 Amiodarone 200 Mg Tab PO 400 mg BID AMARI Administration Glimepiride 1 mg 11/13/20 08:00 12/04/20 09:52 Glimepiride 1 Mg Tab PO 1 mg QAM-WM AMARI Administration Heparin Sodium (Porcine) 5,000 units 12/01/20 21:00 12/04/20 09:54 Heparin 5,000 Units/Ml Vial SC Not Given BID AMARI Norepinephrine Bitartrate 250 mls @ 0 mls/hr 11/19/20 21:15 12/01/20 10:50 Levophed IVPB 250 mls INF AMARI Administration Protocol Titrate Dexmedetomidine HCl 400 mcg/ 100 mls @ 0 mls/hr 11/23/20 15:00 12/04/20 04:49 Sodium Chloride IVPB 100 mls INF AMARI Administration Protocol Per Protocol Insulin Human Lispro 0 units 11/11/20 19:00 12/04/20 09:55 Humalog 300 Units/3 Ml Vial SC 6 unit .AGGRESSIVE SLIDING PRN Administration AGGRESSIVE SLIDING SCALE Protocol Insulin Human Lispro 0 units 11/12/20 21:30 11/12/20 22:35 Humalog 300 Units/3 Ml Vial SC 3 unit .BEDTIME SLIDING SC PRN Administration Bedtime Correctional Scale Loperamide HCl 4 mg 11/11/20 12:15 11/12/20 23:53 Loperamide Hcl 2 Mg Cap PO 4 mg QIDPRN PRN Administration Diarrhea/Loose Stools Metoprolol Tartrate 5 mg 11/10/20 18:03 11/11/20 17:11 Metoprolol Tartrate 5 Mg/5 Ml Vial IVP 5 mg Q6H PRN Administration FOR HR > 90 Mometasone Furoate/Formoterol Fumar 2 puff 11/13/20 18:30 12/04/20 07:45 Mometasone 200 Mcg/Formoterol 5 Mcg 120 Puff Inhaler INH 2 puff BID-RT AMARI Administration Morphine Sulfate 2 mg 11/29/20 22:46 12/04/20 06:53 Morphine 2 Mg/Ml Vial SLOW IVP 2 mg Q1H PRN Administration Breakthrough Pain/Agitation Nystatin 1 gm 11/18/20 09:00 12/04/20 09:54 Nystatin Cream 30 Gm Tube TOP 1 gm TID AMARI Administration Nystatin 1 gm 11/17/20 22:02 12/03/20 23:45 Nystatin Powder 15 Gm Bot TOP 1 gm PRN PRN Administration Topical Irritations Pantoprazole Sodium 40 mg 12/01/20 21:00 12/04/20 09:53 Pantoprazole 40 Mg Granules Packet PER TUBE 40 mg Q12HR AMARI Administration Risperidone 0.5 mg 11/28/20 21:00 12/04/20 09:53 Risperidone 0.25 Mg Tab PO 0.5 mg BID AMARI Administration Rosuvastatin Calcium 20 mg 11/06/20 21:00 12/03/20 20:21 Rosuvastatin 20 Mg Tab PO 20 mg HS AMARI Administration Senna 1 tab 11/23/20 09:00 12/04/20 09:53 Senokot 8.6 Mg Tab PO Not Given DAILY AMARI Sodium Chloride 10 ml 11/09/20 21:00 12/04/20 09:53 Flush - Normal Saline 10 Ml Syringe IVF 10 ml Q12HR AMARI Administration Hospitalist Exam Vitals: Vital Signs (12 hours) Temp Pulse Resp BP Pulse Ox 12/04/20 10:59 92 95/52 L 12/04/20 07:45 93 26 H 99 12/04/20 07:43 96 98/55 L 12/04/20 06:00 39 H 12/04/20 04:00 99.6 F 21 H 12/04/20 02:18 85 12/04/20 02:00 24 H 12/04/20 00:00 99.5 F 24 H Weight Admit Weight 246 lb Weight 233 lb 11.04 oz Most Recent Monitor Data Heart Rate from ECG 94 NIBP 104/65 NIBP BP-Mean 78 Respiration from ECG 27 SpO2 97 General Appearance: NAD, awake alert Eye: PERRL, anicteric sclera Heart: RRR, no murmur, no gallops, no rubs, normal peripheral pulses Respiratory: no wheezes, no ronchi, rales (at both bases) Gastrointestinal: soft, non-tender, non-distended, normal bowel sounds, no palpable masses, no hepatomegaly Extremities: no cyanosis, no edema (good distal pulses bilaterally, no lesions) Hosp A/P (1) GI bleeding Code(s): K92.2 - GASTROINTESTINAL HEMORRHAGE, UNSPECIFIED Status: Acute (2) Acute blood loss anemia Code(s): D62 - ACUTE POSTHEMORRHAGIC ANEMIA Status: Acute (3) Pneumonia due to COVID-19 virus Code(s): U07.1 - COVID-19; J12.82 - PNEUMONIA DUE TO CORONAVIRUS DISEASE 2019 Status: Acute (4) Acute kidney injury superimposed on CKD Code(s): N17.9 - ACUTE KIDNEY FAILURE, UNSPECIFIED; N18.9 - CHRONIC KIDNEY DISEASE, UNSPECIFIED Status: Acute (5) Acute respiratory failure with hypoxia Code(s): J96.01 - ACUTE RESPIRATORY FAILURE WITH HYPOXIA Status: Acute (6) Hyperlipidemia Code(s): E78.5 - HYPERLIPIDEMIA, UNSPECIFIED Status: Chronic (7) Hypertension Code(s): I10 - ESSENTIAL (PRIMARY) HYPERTENSION Status: Chronic (8) Diabetes mellitus Code(s): E11.9 - TYPE 2 DIABETES MELLITUS WITHOUT COMPLICATIONS Status: Chronic (9) Atrial fibrillation with rapid ventricular response Code(s): I48.91 - UNSPECIFIED ATRIAL FIBRILLATION Status: Acute - Plan * Acute respiratory failure due to COVID pneumonia- he continues to require Vent support. * Continue Decadron * GI- bleed- his H&H continues to drop, despite Protonix- Will consult GI * Acute on chronic blood loss anemia- will transfuse * DM- blood glucose is stable * Nutritional Support with tube feeds- will re-consult Manager [employer] Responsibility for goal rate. He is now off Propofol * HEBER-worsening- likely due to chronic blood loss ( especially with the elevated BUN)- GI has been consulted * HTN- blood pressure is stable * AFIB - his heart rate is stable-Continue Amiodarone, and no anticoagulation due to severe anemia and concern for GI Bleed * Possible Trach and PEG
[2020-12-04] MEDS: Sodium Chloride 0.9% 1,000 ML IV SCH (11:54)
[2020-12-04] MEDS ORDERED: PROPOFOL 60 ML ONE (12:00)
--- NOTE | 2020-12-04 13:25 | OP ---
DATE OF PROCEDURE: 12/04/2020 PROCEDURES PERFORMED: Esophagogastroduodenoscopy with biopsy and control of hemorrhage. INDICATION FOR PROCEDURE: Decreasing H and H with unexplained source, possible upper GI bleeding. DESCRIPTION OF PROCEDURE: After the risks and benefits of the procedure were explained to the patient's surrogate including risks of bleeding, infection, perforation, reactions to anesthesia, aspiration, and/or pain, informed consent was obtained. The patient was then maneuvered into the left lateral decubitus position in preparation for the actual EGD procedure itself (the patient was already in the ICU). Once the patient was adequately sedated via anesthesia support via propofol, the standard gastroscope was introduced into the mouth with intubation of the esophagus, stomach, and the proximal small intestines with the findings listed below. The patient tolerated the procedure well with no immediate perioperative complications. On conclusion of the procedure, all equipment was removed from the patient. FINDINGS: Esophagus: Normal-appearing mucosa was seen in the proximal, mid, and distal esophagus. There was no evidence of erosions, ulcerations, mass lesions, or active/recent bleeding. Stomach: Mild mucosal erythema was seen throughout the entire stomach in a diffuse-type pattern, but did not exhibit any other underlying abnormalities. There was no evidence of erosions, ulcerations, mass lesions, or active/recent bleeding seen in the gastric cardia, fundus, body, greater curvature, antrum, and incisura. However, upon inspection of the pylorus, it did display a slightly increased erythema with no evidence of bleeding on the proximal side of the "pylorus." However, upon entry into the duodenal bulb along the backside of the pyloric valve itself, there was an area of blood clot formation, concerning for an area of GI bleeding. Given the lack of good visualization in this region due to the patient's anatomy, bipolar cauterization was then employed along the posterior wall of the pyloric valve itself in addition to the distal portion of it with good hemostasis achieved. No clot formation or bleeding was seen after the maneuver. Duodenum: Normal-appearing mucosa was seen the within the duodenal bulb, except for the irritated/increased mucosal erythema on the distal portion of the pylorus. Retroflexion could not be performed within this duodenal bulb for better visualization of this area of oozing blood. Normal-appearing mucosa was also seen within the duodenal sweep. However, upon entry into the second and third portions of the duodenum, innumerable small superficial erosions were seen throughout the entire intestine and extending distally beyond the reach of the scope. Along the periphery of these erosions, there was mild oozing of blood noted as well. Given the diffuse nature of this mild oozing of blood with all these innumerable erosions, no further intervention was taken. However, biopsies were taken from these erosions for determination of possible etiology. Otherwise, there was no evidence of overt ulceration or mass lesions. IMPRESSION: 1. Mild oozing of blood along the distal aspect of the pyloric valve, likely from mucosal inflammation/irritation, now status post bipolar cauterization with good hemostasis achieved. 2. Innumerable superficial erosions that were friable to the passage of the scope with mild oozing of blood seen in the second and third portions and extending beyond the reach of the gastroscope. Multiple biopsies taken for further evaluation. 3. Mild mucosal gastric erythema without any evidence of active/recent bleeding, indicative of nonspecific gastropathy (likely from the patient's current clinical status). RECOMMENDATIONS: 1. Would continue to trend his H and H and transfuse as necessary to maintain an H and H of 7/21. 2. Continue to monitor clinically for signs of active GI bleeding. 3. Would not proceed with colonoscopy at this time, but rather monitor the patient in light of these areas of oozing blood today. 4. Would continue to hold any anticoagulation for the next 24 to 48 hours. 5. Would consider discontinuation of all NSAIDs or steroids if deemed clinically appropriate as it could be a causative etiology for the bleeding/erosions. 6. Followup on biopsy results and treat if positive for H pylori. 7. Can replace the OG tube for tube feeds; however, would attempt to maintain more of an upright posture for the patient when tube feeds are given to prevent acid reflux. We will continue to follow. Please call with any questions. Job ID: [id number]
[2020-12-04] MEDS ORDERED: ePHEDrine 50 MG/ML VIAL ONE (15:12)
[2020-12-04] MEDS ORDERED: PHENYLEPHRINE-NS 100 MCG/ML 10 ML SYRINGE ONE (15:12)
[2020-12-04] MEDS: Rosuvastatin 20 MG TAB PO SCH (20:55)
[2020-12-04] MEDS: Nystatin Powder 15 GM BOT TOP PRN (20:58)
[2020-12-04] MEDS ORDERED: Propofol 1,000 MG/100 ML VIAL IV ONE (22:27)
--- NOTE | 2020-12-04 22:33 | PRG ---
DATE OF SERVICE: SUBJECTIVE: The patient noted with the following vital signs. OBJECTIVE: VITAL SIGNS: Afebrile, blood pressure 101/56, respiratory rate of 24. HEENT: Remarkable for endotracheal tube in place. CARDIOVASCULAR SYSTEM: First and second heart sounds were heard. RESPIRATORY SYSTEM: Revealed vented sounds. DIGESTIVE SYSTEM: Revealed a benign abdomen. EXTREMITIES: No peripheral edema. SKIN: No new gross rash. LYMPHATICS: No peripheral lymphadenopathy. IMPRESSION: 1. Cardiopulmonary failure, on life support. 2. gastrointestinal bleed, status post esophagogastroduodenoscopy. 3. Acute kidney injury. PLAN: 1. Continue current renal supportive measures. 2. Renally dose all medications. 3. Gentle hydration in place. 4. Further management to be dependent on the clinical course. Job ID: [id number]
[2020-12-05] MEDS: Norepinephrine 8 MG/0.9% NS 250 ML IVPB SCH (04:26)
[2020-12-05 05:33] LABS: Anion Gap 16 mmol/L (10-20); Calc. Creatinine Clearance 49 mL/min (70-130); Calcium 7.6 mg/dL (7.8-10.44); Carbon Dioxide 21 mmol/L (23-31); Chloride 116 mmol/L (98-107); Glucose 210 mg/dL (80-115); Potassium 4.6 mmol/L (3.5-5.1); Sodium 148 mmol/L (136-145)
[2020-12-05 05:39] LABS: Band 39 % (5-11); Elliptocytes SLIGHT = 2-5 cells (100X) (0-1/hpf); Hemoglobin 7.1 g/dL (14.0-18.0); MDiff Complete? YES; Mean Corpuscular HGB CONC 32.9 g/dL (32.0-36.0); Mean Corpuscular Hemoglobin 29.9 pg (27.0-31.0); Mean Platelet Volume 8.9 fL (7.4-10.4); Monocytes 2 % (0-10); Neutrophil 59 % (42-75); Platelet Count 92 thou/uL (130-400); Platelet Morphology Comment Appears Decreased; RBC Distribution Width 17.7 % (11.5-14.5); Red Blood Cell (RBC) Count 2.36 mill/uL (4.70-6.10); White Blood Cell (WBC) Count 7.8 thou/uL (4.8-10.8)
[2020-12-05 05:43] LABS: BUN (Urea Nitrogen) 114 mg/dL (8.4-25.7)
[2020-12-05] MEDS: Mometasone 200 MCG/Formoterol 5 MCG 120 PUFF INHALER INH SCH ×2 (06:36→18:56)
[2020-12-05] MEDS: Pantoprazole 40 MG GRANULES PACKET PER TUBE SCH ×2 (09:39→20:44)
[2020-12-05] MEDS: Amiodarone 200 MG TAB PO SCH ×2 (09:39→20:44)
[2020-12-05] MEDS: predniSONE 20 MG TAB PO SCH (09:39)
[2020-12-05] MEDS: Glimepiride 1 MG TAB PO SCH (09:40)
[2020-12-05] MEDS: Nystatin Powder 15 GM BOT TOP PRN (09:41)
[2020-12-05] MEDS: risperiDONE 0.25 MG TAB PO SCH ×2 (10:03→20:44)
[2020-12-05] MEDS: Senokot 8.6 MG TAB PO SCH (10:03)
[2020-12-05] MEDS: Nystatin Cream 30 GM TUBE TOP SCH ×3 (10:11→20:44)
[2020-12-05] MEDS: Sodium Chloride 0.9% 1,000 ML IV SCH (10:12)
--- NOTE | 2020-12-05 11:19 | PRG ---
DATE OF SERVICE: 12/05/2020 SUBJECTIVE: A 69-year-old gentleman, remains intubated on the vent with only Demadex on board, still encephalopathic. He is breathing rapidly. He has prolonged hospitalization day 30. Family wanted a trach and a PEG. I am going to discuss again tomorrow. OBJECTIVE: VITAL SIGNS: Temperature 98, pulse 85, blood pressure 104/50 on 40%, PEEP of 5, his saturations are 98%, blood pressure 103/59. CHEST: Crackles and rhonchi. CARDIAC: Normal S1 and S2. ABDOMEN: No masses. LABORATORY DATA: Creatinine is 2.8, BUN 114. White count 7000. ASSESSMENT AND PLAN: Status post apparently gastrointestinal bleed, anemia, encephalopathy, supraventricular tachycardia. He is probably going to get dialyzed if his renal function does not improve, probably going to need transfusion of a unit of packed cells. Heparin is withheld because of thrombocytopenia. Overall, prognosis remains guarded. One half hour of critical care time. Job ID: [id number]
[2020-12-05] MEDS: Dextrose 5% in Water 1,000 ML IV SCH (13:47)
--- NOTE | 2020-12-05 14:13 | PDOC.HOSPP ---
- Subjective Encounter Date: 12/05/20 Encounter Time: 14:10 Subjective: Mr. Aldridge was seen today in follow-up of respiratory failure due to COVID pneumonia. He is awake and alert and follows commands. - Objective Vital Signs & Weight: Vital Signs (12 hours) Temp Pulse Pulse Pulse Resp BP BP 12/05/20 13:52 82 100/57 L 12/05/20 10:50 83 84 108/60 12/05/20 10:05 85 104/55 L 12/05/20 08:00 98.6 F 26 H 12/05/20 06:36 80 21 H 12/05/20 06:35 80 96/52 L 12/05/20 06:00 26 H 12/05/20 04:00 98.8 F 23 H 12/05/20 03:21 86 BP Pulse Ox Pulse Ox Pulse Ox 12/05/20 13:52 12/05/20 10:50 106/57 L 98 90 L 12/05/20 10:05 12/05/20 08:00 97 12/05/20 06:36 97 12/05/20 06:35 12/05/20 06:00 12/05/20 04:00 12/05/20 03:21 Weight Admit Weight 246 lb Weight 238 lb 15.697 oz Most Recent Monitor Data Heart Rate from ECG 81 NIBP 99/54 NIBP BP-Mean 69 Respiration from ECG 26 SpO2 95 I&O: 12/04/20 12/05/20 12/06/20 06:59 06:59 06:59 Intake Total 1613.4 4475.2 0 Output Total 2490 1860 50 Balance -876.6 2615.2 -50 Result Diagrams: 12/05/20 03:45 12/05/20 03:45 Additional Labs: Accuchecks 12/05/20 12/04/20 12/04/20 04:06 21:18 16:14 POC Glucose 197 H 196 H 204 H Hospitalist ROS - Medication Medications: Active Medications Generic Name Dose Route Start Last Admin Trade Name Freq PRN Reason Stop Dose Admin Amiodarone HCl 400 mg 11/28/20 21:00 12/05/20 09:39 Amiodarone 200 Mg Tab PO 400 mg BID AMARI Administration Glimepiride 1 mg 11/13/20 08:00 12/05/20 09:40 Glimepiride 1 Mg Tab PO 1 mg QAM-WM AMARI Administration Norepinephrine Bitartrate 250 mls @ 0 mls/hr 11/19/20 21:15 12/05/20 04:26 Levophed IVPB 250 mls INF AMARI Administration Protocol Titrate Dexmedetomidine HCl 400 mcg/ 100 mls @ 0 mls/hr 11/23/20 15:00 12/05/20 13:47 Sodium Chloride IVPB 100 mls INF AMARI Administration Protocol Per Protocol Dextrose/Water 1,000 mls @ 50 mls/hr 12/05/20 10:45 12/05/20 13:47 D5w IV 1,000 mls .Q20H AMARI Administration Insulin Human Lispro 0 units 11/11/20 19:00 12/04/20 17:47 Humalog 300 Units/3 Ml Vial SC 6 unit .AGGRESSIVE SLIDING PRN Administration AGGRESSIVE SLIDING SCALE Protocol Insulin Human Lispro 0 units 11/12/20 21:30 11/12/20 22:35 Humalog 300 Units/3 Ml Vial SC 3 unit .BEDTIME SLIDING SC PRN Administration Bedtime Correctional Scale Loperamide HCl 4 mg 11/11/20 12:15 11/12/20 23:53 Loperamide Hcl 2 Mg Cap PO 4 mg QIDPRN PRN Administration Diarrhea/Loose Stools Metoprolol Tartrate 5 mg 11/10/20 18:03 11/11/20 17:11 Metoprolol Tartrate 5 Mg/5 Ml Vial IVP 5 mg Q6H PRN Administration FOR HR > 90 Mometasone Furoate/Formoterol Fumar 2 puff 11/13/20 18:30 12/05/20 06:36 Mometasone 200 Mcg/Formoterol 5 Mcg 120 Puff Inhaler INH 2 puff BID-RT AMARI Administration Morphine Sulfate 2 mg 11/29/20 22:46 12/04/20 23:13 Morphine 2 Mg/Ml Vial SLOW IVP 2 mg Q1H PRN Administration Breakthrough Pain/Agitation Nystatin 1 gm 11/18/20 09:00 12/05/20 10:11 Nystatin Cream 30 Gm Tube TOP 1 gm TID AMARI Administration Nystatin 1 gm 11/17/20 22:02 12/05/20 09:41 Nystatin Powder 15 Gm Bot TOP 1 gm PRN PRN Administration Topical Irritations Pantoprazole Sodium 40 mg 02/13/21 21:00 12/05/20 09:39 Pantoprazole 40 Mg Granules Packet PER TUBE 40 mg Q12HR AMARI Administration Prednisone 20 mg 12/05/20 08:00 12/05/20 09:39 Prednisone 20 Mg Tab PO 20 mg QAM-WM AMARI Administration Risperidone 0.5 mg 11/28/20 21:00 12/05/20 10:03 Risperidone 0.25 Mg Tab PO 0.5 mg BID AMARI Administration Rosuvastatin Calcium 20 mg 11/06/20 21:00 12/04/20 20:55 Rosuvastatin 20 Mg Tab PO 20 mg HS AMARI Administration Senna 1 tab 11/23/20 09:00 12/05/20 10:03 Senokot 8.6 Mg Tab PO 1 tab DAILY AMARI Administration Sodium Chloride 10 ml 11/09/20 21:00 12/05/20 09:40 Flush - Normal Saline 10 Ml Syringe IVF 10 ml Q12HR AMARI Administration Hospitalist Exam Vitals: Vital Signs (12 hours) Temp Pulse Pulse Pulse Resp BP BP 12/05/20 13:52 82 100/57 L 12/05/20 10:50 83 84 108/60 12/05/20 10:05 85 104/55 L 12/05/20 08:00 98.6 F 26 H 12/05/20 06:36 80 21 H 12/05/20 06:35 80 96/52 L 12/05/20 06:00 26 H 12/05/20 04:00 98.8 F 23 H 12/05/20 03:21 86 BP Pulse Ox Pulse Ox Pulse Ox 12/05/20 13:52 12/05/20 10:50 106/57 L 98 90 L 12/05/20 10:05 12/05/20 08:00 97 12/05/20 06:36 97 12/05/20 06:35 12/05/20 06:00 12/05/20 04:00 12/05/20 03:21 Weight Admit Weight 246 lb Weight 238 lb 15.697 oz Most Recent Monitor Data Heart Rate from ECG 81 NIBP 99/54 NIBP BP-Mean 69 Respiration from ECG 26 SpO2 95 General Appearance: NAD, awake alert Eye: PERRL, anicteric sclera Heart: RRR, no murmur, no gallops, no rubs, normal peripheral pulses Respiratory: no wheezes, rales (rales vs. friction rub at both bases) Gastrointestinal: soft, non-tender, non-distended, normal bowel sounds, no palpable masses, no hepatomegaly Extremities: no cyanosis (palpable d.p. pulses, no lesions), 1+ LE edema Hosp A/P (1) GI bleeding Code(s): K92.2 - GASTROINTESTINAL HEMORRHAGE, UNSPECIFIED Status: Acute (2) Acute blood loss anemia Code(s): D62 - ACUTE POSTHEMORRHAGIC ANEMIA Status: Acute (3) Pneumonia due to COVID-19 virus Code(s): U07.1 - COVID-19; J12.82 - PNEUMONIA DUE TO CORONAVIRUS DISEASE 2018 Status: Acute (4) Acute kidney injury superimposed on CKD Code(s): N17.9 - ACUTE KIDNEY FAILURE, UNSPECIFIED; N18.9 - CHRONIC KIDNEY DISEASE, UNSPECIFIED Status: Acute (5) Acute respiratory failure with hypoxia Code(s): J96.01 - ACUTE RESPIRATORY FAILURE WITH HYPOXIA Status: Acute (6) Hyperlipidemia Code(s): E78.5 - HYPERLIPIDEMIA, UNSPECIFIED Status: Chronic (7) Hypertension Code(s): I10 - ESSENTIAL (PRIMARY) HYPERTENSION Status: Chronic (8) Diabetes mellitus Code(s): E11.9 - TYPE 2 DIABETES MELLITUS WITHOUT COMPLICATIONS Status: Chronic (9) Atrial fibrillation with rapid ventricular response Code(s): I48.91 - UNSPECIFIED ATRIAL FIBRILLATION Status: Acute - Plan * Acute respiratory failure due to COVID pneumonia- he continues to require Vent support. * Continue Decadron * GI- bleed- GI input appreciated- EGD findings noted. Patient found to have blood oozing from the pyloric junction which was cauterized, and multiple other erosive ulcers. Continue Protonix * Acute on chronic blood loss anemia- He did not receive the transfusion yesterday, and is being transfused today * DM- blood glucose is a bit elevated- will discontinue Glimepiride, and start a low dose Lantus * Nutritional Support with tube feeds- will re-consult Filler In for goal rate. He is now off Propofol * HEBER-worsening- likely due to chronic blood loss ( especially with the elevated BUN)- GI has been consulted * Hypotension- he was placed on a Levophed drip to support his blood pressure- hopefully this can be discontinued once he has been transfused * AFIB - his heart rate is stable-Continue Amiodarone, and no anticoagulation due to severe anemia and GI Bleed
--- NOTE | 2020-12-05 15:04 | PRG ---
DATE OF SERVICE: 12/05/2020 SUBJECTIVE: The patient is ventilated, but appears to be awake and nods head in communication. He is putting out dark black liquid stool through the rectal tube. No acute event overnight. PHYSICAL EXAMINATION: VITAL SIGNS: Temperature is 98.6, blood pressure 100/57, pulse of 82. GENERAL: He is intubated, but not sedated, appears comfortable. HEAD: Shows anicteric sclerae. CV: Shows normal S1 and S2. Regular rate. CHEST: Shows breath sounds. ABDOMEN: Soft. No distention. No tympany. He has active bowel sounds. EXTREMITIES: Show no edema. LABORATORY DATA: WBC 7.8, hemoglobin 7.1 (7.7 yesterday), platelet count of 92. Sodium 148, potassium 4.6, chloride 116, CO2 of 21, creatinine 2.18. ASSESSMENT: 1. Upper gastrointestinal bleed with esophagogastroduodenoscopy yesterday showed extensive duodenal erosions and friability, but no discrete focal source of severe bleeding. The patient's blood count continues to be slowly trending downward. 2. Acute renal failure. 3. Diabetes/hypertension/hyperlipidemia/atrial fibrillation. 4. Recent COVID-19 pneumonia. RECOMMENDATION: 1. Agree with transfusion support. 2. Continues to monitor his blood count. 3. No indication to repeat any endoscopy at this time unless the patient has evidence of more active bleeding. No indication for colonoscopy at this point. Continue pantoprazole 40 mg q.12 hours per tube. 4. Continue tube feeding. 5. We will follow. Job ID: [id number]
[2020-12-05] MEDS: HumaLOG 300 UNITS/3 ML VIAL SC PRN ×2 (17:28→21:02)
[2020-12-05] MEDS: Morphine 2 MG/ML VIAL SLOW IVP PRN (18:09)
--- NOTE | 2020-12-05 20:03 | PRG ---
DATE OF SERVICE: 12/05/2020 SUBJECTIVE: The patient is seen, still on life support. Noted with the following vital signs. OBJECTIVE: VITAL SIGNS: Blood pressure 102/64, heart rate of 85, O2 saturations of 92%, respiratory rate of 22. HEENT: Unremarkable. CARDIOVASCULAR SYSTEM: First and second heart sounds were heard. RESPIRATORY SYSTEM: Clear to auscultation. DIGESTIVE SYSTEM: Revealed a benign abdomen with positive bowel sounds. EXTREMITIES: No peripheral edema. SKIN: No new gross rash. LYMPHATICS: No peripheral lymphadenopathy. LABORATORY INVESTIGATION: Showed a hemoglobin of 7.1. Chemistry showed a sodium of 148, creatinine of 2.18, with BUN of 114. IMPRESSION: 1. Hypernatremia in the context of free water deficit. 2. Anemia, likely related to acute blood loss anemia from gastrointestinal bleed. 3. Profound azotemia related to gastrointestinal bleed. 4. Acute kidney injury, likely hemodynamically mediated in the context of gastrointestinal bleed. PLAN: 1. Transfuse p.r.n. 2. Renally dose all medications per low GFR. 3. Change IV fluid to free water to address the free water deficit and follow the sodium level accordingly. 4. Further management to be dependent on the clinical course. Job ID: [id number]
[2020-12-05] MEDS: Rosuvastatin 20 MG TAB PO SCH (20:44)
[2020-12-05] MEDS: Insulin Glargine 10 UNITS in Pre-Filled Syringe 1 EACH SC SCH (21:02)
[2020-12-05] MEDS: Morphine 4 MG/ML VIAL SLOW IVP PRN ×2 (22:17→22:20)
[2020-12-06 04:43] LABS: Anion Gap 12 mmol/L (10-20); Calc. Creatinine Clearance 52 mL/min (70-130); Calcium 7.9 mg/dL (7.8-10.44); Carbon Dioxide 24 mmol/L (23-31); Chloride 115 mmol/L (98-107); Glucose 204 mg/dL (80-115); Potassium 4.6 mmol/L (3.5-5.1); Sodium 146 mmol/L (136-145)
[2020-12-06] MEDS: HumaLOG 300 UNITS/3 ML VIAL SC PRN ×4 (04:47→21:21)
[2020-12-06 04:56] LABS: BUN (Urea Nitrogen) 125 mg/dL (8.4-25.7)
[2020-12-06 05:13] LABS: Anisocytosis SLIGHT = 6-15 cells (100X) (0-5/hpf); Band 43 % (5-11); Hemoglobin 8.1 g/dL (14.0-18.0); Lymphocytes 3 % (21-51); MDiff Complete? YES; Mean Corpuscular HGB CONC 33.1 g/dL (32.0-36.0); Mean Corpuscular Hemoglobin 29.9 pg (27.0-31.0); Mean Corpuscular Volume 90.3 fL (78.0-98.0); Monocytes 1 % (0-10); Neutrophil 53 % (42-75); Nucleated RBC 3 % (0); Platelet Count 96 thou/uL (130-400); Platelet Morphology Comment Appears Decreased; RBC Distribution Width 17.6 % (11.5-14.5); Red Blood Cell (RBC) Count 2.71 mill/uL (4.70-6.10); White Blood Cell (WBC) Count 6.5 thou/uL (4.8-10.8)
[2020-12-06] MEDS: Mometasone 200 MCG/Formoterol 5 MCG 120 PUFF INHALER INH SCH ×2 (06:27→18:32)
--- NOTE | 2020-12-06 08:54 | RAD ---
PORTABLE CHEST: DATE: 12/06/2020. PROVIDED CLINICAL HISTORY: Respiratory insufficiency. FINDINGS: Comparison 12/02/2020. Cardiac and mediastinal silhouette is unchanged in appearance. Support appara tus is redemonstrated, with interval placement of left upper extremity PICC line terminating in the r egion of the SVC. There is extensive bilateral pulmonary parenchymal opacity, appearing increased in conspicuity involving the mid to lower lung zones bilaterally. There is no pleural fluid or pneumot horax apparent. IMPRESSION: Worsening of bilateral airspace disease. POS: TAMAR
[2020-12-06] MEDS: Dextrose 5% in Water 1,000 ML IV SCH (09:48)
[2020-12-06] MEDS: Pantoprazole 40 MG GRANULES PACKET PER TUBE SCH (09:49)
[2020-12-06] MEDS: Amiodarone 200 MG TAB PO SCH ×2 (09:49→21:16)
[2020-12-06] MEDS: predniSONE 20 MG TAB PO SCH (09:49)
[2020-12-06] MEDS: risperiDONE 0.25 MG TAB PO SCH ×2 (09:49→21:16)
[2020-12-06] MEDS: Senokot 8.6 MG TAB PO SCH (09:49)
[2020-12-06] MEDS: Nystatin Cream 30 GM TUBE TOP SCH ×3 (09:50→21:20)
[2020-12-06] MEDS: Heparin 5,000 UNITS/ML VIAL SC SCH ×2 (09:58→21:38)
--- NOTE | 2020-12-06 10:26 | PRG ---
DATE OF SERVICE: 12/06/2020 SUBJECTIVE: Remains in the ICU on Demadex, still confused. OBJECTIVE: VITAL SIGNS: Temperature 99; respiratory rate 20; sats on 40%, PEEP of 5, 96; blood pressure 100/50. CHEST: Crackles. No wheezing. CARDIAC: Normal S1. ABDOMEN: No masses. I's and O's have been positive. LABORATORY DATA: White count 6000, H and H , platelet count is 96. Creatinine 2, BUN 125. ASSESSMENT: Respiratory failure, azotemia, cochran positive pneumonia, supraventricular tachycardia, encephalopathy. PLAN: Discussed at length with the patient's sister. They are going to go and start planning for trach and a PEG, eventually placement. Otherwise, continue slow hydration. PT, supportive care. One-half hour of critical care time. Job ID: [id number]
--- NOTE | 2020-12-06 10:51 | PDOC.HOSPP ---
- Subjective Encounter Date: 12/06/20 Encounter Time: 10:49 Subjective: Mr. Aldridge was seen today in follow-up of respiratory failure due to COVID. He remains intubated. He will follow commands, but he appears exhausted even on the ventilator. No report of any bleeding. - Objective Vital Signs & Weight: Vital Signs (12 hours) Temp Pulse Resp BP Pulse Ox 12/06/20 10:28 90 105/56 L 12/06/20 08:00 20 96 12/06/20 07:00 99.1 F 12/06/20 06:27 88 44 H 95 12/06/20 06:24 86 103/57 L 12/06/20 06:00 23 H 12/06/20 04:15 87 12/06/20 04:00 99.7 F H 22 H 12/06/20 02:00 24 H 12/06/20 01:35 86 12/06/20 00:00 98.9 F 19 12/05/20 22:51 84 Weight Admit Weight 246 lb Weight 240 lb 4.862 oz Most Recent Monitor Data Heart Rate from ECG 84 NIBP 100/50 NIBP BP-Mean 66 Respiration from ECG 21 SpO2 96 I&O: 12/05/20 12/06/20 12/07/20 06:59 06:59 06:59 Intake Total 4475.2 2477 Output Total 1860 1270 Balance 2615.2 1207 Result Diagrams: 12/06/20 04:00 12/06/20 04:00 Additional Labs: Accuchecks 12/06/20 12/05/20 12/05/20 04:18 20:55 16:46 POC Glucose 186 H 264 H 315 H Hospitalist ROS - Medication Medications: Active Medications Generic Name Dose Route Start Last Admin Trade Name Freq PRN Reason Stop Dose Admin Amiodarone HCl 400 mg 11/28/20 21:00 12/06/20 09:49 Amiodarone 200 Mg Tab PO 400 mg BID AMARI Administration Heparin Sodium (Porcine) 5,000 units 12/06/20 09:00 12/06/20 09:58 Heparin 5,000 Units/Ml Vial SC 5,000 units BID AMARI Administration Norepinephrine Bitartrate 250 mls @ 0 mls/hr 11/19/20 21:15 12/05/20 04:26 Levophed IVPB 250 mls INF AMARI Administration Protocol Titrate Dexmedetomidine HCl 400 mcg/ 100 mls @ 0 mls/hr 11/23/20 15:00 12/06/20 04:14 Sodium Chloride IVPB 100 mls INF AMARI Administration Protocol Per Protocol Dextrose/Water 1,000 mls @ 50 mls/hr 12/05/20 10:45 12/06/20 09:48 D5w IV 1,000 mls .Q20H AMARI Administration Insulin Glargine 10 units/ 0.1 mls @ 0 mls/hr 12/05/20 21:00 12/05/20 21:02 Miscellaneous Medication SC 0.1 mls HS AMARI Administration Insulin Human Lispro 0 units 11/11/20 19:00 12/06/20 04:47 Humalog 300 Units/3 Ml Vial SC 6 unit .AGGRESSIVE SLIDING PRN Administration AGGRESSIVE SLIDING SCALE Protocol Insulin Human Lispro 0 units 11/12/20 21:30 11/12/20 22:35 Humalog 300 Units/3 Ml Vial SC 3 unit .BEDTIME SLIDING SC PRN Administration Bedtime Correctional Scale Loperamide HCl 4 mg 11/11/20 12:15 11/12/20 23:53 Loperamide Hcl 2 Mg Cap PO 4 mg QIDPRN PRN Administration Diarrhea/Loose Stools Metoprolol Tartrate 5 mg 11/10/20 18:03 11/11/20 17:11 Metoprolol Tartrate 5 Mg/5 Ml Vial IVP 5 mg Q6H PRN Administration FOR HR > 90 Mometasone Furoate/Formoterol Fumar 2 puff 11/13/20 18:30 12/06/20 06:27 Mometasone 200 Mcg/Formoterol 5 Mcg 120 Puff Inhaler INH 2 puff BID-RT AMARI Administration Morphine Sulfate 4 mg 11/27/20 09:16 12/05/20 22:20 Morphine 4 Mg/Ml Vial SLOW IVP 4 mg Q4H PRN Administration Mild-Moderate Pain (1-5) Morphine Sulfate 2 mg 11/29/20 22:46 12/05/20 18:09 Morphine 2 Mg/Ml Vial SLOW IVP 2 mg Q1H PRN Administration Breakthrough Pain/Agitation Nystatin 1 gm 11/18/20 09:00 12/05/20 20:44 Nystatin Cream 30 Gm Tube TOP 1 gm TID AMARI Administration Nystatin 1 gm 11/17/20 22:02 12/05/20 09:41 Nystatin Powder 15 Gm Bot TOP 1 gm PRN PRN Administration Topical Irritations Pantoprazole Sodium 40 mg 12/01/20 21:00 12/06/20 09:49 Pantoprazole 40 Mg Granules Packet PER TUBE 40 mg Q12HR AMARI Administration Prednisone 20 mg 12/05/20 08:00 12/06/20 09:49 Prednisone 20 Mg Tab PO 20 mg QAM-WM AMARI Administration Risperidone 0.5 mg 11/28/20 21:00 12/06/20 09:49 Risperidone 0.25 Mg Tab PO 0.5 mg BID AMARI Administration Rosuvastatin Calcium 20 mg 11/06/20 21:00 12/05/20 20:44 Rosuvastatin 20 Mg Tab PO 20 mg HS AMARI Administration Senna 1 tab 11/23/20 09:00 12/06/20 09:49 Senokot 8.6 Mg Tab PO 1 tab DAILY AMARI Administration Sodium Chloride 10 ml 11/09/20 21:00 12/06/20 09:51 Flush - Normal Saline 10 Ml Syringe IVF 10 ml Q12HR AMARI Administration Hospitalist Exam Vitals: Vital Signs (12 hours) Temp Pulse Resp BP Pulse Ox 12/06/20 10:28 90 105/56 L 12/06/20 08:00 20 96 12/06/20 07:00 99.1 F 12/06/20 06:27 88 44 H 95 12/06/20 06:24 86 103/57 L 12/06/20 06:00 23 H 12/06/20 04:15 87 12/06/20 04:00 99.7 F H 22 H 12/06/20 02:00 24 H 12/06/20 01:35 86 12/06/20 00:00 98.9 F 19 12/05/20 22:51 84 Weight Admit Weight 246 lb Weight 240 lb 4.862 oz Most Recent Monitor Data Heart Rate from ECG 84 NIBP 100/50 NIBP BP-Mean 66 Respiration from ECG 21 SpO2 96 General Appearance: NAD, awake alert Eye: PERRL, anicteric sclera Heart: RRR, no murmur, no gallops, no rubs, normal peripheral pulses Respiratory: no wheezes, no ronchi, rales (at both bases) Gastrointestinal: soft, non-tender, non-distended, normal bowel sounds, no palpable masses, no hepatomegaly Extremities: no cyanosis (palpable d.p. pulses bilaterally), 1+ LE edema Hosp A/P (1) GI bleeding Code(s): K92.2 - GASTROINTESTINAL HEMORRHAGE, UNSPECIFIED Status: Acute (2) Acute blood loss anemia Code(s): D62 - ACUTE POSTHEMORRHAGIC ANEMIA Status: Acute (3) Pneumonia due to COVID-19 virus Code(s): U07.1 - COVID-19; J12.82 - PNEUMONIA DUE TO CORONAVIRUS DISEASE 2019 Status: Acute (4) Acute kidney injury superimposed on CKD Code(s): N17.9 - ACUTE KIDNEY FAILURE, UNSPECIFIED; N18.9 - CHRONIC KIDNEY DISEASE, UNSPECIFIED Status: Acute (5) Acute respiratory failure with hypoxia Code(s): J96.01 - ACUTE RESPIRATORY FAILURE WITH HYPOXIA Status: Acute (6) Hyperlipidemia Code(s): E78.5 - HYPERLIPIDEMIA, UNSPECIFIED Status: Chronic (7) Hypertension Code(s): I10 - ESSENTIAL (PRIMARY) HYPERTENSION Status: Chronic (8) Diabetes mellitus Code(s): E11.9 - TYPE 2 DIABETES MELLITUS WITHOUT COMPLICATIONS Status: Chronic (9) Atrial fibrillation with rapid ventricular response Code(s): I48.91 - UNSPECIFIED ATRIAL FIBRILLATION Status: Acute - Plan * Acute respiratory failure due to COVID pneumonia- he continues to require Vent support. * Continue Decadron * GI- bleed- He had an appropriate rise in his Hemoglobin post transfusion. Continue Protonix and transfuse as needed * DM- blood glucose is a bit elevated- continue Lantus and SSI * Nutritional Support with tube feeds * HEBER-renal function is stable- continue free water replacement * Hypernatremia- as above continue free water replacement via tube * Hypotension- He continue to require a low dose Levophed. He does not appear septic clinically, may need to check for adrenal insufficiency- will check a Cortrosyn Stem test in the AM * AFIB - his heart rate is stable-Continue Amiodarone, and no anticoagulation due to severe anemia and GI Bleed
[2020-12-06] MEDS ORDERED: Cosyntropin 250 MCG VIAL SLOW IVP SCH (11:00)
[2020-12-06] MEDS: Morphine 4 MG/ML VIAL SLOW IVP PRN ×2 (12:15→21:41)
[2020-12-06] MEDS: Norepinephrine 8 MG/0.9% NS 250 ML IVPB SCH (14:35)
--- NOTE | 2020-12-06 16:13 | CON ---
DATE OF CONSULTATION: 12/06/2020 CHIEF COMPLAINT: Respiratory failure. HISTORY OF PRESENT ILLNESS: This is a 69-year-old male with a prolonged hospitalization with COVID pneumonia. His respiratory status is improved, although, he is so deconditioned now that he still requires persistent vent settings. I then consulted for tracheostomy and PEG feeding tube. Most of the history is obtained from the hospital chart due to the patient's ventilator status. He was admitted on 11/05/2020. PAST MEDICAL HISTORY: Includes atrial fibrillation, hypertension, hyperlipidemia, diabetes. SURGICAL HISTORY: Appendectomy. MEDICATIONS: Taken daily, see list. ALLERGIES: NO KNOWN DRUG ALLERGIES. SOCIAL HISTORY: No smoking, alcohol, or other drugs. REVIEW OF SYSTEMS: Unable to obtain due to ventilated status. PHYSICAL EXAMINATION: VITAL SIGNS: Blood pressure 104/52, his heart rate 90, his O2 saturation is at 96% on FiO2 of 40, his PEEP is 5, and pressure support of 10 on the ventilator. NECK: No obvious previous scars. CHEST: Coarse breath sounds bilateral. HEART: Regular rate. ABDOMEN: Soft, nontender. No upper abdominal hernias or surgical scars. EXTREMITIES: No ischemia or edema to extremities. LABORATORY DATA: White blood cell count is 6, hemoglobin is 8.1. Creatinine is 2.0. ASSESSMENT: 1. Respiratory failure secondary to resolving COVID pneumonia. 2. Severe deconditioning. 3. Acute on chronic renal insufficiency. PLAN: Tracheostomy and PEG feeding tube tomorrow. We will make sure Anesthesia sees him preop to make sure he is stable enough to go down to the operating room. Discussion with family. We will discuss risks, benefits, and alternatives to family and get consent. Job ID: [id number]
[2020-12-06] MEDS: Rosuvastatin 20 MG TAB PO SCH (21:16)
[2020-12-06] MEDS: Pantoprazole 40 MG VIAL IVP SCH (21:16)
[2020-12-06] MEDS: Insulin Glargine 10 UNITS in Pre-Filled Syringe 1 EACH SC SCH (21:20)
[2020-12-07] MEDS: Dextrose 5% in Water 1,000 ML IV SCH (03:24)
[2020-12-07 04:18] LABS: #Lymphocytes 0.2 thou/uL (1.20-3.40); #Monocytes 0.3 thou/uL (0.11-0.59); #Neutrophils 6.8 thou/uL (1.40-6.50); %Eosinophils 0.2 % (0.0-10.0); %Lymphocytes 2.9 % (21.0-51.0); %Monocytes 4.4 % (0.0-10.0); %Neutrophils 92.4 % (42.0-75.0); Hemoglobin 7.4 g/dL (14.0-18.0); Mean Corpuscular HGB CONC 32.2 g/dL (32.0-36.0); Mean Corpuscular Hemoglobin 29.4 pg (27.0-31.0); Mean Corpuscular Volume 91.4 fL (78.0-98.0); Mean Platelet Volume 8.8 fL (7.4-10.4); Platelet Count 110 thou/uL (130-400); RBC Distribution Width 17.6 % (11.5-14.5); Red Blood Cell (RBC) Count 2.52 mill/uL (4.70-6.10); White Blood Cell (WBC) Count 7.4 thou/uL (4.8-10.8)
[2020-12-07 04:33] LABS: Anion Gap 14 mmol/L (10-20); Calc. Creatinine Clearance 42 mL/min (70-130); Calcium 7.7 mg/dL (7.8-10.44); Carbon Dioxide 21 mmol/L (23-31); Chloride 112 mmol/L (98-107); Glucose 203 mg/dL (80-115); Potassium 4.8 mmol/L (3.5-5.1); Sodium 142 mmol/L (136-145)
[2020-12-07 04:44] LABS: BUN (Urea Nitrogen) 134 mg/dL (8.4-25.7)
--- NOTE | 2020-12-07 06:21 | PRG ---
DATE OF SERVICE: 12/06/2020 SUBJECTIVE: Mr. Aldridge remains on the ventilator. His nurse notes that he has had no bowel movements and tolerating tube feeds. Medications reviewed. He continues on heparin subcu, pantoprazole 40 mg q.12 via his tube, prednisone 20 mg daily. He is on the ventilator. OBJECTIVE: VITAL SIGNS: Blood pressure 104/52, pulse 90, and temperature is 99.7. GENERAL: He is intubated. He has NG tube in place where he is receiving tube feeds. LUNGS: Clear. HEART: Regular rate and rhythm. ABDOMEN: Nontender. Rectal tube is in place. LABORATORY DATA: Hemoglobin is 8.1 today, white count 6.5, and platelets 96,000. Sodium 146, potassium 4.6, BUN and creatinine 125 and 2.07. Iron , iron 16, TIBC 121, saturation 13% with a ferritin of 443. This is likely anemia of chronic disease. ASSESSMENT: 1. Gastrointestinal hemorrhage from diffuse duodenal ulcerations, likely related to critical care illness. 2. Respiratory failure secondary to coronavirus. 3. Supraventricular tachycardia. 4. Encephalopathy. 5. Prerenal azotemia. RECOMMENDATIONS: If he is going to be on heparin, he needs to be on IV PPI. If the patient has recurrent bleeding, the heparin is going to need to be stopped. We will follow from a distance at this time. Please do not hesitate to call me if I can be of any further assistance in the patient's care. Job ID: [id number]
[2020-12-07] MEDS: Mometasone 200 MCG/Formoterol 5 MCG 120 PUFF INHALER INH SCH ×2 (06:40→19:00)
--- NOTE | 2020-12-07 08:24 | RAD ---
Exam: Chest one view HISTORY:Respiratory distress. Ventilated patient. Comparison: 12/06/2020 FINDINGS: Lines and tubes: Stable endotracheal tube, nasogastric tube and left-sided PICC line. Cardiac silhouette: Normal Aorta: Unremarkable Pulmonary vessels: Normal Costophrenic angles: Clear LUNGS: Stable multifocal interstitial and alveolar opacities. Pneumothorax: None Osseous abnormalities: None IMPRESSION: No significant interval change. Stable multifocal interstitial and alveolar opacities.
--- NOTE | 2020-12-07 09:15 | PRG ---
DATE OF SERVICE: 12/07/2020 SUBJECTIVE: Kristy Aldridge remains intubated in the vent. He has undergone a trach and a PEG as per his family's wishes. OBJECTIVE: VITAL SIGNS: Pulse 94, respirations 25, saturations are 96% on 40%, PEEP of 5, and 100/51 is the blood pressure. His I's and O's have been consistently positive. CHEST: Bilateral rhonchi and crackles. CARDIAC: Normal S1 and S2. ABDOMEN: No masses. LABORATORY DATA: Platelet count 110, hemoglobin and hematocrit of 7 and 23. BUN and creatinine are still elevated. X-ray this morning shows evidence of fluid overload. ASSESSMENT AND PLAN: Congestive heart failure, cochran positive pneumonia, prolonged intubation, encephalopathy, renal failure. The patient may require dialysis to improve his renal function and his fluid overload status. He is still on low-dose steroids. Trach and a PEG today, slow wean. Continue heparin, PT, wean post surgery. One-half hour of critical care time. Job ID: [id number]
[2020-12-07] MEDS: risperiDONE 0.25 MG TAB PO SCH ×2 (09:28→20:44)
[2020-12-07] MEDS: Senokot 8.6 MG TAB PO SCH (09:29)
[2020-12-07] MEDS: Amiodarone 200 MG TAB PO SCH (09:29)
[2020-12-07] MEDS: predniSONE 20 MG TAB PO SCH (09:30)
[2020-12-07] MEDS: Pantoprazole 40 MG VIAL IVP SCH ×2 (09:31→20:44)
[2020-12-07] MEDS ORDERED: Morphine 4 MG/ML VIAL SLOW IVP PRN (09:42)
[2020-12-07] MEDS: Nystatin Cream 30 GM TUBE TOP SCH ×3 (09:47→20:57)
[2020-12-07] MEDS: Norepinephrine 8 MG/0.9% NS 250 ML IVPB SCH ×2 (12:49→18:15)
[2020-12-07] MEDS ORDERED: Lactated Ringer's 1,000 ML IV SCH (13:30)
[2020-12-07] MEDS ORDERED: Sodium Chloride 0.9% 500 ML IV SCH (13:30)
--- NOTE | 2020-12-07 13:30 | PDOC.HOSPP ---
- Subjective Encounter Date: 12/07/20 Encounter Time: 13:29 Subjective: Mr. Aldridge was seen in follow-up of COVID pneumonia. He is awake, and follows commands. He appears weak. - Objective Vital Signs & Weight: Vital Signs (12 hours) Temp Pulse Pulse Pulse Resp BP BP 12/07/20 12:00 24 H 12/07/20 11:04 94 94/39 L 12/07/20 10:46 95 94 99/55 L 12/07/20 10:00 24 H 12/07/20 09:00 99.4 F 12/07/20 08:00 99.8 F H 21 H 12/07/20 06:40 94 25 H 12/07/20 06:36 90 103/50 L 12/07/20 06:00 19 12/07/20 04:00 98.1 F 19 12/07/20 03:54 92 12/07/20 02:00 20 BP Pulse Ox Pulse Ox Pulse Ox 12/07/20 12:00 12/07/20 11:04 12/07/20 10:46 97/55 L 94 L 94 L 12/07/20 10:00 12/07/20 09:00 12/07/20 08:00 12/07/20 06:40 96 12/07/20 06:36 12/07/20 06:00 12/07/20 04:00 12/07/20 03:54 12/07/20 02:00 Weight Admit Weight 246 lb Weight 238 lb 1.588 oz Most Recent Monitor Data Heart Rate from ECG 96 NIBP 81/41 NIBP BP-Mean 54 Respiration from ECG 21 SpO2 97 I&O: 12/06/20 12/07/20 12/08/20 06:59 06:59 06:59 Intake Total 2477 3367.4 Output Total 1270 1005 115 Balance 1207 2362.4 -115 Result Diagrams: 12/07/20 04:00 12/07/20 04:00 Additional Labs: Accuchecks 12/07/20 12/06/20 12/06/20 04:09 21:19 16:15 POC Glucose 188 H 212 H 213 H Hospitalist ROS - Medication Medications: Active Medications Generic Name Dose Route Start Last Admin Trade Name Freq PRN Reason Stop Dose Admin Heparin Sodium (Porcine) 5,000 units 12/06/20 09:00 02/18/21 21:38 Heparin 5,000 Units/Ml Vial SC Not Given BID AMARI Norepinephrine Bitartrate 250 mls @ 0 mls/hr 11/19/20 21:15 12/07/20 12:49 Levophed IVPB 250 mls INF AMARI Administration Protocol Titrate Dexmedetomidine HCl 400 mcg/ 100 mls @ 0 mls/hr 11/23/20 15:00 12/07/20 09:45 Sodium Chloride IVPB 100 mls INF AMARI Administration Protocol Per Protocol Insulin Glargine 10 units/ 0.1 mls @ 0 mls/hr 12/05/20 21:00 12/06/20 21:20 Miscellaneous Medication SC 0.1 mls HS AMARI Administration Insulin Human Lispro 0 units 11/11/20 19:00 12/06/20 21:21 Humalog 300 Units/3 Ml Vial SC 6 unit .AGGRESSIVE SLIDING PRN Administration AGGRESSIVE SLIDING SCALE Protocol Insulin Human Lispro 0 units 11/12/20 21:30 11/12/20 22:35 Humalog 300 Units/3 Ml Vial SC 3 unit .BEDTIME SLIDING SC PRN Administration Bedtime Correctional Scale Loperamide HCl 4 mg 11/11/20 12:15 11/12/20 23:53 Loperamide Hcl 2 Mg Cap PO 4 mg QIDPRN PRN Administration Diarrhea/Loose Stools Metoprolol Tartrate 5 mg 11/10/20 18:03 11/11/20 17:11 Metoprolol Tartrate 5 Mg/5 Ml Vial IVP 5 mg Q6H PRN Administration FOR HR > 90 Mometasone Furoate/Formoterol Fumar 2 puff 11/13/20 18:30 12/07/20 06:40 Mometasone 200 Mcg/Formoterol 5 Mcg 120 Puff Inhaler INH 2 puff BID-RT AMARI Administration Morphine Sulfate 2 mg 11/29/20 22:46 12/05/20 18:09 Morphine 2 Mg/Ml Vial SLOW IVP 2 mg Q1H PRN Administration Breakthrough Pain/Agitation Nystatin 1 gm 11/18/20 09:00 12/07/20 09:47 Nystatin Cream 30 Gm Tube TOP 1 gm TID AMARI Administration Nystatin 1 gm 11/17/20 22:02 12/05/20 09:41 Nystatin Powder 15 Gm Bot TOP 1 gm PRN PRN Administration Topical Irritations Pantoprazole Sodium 40 mg 12/06/20 21:00 12/07/20 09:31 Pantoprazole 40 Mg Vial IVP 40 mg Q12HR AMARI Administration Prednisone 20 mg 12/05/20 08:00 12/07/20 09:30 Prednisone 20 Mg Tab PO 20 mg QAM-WM AMARI Administration Risperidone 0.5 mg 11/28/20 21:00 12/07/20 09:28 Risperidone 0.25 Mg Tab PO 0.5 mg BID AMARI Administration Rosuvastatin Calcium 20 mg 11/06/20 21:00 12/06/20 21:16 Rosuvastatin 20 Mg Tab PO 20 mg HS AMARI Administration Senna 1 tab 11/23/20 09:00 12/07/20 09:29 Senokot 8.6 Mg Tab PO Not Given DAILY AMARI Sodium Chloride 10 ml 11/09/20 21:00 12/07/20 09:30 Flush - Normal Saline 10 Ml Syringe IVF 10 ml Q12HR AMARI Administration Hospitalist Exam Vitals: Vital Signs (12 hours) Temp Pulse Pulse Pulse Resp BP BP 12/07/20 12:00 24 H 12/07/20 11:04 94 94/39 L 12/07/20 10:46 95 94 99/55 L 12/07/20 10:00 24 H 12/07/20 09:00 99.4 F 12/07/20 08:00 99.8 F H 21 H 12/07/20 06:40 94 25 H 12/07/20 06:36 90 103/50 L 12/07/20 06:00 19 12/07/20 04:00 98.1 F 19 12/07/20 03:54 92 12/07/20 02:00 20 BP Pulse Ox Pulse Ox Pulse Ox 12/07/20 12:00 12/07/20 11:04 12/07/20 10:46 97/55 L 94 L 94 L 12/07/20 10:00 12/07/20 09:00 12/07/20 08:00 12/07/20 06:40 96 12/07/20 06:36 12/07/20 06:00 12/07/20 04:00 12/07/20 03:54 12/07/20 02:00 Weight Admit Weight 246 lb Weight 238 lb 1.588 oz Most Recent Monitor Data Heart Rate from ECG 96 NIBP 81/41 NIBP BP-Mean 54 Respiration from ECG 21 SpO2 97 General Appearance: NAD Eye: PERRL, anicteric sclera Heart: RRR, no murmur, no gallops, no rubs, normal peripheral pulses Respiratory: CTAB, rales (at the bases) Gastrointestinal: soft, non-tender, non-distended, normal bowel sounds, no palpable masses, no hepatomegaly Extremities: no cyanosis, no edema (+ palpable pulses bilaterally, no lesions) Hosp A/P (1) GI bleeding Code(s): K92.2 - GASTROINTESTINAL HEMORRHAGE, UNSPECIFIED Status: Acute (2) Acute blood loss anemia Code(s): D62 - ACUTE POSTHEMORRHAGIC ANEMIA Status: Acute (3) Pneumonia due to COVID-19 virus Code(s): U07.1 - COVID-19; J12.82 - PNEUMONIA DUE TO CORONAVIRUS DISEASE 2019 Status: Acute (4) Acute kidney injury superimposed on CKD Code(s): N17.9 - ACUTE KIDNEY FAILURE, UNSPECIFIED; N18.9 - CHRONIC KIDNEY DISEASE, UNSPECIFIED Status: Acute (5) Acute respiratory failure with hypoxia Code(s): J96.01 - ACUTE RESPIRATORY FAILURE WITH HYPOXIA Status: Acute (6) Hyperlipidemia Code(s): E78.5 - HYPERLIPIDEMIA, UNSPECIFIED Status: Chronic (7) Hypertension Code(s): I10 - ESSENTIAL (PRIMARY) HYPERTENSION Status: Chronic (8) Diabetes mellitus Code(s): E11.9 - TYPE 2 DIABETES MELLITUS WITHOUT COMPLICATIONS Status: Chronic (9) Atrial fibrillation with rapid ventricular response Code(s): I48.91 - UNSPECIFIED ATRIAL FIBRILLATION Status: Acute - Plan * Acute respiratory failure due to COVID pneumonia- he continues to require Vent support. * Hypotension- he may be volume depleted- will bolus with NS, and change his fluids to LR * He is on Prednisone- will add Stress dose steroids, at least a few days to assess * GI- bleed- Continue Protonix and transfuse as needed * DM- blood glucose is a bit elevated- continue Lantus and SSI * Nutritional Support with tube feeds * HEBER-renal function is stable- worsening- will increase fluids, he may be volume depleted * Hypernatremia- resolved * Cortrosyn stem was cancelled, due to patient being on Prednisone- will add str ess dose steroids * AFIB - his heart rate is stable-Continue Amiodarone, and no anticoagulation due to severe anemia and GI Bleed * Prognosis is guarded
[2020-12-07 13:57] VITALS: BMI 30.5
[2020-12-07] MEDS ORDERED: Hydrocortisone Sod Succ/PF 250 mg/2 ml Vial SLOW IVP SCH (14:00)
[2020-12-07 14:06] VITALS: BP 105/45
[2020-12-07] MEDS: Sodium Chloride 0.9% 1,000 ML IV SCH (14:15)
--- NOTE | 2020-12-07 14:19 | PDOC.BPN ---
- Brief Progress Note Encounter Date: 12/07/20 Encounter Time: 14:17 I spoke with the patient's sister, and updated her on his medical condition. His marginal blood pressures, and worsening renal function, and GI bleed. We also discussed the tracheostomy, and it's indication as well as the COVID infection, and an estimate at his chance for recovery. She has decided to change his code status to DNAR.
--- NOTE | 2020-12-07 15:46 | PRG ---
DATE OF SERVICE: 12/07/2020 Mr. Aldridge's tracheostomy and PEG tube placement have been put off for today. He was more hypotensive this morning. There was also question of need for dialysis catheter. Levophed requirements were higher. We will discuss with Dr. Lemon, who is covering for the weekend. If his condition stabilizes a bit, there is a possibility Dr. Lemon could do trach and PEG this weekend. Otherwise, I will reassess on Thursday. Job ID: [id number]
[2020-12-07] MEDS: HumaLOG 300 UNITS/3 ML VIAL SC PRN ×2 (16:44→20:44)
--- NOTE | 2020-12-07 16:46 | PDOC.FMACP ---
Advance Care Planning - Problem (1) Palliative care encounter Status: Acute Code(s): Z51.5 - ENCOUNTER FOR PALLIATIVE CARE (2) Acute kidney injury superimposed on CKD Status: Acute Code(s): N17.9 - ACUTE KIDNEY FAILURE, UNSPECIFIED; N18.9 - CHRONIC KIDNEY DISEASE, UNSPECIFIED (3) Acute respiratory failure with hypoxia Status: Acute Code(s): J96.01 - ACUTE RESPIRATORY FAILURE WITH HYPOXIA (4) Pneumonia due to COVID-19 virus Status: Acute Code(s): U07.1 - COVID-19; J12.82 - PNEUMONIA DUE TO CORONAVIRUS DISEASE 2018 (5) Diabetes mellitus Status: Chronic Code(s): E11.9 - TYPE 2 DIABETES MELLITUS WITHOUT COMPLICATIONS (6) Hyperlipidemia Status: Chronic Code(s): E78.5 - HYPERLIPIDEMIA, UNSPECIFIED (7) Hypertension Status: Chronic Code(s): I10 - ESSENTIAL (PRIMARY) HYPERTENSION - Note Participants: surrogate decision-maker, palliative care Summary: Reviewed Advanced Care Planning with Uzma patient surrogate decision maker who is his sibling. Palliative care RN made initial contact, please refer to notes in note section. The diagnosis, prognosis and goals of care were discussed. Appropriate forms and documentation to accomplish the goals of care were discussed. All questions were answered. Confirmed her desire to transition to DNAR as discussed with Dr Jerry Reviewed prognosis and meaningful recovery. Was to have Trach/Peg today but secondary to hypotension. Palliative care will follow up with phone call 12/08/20 to revisit Goal of Care and discuss what "Mr Aldridge" would desire. Emotional support and Therapeutic listening. Completed DNAR consent with witness of patient primary RN and Myself. Initial verbal consent obtained by Dr Jerry Time Spent (mins): 20
--- NOTE | 2020-12-07 17:21 | PRG ---
DATE OF SERVICE: 12/07/2020 SUBJECTIVE: The patient is seen, still on life support. OBJECTIVE: VITAL SIGNS: Temperature maximum 100.7, blood pressure pulse of 98. HEENT: Remarkable for endotracheal tube in place. CARDIOVASCULAR SYSTEM: First and second heart sounds were heard. RESPIRATORY SYSTEM: Revealed vented sounds. DIGESTIVE SYSTEM: Revealed a benign abdomen with positive bowel sounds. EXTREMITIES: No peripheral edema. LABORATORY INVESTIGATION: Showed a hemoglobin of 7.4. Chemistry showed a bicarb of 21, BUN of 134 with a creatinine , calcium 7.7. IMPRESSION: 1. Acute kidney injury, likely hemodynamically slight gastrointestinal bleed mediated. 2. Profound azotemia, related to gastrointestinal bleed. 3. Hypernatremia, resolved. PLAN: 1. Continue current renal supportive measures. I am a little bit concerned with the rise in the creatinine in this patient as this may signal underlying acute tubular necrosis that is progressively getting worse. Please avoid potentially nephrotoxic agents. 2. Transfuse on p.r.n. basis. 3. Hemodynamic support. 4. Further management to be dependent on the clinical course. Job ID: [id number]
[2020-12-07 20:24] VITALS: TEMP 98.1
[2020-12-07] MEDS: Insulin Glargine 10 UNITS in Pre-Filled Syringe 1 EACH SC SCH (20:43)
[2020-12-07] MEDS: Rosuvastatin 20 MG TAB PO SCH (20:44)
[2020-12-07] MEDS: Morphine 2 MG/ML VIAL SLOW IVP PRN (21:53)
--- NOTE | 2020-12-07 22:46 | PDOC.BPN ---
- Brief Progress Note Encounter Date: 12/07/20 I was notified earlier in the night about patient having low BP and heart rate He appeared to be actively dying. Nurse talked to his sister who did not want any further intervention giving his generally poor prognosis. Patient was therefore monitored until passing at 22:11. His nurse pronounced.
--- NOTE | 2020-12-08 03:20 | PRG ---
DATE OF SERVICE: 12/07/2020 SUBJECTIVE: Mr. Aldridge remains intubated. Talked with his nurse. He is tolerating tube feeds. Has had no bleeding. MEDICATIONS: Reviewed. He continues on: 1. Pantoprazole 40 IV q.12. 2. Heparin 5000 b.i.d. 3. Prednisone. OBJECTIVE: VITAL SIGNS: Pulse 102, blood pressure 105/45, temperature 100.2 max at 1600 yesterday, 99.4 presently. In's and out's 3367 and 1005. GENERAL: He is having physical therapy done to him. He is intubated and sedated. LABORATORY DATA: White count 7.4. Hemoglobin 7.4, 8.1 yesterday, 7.1 on the . Platelet count 110. BUN 134, creatinine 2.5; both up from yesterday. ASSESSMENT: 1. Gastrointestinal bleed secondary to duodenitis status post esophagogastroduodenoscopy on the . Biopsy showed mild peptic duodenitis, likely stress ulceration related to steroids and long-term ventilation for COVID infection. 2. Tolerating tube feeds. 3. No signs of overt bleeding. RECOMMENDATIONS: Continue IV Protonix q.12 hours. He is high risk for stress ulceration. We will sign off at this time. If I can be any further assistance in his care or if he has recurrent bleeding, please do not hesitate to contact me. Job ID: [id number]
[2020-12-08] MEDS ORDERED: Amiodarone 200 MG TAB PO SCH (09:00)
== END 2020-12-07 22:11 | disposition expired | DRG 207 ==
LOC: ERS 09:58 → ERHOLD 12:28 → 2SE 18:32 → CCU 11-19 21:40
PROVIDERS: ADMIT Internal Medicine; ATTEND Internal Medicine
PROC: XW13325 Transfusion of Convalescent Plasma (Nonautologous) into Peripheral Vein, Percutaneous Approach, New Technology Group 5 (ICD-10-PCS; 2020-11-07)
PROC: 5A1955Z Respiratory Ventilation, Greater than 96 Consecutive Hours (ICD-10-PCS; principal; 2020-11-19)
PROC: 0BH17EZ Insertion of Endotracheal Airway into Trachea, Via Natural or Artificial Opening (ICD-10-PCS; 2020-11-19)
PROC: 5A2204Z Restoration of Cardiac Rhythm, Single (ICD-10-PCS; 2020-11-20)
PROC: 0W3P8ZZ Control Bleeding in Gastrointestinal Tract, Via Natural or Artificial Opening Endoscopic (ICD-10-PCS; 2020-12-04)
PROC: 0DB98ZX Excision of Duodenum, Via Natural or Artificial Opening Endoscopic, Diagnostic (ICD-10-PCS; 2020-12-04)
PROC: 30233N1 Transfusion of Nonautologous Red Blood Cells into Peripheral Vein, Percutaneous Approach (ICD-10-PCS; 2020-12-05)
DX: U07.1 COVID-19 (principal); J12.82 Pneumonia due to coronavirus disease 2019; J96.01 Acute respiratory failure with hypoxia; G93.41 Metabolic encephalopathy; B37.7 Candidal sepsis; K26.4 Chronic or unspecified duodenal ulcer with hemorrhage; E87.2 Acidosis; N17.9 Acute kidney failure, unspecified; E87.0 Hyperosmolality and hypernatremia; I47.1 Supraventricular tachycardia; B37.49 Other urogenital candidiasis; D62 Acute posthemorrhagic anemia; I13.0 Hypertensive heart and chronic kidney disease with heart failure and stage 1 through stage 4 chronic kidney disease, or unspecified chronic kidney disease; Z66 Do not resuscitate; I48.91 Unspecified atrial fibrillation; E86.0 Dehydration; R79.89 Other specified abnormal findings of blood chemistry; E11.65 Type 2 diabetes mellitus with hyperglycemia; E11.22 Type 2 diabetes mellitus with diabetic chronic kidney disease; E78.5 Hyperlipidemia, unspecified; T38.0X5A Adverse effect of glucocorticoids and synthetic analogues, initial encounter; I95.9 Hypotension, unspecified; D72.829 Elevated white blood cell count, unspecified; R19.00 Intra-abdominal and pelvic swelling, mass and lump, unspecified site; N18.9 Chronic kidney disease, unspecified; I50.9 Heart failure, unspecified; E87.5 Hyperkalemia; R33.9 Retention of urine, unspecified; D69.59 Other secondary thrombocytopenia; D64.9 Anemia, unspecified; K31.9 Disease of stomach and duodenum, unspecified; J20.9 Acute bronchitis, unspecified; T45.515A Adverse effect of anticoagulants, initial encounter; Z90.49 Acquired absence of other specified parts of digestive tract
CPT/HCPCS: 0240U; 36415; 36416; 36430; 36569; 36600; 71045; 71275; 76705; 80048; 80053; 80400; 81001; 81003; 81015; 82274; 82550; 82553; 82728; 82805; 83540; 83550; 83605; 83735; 83880; 84100; 84443; 84484; 85025; 85027; 85379; 85610; 85730; 86140; 86850; 86900; 86901; 87040; 87086; 87324; 87449; 88305; 93005; 93010; 94002; 94003; 94660; 94760; 96365; 96366; 96367; 96368; 96372; 96375; C1751; C9113; J0171; J0282; J0692; J1100; J1160; J1450; J1644; J1650; J1720; J1815; J1940; J2060; J2270; J2543; J2704; J3010; J3475; J3480; J3490; J7070; J7512; J8540; P9016; P9017; P9045; P9047; Q9967